=== PATIENT | male | born 1950 | race Caucasian/White ===

== ENCOUNTER 2016-12-21 21:57 | Observation (INO) | payer MEDICARE, MEDICAID ==
[2016-12-21] MEDS ORDERED: HYDROmorphone 2 MG/ML SDV IM ONE (21:58)
--- NOTE | 2016-12-21 23:25 | EDM.PDOC ---
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 He injured his left knee and is not able to extend it due to pain. He denied other injuries. No N/V/D or other acute medical issues. BP 145/100 pulse 95 Temp 36.1 Pulse ox 95% Onset: Today Onset Date: 12/21/16 Onset Time: 20:00 Duration: Hour(s):, Getting Worse Location: Reports: Lower Extremity, Left Quality: Reports: Ache, Burning, Stabbing, Throbbing Severity: Moderate Improves with: Reports: Rest Worsens with: Reports: Movement Context: Reports: Trauma (fell out of wheelchair) Associated Symptoms: Reports: Weakness, Other (left sided hemiparesis) Treatments ETL CONSULTANT: Reports: NSAIDS (toradol 30 mg i.m) Left Knee Pain Score (Numeric/FACES): 7 - Related Data Allergies Allergy/AdvReac Type Severity Reaction Status Date / Time Penicillins Allergy Anaphylactic Verified 12/22/16 00:22 Shock Home Meds: Home Meds Multivitamin/Iron/Folic Acid [Centrum Complete Multivit] 1 each PO DAILY [History] levETIRAcetam [Keppra] 250 mg PO BID 09/15/13 [History] Aspirin [Ecotrin] 325 mg PO DAILY 08/13/15 [History] Fenofibrate Nanocrystallized [Fenofibrate] 145 mg PO DAILY 08/13/15 [History] Metoprolol Tartrate 37.5 mg PO BID 08/13/15 [History] Omeprazole 20 mg PO DAILY 08/13/15 [History] amLODIPine [Norvasc] 5 mg PO DAILY 08/13/15 [History] atorvaSTATin [Lipitor] 10 mg PO DAILY 08/13/15 [History] Past Medical History HEENT History: Reports: Impaired Vision, Other (See Below) Other HEENT History: missing several teeth Cardiovascular History: Reports: Bypass, High Cholesterol, Hypertension Respiratory History: Reports: Other (See Below) Other Respiratory History: smoker Musculoskeletal History: Reports: Other (See Below) Other Musculoskeletal History: pt uses w/c post cva Neurological History: Reports: CVA, Seizure - Past Surgical History HEENT Surgical History: Reports: Oral Surgery Cardiovascular Surgical History: Reports: Coronary Artery Bypass GI Surgical History: Reports: Hernia Repair/Other Dermatological Surgical History: Reports: Other (See Below) Social & Family History - Family History Family Medical History: Noncontributory - Tobacco Use Smoking Status *Q: Current Every Day Smoker Years of Tobacco use: 48 Packs/Tins Daily: 0.1 - Caffeine Use Caffeine Use: Reports: Coffee - Recreational Drug Use Recreational Drug Use: No Review of Systems - Review of Systems Review Of Systems: See Below Constitutional: Reports: No Symptoms Eyes: Reports: No Symptoms Ears: Reports: No Symptoms Nose: Reports: No Symptoms Mouth/Throat: Reports: No Symptoms Respiratory: Reports: No Symptoms Cardiovascular: Reports: No Symptoms GI/Abdominal: Reports: No Symptoms Genitourinary: Reports: No Symptoms Musculoskeletal: Reports: Leg Pain Skin: Reports: No Symptoms Neurological: Reports: Difficulty Walking, Other (left sided hemiparesis) Psychiatric: Reports: No Symptoms ED EXAM, GENERAL - Physical Exam Exam: See Below Exam Limited By: Physical Impairment General Appearance: Alert, Moderate Distress (left knee pain), Thin Eye Exam: Bilateral Eye: Normal Inspection Ears: Normal External Exam Ear Exam: Bilateral Ear: Auricle Normal Nose: Normal Inspection Throat/Mouth: Other (dry mucosal membrane ) Head: Atraumatic, Normocephalic Neck: Normal Inspection, Supple, Non-Tender Respiratory/Chest: No Respiratory Distress, Lungs Clear (poor insp effort) Cardiovascular: Normal Peripheral Pulses, Regular Rate, Rhythm, No Edema GI/Abdominal: Normal Bowel Sounds, Soft, Non-Tender (Male) Exam: Deferred Rectal (Males) Exam: Deferred Back Exam: Normal Inspection Extremities: Joint Swelling, Leg Pain, Limited Range of Motion (left knee) Neurological: Alert, Oriented, CN II-XII Intact, Normal Cognition Psychiatric: Normal Affect, Normal Mood Skin Exam: Warm, Dry, Intact, Normal Color, No Rash Lymphatic: No Adenopathy Course - Vital Signs Text/Narrative:: 66 y.o.w.m with H/O CAD.Left sided hemiparesis, wheelchair bound, 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 He injured his left knee and is not able to extend it due to pain. He denied other injuries. No N/V/D or other acute medical issues. BP 145/100 pulse 95 Temp 36.1 Pulse ox 95% PE: Left knee pain with deformity. Left hemiplegia Imaging: Left knee x ray: Tiboplatea fx CT left knee: Minimally displaced oblique fracture of lateral femoral condyle. Impacted lateral tibial plateau Fx with .5 cm depression of plateau. small hemarthrosis. Labs: Pending Impression: Fall, Minimally displaced oblique fracture of lateral femoral condyle. Impacted lateral tibial plateau Fx with .5 cm depression of plateau. small hemarthrosis. Dehtdration, leftsided hemiplegia 11.24 pm consultation: Dr. Hutchins, Ortho: recommended CT left knee, then call back tomorrow. Plan: Admit to her Last Recorded V/S: Last Vital Signs Temp 36.6 C 12/22/16 00:00 Pulse 86 12/22/16 00:00 Resp 18 12/22/16 00:00 BP 140/98 H 12/22/16 00:00 Pulse Ox 96 12/22/16 00:00 - Orders/Labs/Meds Orders: Active Orders 24 hr Category Date Time Status Knee 3V Lt [CR] Stat Exams 12/21/16 21:58 Taken Lower Extremity wo Cont Lt [CT] Stat Exams 12/21/16 23:50 Ordered BASIC METABOLIC PANEL,BMP [CHEM] Stat Lab 12/21/16 23:52 Ordered CBC WITH AUTO DIFF [HEME] Stat Lab 12/21/16 23:52 Ordered INR,PT,PROTHROMBIN TIME [COAG] Stat Lab 12/21/16 23:52 Ordered Medication Orders Amlodipine Besylate (Norvasc) 5 mg PO DAILY [facility] Atorvastatin Calcium (Lipitor) 10 mg PO DAILY [facility] Docusate Sodium (Colace) 100 mg PO BID PRN PRN Reason: Constipation Fenofibrate (Tricor) 145 mg PO DAILY [facility] Lactated Ringer's (Ringers, Lactated) 1,000 mls @ 125 mls/hr IV ASDIRECTED [facility] Levetiracetam (Keppra) 250 mg PO BID [facility] Metoprolol Tartrate (Lopressor) 37.5 mg PO BID [facility] Morphine Sulfate (Morphine) 2 mg IVPUSH Q2H PRN PRN Reason: Pain (severe 7-10) Non-Formulary Medication (Multivitamin/Iron/Folic Acid [Centrum Complete Multivit]) 1 each PO DAILY [facility] Non-Formulary Medication (Omeprazole [Omeprazole]) 20 mg PO DAILY [facility] Ondansetron HCl (Zofran) 4 mg IV Q4H PRN PRN Reason: Nausea/Vomiting Sodium Chloride (Saline Flush) 10 ml FLUSH ASDIRECTED PRN PRN Reason: Keep Vein Open Meds: Medications Generic Name Dose Route Start Last Admin Trade Name Freq PRN Reason Stop Dose Admin Amlodipine Besylate 5 mg 12/22/16 09:00 Norvasc PO DAILY [facility] Atorvastatin Calcium 10 mg 12/22/16 09:00 Lipitor PO DAILY [facility] Docusate Sodium 100 mg 12/21/16 23:53 Colace PO BID PRN Constipation Fenofibrate 145 mg 12/22/16 09:00 Tricor PO DAILY [facility] Lactated Ringer's 1,000 mls @ 125 mls/hr 12/21/16 23:45 Ringers, Lactated IV ASDIRECTED [facility] Levetiracetam 250 mg 12/22/16 09:00 Keppra PO BID [facility] Metoprolol Tartrate 37.5 mg 12/22/16 09:00 Lopressor PO BID [facility] Morphine Sulfate 2 mg 12/21/16 23:53 Morphine IVPUSH Q2H PRN Pain (severe 7-10) Non-Formulary Medication 1 each 12/22/16 09:00 Multivitamin/Iron/Folic Acid [Centrum Complete Multivit] PO DAILY [facility] Non-Formulary Medication 20 mg 12/22/16 09:00 Omeprazole [Omeprazole] PO DAILY [facility] Ondansetron HCl 4 mg 12/21/16 23:53 Zofran IV Q4H PRN Nausea/Vomiting Sodium Chloride 10 ml 12/21/16 23:53 Saline Flush FLUSH ASDIRECTED PRN Keep Vein Open Discontinued Medications Generic Name Dose Route Start Last Admin Trade Name Freq PRN Reason Stop Dose Admin Hydromorphone HCl 1 mg 12/21/16 21:58 12/21/16 22:28 Dilaudid IM 12/21/16 21:59 1 mg ONETIME ONE Administration Departure - Departure Time of Disposition: 00:48 Disposition: Refer to Observation Condition: Fair Clinical Impression: Tibial plateau fracture, left Qualifiers: Encounter type: initial encounter Fracture type: closed Qualified Code(s): S82.142A - Displaced bicondylar fracture of left tibia, initial encounter for closed fracture - Discharge Information - My Orders Last 24 Hours: My Active Orders 12/21/16 21:58 Knee 3V Lt [CR] Stat 12/21/16 23:50 Lower Extremity wo Cont Lt [CT] Stat 12/21/16 23:52 BASIC METABOLIC PANEL,BMP [CHEM] Stat CBC WITH AUTO DIFF [HEME] Stat INR,PT,PROTHROMBIN TIME [COAG] Stat - Assessment/Plan Last 24 Hours: My Active Orders 12/21/16 21:58 Knee 3V Lt [CR] Stat 12/21/16 23:50 Lower Extremity wo Cont Lt [CT] Stat 12/21/16 23:52 BASIC METABOLIC PANEL,BMP [CHEM] Stat CBC WITH AUTO DIFF [HEME] Stat INR,PT,PROTHROMBIN TIME [COAG] Stat
[2016-12-21] MEDS ORDERED: Sodium Chloride 0.9% 10 ML Syringe FLUSH PRN (23:53)
[2016-12-21] MEDS ORDERED: Docusate Sodium 100 MG Cap PO PRN (23:53)
[2016-12-21] MEDS ORDERED: Ondansetron 4 MG/2 ML SDV IV PRN (23:53)
[2016-12-22] MEDS: Lactated Ringers 1,000 ML IV SCH ×3 (01:00→17:33)
[2016-12-22] MEDS: Morphine 2 MG/ML Syringe IVPUSH PRN ×4 (01:04→17:37)
--- NOTE | 2016-12-22 08:13 | PCM.HP ---
H&P History of Present Illness - General Date of Service: 12/22/16 Admit Problem/Dx: Admission Diagnosis/Problem Admission Diagnosis/Problem Knee injury Source of Information: Patient, Old Records, Provider History Limitations: Reports: No Limitations, Other (slurred speech from previous stroke) - History of Present Illness Initial Comments - Free Text/Narative: Patient is a 66-year-old gentleman with a history of CVA in 2017 with a left hemiplegia who lives independently in his own apartment and does all his own cares. He is in a wheelchair but does walk in the virgen daily, has no services at home. Yesterday he was smoking his once daily cigarette and when he was returning to the front door he was going too fast in his wheelchair and caught on the edge of the sidewalk. He tipped over and his left knee struck the concrete causing significant pain. He had no other pain or injuries. He was able to sit up at the time of injury and some bystanders helped him back into his wheelchair. He stayed at home until about 9 PM when the pain was so severe in his left knee he decided he come into the emergency room. He was found to have a left tibial plateau fracture and a femoral condyle fracture. He was admitted for pain management and for further treatment. The ER physician spoke with Dr. Hutchins from [facility]. Please see his note for further details. Past medical history: CVA in 2001 resulting in left hemiplegia. The patient has extremely limited use of his left arm and left leg. However he is able to ambulate. #2. CABG in 2013 with 3 vessel bypass. #3. Seizure disorder with last seizure in 2013. #4. Hyperlipidemia #5. Hypertension #6. Chronic kidney disease, unknown stage. Stage III to stage IV likely. Patient 's baseline creatinines at the clinic were 1.22 in 2014 and 1.68 in 2017. Past surgical history: CABG as above. Social history: Patient lives alone in an independent apartment. He may have some type of home health coming in once or twice a month. He smokes 1 cigarette daily. He quit smoking 2 packs per day 3 years ago. He is and has 2 children but is not in contact with either of them. Does have a couple grandchildren as well. Family history: The patient's mother in 2017 of a stroke at the age of 84. The patient's father at 64 of some type of cancer complications. The patient's daughter and son are both healthy. He has 4 healthy sisters. He has 4 brothers and 3 of whom have . One after a motor vehicle accident of complications from that. One collapsed in the bathroom either a heart attack or stroke. One was found from using drugs. Left Knee Pain Score (Numeric/FACES): 7 - Related Data Allergies/Adverse Reactions: Allergies Allergy/AdvReac Type Severity Reaction Status Date / Time Penicillins Allergy Anaphylactic Verified 12/22/16 00:22 Shock Home Medications: Home Meds Multivitamin/Iron/Folic Acid [Centrum Complete Multivit] 1 each PO DAILY [History] levETIRAcetam [Keppra] 250 mg PO BID 09/15/13 [History] Aspirin [Ecotrin] 325 mg PO DAILY 08/13/15 [History] Fenofibrate Nanocrystallized [Fenofibrate] 145 mg PO DAILY 08/13/15 [History] Metoprolol Tartrate 37.5 mg PO BID 08/13/15 [History] Omeprazole 20 mg PO DAILY 08/13/15 [History] amLODIPine [Norvasc] 5 mg PO DAILY 08/13/15 [History] atorvaSTATin [Lipitor] 10 mg PO DAILY 08/13/15 [History] Past Medical History HEENT History: Reports: Impaired Vision, Other (See Below) Other HEENT History: missing several teeth Cardiovascular History: Reports: Bypass (, 2013), High Cholesterol, Hypertension Respiratory History: Reports: Other (See Below) Other Respiratory History: smoker Musculoskeletal History: Reports: Other (See Below) Other Musculoskeletal History: pt uses w/c post cva, left hemiplegia Neurological History: Reports: CVA, Seizure (most recent 2011) - Past Surgical History HEENT Surgical History: Reports: Oral Surgery Cardiovascular Surgical History: Reports: Coronary Artery Bypass GI Surgical History: Reports: Hernia Repair/Other Dermatological Surgical History: Reports: Other (See Below) Social & Family History - Family History Family Medical History: Noncontributory - Tobacco Use Smoking Status *Q: Current Every Day Smoker Years of Tobacco use: 48 Packs/Tins Daily: 0.1 - Caffeine Use Caffeine Use: Reports: Coffee - Alcohol Use Alcohol Use History: No Days Per Week of Alcohol Use: 0 (Quit 2013) Alcohol Use Frequency: Not Used in Over 1 Year - Recreational Drug Use Recreational Drug Use: No H&P Review of Systems - Review of Systems: Review Of Systems: See Below General: Reports: No Symptoms HEENT: Reports: No Symptoms, Glasses Pulmonary: Reports: No Symptoms Cardiovascular: Reports: No Symptoms Gastrointestinal: Reports: No Symptoms Genitourinary: Reports: No Symptoms Musculoskeletal: Reports: Joint Pain (left knee pain since fall) Skin: Reports: No Symptoms Psychiatric: Reports: No Symptoms Neurological: Reports: No Symptoms, Other (weakness left arm and leg from CVA) Hematologic/Lymphatic: Reports: No Symptoms Immunologic: Reports: No Symptoms Exam - Exam Exam: See Below - Vital Signs Vital Signs: Last Vital Signs Temp 36.8 C 12/22/16 00:15 Pulse 87 12/22/16 00:15 Resp 18 12/22/16 00:15 BP 142/98 H 12/22/16 00:15 Pulse Ox 97 12/22/16 00:15 Weight: 75.251 kg - Exam General: Alert, Oriented, Cooperative (garrulous but not tangential) HEENT: PERRLA, Conjunctiva Clear, Mucosa Moist & [place], Posterior Pharynx Clear, TMs Clear, Other (poor dentition) Neck: Supple Lungs: Clear to Auscultation, Normal Respiratory Effort Cardiovascular: Regular Rate, Regular Rhythm, Normal S1, Normal S2 GI/Abdominal Exam: Normal Bowel Sounds, Soft, Non-Tender, No Distention Extremities: No Pedal Edema, Other (peripheral pulses intact bilaterally. good capillary refill and normal color. ) Skin: Warm, Dry, Intact Psychiatric: Alert - Patient Data Lab Results Last 24 hrs: Laboratory Results - last 24 hr 12/22/16 12/22/16 12/22/16 Range/Units 00:55 00:55 00:55 WBC 16.4 H (4.5-12.0) X10-3/uL RBC 4.30 (4.30-5.75) x10(6)uL Hgb 12.9 (11.5-15.5) g/dL Hct 38.4 (30.0-51.3) % MCV 89.2 (80-96) fL MCH 30.1 (27.7-33.6) pg MCHC 33.8 (32.2-35.4) g/dL RDW 14.7 (11.5-15.5) % Plt Count 348 (125-369) X10(3)uL MPV 8.1 (7.4-10.4) fL Neut % (Auto) 84.1 H (46-82) % Lymph % (Auto) 10.5 L (13-37) % Towner % (Auto) 4.8 (4-12) % Eos % (Auto) 0 L (1.0-5.0) % Baso % (Auto) 0 (0-2) % Neut # (Auto) 13.9 H (1.6-8.3) # Lymph # (Auto) 1.7 (0.6-5.0) # Towner # (Auto) 0.8 (0.0-1.3) # Eos # (Auto) 0.0 (0.0-0.8) # Baso # (Auto) 0.0 (0.0-0.2) # PT 11.1 (8.7-11.1) INR 1.10 (0.89-1.13) Sodium 136 (135-145) mmol/L Potassium 3.7 (3.5-5.3) mmol/L Chloride 105 (100-110) mmol/L Carbon Dioxide 20 L (23-29) mmol/L BUN 17 (8-23) mg/dL Creatinine 2.1 H* (0.6-1.3) mg/dL Est Cr Clr Drug Dosing 33.80 mL/min Estimated GFR (MDRD) 32 L (>60) BUN/Creatinine Ratio 8.1 L (9-20) Glucose 131 H (80-116) mg/dL Calcium 9.2 (8.6-10.2) mg/dL Result Diagrams: 12/22/16 00:55 12/22/16 00:55 *Q Meaningful Use (ADM) - VTE *Q VTE Criteria *Q: - Stroke *Q Stroke Criteria *Q: - AMI *Q AMI Criteria *Q: - Problem List (1) Tibial plateau fracture, left SNOMED Code(s): 164461718 ICD Code: S82.142A - DISPLACED BICONDYLAR FRACTURE OF LEFT TIBIA, INIT Status: Acute Current Visit: Yes Problem Details: Spoke with Dr. Gonzalez from [facility]. He also saw a femoral condylar fx. He recommended 2 options. The first is for the patient to have nonoperative management. He would be minimally weightbearing, need his knee immobilized when he is transferring or op using a walker. We will do a follow-up x-ray weekly to make sure the bones don't move and see him in the clinic in 1 week. The other option is to go to [place] and discuss surgical treatment. The only advantage to surgical treatment would be possibly sooner full weightbearing. However the patient has a lot of arthritis in his knee and Dr. Gonzalez didn't feel there was any other benefit to surgery. The patient would prefer not to have surgery. He is adamant he wants to go home as soon as possible. We will work on oral pain medicine pain control, physical therapy, and as soon as the patient can safely be mobilized on his own he can go home. He already uses a wheelchair at home. He does have the option of swing bed if needed. Stool softeners and oxycodone were ordered. Qualifiers: Encounter type: initial encounter Fracture type: closed Qualified Code(s) : S82.142A - Displaced bicondylar fracture of left tibia, initial encounter for closed fracture (2) CAD (coronary artery disease) SNOMED Code(s): 66793519 ICD Code: I25.10 - ATHSCL HEART DISEASE OF [place] CORONARY ARTERY W/O ANG PCTRS Status: Acute Current Visit: Yes Problem Details: Patient asxs. Ambulates daily 330 feet without pain, but is mostly in the wheelchair. S/P CABG x4. Monitor. (3) HTN (hypertension) SNOMED Code(s): 49256136 ICD Code: I10 - ESSENTIAL (PRIMARY) HYPERTENSION Status: Acute Current Visit: Yes Problem Details: Continue norvasc, metoprolol. (4) Hyperlipidemia SNOMED Code(s): 72578572 ICD Code: E78.5 - HYPERLIPIDEMIA, UNSPECIFIED Status: Acute Current Visit : Yes Problem Details: I am going to continue lipitor, hold fenofibrate. (5) DVT prophylaxis SNOMED Code(s): 679140192 ICD Code: [id number] - Status: Acute Current Visit: Yes Problem Details: SQ heparin per protocol. Problem List Initiated/Reviewed/Updated: Yes Orders Last 24hrs: Active Orders 24 hr Category Date Time Status Immobilizer [RC] ASDIRECTED Care 11/06/17 01:17 Active Fenofibrate Nanocrystallized [Tricor] Med 12/22/16 09:00 Active 145 mg PO DAILY Metoprolol Tartrate [Lopressor] Med 12/22/16 09:00 Active 37.5 mg PO BID Multivitamin/Iron/Folic Acid [Centrum Complete Multivit Med 12/22/16 09:00 Active ] 1 each PO DAILY Omeprazole [Omeprazole] Med 12/22/16 09:00 Active 20 mg PO DAILY amLODIPine [Norvasc] Med 12/22/16 09:00 Active 5 mg PO DAILY atorvaSTATin [Lipitor] Med 12/22/16 09:00 Active 10 mg PO DAILY levETIRAcetam [Keppra] Med 12/22/16 09:00 Active 250 mg PO BID Medication Orders Amlodipine Besylate (Norvasc) 5 mg PO DAILY [facility] Atorvastatin Calcium (Lipitor) 10 mg PO DAILY [facility] Docusate Sodium (Colace) 100 mg PO BID PRN PRN Reason: Constipation Fenofibrate (Tricor) 145 mg PO DAILY [facility] Lactated Ringer's (Ringers, Lactated) 1,000 mls @ 125 mls/hr IV ASDIRECTED [facility] Last Admin: 12/22/16 01:00 Dose: 125 mls/hr Levetiracetam (Keppra) 250 mg PO BID [facility] Metoprolol Tartrate (Lopressor) 37.5 mg PO BID [facility] Morphine Sulfate (Morphine) 2 mg IVPUSH Q2H PRN PRN Reason: Pain (severe 7-10) Last Admin: 12/22/16 01:04 Dose: 2 mg Non-Formulary Medication (Multivitamin/Iron/Folic Acid [Centrum Complete Multivit]) 1 each PO DAILY [facility] Non-Formulary Medication (Omeprazole [Omeprazole]) 20 mg PO DAILY [facility] Ondansetron HCl (Zofran) 4 mg IV Q4H PRN PRN Reason: Nausea/Vomiting Sodium Chloride (Saline Flush) 10 ml FLUSH ASDIRECTED PRN PRN Reason: Keep Vein Open Last Admin: 12/22/16 01:05 Dose: 10 ml Assessment/Plan Comment:: Patient states that if he were to be receiving treatment and get so sick he dies in spite of it, or if his heart were to stop beating due to a heart attack , he would not want CPR or chest compressions, electric shocks or drugs given ( heroics) to bring him back to life. However, he does otherwise want full medical care. Is aware that if he goes to the OR, he will be a full code for the 24 hours during and following the procedure. Discussed at length.
[2016-12-22] MEDS ORDERED: Fenofibrate Nanocrystallized 145 MG Tab PO SCH (09:00)
--- NOTE | 2016-12-22 10:23 | CR ---
INDICATION: Trauma. Wheelchair tipped over and landed on left knee, which is swollen. LEFT KNEE: Three views of the left knee were obtained and revealed an oblique fracture extending through the intercondylar area of the femur along its lateral aspect and extending obliquely and cranially through the supracondylar area of the distal left femoral metaphysis. Position and alignment appears to be adequate. There also appears to be a fracture through the lateral tibial plateau extending from the intercondylar spine laterally with some depression of the anterior tibial plateau. The patella appears to be intact. Joint spaces appear to be fairly well maintained, except for question of mild loss of medial femorotibial joint space. IMPRESSION: Tibial and femoral fractures as noted above. Report faxed to the film room at [facility]. LEVAR
[2016-12-22] MEDS: Heparin Sodium 5,000 Units/ML Vial SUBCUT SCH ×2 (10:25→20:00)
[2016-12-22] MEDS: Metoprolol Tartrate 25 MG Tab *PTOM PO SCH ×2 (10:26→20:03)
[2016-12-22] MEDS: LEVETIRACETAM 250 MG PO SCH ×2 (10:26→20:02)
[2016-12-22] MEDS: Docusate Sodium 100 MG Cap PO SCH ×2 (10:29→20:00)
[2016-12-22] MEDS: atorvaSTATin 10 MG Tab *PTOM PO SCH (13:27)
[2016-12-22] MEDS: Omeprazole 20 MG *PTOM PO SCH (13:27)
[2016-12-23] MEDS: Morphine 2 MG/ML Syringe IVPUSH PRN (01:49)
[2016-12-23] MEDS: Lactated Ringers 1,000 ML IV SCH (01:52)
[2016-12-23] MEDS: Acetaminophen/oxyCODONE 325-5 MG Tab PO PRN ×3 (04:56→13:23)
[2016-12-23] MEDS: LEVETIRACETAM 250 MG PO SCH (09:20)
[2016-12-23] MEDS: atorvaSTATin 10 MG Tab *PTOM PO SCH (09:21)
[2016-12-23] MEDS: Omeprazole 20 MG *PTOM PO SCH (09:22)
[2016-12-23] MEDS: Metoprolol Tartrate 25 MG Tab *PTOM PO SCH (09:22)
[2016-12-23] MEDS: Heparin Sodium 5,000 Units/ML Vial SUBCUT SCH (09:23)
[2016-12-23] MEDS: Docusate Sodium 100 MG Cap PO SCH (09:23)
--- NOTE | 2016-12-23 11:54 | PCM.DCSUM1 ---
Discharge Summary - Hospital Course Free Text/Narrative:: Date of admission: 12/21/16 Date of discharge 12/23/16 Admission Dx:Fall with 4 mm depressed concave impaction fracture anterior lateral left tibial plateau and incomplete vertical longitudinal fracture through the intracondylar left femur. Discharge Dx: Fall with 4 mm depressed concave impaction fracture anterior lateral left tibial plateau and incomplete vertical longitudinal fracture through the intracondylar left femur. Consults: Orthopedics by phone at [place]. Dr. Gonzalez recommended conservative management versus surgical management. Risks and benefits were discussed. Patient opted for conservative management with toe-touch weightbearing, immobilizer when up, physical therapy and occupational therapy, and oral pain management. Dr. Gonzalez recommended follow-up in 1 week with an office visit with him and x-rays at that time. Patient should have weekly x-rays or per Dr. Gonzalez's recommendations after next week's visit. Procedures: CT scan of the left knee with results as noted above. History of present illness: Patient is a 66-year-old male with prior history of CVA with left hemiplegia who is for the most part wheelchair bound but still does walk per his report daily for exercise in his apartment building. He was outside having his once daily cigarette in his wheelchair and when he was wheeling back to the front door took the corner too quickly and caught the wheel on the edge of the sidewalk which resulted in his wheelchair tipping over and his left knee hit the concrete. He had no other injuries. He was able to sit up on his own and a bystander helped him get back into his wheelchair. Hospital course: Patient was given some IV fluids and IV pain medicine initially. He did well with this. He was changed to oxycodone and tolerated this well. PT and OT assessed the patient and provided him with a knee immobilizer. He also was observed getting in and out of his wheelchair and doing transfers which he was able to do successfully. He was offered the opportunity to do swing bed placement for short-term rehabilitation and pain management and he declined. Discharge instructions: Patient will be discharged home with home health. He was seen on the day of discharge for the above fracture which is his reason for home care services to be increased from his baseline. He will need physical therapy and on going occupational therapy for evaluating and treating his function for this fracture. The patient is home bound and unable to drive because of his chronic disability. I would like to have him seen daily for the next 3 days to assess the knee immobilizer placement and skin integrity because of his left arm weakness from his stroke and to ensure he is able to manage it adequately and that he is able to get around in his apartment safely. I would like him seen weekly for the next 4-6 weeks until his fracture has healed. Oxycodone for pain. 1 week follow-up with Dr. [facility] with x-rays. One week follow -up with primary care with a basic metabolic panel and CBC. - Discharge Data Discharge Date: 12/23/16 Discharge Disposition: Home, Home Health Agency 06 Condition: Fair - Discharge Diagnosis/Problem(s) (1) Tibial plateau fracture, left SNOMED Code(s): 177351139 ICD Code: S82.142A - DISPLACED BICONDYLAR FRACTURE OF LEFT TIBIA, INIT Status: Acute Current Visit: Yes Problem Details: Official CT report showed a 4 mm depressed concave impaction fracture anterior lateral left tibial plateau , and incomplete vertical longitudinal fracture through the intracondylar left femur. Knee immobilizer in place. Patient instructed on loosening at night and tightening when up during the day. Home health daily for 3 days then weekly for 4-6 weeks until fracture is healed. Physical therapy/occupational therapy at home to assist with ADLs and assess function. Follow up with Dr. Gonzalez in 1 week with x-ray at that visit. Follow-up with PCP later this week. Qualifiers: Encounter type: initial encounter Fracture type: closed Qualified Code(s) : S82.142A - Displaced bicondylar fracture of left tibia, initial encounter for closed fracture (2) CAD (coronary artery disease) SNOMED Code(s): 58624824 ICD Code: I25.10 - ATHSCL HEART DISEASE OF [place] CORONARY ARTERY W/O ANG PCTRS Status: Acute Current Visit: Yes Problem Details: Asymptomatic throughout hospitalization. Continue outpatient medications. (3) HTN (hypertension) SNOMED Code(s): 53882445 ICD Code: I10 - ESSENTIAL (PRIMARY) HYPERTENSION Status: Acute Current Visit: Yes Problem Details: Continue norvasc, metoprolol. (4) Hyperlipidemia SNOMED Code(s): 05443647 ICD Code: E78.5 - HYPERLIPIDEMIA, UNSPECIFIED Status: Acute Current Visit : Yes Problem Details: Continue home meds. (5) DVT prophylaxis SNOMED Code(s): 132144758 ICD Code: [id number] - Status: Acute Current Visit: Yes Problem Details: SQ heparin per protocol. (6) CKD (chronic kidney disease) stage 4, GFR 15-29 ml/min SNOMED Code(s): 556445845 ICD Code: N18.4 - CHRONIC KIDNEY DISEASE, STAGE 4 (SEVERE) Status: Acute Current Visit: Yes Problem Details: Recheck in outpatient setting. Creatinine here was 1.6. - Patient Summary/Data Consults: Consultations 12/22/16 08:21 PT Evaluation and Treatment [CONS] Routine Please Evaluate and Treat. PT Reason for Consult: Ambulation Special Instructions: knee immobilization in current position This query below is only for informational purposes and is not editable. Admission Diagnosis/Problem: Knee injury Hospital Course: On the day of discharge, patient was feeling well. Pain was well-controlled. He had no nausea or vomiting, no confusion with the oxycodone. No chest pain, no shortness of breath. Physical therapy and occupational therapy has assessed him and worked with him on the knee immobilizer. I spoke with Lorie from his home health and gave her my recommendations verbally. Physical exam on the date of discharge: Vital signs were stable with temperature 36.6, heart rate 74, blood pressure 115/70, respiratory rate 18, O2 sats 95% on room air. Head was atraumatic, normocephalic. Pupils equally round and reactive. Neck supple, no lymphadenopathy. Lungs clear to auscultation. Heart tones regular with normal rate and rhythm, no murmurs. Abdomen soft, nontender, nondistended. Extremities showed intact pedal pulses. Good capillary refill. No edema on the right, trace edema on the left. Knee immobilizer was in place and I showed the patient again how to loosen the Velcro straps for at night. - Patient Instructions Activity: Partial Weight Bearing (toe touch only until seen by ortho in follow up.) Driving: Do Not Drive Showering/Bathing: May Shower Notify Provider of: Increased Pain, Nausea and/or Vomiting - Discharge Plan Prescriptions/Med Rec: Acetaminophen/oxyCODONE [Percocet 325-5 MG] 1 tab PO Q4H PRN 5 Days #20 tablet PRN Reason: knee pain Docusate Sodium [Colace] 100 mg PO BID 30 Days #60 cap Home Medications: Home Meds Multivitamin/Iron/Folic Acid [Centrum Complete Multivit] 1 each PO DAILY [History] levETIRAcetam [Keppra] 250 mg PO BID 09/15/13 [History] Aspirin [Ecotrin] 325 mg PO DAILY 08/13/15 [History] Fenofibrate Nanocrystallized [Fenofibrate] 145 mg PO DAILY 08/13/15 [History] Metoprolol Tartrate 37.5 mg PO BID 08/13/15 [History] Omeprazole 20 mg PO DAILY 08/13/15 [History] amLODIPine [Norvasc] 5 mg PO DAILY 08/13/15 [History] atorvaSTATin [Lipitor] 10 mg PO DAILY 08/13/15 [History] Acetaminophen/oxyCODONE [Percocet 325-5 MG] 1 tab PO Q4H PRN 5 Days #20 tablet 12/23/16 [Rx] Docusate Sodium [Colace] 100 mg PO BID 30 Days #60 cap 12/23/16 [Rx] Patient Handouts: Deep Vein Thrombosis Forms: ED Department Discharge Referrals: Kevin Maynard MD [Primary Care Provider] - - Discharge Summary/Plan Comment DC Time >30 min.: Yes - Patient Data Vitals - Most Recent: Last Vital Signs Temp 36.6 C 12/23/16 04:00 Pulse 71 12/23/16 09:22 Resp 18 12/23/16 04:00 BP 152/75 H 12/23/16 09:22 Pulse Ox 95 12/23/16 04:00 Weight - Most Recent: 75.251 kg I&O - Last 24 hours: Intake & Output 12/22/16 12/23/16 12/23/16 22:59 06:59 14:59 Intake Total 1888 994 Balance 1888 994 Lab Results - Last 24 hrs: Laboratory Results - last 24 hr 12/23/16 12/23/16 Range/Units 06:30 06:30 WBC 10.2 (4.5-12.0) X10-3/uL RBC 3.68 L (4.30-5.75) x10(6)uL Hgb 11.3 L (11.5-15.5) g/dL Hct 32.9 (30.0-51.3) % MCV 89.4 (80-96) fL MCH 30.7 (27.7-33.6) pg MCHC 34.3 (32.2-35.4) g/dL RDW 14.4 (11.5-15.5) % Plt Count 292 (125-369) X10(3)uL MPV 8.1 (7.4-10.4) fL Neut % (Auto) 68.8 (46-82) % Lymph % (Auto) 21.3 (13-37) % [place] % (Auto) 7.1 (4-12) % Eos % (Auto) 2 (1.0-5.0) % Baso % (Auto) 1 (0-2) % Neut # (Auto) 7.0 (1.6-8.3) # Lymph # (Auto) 2.2 (0.6-5.0) # [place] # (Auto) 0.7 (0.0-1.3) # Eos # (Auto) 0.2 (0.0-0.8) # Baso # (Auto) 0.1 (0.0-0.2) # Sodium 141 (135-145) mmol/L Potassium 3.6 (3.5-5.3) mmol/L Chloride 111 H D (100-110) mmol/L Carbon Dioxide 22 L (23-29) mmol/L BUN 18 (8-23) mg/dL Creatinine 1.6 H (0.6-1.3) mg/dL Est Cr Clr Drug Dosing 44.37 mL/min Estimated GFR (MDRD) 44 L (>60) BUN/Creatinine Ratio 11.3 (9-20) Glucose 98 (80-116) mg/dL Calcium 8.5 L (8.6-10.2) mg/dL Med Orders - Current: Current Medications Amlodipine Besylate (Norvasc) 5 mg PO DAILY [facility] Last Admin: 12/23/16 09:21 Dose: 5 mg Atorvastatin Calcium (Lipitor) 10 mg PO DAILY [facility] Last Admin: 12/23/16 09:21 Dose: 10 mg Docusate Sodium (Colace) 100 mg PO BID PRN PRN Reason: Constipation Docusate Sodium (Colace) 100 mg PO BID [facility] Last Admin: 12/23/16 09:23 Dose: 100 mg Heparin Sodium (Porcine) (Heparin Sodium) 5,000 units SUBCUT Q12H [facility] Last Admin: 12/23/16 09:23 Dose: 5,000 units Levetiracetam (Keppra) 250 mg PO BID [facility] Last Admin: 12/23/16 09:20 Dose: 250 mg Metoprolol Tartrate (Lopressor) 37.5 mg PO BID [facility] Last Admin: 12/23/16 09:22 Dose: 37.5 mg Non-Formulary Medication (Multivitamin/Iron/Folic Acid [Centrum Complete Multivit]) 1 each PO DAILY [facility] Last Admin: 12/23/16 09:23 Dose: 1 each Omeprazole 20 Mg * (Ptom) 20 mg PO DAILY [facility] Last Admin: 12/23/16 09:22 Dose: 20 mg Ondansetron HCl (Zofran) 4 mg IV Q4H PRN PRN Reason: Nausea/Vomiting Oxycodone/Acetaminophen (Percocet 325-5 Mg) 1 tab PO Q4H PRN PRN Reason: Pain Last Admin: 12/23/16 09:27 Dose: 1 tab Sodium Chloride (Saline Flush) 10 ml FLUSH ASDIRECTED PRN PRN Reason: Keep Vein Open Last Admin: 12/22/16 01:05 Dose: 10 ml Discontinued Medications Fenofibrate (Tricor) 145 mg PO DAILY [facility] Hydromorphone HCl (Dilaudid) 1 mg IM ONETIME ONE Stop: 12/21/16 21:59 Last Admin: 12/21/16 22:28 Dose: 1 mg Lactated Ringer's (Ringers, Lactated) 1,000 mls @ 125 mls/hr IV ASDIRECTED [facility] Last Admin: 12/23/16 01:52 Dose: 125 mls/hr Morphine Sulfate (Morphine) 2 mg IVPUSH Q2H PRN PRN Reason: Pain (severe 7-10) Last Admin: 12/23/16 01:49 Dose: 2 mg *Q Meaningful Use (DIS) - VTE *Q VTE Criteria *Q: - Stroke *Q Stroke Criteria *Q: - AMI *Q AMI Criteria *Q:
[2016-12-23 12:33] VITALS: BP 135/75
== END 2016-12-23 13:45 | disposition home health service (06) ==
LOC: FB.ED 21:57 → FB.MS 23:53
PROVIDERS: ADMIT Family Medicine; ATTEND Family Medicine
DX: S82.142A Displaced bicondylar fracture of left tibia, initial encounter for closed fracture (principal); N18.4 Chronic kidney disease, stage 4 (severe); I12.9 Hypertensive chronic kidney disease with stage 1 through stage 4 chronic kidney disease, or unspecified chronic kidney disease; I25.10 Atherosclerotic heart disease of native coronary artery without angina pectoris; E78.5 Hyperlipidemia, unspecified; Z79.82 Long term (current) use of aspirin; Z79.899 Other long term (current) drug therapy; Z88.0 Allergy status to penicillin; Z95.1 Presence of aortocoronary bypass graft; Z98.890 Other specified postprocedural states; F17.210 Nicotine dependence, cigarettes, uncomplicated; W05.0XXA Fall from non-moving wheelchair, initial encounter
CPT/HCPCS: 36415; 73562; 73700; 80048; 85025; 85610; 96372; 97162; 97530; 99284; A9270; J1170; J1644; J2270; J7050; J7120; 96361; 96374; 96376; 99217; 99219; G0378

== ENCOUNTER 2018-07-19 16:19 | Observation (INO) | payer MEDICAID, MEDICARE ==
--- NOTE | 2018-07-19 16:31 | EDM.PDOC ---
ED HPI GENERAL MEDICAL PROBLEM - General Stated Complaint: LT ANKLE Time Seen by Provider: 07/19/18 16:19 Source of Information: Reports: Patient, EMS History Limitations: Reports: Physical Impairment - History of Present Illness INITIAL COMMENTS - FREE TEXT/NARRATIVE: 68 y.o.w.m with left sided hemiparesis, came by EMS to [facility] ED because of left ankle pain and swelling. Pt does not remember the mechanism of injury of his left ankle. No N/V/D or any other acute med issues. BP 125/71 RR 14 pulse ox OX 94% ON RA, Temp 36.8 Pulse 73 Onset Date: 07/19/18 Onset Time: 10:00 Duration: Hour(s):, Getting Worse Location: Reports: Lower Extremity, Left Quality: Reports: Ache, Throbbing Severity: Moderate Improves with: Reports: Rest Worsens with: Reports: Movement Context: Reports: Trauma Associated Symptoms: Reports: Weakness, Other (legft hemiparesis) Left Ankle Pain Score (Numeric/FACES): 4 - Related Data Allergies Allergy/AdvReac Type Severity Reaction Status Date / Time Penicillins Allergy Anaphylactic Verified 12/11/17 21:25 Shock Home Meds: Home Meds Multivitamin/Iron/Folic Acid [Centrum Complete Multivit] 1 each PO DAILY [History] levETIRAcetam [Keppra] 250 mg PO BID 09/15/13 [History] Aspirin [Ecotrin] 325 mg PO DAILY 08/13/15 [History] Fenofibrate Nanocrystallized [Fenofibrate] 145 mg PO DAILY 08/13/15 [History] Metoprolol Tartrate 37.5 mg PO BID 08/13/15 [History] amLODIPine [Norvasc] 5 mg PO DAILY 08/13/15 [History] atorvaSTATin [Lipitor] 10 mg PO DAILY 08/13/15 [History] Acetaminophen/HYDROcodone [Olpe 325-5 MG] 1 tab PO Q4H PRN #20 tablet 12/14/17 [Rx] Past Medical History HEENT History: Reports: Impaired Vision, Other (See Below) Other HEENT History: missing several teeth Cardiovascular History: Reports: Bypass, High Cholesterol, Hypertension Respiratory History: Reports: Other (See Below) Other Respiratory History: smoker Musculoskeletal History: Reports: Other (See Below) Other Musculoskeletal History: pt uses w/c post cva, left hemiplegia Neurological History: Reports: CVA, Seizure - Past Surgical History HEENT Surgical History: Reports: Oral Surgery Cardiovascular Surgical History: Reports: Coronary Artery Bypass GI Surgical History: Reports: Hernia Repair/Other Dermatological Surgical History: Reports: Other (See Below) Social & Family History - Family History Family Medical History: Noncontributory - Caffeine Use Caffeine Use: Reports: None Review of Systems - Review of Systems Review Of Systems: Unable To Obtain ED EXAM, GENERAL - Physical Exam Exam: See Below Exam Limited By: Physical Impairment General Appearance: Alert, Mild Distress, Cachetic Eye Exam: Bilateral Eye: Normal Inspection Ears: Normal External Exam Ear Exam: Bilateral Ear: Auricle Normal Nose: Normal Inspection Throat/Mouth: Normal Inspection, Normal Lips, No Airway Compromise Head: Atraumatic, Normocephalic Neck: Normal Inspection, Supple, Non-Tender, Full Range of Motion Respiratory/Chest: No Respiratory Distress, Lungs Clear, Normal Breath Sounds Cardiovascular: Normal Peripheral Pulses, Regular Rate, Rhythm, No Edema, No Gallop Peripheral Pulses: 2+: Brachial (R) GI/Abdominal: Normal Bowel Sounds, Soft, Non-Tender (Male) Exam: Deferred Rectal (Males) Exam: Deferred Back Exam: Normal Inspection, Full Range of Motion Extremities: Normal Capillary Refill, Limited Range of Motion (left hemiparesis , deformoity left ankle) Neurological: Alert, Oriented, CN II-XII Intact Psychiatric: Normal Affect, Normal Mood Skin Exam: Warm, Dry, Intact, Normal Color Lymphatic: No Adenopathy Course - Vital Signs Text/Narrative:: 68 y.o.w.m with left sided hemiparesis, came by EMS to [facility] ED because of left ankle pain and swelling. Pt does not remember the mechanism of injury of his left ankle. No N/V/D or any other acute med issues. BP 125/71 RR 14 pulse ox OX 94% ON RA, Temp 36.8 Pulse 73 PE: Cachectic, unkempt 68 y.o.w.m with left sided hemiparesis and deformity of left ankle Imaging: Bi malleolar Fx with minimal displacement as per RAD Impression: Bi malleolar Fx with minimal displacement as per RAD Tx: Splint applied, Morphine, hydrocodone 5.45 pm Consultation: Dr. Staton, Ortho: Apply splint, admit to her, will du surgery tomorrow Reexam: Pt was stable in the ED Plan: Admit to her. Last Recorded V/S: Last Vital Signs Temp 36.7 C 07/19/18 23:00 Pulse 88 07/19/18 23:00 Resp 18 07/19/18 23:00 BP 131/71 07/19/18 23:00 Pulse Ox 93 L 07/19/18 23:00 - Orders/Labs/Meds Orders: Active Orders 24 hr Category Date Time Status Ankle Min 3V Lt [CR] Stat Exams 07/19/18 16:27 Taken Medication Orders Hydrocodone Bitart/Acetaminophen ([place] 325-5 Mg) 1 tab PO Q4H PRN PRN Reason: Pain Last Admin: 07/19/18 23:09 Dose: 1 tab Levetiracetam (Keppra) 250 mg PO BID [facility] Last Admin: 07/19/18 22:21 Dose: 250 mg Morphine Sulfate (Morphine) 2 mg IVPUSH Q2H PRN PRN Reason: Pain (severe 7-10) Last Admin: 07/19/18 20:08 Dose: 2 mg Sodium Chloride (Saline Flush) 10 ml FLUSH ASDIRECTED PRN PRN Reason: Pain (moderate 4-6) Last Admin: 07/19/18 22:21 Dose: 10 ml Meds: Medications Generic Name Dose Route Start Last Admin Trade Name Freq PRN Reason Stop Dose Admin Hydrocodone Bitart/Acetaminophen 1 tab 07/19/18 20:55 07/19/18 23:09 Ol[place] 325-5 Mg PO 1 tab Q4H PRN Administration Pain Levetiracetam 250 mg 07/19/18 21:00 07/19/18 22:21 Keppra PO 250 mg BID [facility] Administration Morphine Sulfate 2 mg 07/19/18 18:33 07/19/18 20:08 Morphine IVPUSH 2 mg Q2H PRN Administration Pain (severe 7-10) Sodium Chloride 10 ml 07/19/18 20:01 07/19/18 22:21 Saline Flush FLUSH 10 ml ASDIRECTED PRN Administration Pain (moderate 4-6) Discontinued Medications Generic Name Dose Route Start Last Admin Trade Name Freq PRN Reason Stop Dose Admin Morphine Sulfate 2 mg 07/19/18 18:02 07/19/18 18:10 Morphine IM 07/19/18 18:03 2 mg ONETIME ONE Administration Departure - Departure Time of Disposition: 17:00 Disposition: Refer to Observation Condition: Fair Clinical Impression: Bimalleolar ankle fracture Qualifiers: Encounter type: initial encounter Fracture type: closed Laterality: left Qualified Code(s): S82.842A - Displaced bimalleolar fracture of left lower leg, initial encounter for closed fracture - Discharge Information - My Orders Last 24 Hours: My Active Orders 07/19/18 16:27 Ankle Min 3V Lt [CR] Stat - Assessment/Plan Last 24 Hours: My Active Orders 07/19/18 16:27 Ankle Min 3V Lt [CR] Stat
[2018-07-19] MEDS ORDERED: Morphine 2 MG/ML Syringe IM ONE (18:02)
[2018-07-19] MEDS ORDERED: Morphine 2 MG/ML Syringe IVPUSH PRN (18:33)
[2018-07-19] MEDS ORDERED: Sodium Chloride 0.9% 10 ML Syringe FLUSH PRN (20:01)
[2018-07-19] MEDS: LEVETIRACETAM 250 MG PO SCH (22:21)
[2018-07-19] MEDS: Acetaminophen/HYDROcodone 325-5 MG Tab PO PRN (23:09)
[2018-07-20] MEDS: Acetaminophen/HYDROcodone 325-5 MG Tab PO PRN ×3 (07:45→21:20)
--- NOTE | 2018-07-20 08:41 | CR ---
INDICATION: LEFT ANKLE: Three views of the left ankle revealed decreased bone density compatible with osteomalacia or osteoporosis with comminuted fractures through the distal shaft--metaphysis of the tibia and metaphysis of the fibula. Position and alignment of the fracture fragments appears to be adequate. The ankle mortise appeared to be fairly intact allowing for the degree of comminution of the fractures. Moderate sized plantar calcaneus spur is also noted. Soft tissue swelling is present about the ankle especially medially. IMPRESSION: Distal tibial and fibular fractures comminuted with satisfactory position and alignment suggested. Report was called to Dr. Howard at 1730 hours. [facility]
[2018-07-20] MEDS: AMLODIPINE 5 MG PO SCH (13:16)
[2018-07-20] MEDS: ASPIRIN 325 MG PO SCH (13:16)
[2018-07-20] MEDS: ATORVASTATIN 10 MG PO SCH (13:16)
[2018-07-20] MEDS: LEVETIRACETAM 250 MG PO SCH ×2 (13:16→21:14)
[2018-07-20] MEDS: FENOFIBRATE NANOCRYSTALLIZED 145 MG PO SCH (13:18)
[2018-07-20] MEDS: Metoprolol Tartrate 25 MG Tab*PTOM PO SCH ×2 (13:19→21:15)
--- NOTE | 2018-07-20 17:28 | HP ---
ADMISSION DATE: 07/19/2018 HISTORY OF PRESENT ILLNESS: Khadar Casiano is a 68-year-old male, resident of [place], [place], who was brought to [facility]. He was seen by Dr. Jaciel Howard. He had a recent fall and injured his ankle, a couple of days before increasing pain and discomfort. Upon admission, complicated swelling was present. Radiographs revealed bimalleolar fracture, comminuted, in satisfactory position and alignment. Seen by Dr. Michael Staton, Orthopedics. Splint was placed and admitted for observation. Compound issue, of course, is his profound left upper extremity and moderately affected lower extremity hemiparesis due to CVA from 2001. Admitted for intervention. HOME MEDICATIONS: Include: 1. Amlodipine 5 mg 1 p.o. daily, blood pressure. 2. Aspirin 325, 1 p.o. daily, stroke prevention. 3. Atorvastatin 10 mg 1 p.o. daily, hyperlipidemia. 4. Fenofibrate 145 mg 1 daily, hyperlipidemia. 5. Keppra 250 b.i.d., seizure prevention. 6. Metoprolol 37.5 mg b.i.d., heart rate control. 7. Multivitamin. 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 He has had coronary artery bypass surgery in 2013. He has had a previous left shoulder fracture, left femur fracture, appendectomy, and herniorrhaphy. Seizures present post CVA, under management. No other operative procedures, hospitalizations, unusual childhood diseases, major injuries, or fractures. SOCIAL HISTORY: Previously and , 2 children, 1 son and 1 daughter, 3 grandchildren. Nonsmoker. No alcohol consumption. No illicit drug use. FAMILY HISTORY: Noncontributory. REVIEW OF SYSTEMS: CONSTITUTIONAL: Feeling pretty well. Lives alone independently in the [facility]. EYES: Sees well. EARS: Some difficulty in crowds. OROPHARYNX: Intact dentition. CARDIORESPIRATORY: Denies chest pain or complicated cough. GASTROINTESTINAL: Regular predictable stools. GENITOURINARY: Good voiding pattern. No blood in urine. SKIN: No open sores or lesions. ENDOCRINE: No excessive thirst or urination. ALLERGY: No chronic cough. Neurologic: CVA left upper and lower extremity. ORTHOPEDIC: Recent ankle fracture. LABORATORY STUDIES: None indicated. PHYSICAL EXAMINATION: VITAL SIGNS: 1.71 m is the height, 75.892 kg is the weight, 36.7 degrees Fahrenheit, pulse of 80, 134/67, 18, and 95. GENERAL: Gregarious spoken, somewhat dysarthric male, cooperative, conversant. HEENT: Funduscopic benign. Conjunctivae clear. Bright tympanic membranes. Decreased hearing. Clear nasal discharge. Mouth and oropharynx reveal poor dentition. Tongue midline. Good gag reflex. NECK: Benign. Thyroid small. No adenopathy. No carotid bruits. CHEST: Clear in all lung mendieta. No adventitious sounds. HEART: Occasional ectopy. No significant murmur on auscultation. ABDOMEN: Benign. Lower abdominal surgical scars well healed. No hepatosplenomegaly. GENITOURINARY: Normal male genitalia. RECTAL: Declined. EXTREMITIES: Splinted left ankle, right lower extremity good pulses. NEUROLOGIC: Spastic hemiplegia with the left upper extremity weakness. Lower extremity difficult to evaluate because of pain. RADIOGRAPHS: Bimalleolar fracture. ASSESSMENT: Bimalleolar fracture, left ankle, complicated by hemiparesis and cerebrovascular accident. PLAN: Dr. Staton is involved with care. We will plan splinting, care, and treatment, and mcc stay likely an opportunity. We will address accordingly through his hospital stay. /[id number] MEHREEN/ODALYS
[2018-07-20] MEDS ORDERED: levETIRAcetam 250 MG Tab PO SCH (21:00)
[2018-07-21] MEDS: Acetaminophen/HYDROcodone 325-5 MG Tab PO PRN ×4 (02:05→21:32)
[2018-07-21] MEDS: LEVETIRACETAM 250 MG PO SCH ×2 (08:05→21:09)
[2018-07-21] MEDS: Metoprolol Tartrate 25 MG Tab*PTOM PO SCH ×2 (08:05→21:09)
[2018-07-21] MEDS: ASPIRIN 325 MG PO SCH (08:05)
[2018-07-21] MEDS: ATORVASTATIN 10 MG PO SCH (08:05)
[2018-07-21] MEDS: FENOFIBRATE NANOCRYSTALLIZED 145 MG PO SCH (08:06)
[2018-07-21] MEDS: AMLODIPINE 5 MG PO SCH (08:06)
--- NOTE | 2018-07-21 13:42 | PN ---
DATE SEEN: 07/21/2018 SUBJECTIVE: Khadar Jarvis is a 68-year-old male, admitted with a distal bimalleolar stable left ankle fracture. Issue is complicated by previous stroke and hemiparesis, primarily left upper extremity, but right lower extremity. Doing reasonably well with pain. Hydrocodone 325 q.4 hours p.r.n. for pain. Has been seen by Dr. Staton. Splint in place. Plan is for boot versus casting in 1 week's time. Adaptive skills and functional home under review. Troublesome left knee pain. Has had a previous distal left femur fracture. No radiographs have been performed of that extremity at this time. Been reluctant to eat yesterday. OUTSTANDING LABORATORY STUDIES: None. OBJECTIVE: VITAL SIGNS: 36.8, 98, 148/82, respirations 17, and 95% on room air. GENERAL: A comfortable, low forced conversation. CHEST: Clear in all lung mendieta. HEART: No ectopy or murmur. ABDOMEN: Benign. EXTREMITIES: Splint in place, intact, left lower extremity. Spastic hemiparesis, left lower extremity, is seen. A flexed externally rotated hip and knee. Left ankle fracture. ASSESSMENT: Questionable pathology, left more proximal leg. PLAN: Radiographs of knee and hip will be obtained, PT on board, conversations for care upcoming. Pain medications on board. /[id number] MEHREEN/ODALYS
[2018-07-22] MEDS: Acetaminophen/HYDROcodone 325-5 MG Tab PO PRN ×2 (00:55→15:49)
[2018-07-22] MEDS: LEVETIRACETAM 250 MG PO SCH ×3 (08:48→20:06)
[2018-07-22] MEDS: ATORVASTATIN 10 MG PO SCH ×2 (08:49→09:00)
[2018-07-22] MEDS: Metoprolol Tartrate 25 MG Tab*PTOM PO SCH ×3 (08:49→20:03)
[2018-07-22] MEDS: ASPIRIN 325 MG PO SCH ×2 (08:49→09:00)
[2018-07-22] MEDS: FENOFIBRATE NANOCRYSTALLIZED 145 MG PO SCH ×2 (08:50→09:00)
[2018-07-22] MEDS: AMLODIPINE 5 MG PO SCH ×2 (08:50→09:00)
--- NOTE | 2018-07-22 10:30 | PCM.CONS ---
H&P History of Present Illness - General Date of Service: 07/22/18 Admit Problem/Dx: Admission Diagnosis/Problem Admission Diagnosis/Problem Ankle fracture Source of Information: Patient, Provider, RN History Limitations: Reports: No Limitations - History of Present Illness Onset of Symptoms: Reports: Sudden Symptom Onset Date: 07/18/18 Duration of Symptoms: Reports: Day(s): Location: Reports: Lower Extremity, Left Quality: Reports: Sharp Severity: Moderate Improves with: Reports: Immobilization Worsens with: Reports: Movement Associated Symptoms: Reports: No Other Symptoms Left Ankle Pain Score (Numeric/FACES): 8 - Related Data Allergies/Adverse Reactions: Allergies Allergy/AdvReac Type Severity Reaction Status Date / Time Penicillins Allergy Anaphylactic Verified 12/11/17 21:25 Shock Home Medications: Home Meds Multivitamin/Iron/Folic Acid [Centrum Complete Multivit] 1 each PO DAILY [History] levETIRAcetam [Keppra] 250 mg PO BID 09/15/13 [History] Aspirin [Ecotrin] 325 mg PO DAILY 08/13/15 [History] Fenofibrate Nanocrystallized [Fenofibrate] 145 mg PO DAILY 08/13/15 [History] Metoprolol Tartrate 37.5 mg PO BID 08/13/15 [History] amLODIPine [Norvasc] 5 mg PO DAILY 08/13/15 [History] atorvaSTATin [Lipitor] 10 mg PO DAILY 08/13/15 [History] Past Medical History HEENT History: Reports: Impaired Vision, Other (See Below) Other HEENT History: missing several teeth Cardiovascular History: Reports: Bypass, High Cholesterol, Hypertension Respiratory History: Reports: Other (See Below) Other Respiratory History: smoker Musculoskeletal History: Reports: Other (See Below) Other Musculoskeletal History: pt uses w/c post cva, left hemiplegia Neurological History: Reports: CVA, Seizure Psychiatric History: Reports: Other (See Below) Other Psychiatric History: very loud and out spoken-very possitive - Past Surgical History HEENT Surgical History: Reports: Oral Surgery Cardiovascular Surgical History: Reports: Coronary Artery Bypass GI Surgical History: Reports: Hernia Repair/Other Dermatological Surgical History: Reports: Other (See Below) Social & Family History - Family History Family Medical History: Noncontributory - Tobacco Use Smoking Status *Q: Current Every Day Smoker Years of Tobacco use: 50 Packs/Tins Daily: 0.2 - Caffeine Use Caffeine Use: Reports: None - Alcohol Use Days Per Week of Alcohol Use: 5 Number of Drinks Per Day: 1 Total Drinks Per Week: 5 - Recreational Drug Use Recreational Drug Use: No H&P Review of Systems - Review of Systems: Review Of Systems: See Below General: Reports: No Symptoms HEENT: Reports: No Symptoms Pulmonary: Reports: No Symptoms Cardiovascular: Reports: No Symptoms Gastrointestinal: Reports: No Symptoms Genitourinary: Reports: No Symptoms Musculoskeletal: Reports: Leg Pain, Foot Pain, Joint Pain, Joint Swelling, Muscle Pain, Muscle Stiffness Skin: Reports: No Symptoms Psychiatric: Reports: No Symptoms Neurological: Reports: No Symptoms Hematologic/Lymphatic: Reports: No Symptoms Immunologic: Reports: No Symptoms Exam - Exam Exam: See Below - Vital Signs Vital Signs: Last Vital Signs Temp 97.9 F 07/22/18 08:00 Pulse 90 07/22/18 08:49 Resp 18 07/22/18 08:00 BP 132/65 07/22/18 08:50 Pulse Ox 98 07/22/18 08:00 Weight: 167 lb 5 oz - Exam General: Alert, Oriented, 4 HEENT: Hearing Intact, Mucosa Moist & [place], Pupils Equal, Pupils Reactive Neck: Supple, Trachea Midline Lungs: Normal Respiratory Effort GI/Abdominal Exam: No Distention Skin: Warm, Dry, Intact, Ecchymosis Neuro Extensive - Mental Status: Alert, Oriented x3, Normal Mood/Affect, Normal Cognition, Memory Intact Neuro Extensive - Motor, Sensory, Reflexes: Hemeplagia (L) Psychiatric: Alert, Normal Affect, Normal Mood Physical Exam Comments:: I was able to extend the patient's knee and hip and then internally rotate to neutral. Most of the pain that he had was in his ankle when we did this because he has not moved his ankle or leg very much since coming in and have it splinted. He does note that he does have kind of a sharp pain on his lateral hip but really not in his groin. When we ranged his lower extremity he stated that it was more like a spasm feeling. He is partially paralyzed in the left lower extremity so I would not expect in normal exam. Consult PN Assessment/Plan POD#: 0 Procedures: Procedures ASSAY OF CK (CPK) (12/12/17) ASSAY OF MAGNESIUM (09/15/13) ASSAY OF TROPONIN QUANT (08/14/15) CHEST X-RAY 1 VIEW FRONTAL (09/15/13) COMPLETE CBC W/AUTO DIFF WBC (12/12/17) COMPREHEN METABOLIC PANEL (12/12/17) CT HEAD/BRAIN W/O DYE (12/12/17) CT LOWER EXTREMITY W/O DYE (12/12/17) CT PELVIS W/O DYE (12/12/17) CULTR BACTERIA EXCEPT BLOOD (08/14/15) CULTURE OTHR SPECIMN AEROBIC (08/14/15) DRUG SCRN SHARIFA LEVETIRACETAM (08/14/15) ELECTROCARDIOGRAM TRACING (08/14/15) EMERGENCY DEPT VISIT (12/12/17) EMERGENCY DEPT VISIT (12/21/16) EMERGENCY DEPT VISIT (09/15/13) EMERGENCY DEPT VISIT (09/15/13) FIBRIN DEGRADATION QUANT (09/15/13) HYDRATE IV INFUSION ADD-ON (09/15/13) METABOLIC PANEL TOTAL CA (12/21/16) MRI JNT OF LWR EXTRE W/O DYE (12/12/17) OFFICE/OUTPATIENT VISIT NEW (12/30/17) PROTHROMBIN TIME (12/21/16) PT EVAL MOD COMPLEX 30 MIN (12/21/16) ROUTINE VENIPUNCTURE (12/12/17) SMEAR GRAM STAIN (08/14/15) THER/PROPH/DIAG INJ SC/IM (12/12/17) THER/PROPH/DIAG IV INF INIT (09/15/13) THERAPEUTIC ACTIVITIES (12/21/16) TISSUE EXAM BY PATHOLOGIST (08/14/15) TREAT KNEE FRACTURE (12/30/17) TREATMENT OF THIGH FRACTURE (12/30/17) TX/PRO/DX INJ NEW DRUG ADDON (09/15/13) TX/PRO/DX INJ SAME DRUG CORPORATE COMMUNICATIONS MANAGER (09/15/13) URINALYSIS AUTO W/SCOPE (12/12/17) URINE BACTERIA CULTURE (09/15/13) VITAL CAPACITY TEST (08/14/15) X-RAY EXAM OF KNEE 1 OR 2 (02/18/18) X-RAY EXAM OF KNEE 3 (12/12/17) (1) Knee pain, left SNOMED Code(s): 80477399 Code(s): M25.562 - PAIN IN LEFT KNEE Current Visit: Yes Qualifiers: Chronicity: acute Qualified Code(s): M25.562 - Pain in left knee (2) Hip pain SNOMED Code(s): 55876576 Code(s): M25.559 - PAIN IN UNSPECIFIED HIP Current Visit: Yes (3) Bimalleolar ankle fracture SNOMED Code(s): 012886621 Code(s): S82.843A - DISPLACED BIMALLEOLAR FRACTURE OF UNSP LOWER LEG, INIT Current Visit: Yes Qualifiers: Encounter type: initial encounter Fracture type: closed Laterality: left Qualified Code(s): S82.842A - Displaced bimalleolar fracture of left lower leg, initial encounter for closed fracture Problem List Initiated/Reviewed/Updated: Yes Plan: Multiple radiographs of the pelvis as well as the left knee were reviewed and incorporated into the decision making process. I do not see any abnormalities in the hip or pelvis or proximal femur. While there is decrease bone quality and the knee I do not see any evidence of acute fracture. Plan: We will save the plan of keep him nonweightbearing on his left lower extremity in the splint. Next week we'll set up an appointment on Thursday at which time we will remove the splint and place him into a boot and take 3 views of the left ankle that time. We'll see him every 2-3 weeks until we are about 8 weeks out to ensure that his fracture does not lose good alignment.
--- NOTE | 2018-07-22 10:38 | CR ---
INDICATION: Hip pain. PELVIS: A single frontal view of the pelvis was obtained 07/21/18 - no comparisons. The patient was unable to cooperate with positioning for the examination, unable to straighten hip or knee. The hip joints appear to be fairly intact. Sacroiliac joints were intact also. Overall bone density appeared to be normal. MTDD
--- NOTE | 2018-07-22 10:42 | CR ---
INDICATION: Left knee pain. LEFT KNEE: Frontal and lateral views of the left knee were obtained. The frontal view was limited in that the patient could not straighten his leg. No definite acute fracture or dislocation was seen. Demineralization is suggested, which may be on the basis of osteoporosis but should be correlated clinically. Clips are noted in the medial calf area, compatible with previous vascular surgery. Mild degenerative changes are noted at the patellofemoral joint. The femorotibial joint space was not well-visualized due to positioning difficulties. MTDD
--- NOTE | 2018-07-22 13:12 | PN ---
DATE SEEN: 07/22/2018 HISTORY OF PRESENT ILLNESS: Khadar Casiano is a 68-year-old male, seen today for followup. He had difficulty with straightening the leg. Pain at the hip, knee, and femur. Radiographs were performed yesterday, thought to be within normal limits. He was seen by Dr. Staton earlier today, and he was able to straighten the leg and create movement, felt the x-rays were fine. Plan is for followup in a week with cast and/or boot. PT will be more actively involved. OBJECTIVE: VITAL SIGNS: 36.6, 87, 132/68, 18 is the respiration, 98% on exam. GENERAL: Little unsettled today, missed his cholesterol pill. CHEST: Clear in all lung mendieta. HEART: No ectopy or murmur. ABDOMEN: Benign. ASSESSMENT: Left ankle injury, bimalleolar. PLAN: More aggressive PT plan. Discharge when available. /[id number] MEHREEN/ODALYS
[2018-07-23] MEDS: ASPIRIN 325 MG PO SCH (08:56)
[2018-07-23] MEDS: LEVETIRACETAM 250 MG PO SCH (08:57)
[2018-07-23] MEDS: ATORVASTATIN 10 MG PO SCH (08:57)
[2018-07-23] MEDS: AMLODIPINE 5 MG PO SCH (08:57)
[2018-07-23 08:59] VITALS: BP 132/81
[2018-07-23] MEDS: Metoprolol Tartrate 25 MG Tab*PTOM PO SCH (08:59)
[2018-07-23] MEDS: FENOFIBRATE NANOCRYSTALLIZED 145 MG PO SCH (09:00)
--- NOTE | 2018-07-23 09:03 | PCM.PN ---
- General Info Date of Service: 07/23/18 Admission Dx/Problem (Free Text): Patient states he has some hip and leg pain. He was evaluated yesterday with negative x-rays. Still has left ankle pain. No swelling. He denies chest pain or shortness of breath. - Patient Data Vitals - Most Recent: Last Vital Signs Temp 98.0 F 07/22/18 23:59 Pulse 95 07/23/18 08:59 Resp 17 07/22/18 23:59 BP 132/81 07/23/18 08:59 Pulse Ox 94 L 07/23/18 00:00 Weight - Most Recent: 167 lb 5 oz I&O - Last 24 Hours: Intake & Output 07/22/18 07/23/18 07/23/18 22:59 06:59 14:59 Intake Total 300 Output Total 500 Balance -200 Med Orders - Current: Current Medications Hydrocodone Bitart/Acetaminophen ([place] 325-5 Mg) 1 tab PO Q4H PRN PRN Reason: Pain Last Admin: 07/22/18 15:49 Dose: 1 tab Amlodipine Besylate (Norvasc) 5 mg PO DAILY [facility] Last Admin: 07/23/18 08:57 Dose: 5 mg Aspirin (Ecotrin) 325 mg PO DAILY [facility] Last Admin: 07/23/18 08:56 Dose: 325 mg Atorvastatin Calcium (Lipitor) 10 mg PO DAILY [facility] Last Admin: 07/23/18 08:57 Dose: 10 mg Fenofibrate (Tricor) 145 mg PO DAILY [facility] Last Admin: 07/23/18 09:00 Dose: 145 mg Levetiracetam (Keppra) 250 mg PO BID [facility] Last Admin: 07/23/18 08:57 Dose: 250 mg Metoprolol Tartrate (Lopressor) 37.5 mg PO BID [facility] Last Admin: 07/23/18 08:59 Dose: 37.5 mg Sodium Chloride (Saline Flush) 10 ml FLUSH ASDIRECTED PRN PRN Reason: Pain (moderate 4-6) Last Admin: 07/19/18 22:21 Dose: 10 ml Discontinued Medications Morphine Sulfate (Morphine) 2 mg IM ONETIME ONE Stop: 07/19/18 18:03 Last Admin: 07/19/18 18:10 Dose: 2 mg Morphine Sulfate (Morphine) 2 mg IVPUSH Q2H PRN PRN Reason: Pain (severe 7-10) Last Admin: 07/19/18 20:08 Dose: 2 mg - Exam General: Alert, Oriented, Cooperative Lungs: Clear to Auscultation, Normal Respiratory Effort Cardiovascular: Regular Rate, Regular Rhythm, No Murmurs Extremities: Other (Right ankle and splint/cast) - Problem List & Annotations (1) Bimalleolar ankle fracture SNOMED Code(s): 021101095 Code(s): S82.843A - DISPLACED BIMALLEOLAR FRACTURE OF UNSP LOWER LEG, INIT Status: Acute Current Visit: Yes Qualifiers: Encounter type: initial encounter Fracture type: closed Laterality: left Qualified Code(s): S82.842A - Displaced bimalleolar fracture of left lower leg, initial encounter for closed fracture - Problem List Review Problem List Initiated/Reviewed/Updated: Yes - My Orders Last 24 Hours: 1. [facility] due to his nonweightbearing and left hemiplegia secondary to old right CVA.
[2018-07-23] MEDS ORDERED: Tuberculin, PPD 5 Units/0.1 ML 1 ML MDV IDERM ONE (10:21)
--- NOTE | 2018-07-23 10:54 | PCM.DCSUM1 ---
Discharge Summary - Hospital Course Free Text/Narrative:: Hospital course-he was seen by Dr. Alton Staton who felt it was in good position and put a cast wrap on that. He was nonweightbearing. He complained of left hip and left upper leg pain. He had x-ray of his knee and his left hip and no fracture seen. Patient had PT and it was determined that he was unable to go home because of his stroke and nonweightbearing. So he'll be transferred to [facility] until he is able to bear weight. He'll follow with Dr. Leslie in regards to this fracture. Brief History: This is a 68-year-old male patient with history of right CVA with left shaylee-paralysis had a fall given to the ER and broke his left ankle. His bimalleolar fracture comminuted in good position. He was admitted because he is not able to function with a fracture and stroke residual. Diagnosis: Stroke: No - Discharge Data Discharge Date: 07/23/18 Discharge Disposition: DC/Tfer to [facility] Condition: Good - Discharge Diagnosis/Problem(s) (1) Bimalleolar ankle fracture SNOMED Code(s): 249714969 ICD Code: S82.843A - DISPLACED BIMALLEOLAR FRACTURE OF UNSP LOWER LEG, INIT Status: Acute Current Visit: Yes Qualifiers: Encounter type: initial encounter Fracture type: closed Laterality: left Qualified Code(s): S82.842A - Displaced bimalleolar fracture of left lower leg, initial encounter for closed fracture - Patient Summary/Data Consults: Consultations 07/19/18 18:33 Consult to Physician [CONS] Routine Consulting Provider: Michael Staton Courtesy Call Completed to Consulting Physician: Yes Reason for Consult: left ankle fx 07/20/18 19:37 OT Evaluation and Treatment [CONS] Routine Please Evaluate and Treat. OT Reason for Consult: ADL's This query below is only for informational purposes and is not editable. Admission Diagnosis/Problem: Ankle fracture 07/20/18 19:38 PT Evaluation and Treatment [CONS] Routine Please Evaluate and Treat. PT Reason for Consult: Balance This query below is only for informational purposes and is not editable. Admission Diagnosis/Problem: Ankle fracture - Patient Instructions Diet: Regular Diet as Tolerated Activity, Other: Non-weightbearing left leg Driving: Do Not Drive Showering/Bathing: May Shower Other/Special Instructions: 1. Recheck with Dr. Staton in 1 week. - Discharge Plan Prescriptions/Med Rec: Acetaminophen/HYDROcodone [[place] 325-5 MG] 1 tab PO Q4H PRN #30 tablet PRN Reason: Pain Home Medications: Home Meds Multivitamin/Iron/Folic Acid [Centrum Complete Multivit] 1 each PO DAILY [History] levETIRAcetam [Keppra] 250 mg PO BID 09/15/13 [History] Aspirin [Ecotrin] 325 mg PO DAILY 08/13/15 [History] Fenofibrate Nanocrystallized [Fenofibrate] 145 mg PO DAILY 08/13/15 [History] Metoprolol Tartrate 37.5 mg PO BID 08/13/15 [History] amLODIPine [Norvasc] 5 mg PO DAILY 08/13/15 [History] atorvaSTATin [Lipitor] 10 mg PO DAILY 08/13/15 [History] Acetaminophen/HYDROcodone [[place] 325-5 MG] 1 tab PO Q4H PRN #30 tablet 07/23/18 [Rx] Patient Handouts: Ankle Fracture, [id number], Fall Prevention in the Home, Adult, Venous Thromboembolism Prevention Forms: ED Department Discharge Referrals: Kevin Maynard MD [Primary Care Provider] - Gila Berumen NP [Physician] - - Discharge Summary/Plan Comment DC Time >30 min.: No - Patient Data Vitals - Most Recent: Last Vital Signs Temp 98.0 F 07/22/18 23:59 Pulse 95 07/23/18 09:00 Resp 18 07/23/18 09:00 BP 132/81 07/23/18 09:00 Pulse Ox 95 07/23/18 09:00 Weight - Most Recent: 167 lb 5 oz I&O - Last 24 hours: Intake & Output 07/22/18 07/23/18 07/23/18 22:59 06:59 14:59 Intake Total 300 Output Total 500 Balance -200 Med Orders - Current: Current Medications Hydrocodone Bitart/Acetaminophen ([place] 325-5 Mg) 1 tab PO Q4H PRN PRN Reason: Pain Last Admin: 07/22/18 15:49 Dose: 1 tab Amlodipine Besylate (Norvasc) 5 mg PO DAILY [facility] Last Admin: 07/23/18 08:57 Dose: 5 mg Aspirin (Ecotrin) 325 mg PO DAILY [facility] Last Admin: 07/23/18 08:56 Dose: 325 mg Atorvastatin Calcium (Lipitor) 10 mg PO DAILY [facility] Last Admin: 07/23/18 08:57 Dose: 10 mg Fenofibrate (Tricor) 145 mg PO DAILY [facility] Last Admin: 07/23/18 09:00 Dose: 145 mg Levetiracetam (Keppra) 250 mg PO BID [facility] Last Admin: 07/23/18 08:57 Dose: 250 mg Metoprolol Tartrate (Lopressor) 37.5 mg PO BID [facility] Last Admin: 07/23/18 08:59 Dose: 37.5 mg Sodium Chloride (Saline Flush) 10 ml FLUSH ASDIRECTED PRN PRN Reason: Pain (moderate 4-6) Last Admin: 07/19/18 22:21 Dose: 10 ml Discontinued Medications Morphine Sulfate (Morphine) 2 mg IM ONETIME ONE Stop: 07/19/18 18:03 Last Admin: 07/19/18 18:10 Dose: 2 mg Morphine Sulfate (Morphine) 2 mg IVPUSH Q2H PRN PRN Reason: Pain (severe 7-10) Last Admin: 07/19/18 20:08 Dose: 2 mg Tuberculin PPD (Aplisol) 5 unit IDERM ONETIME ONE Stop: 07/23/18 10:22 Last Admin: 07/23/18 10:32 Dose: 5 unit
== END 2018-07-23 10:50 ==
LOC: FB.ED 16:19 → FB.MS 18:33
PROVIDERS: ADMIT Family Medicine; ATTEND Family Medicine
DX: S82.842A Displaced bimalleolar fracture of left lower leg, initial encounter for closed fracture (principal); Z86.73 Personal history of transient ischemic attack (TIA), and cerebral infarction without residual deficits; I10 Essential (primary) hypertension; E78.00 Pure hypercholesterolemia, unspecified; F17.210 Nicotine dependence, cigarettes, uncomplicated; Z79.82 Long term (current) use of aspirin; Z79.899 Other long term (current) drug therapy; Z88.0 Allergy status to penicillin; Z95.1 Presence of aortocoronary bypass graft; W18.30XA Fall on same level, unspecified, initial encounter
CPT/HCPCS: 72170; 73560; 73610; 86580; 96372; 99284; A9270; J2270; G0378

== ENCOUNTER 2018-08-14 19:22 | Observation (INO) | payer MEDICAID, MEDICARE ==
[2018-08-14] MEDS ORDERED: Ondansetron 4 MG Tab.DIS PO ONE (19:38)
--- NOTE | 2018-08-14 20:49 | EDM.PDOC ---
ED HPI GENERAL MEDICAL PROBLEM - General Chief Complaint: Lower Extremity Injury/Pain Stated Complaint: FELL Time Seen by Provider: 08/14/18 20:44 Source of Information: Reports: Patient History Limitations: Reports: No Limitations - History of Present Illness INITIAL COMMENTS - FREE TEXT/NARRATIVE: Khadar is 68-year-old male who came in because of vomiting and retching since last night. He had bimalleolar fracture of the left ankle 2 weeks ago and has been in the [facility] until yesterday. In the apartment he feels unsafe and anxious. He fell today on the same left ankle.he has a history of left-sided hemiparesis,s/p CVA, CAD, and hypertension. left ankle Pain Score (Numeric/FACES): 6 - Related Data Allergies Allergy/AdvReac Type Severity Reaction Status Date / Time Penicillins Allergy Anaphylactic Verified 08/14/18 19:45 Shock Home Meds: Home Meds Multivitamin/Iron/Folic Acid [Centrum Complete Multivit] 1 each PO DAILY [History] levETIRAcetam [Keppra] 250 mg PO BID 09/15/13 [History] Aspirin [Ecotrin] 325 mg PO DAILY 08/13/15 [History] Fenofibrate Nanocrystallized [Fenofibrate] 145 mg PO DAILY 08/13/15 [History] Metoprolol Tartrate 37.5 mg PO BID 08/13/15 [History] amLODIPine [Norvasc] 5 mg PO DAILY 08/13/15 [History] atorvaSTATin [Lipitor] 10 mg PO DAILY 08/13/15 [History] Acetaminophen/HYDROcodone [[place] 325-5 MG] 1 tab PO Q4H PRN #30 tablet 07/23/18 [Rx] Isoniazid 300 mg PO DAILY 08/14/18 [History] Pyridoxine HCl [Vitamin B-6] 25 mg PO DAILY 08/14/18 [History] Past Medical History HEENT History: Reports: Impaired Vision, Other (See Below) Other HEENT History: missing several teeth Cardiovascular History: Reports: Bypass, High Cholesterol, Hypertension Respiratory History: Reports: Other (See Below) Other Respiratory History: smoker Musculoskeletal History: Reports: Other (See Below) Other Musculoskeletal History: pt uses w/c post cva, left hemiplegia Neurological History: Reports: CVA, Seizure Psychiatric History: Reports: Other (See Below) Other Psychiatric History: very loud and out spoken-very possitive - Past Surgical History HEENT Surgical History: Reports: Oral Surgery Cardiovascular Surgical History: Reports: Coronary Artery Bypass GI Surgical History: Reports: Hernia Repair/Other Social & Family History - Family History Family Medical History: Noncontributory - Caffeine Use Caffeine Use: Reports: None Review of Systems - Review of Systems Review Of Systems: ROS reveals no pertinent complaints other than HPI. ED EXAM, GENERAL - Physical Exam Exam: See Below Exam Limited By: No Limitations General Appearance: Alert, WD/WN Ears: Normal External Exam Nose: Normal Inspection Throat/Mouth: Normal Inspection Neck: Normal Inspection Respiratory/Chest: No Respiratory Distress, Lungs Clear Cardiovascular: Normal Peripheral Pulses, Regular Rate, Rhythm, No JVD GI/Abdominal: Normal Bowel Sounds, Soft, Non-Tender. No: No Distention Extremities: Other (C AM walker in place) Neurological: Alert Psychiatric: Depressed Mood Course - Vital Signs Last Recorded V/S: Last Vital Signs Temp 98 F 08/14/18 19:30 Pulse 73 08/14/18 19:30 Resp 20 08/14/18 19:30 BP 141/91 H 08/14/18 19:30 Pulse Ox 92 L 08/14/18 19:30 - Orders/Labs/Meds Orders: Active Orders 24 hr Category Date Time Status Ankle Min 3V Lt [CR] Stat Exams 08/14/18 19:36 Taken CBC WITH AUTO DIFF [HEME] Stat Lab 08/14/18 20:25 Results COMPREHENSIVE METABOLIC PN,CMP [CHEM] Stat Lab 08/14/18 20:25 Received Labs: Laboratory Tests 08/14/18 Range/Units 20:25 WBC 14.4 H (4.5-12.0) X10-3/uL RBC 5.29 (4.30-5.75) x10(6)uL Hgb 15.3 (13.5-17.8) g/dL Hct 47.5 (30.0-51.3) % MCV 89.9 (80-96) fL MCH 28.9 (27.7-33.6) pg MCHC 32.1 L (32.2-35.4) g/dL RDW 14.8 (11.5-15.5) % Plt Count 380 H (125-369) X10(3)uL MPV 9.0 (7.4-10.4) fL Add Manual Diff Yes Meds: Medications Discontinued Medications Generic Name Dose Route Start Last Admin Trade Name Heather PRN Reason Stop Dose Admin Ondansetron HCl 4 mg 08/14/18 19:38 08/14/18 19:40 Zofran Odt PO 08/14/18 19:39 4 mg ONETIME ONE Administration Departure - Departure Time of Disposition: 20:50 Disposition: Refer to Observation Condition: Good Clinical Impression: CKD (chronic kidney disease) stage 4, GFR 15-29 ml/min - Discharge Information Referrals: PCP,None [Primary Care Provider] - - Problem List & Annotations (1) Frequent falls SNOMED Code(s): 110857940 Code(s): R29.6 - REPEATED FALLS Status: Acute Current Visit: Yes (2) Nausea and vomiting SNOMED Code(s): 16346538 Code(s): R11.2 - NAUSEA WITH VOMITING, UNSPECIFIED Status: Acute Current Visit: Yes Qualifiers: Vomiting type: unspecified Vomiting Intractability: non-intractable Qualified Code(s): R11.2 - Nausea with vomiting, unspecified (3) Bimalleolar ankle fracture SNOMED Code(s): 780716646 Code(s): S82.843A - DISPLACED BIMALLEOLAR FRACTURE OF UNSP LOWER LEG, INIT Status: Chronic Current Visit: Yes Qualifiers: Encounter type: subsequent encounter Fracture type: closed Fracture healing: with routine healing (4) Hemiparesis SNOMED Code(s): 24831660 Code(s): G81.90 - HEMIPLEGIA, UNSPECIFIED AFFECTING UNSPECIFIED SIDE Status : Chronic Current Visit: Yes Qualifiers: Hemiparesis etiology: late effect of cerebrovascular disease (5) Hypertension associated with stage 3 chronic kidney disease due to type 2 diabetes mellitus SNOMED Code(s): 946176852433795 Code(s): E11.22 - TYPE 2 DIABETES MELLITUS W DIABETIC CHRONIC KIDNEY DISEASE ; I12.9 - HYPERTENSIVE CHRONIC KIDNEY DISEASE W STG 1-4/UNSP CHR KDNY; N18.3 - CHRONIC KIDNEY DISEASE, STAGE 3 (MODERATE) Status: Acute Current Visit: No - Problem List Review Problem List Initiated/Reviewed/Updated: Yes - My Orders Last 24 Hours: My Active Orders 08/14/18 19:36 Ankle Min 3V Lt [CR] Stat 08/14/18 20:25 CBC WITH AUTO DIFF [HEME] Stat COMPREHENSIVE METABOLIC PN,CMP [CHEM] Stat - Assessment/Plan Last 24 Hours: My Active Orders 08/14/18 19:36 Ankle Min 3V Lt [CR] Stat 08/14/18 20:25 CBC WITH AUTO DIFF [HEME] Stat COMPREHENSIVE METABOLIC PN,CMP [CHEM] Stat Plan: He he has a white cell count of 14,000, his creatinine is 2.1 from a baseline of 1.6. I will admit him for gentle IV fluid replacement and pain control.
[2018-08-14] MEDS ORDERED: Ondansetron 4 MG/2 ML SDV IV PRN (20:52)
[2018-08-14] MEDS ORDERED: Morphine 2 MG/ML Syringe IVPUSH PRN (20:52)
[2018-08-14] MEDS: Enoxaparin 30 MG/0.3 ML Syringe SUBCUT SCH (21:52)
[2018-08-14] MEDS: Sodium Chloride 0.9% 1,000 ML IV SCH (23:21)
[2018-08-14] MEDS: Sodium Chloride 0.9% 10 ML Syringe FLUSH PRN (23:22)
[2018-08-15] MEDS: Nitroglycerin 0.4 MG Tab.SL SL PRN ×2 (01:53→02:10)
[2018-08-15] MEDS: Sodium Chloride 0.9% 10 ML Syringe FLUSH PRN (04:56)
[2018-08-15] MEDS: Sodium Chloride 0.9% 1,000 ML IV SCH ×2 (07:47→16:56)
[2018-08-15] MEDS ORDERED: Acetaminophen/HYDROcodone 325-5 MG Tab PO PRN (13:38)
[2018-08-15] MEDS: ISONIAZID 300 MG PO SCH (14:47)
[2018-08-15] MEDS: ASPIRIN 325 MG PO SCH (14:47)
[2018-08-15] MEDS: FOLIC ACID PO SCH (14:48)
[2018-08-15] MEDS: ATORVASTATIN 10 MG PO SCH (14:48)
[2018-08-15] MEDS: MULTIVITAMIN PO SCH (14:48)
[2018-08-15] MEDS: IRON PO SCH (14:48)
[2018-08-15] MEDS: AMLODIPINE 5 MG PO SCH (14:49)
[2018-08-15] MEDS: FENOFIBRATE NANOCRYSTALLIZED 145 MG PO SCH (14:49)
[2018-08-15] MEDS: PYRIDOXINE HCL 25 MG PO SCH (14:49)
[2018-08-15] MEDS: Metoprolol Tartrate 25 MG Tab ** OWN MED PO SCH (21:59)
[2018-08-15] MEDS: LEVETIRACETAM 250 MG PO SCH (22:01)
[2018-08-15] MEDS: Enoxaparin 30 MG/0.3 ML Syringe SUBCUT SCH (22:03)
[2018-08-16] MEDS: Sodium Chloride 0.9% 1,000 ML IV SCH (01:55)
[2018-08-16] MEDS: ATORVASTATIN 10 MG PO SCH (09:37)
[2018-08-16] MEDS: LEVETIRACETAM 250 MG PO SCH (09:37)
[2018-08-16] MEDS: Metoprolol Tartrate 25 MG Tab ** OWN MED PO SCH (09:37)
[2018-08-16] MEDS: ASPIRIN 325 MG PO SCH (09:37)
[2018-08-16] MEDS: ISONIAZID 300 MG PO SCH (09:37)
[2018-08-16] MEDS: AMLODIPINE 5 MG PO SCH (09:38)
[2018-08-16] MEDS: PYRIDOXINE HCL 25 MG PO SCH (09:38)
[2018-08-16 09:39] VITALS: BP 159/83
[2018-08-16] MEDS: MULTIVITAMIN PO SCH (09:39)
[2018-08-16] MEDS: FENOFIBRATE NANOCRYSTALLIZED 145 MG PO SCH (09:39)
[2018-08-16] MEDS: IRON PO SCH (09:39)
[2018-08-16] MEDS: FOLIC ACID PO SCH (09:39)
--- NOTE | 2018-08-16 13:34 | HP ---
ADMISSION DATE: 08/14/2018 HISTORY OF PRESENT ILLNESS: Khadar Casiano is a 68-year-old, male, seen at [facility] by Dr. Lim. He had been discharged home just the day before, 08/13/2018, from [facility]. Health issues include a complicated left ankle fracture with immobilizer, nonsurgical, and preexisting left upper and lower extremity hemiparesis from CVA. He got home, had some nausea and retching, recurrent vomiting, fall related to transfer from his bed to his chair, and resultant pain in his left knee and hip. Radiographs of the ankle revealed good interval healing, radiographs of the knee have not been performed. Admission to hospital is indicated and appropriate. MEDICATIONS: Present daily medications include: 1. [place] 325 one q.4 hours p.r.n. for pain. 2. Amlodipine 5 mg one p.o. daily, hypertension. 3. Aspirin 325 one p.o. daily, CVA prevention. 4. Atorvastatin 10 mg one p.o. daily, hyperlipidemia. 5. Fenofibrate 145 mg, hyperlipidemia. 6. Isoniazid 300 mg daily. 7. Keppra 250 b.i.d., seizures. 8. Metoprolol 37.5 mg b.i.d., heart. 9. Multivitamin one daily, nutrition. 10.Vitamin B6 25 mg daily. ALLERGIES: Penicillin with shock. PAST MEDICAL HISTORY: Significant for complicated CVA with resultant left upper and lower extremity hemiparesis, upper extremity more than lower. Coronary bypass surgery in 2013. Ongoing illnesses include hypertension, recent left ankle fracture, previous left leg fracture, seizure disorder, hyperlipidemia and gastroesophageal reflux. SOCIAL HISTORY: Lives independently, retired, disabled. Minimal smoker. No alcohol consumption. No illicit drug use. FAMILY HISTORY: Negative for early heart disease, diabetes mellitus, or inheritable cancers. REVIEW OF SYSTEMS: Primary complaint left ankle and knee pain. EYES: Sees well. EARS: Hears well. Difficulty in crowds. OROPHARYNX: Poor dentition. CHEST: No cough, wheeze, or congestion. CARDIOVASCULAR: Denies chest pain, previous bypass surgery. GASTROINTESTINAL: Regular predictable stools. GENITOURINARY: Good voiding pattern. No blood in urine. SKIN: No open sores or lesions. ENDOCRINE: No excessive thirst or urination. ALLERGY: No chronic cough. PSYCHIATRIC: Mood stable. NEUROLOGIC: CVA, left upper extremity. ORTHOPEDIC: Please see HPI. PHYSICAL EXAMINATION: VITAL SIGNS: Stable. GENERAL: Young man, cooperative, conversant, gives a good history. Speech was a bit dysarthric. HEENT: Reveals funduscopic benign. Bright TMs. Clear nasal discharge. Mouth and oropharynx clear. Poor dentition. NECK: Benign. Thyroid small. No adenopathy. No carotid bruits. CHEST: Clear in all lung mendieta. No adventitious sounds. HEART: No ectopy or murmur on auscultation. BREASTS: Normal male breasts. ABDOMEN: Benign. No surgical scars. No hepatosplenomegaly. GENITOURINARY AND RECTAL: Deferred. EXTREMITIES: Well perfused, CAM walker on left foot. Good peripheral pulses. Sensation intact. NEUROLOGIC: Spastic hemiparesis, left upper and lower extremity. ASSESSMENT: 1. Left knee and ankle pain, preexisting left ankle fracture. 2. Right cerebrovascular accident. PLAN: Observation, intervention, radiologist report to follow, symptomatic treatment. /[id number] /ODALYS
--- NOTE | 2018-08-17 08:07 | DISCH ---
DISCHARGE DATE: 08/16/2018 Left ankle recurrent injury and left knee contusion, previous CVA. Khadar Casiano is a 68-year-old male, admitted with acute left ankle and leg pain. Had a recurrent fall. Also had some accompanying nausea and vomiting, GI symptoms likely an issue of living status. Had been previously at [facility]. On admission, radiographs of the ankle, radiology report pending, but good interval progress in healing; left knee x-ray without pathology. LABORATORY STUDIES: CBC unremarkable, though white count is 14.4 and 15.7, platelets 283,000 and 404,000, neutrophils. Elevated creatinine, though GFR 32 and 32 stable. Troponin was negative. Pain was controlled. Analgesics on board. Cooperative care and well being. Plan is to re-discharge to [facility]. SURGICAL PROCEDURES: None. CONSULTATIONS: None. 45-minute discharge exam, planning and treatment. /[id number] MEHREEN/ODALYS
== END 2018-08-16 13:33 | disposition home or self-care (01) ==
LOC: FB.ED 19:22 → FB.MS 20:58
PROVIDERS: ADMIT Family Medicine; ATTEND Family Medicine
DX: S82.843A Displaced bimalleolar fracture of unspecified lower leg, initial encounter for closed fracture (principal); S80.02XA Contusion of left knee, initial encounter; I69.354 Hemiplegia and hemiparesis following cerebral infarction affecting left non-dominant side; G40.909 Epilepsy, unspecified, not intractable, without status epilepticus; R11.2 Nausea with vomiting, unspecified; E78.00 Pure hypercholesterolemia, unspecified; I25.10 Atherosclerotic heart disease of native coronary artery without angina pectoris; I12.9 Hypertensive chronic kidney disease with stage 1 through stage 4 chronic kidney disease, or unspecified chronic kidney disease; E11.22 Type 2 diabetes mellitus with diabetic chronic kidney disease; N18.4 Chronic kidney disease, stage 4 (severe); E78.5 Hyperlipidemia, unspecified; R29.6 Repeated falls; Z79.82 Long term (current) use of aspirin; Z79.899 Other long term (current) drug therapy; Z88.0 Allergy status to penicillin; Z95.1 Presence of aortocoronary bypass graft
CPT/HCPCS: 36415; 73562; 73610; 80053; 84484; 85025; 93005; 99285; A9270; J1650; J2270; J2405; J7030

== ENCOUNTER 2019-02-06 16:13 | Emergency (ER) | payer MEDICARE ==
--- NOTE | 2019-02-06 16:36 | EDM.PDOC ---
ED HPI GENERAL MEDICAL PROBLEM - General Chief Complaint: General Stated Complaint: FALL OUT OF WHEELCHAIR Time Seen by Provider: 02/06/19 16:35 Source of Information: Reports: Patient History Limitations: Reports: No Limitations - History of Present Illness INITIAL COMMENTS - FREE TEXT/NARRATIVE: 69-year-old male who reports that beginning about 1:30 to 2 PM, he developed diarrhea that was rather compulsive. He had no abdominal discomfort associated with this. It was not bloody. It was brown and watery. He states he had about 5 of these loose stools and he had to clean the toilet up but he slipped and landed on his buttock while doing this. He apparently was able to get up the first time he did this but the second time he did this able to get up and had to scoot himself to his living room 40 put pants on and was able to get into his wheelchair time he felt very short of breath. He still had no abdominal pain. He had no buttock or hip pain. He called 911 to his house at this time. He presents via ambulance and reports no pain. He would rates pain as a 0/10. His shortness of breath has resolved. He does not feel weak or dizzy. He tells me he feels hungry now. He does admit to drinking some alcohol today. There was no head injury. He has no neck or back pain. There are no other associated signs or symptoms. There are no other modifying factors. Onset: Today Duration: Improving (As above) Location: Reports: Other (He had no pain. Just shortness of breath after activity as above.) Quality: Reports: Other (Nonapplicable) Improves with: Reports: None (Has gotten better on its own or with rest.) Worsens with: Reports: None Context: Reports: Other (As above) Associated Symptoms: Reports: No Other Symptoms (Except as above) Treatments EXHIBIT CLEANER: Reports: Other (see below) (Nothing) - Related Data Allergies Allergy/AdvReac Type Severity Reaction Status Date / Time Penicillins Allergy Anaphylactic Verified 02/06/19 16:29 Shock Home Meds: Home Meds Multivitamin/Iron/Folic Acid [Centrum Complete Multivit] 1 each PO DAILY [History] levETIRAcetam [Keppra] 250 mg PO BID 09/15/13 [History] Aspirin [Ecotrin] 325 mg PO DAILY 08/13/15 [History] Fenofibrate Nanocrystallized [Fenofibrate] 145 mg PO DAILY 08/13/15 [History] Metoprolol Tartrate 37.5 mg PO BID 08/13/15 [History] amLODIPine [Norvasc] 5 mg PO DAILY 08/13/15 [History] atorvaSTATin [Lipitor] 10 mg PO DAILY 08/13/15 [History] Acetaminophen/HYDROcodone [[place] 325-5 MG] 1 tab PO Q4H PRN #30 tablet 07/23/18 [Rx] Isoniazid 300 mg PO DAILY 08/14/18 [History] Pyridoxine HCl [Vitamin B-6] 25 mg PO DAILY 08/14/18 [History] Past Medical History HEENT History: Reports: Cataract, Glaucoma, Impaired Vision, Other (See Below) Other HEENT History: missing several teeth Cardiovascular History: Reports: Bypass, CAD, High Cholesterol, Hypertension Neurological History: Reports: CVA, Seizure Psychiatric History: Reports: Addiction (Alcohol abuse) Hematologic History: Reports: Blood Transfusion(s) - Infectious Disease History Infectious Disease History: Reports: None - Past Surgical History HEENT Surgical History: Reports: Oral Surgery Cardiovascular Surgical History: Reports: Coronary Artery Bypass GI Surgical History: Reports: Appendectomy, Hernia Repair/Other Male Surgical History: Reports: Circumcision Musculoskeletal Surgical History: Reports: Other (See Below) Other Musculoskeletal Surgeries/Procedures:: fx in ankle and foot on July 19 has leg boot on left lower leg Social & Family History - Tobacco Use Smoking Status *Q: Current Every Day Smoker - Caffeine Use Caffeine Use: Reports: Tea - Alcohol Use Alcohol Use History: Yes Alcohol Use Frequency: Rarely (Patient reports rarely but he did have alcohol tonight and he does have a history of alcohol abuse) - Living Situation & Occupation Living situation: Reports: Alone Occupation: Disabled ED ROS GENERAL - Review of Systems Review Of Systems: See Below Constitutional: Reports: No Symptoms HEENT: Reports: No Symptoms Respiratory: Reports: No Symptoms Cardiovascular: Reports: No Symptoms Endocrine: Reports: No Symptoms GI/Abdominal: Reports: Diarrhea. Denies: Abdominal Pain : Reports: No Symptoms Musculoskeletal: Reports: No Symptoms Skin: Reports: No Symptoms Neurological: Reports: No Symptoms Hematologic/Lymphatic: Reports: No Symptoms Immunologic: Reports: No Symptoms ED EXAM, GENERAL - Physical Exam Exam: See Below Exam Limited By: No Limitations General Appearance: Alert, WD/WN, No Apparent Distress Eye Exam: Bilateral Eye: EOMI, Normal Inspection Ears: Normal External Exam, Hearing Grossly Normal Ear Exam: Bilateral Ear: Auricle Normal Nose: Normal Inspection, Normal Mucosa, No Blood Throat/Mouth: Normal Voice, No Airway Compromise, Other (Somewhat dry mucous membranes) Head: Atraumatic, Normocephalic Neck: Normal Inspection, Supple, Non-Tender, Full Range of Motion Respiratory/Chest: No Respiratory Distress, Lungs Clear, Normal Breath Sounds, No Accessory Muscle Use, Chest Non-Tender Cardiovascular: Normal Peripheral Pulses, Regular Rate, Rhythm, No JVD Peripheral Pulses: 2+: Radial (L), Radial (R) GI/Abdominal: Normal Bowel Sounds, Soft, Non-Tender, No Mass Back Exam: Normal Inspection Extremities: Normal Inspection, Normal Range of Motion, Non-Tender, No Pedal Edema, Normal Capillary Refill Neurological: Alert, Oriented, CN II-XII Intact, No Motor/Sensory Deficits Skin Exam: Warm, Dry, Intact, Normal Color, No Rash EKG INTERPRETATION EKG Date: 02/06/19 Time: 17:29 Rhythm: NSR Pinon: LAD-Left Pinon Deviation P-Wave: Present QRS: Other (Right bundle-branch block and left anterior fascicular block) ST-T: Normal QT: Prolonged Comparison: Change From Previous EKG (Compared to an EKG performed on 08/15/2018 , ST-T changes have resolved.) Course - Vital Signs Last Recorded V/S: Last Vital Signs Temp 36.7 C 02/06/19 19:50 Pulse 53 L 02/06/19 19:50 Resp 17 02/06/19 19:50 BP 123/60 02/06/19 19:50 Pulse Ox 97 02/06/19 19:50 - Orders/Labs/Meds Orders: Active Orders 24 hr Category Date Time Status EKG Documentation Completion [RC] ASDIRECTED Care 02/06/19 16:53 Active Chest 1V Frontal [CR] Stat Exams 02/06/19 16:52 Taken Sodium Chloride 0.9% [Saline Flush] Med 02/06/19 16:54 Active 10 ml FLUSH ASDIRECTED PRN Peripheral IV Insertion Adult [OM.PC] Routine Oth 02/06/19 16:54 Ordered EKG 12 Lead [EK] Routine Ther 02/06/19 16:52 Ordered Medication Orders Sodium Chloride (Saline Flush) 10 ml FLUSH ASDIRECTED PRN PRN Reason: Keep Vein Open Labs: Laboratory Tests 02/06/19 02/06/19 02/06/19 Range/Units 17:11 17:11 17:11 WBC 8.1 (4.5-12.0) X10-3/uL RBC 4.01 L (4.30-5.75) x10(6)uL Hgb 12.6 L (13.5-17.8) g/dL Hct 37.2 (30.0-51.3) % MCV 92.7 (80-96) fL MCH 31.5 (27.7-33.6) pg MCHC 33.9 (32.2-35.4) g/dL RDW 14.7 (11.5-15.5) % Plt Count 462 H (125-369) X10(3)uL MPV 7.3 L (7.4-10.4) fL Neut % (Auto) 58.0 (46-82) % Lymph % (Auto) 33.6 (13-37) % [place] % (Auto) 5.5 (4-12) % Eos % (Auto) 2 (1.0-5.0) % Baso % (Auto) 1 (0-2) % Neut # (Auto) 4.7 (1.6-8.3) # Lymph # (Auto) 2.7 (0.6-5.0) # [place] # (Auto) 0.4 (0.0-1.3) # Eos # (Auto) 0.2 (0.0-0.8) # Baso # (Auto) 0.1 (0.0-0.2) # Sodium 133 L (135-145) mmol/L Potassium 3.3 L (3.5-5.3) mmol/L Chloride 99 L (100-110) mmol/L Carbon Dioxide 19 L (21-32) mmol/L BUN 8 D (7-18) mg/dL Creatinine 1.2 (0.70-1.30) mg/dL Est Cr Clr Drug Dosing 55.85 mL/min Estimated GFR (MDRD) > 60 (>60) BUN/Creatinine Ratio 6.7 L (9-20) Glucose 78 L D (80-116) mg/dL Calcium 9.0 (8.6-10.2) mg/dL Magnesium (1.8-2.5) mg/dL Total Bilirubin 0.4 (0.1-1.3) mg/dL AST 31 H D (5-25) IU/L ALT 11 L D (12-36) U/L Alkaline Phosphatase 105 (56-112) IU/L Total Protein 6.9 (6.0-8.0) g/dL Albumin 3.5 (3.2-4.6) g/dL Globulin 3.4 g/dL Albumin/Globulin Ratio 1.0 Urine Color (YELLOW) Urine Appearance (CLEAR) Urine pH (5.0-6.5) Ur Specific [place] (1.010-1.025) Urine Protein (NEGATIVE) mg/dL Urine Glucose (UA) (NORMAL) mg/dL Urine Ketones (NEGATIVE) mg/dL Urine Occult Blood (NEGATIVE) Urine Nitrite (NEGATIVE) Urine Bilirubin (NEGATIVE) Urine Urobilinogen (NEGATIVE) mg/dL Ur Leukocyte Esterase (NEGATIVE) Urine RBC (0-5) Urine WBC (0-5) Ur Squamous Epith Cells (NS,R,O) Urine Bacteria (NS) Ethyl Alcohol 0.10 H (<0.03) % 02/06/19 02/06/19 Range/Units 17:11 17:57 WBC (4.5-12.0) X10-3/uL RBC (4.30-5.75) x10(6)uL Hgb (13.5-17.8) g/dL Hct (30.0-51.3) % MCV (80-96) fL MCH (27.7-33.6) pg MCHC (32.2-35.4) g/dL RDW (11.5-15.5) % Plt Count (125-369) X10(3)uL MPV (7.4-10.4) fL Neut % (Auto) (46-82) % Lymph % (Auto) (13-37) % [place] % (Auto) (4-12) % Eos % (Auto) (1.0-5.0) % Baso % (Auto) (0-2) % Neut # (Auto) (1.6-8.3) # Lymph # (Auto) (0.6-5.0) # [place] # (Auto) (0.0-1.3) # Eos # (Auto) (0.0-0.8) # Baso # (Auto) (0.0-0.2) # Sodium (135-145) mmol/L Potassium (3.5-5.3) mmol/L Chloride (100-110) mmol/L Carbon Dioxide (21-32) mmol/L BUN (7-18) mg/dL Creatinine (0.70-1.30) mg/dL Est Cr Clr Drug Dosing mL/min Estimated GFR (MDRD) (>60) BUN/Creatinine Ratio (9-20) Glucose (80-116) mg/dL Calcium (8.6-10.2) mg/dL Magnesium 1.5 L (1.8-2.5) mg/dL Total Bilirubin (0.1-1.3) mg/dL AST (5-25) IU/L ALT (12-36) U/L Alkaline Phosphatase (56-112) IU/L Total Protein (6.0-8.0) g/dL Albumin (3.2-4.6) g/dL Globulin g/dL Albumin/Globulin Ratio Urine Color Yellow (YELLOW) Urine Appearance Clear (CLEAR) Urine pH 5.0 (5.0-6.5) Ur Specific [place] 1.005 L (1.010-1.025) Urine Protein Negative (NEGATIVE) mg/dL Urine Glucose (UA) Normal (NORMAL) mg/dL Urine Ketones Negative (NEGATIVE) mg/dL Urine Occult Blood Trace (NEGATIVE) Urine Nitrite Negative (NEGATIVE) Urine Bilirubin Negative (NEGATIVE) Urine Urobilinogen Normal (NEGATIVE) mg/dL Ur Leukocyte Esterase Small H (NEGATIVE) Urine RBC 0-5 (0-5) Urine WBC 0-5 (0-5) Ur Squamous Epith Cells Few H (NS,R,O) Urine Bacteria Few H (NS) Ethyl Alcohol (<0.03) % Meds: Medications Generic Name Dose Route Start Last Admin Trade Name Freq PRN Reason Stop Dose Admin Sodium Chloride 10 ml 02/06/19 16:54 Saline Flush FLUSH ASDIRECTED PRN Keep Vein Open Discontinued Medications Generic Name Dose Route Start Last Admin Trade Name Freq PRN Reason Stop Dose Admin Sodium Chloride 1,000 mls @ 999 mls/hr 02/06/19 16:54 Normal Saline IV 02/06/19 17:54 .BOLUS ONE Loperamide HCl 4 mg 02/06/19 16:54 02/06/19 17:42 Imodium PO 02/06/19 16:55 4 mg ONETIME ONE Administration - Re-Assessments/Exams Free Text/Narrative Re-Assessment/Exam: 02/06/19 20:24: Patient has taken PO well. He has remained hemodynamically stable while here. He continues to be pain-free and has had no difficulty breathing. His EKG is reassuring. His blood tests support mild dehydration but we have given him a liter of normal saline and as mentioned he has taken oral liquids and food well without any problems. He reports he feels back to baseline and I feel he is stable for discharge back home. We are arranging him to be able to be taken home by taxi so that he can have his wheelchair brought to him so that he can get to his apartment. The patient is in agreement with this plan. Departure - Departure Time of Disposition: 20:30 Disposition: Home, Self-Care 01 Condition: Good (Improved) Clinical Impression: Dehydration, Dyspnea on exertion Diarrhea Qualifiers: Diarrhea type: unspecified type Qualified Code(s): R19.7 - Diarrhea, unspecified Acute alcohol intoxication Qualifiers: Complication of substance-induced condition: uncomplicated Qualified Code(s): F10.920 - Alcohol use, unspecified with intoxication, uncomplicated - Discharge Information Instructions: Shortness of Breath, Adult, [id number], Alcohol Intoxication, [id number], Dehydration, Adult, [id number], Diarrhea, Adult, Gohn-go-Jxon Referrals: PCP,None [Primary Care Provider] - Forms: ED Department Discharge Additional Instructions: You did appear to be somewhat dehydrated but we corrected this with the IV fluids that we gave you and been able to take oral liquids and food well without any problems. You have also had no diarrhea while you have been in the emergency department. Your blood tests were reassuring. Your EKG was reassuring. Your chest x-ray was also normal. You were intoxicated and as we discussed you should avoid alcohol use in the future. I suspect that your difficulty breathing was from the activity and also somewhat related to your alcohol use. Increase your fluid intake. Avoid milk for the next 2-3 days. Stick with a bland diet for the next 12 to 18 hours. You may advance your diet as tolerated after this. Back to the emergency department for chest pain, trouble breathing, vomiting, abdominal pain or any other concerning sign or symptom. Sepsis Event Note - Evaluation Sepsis Screening Result: No Definite Risk - Focused Exam Vital Signs: Vital Signs Temp Pulse Resp BP Pulse Ox 02/06/19 19:50 36.7 C 53 L 17 123/60 97 02/06/19 16:25 36.5 C 53 L 17 124/69 100 Date Exam was Performed: 02/06/19 Time Exam was Performed: 20:24 - My Orders Last 24 Hours: My Active Orders 02/06/19 16:52 Chest 1V Frontal [CR] Stat EKG 12 Lead [EK] Routine 02/06/19 16:53 EKG Documentation Completion [RC] ASDIRECTED 02/06/19 16:54 Sodium Chloride 0.9% [Saline Flush] 10 ml FLUSH ASDIRECTED PRN Peripheral IV Insertion Adult [OM.PC] Routine - Assessment/Plan Last 24 Hours: My Active Orders 02/06/19 16:52 Chest 1V Frontal [CR] Stat EKG 12 Lead [EK] Routine 02/06/19 16:53 EKG Documentation Completion [RC] ASDIRECTED 02/06/19 16:54 Sodium Chloride 0.9% [Saline Flush] 10 ml FLUSH ASDIRECTED PRN Peripheral IV Insertion Adult [OM.PC] Routine
[2019-02-06] MEDS ORDERED: Sodium Chloride 0.9% 1,000 ML IV ONE (16:54)
[2019-02-06] MEDS ORDERED: Sodium Chloride 0.9% 10 ML Syringe FLUSH PRN (16:54)
[2019-02-06] MEDS ORDERED: Loperamide 2 MG Cap PO ONE (16:54)
[2019-02-06 20:34] VITALS: BP 136/90; PULSE 73
--- NOTE | 2019-02-07 09:28 | CR ---
INDICATION: Shortness of breath. CHEST, 1 VIEW: An AP upright portable view of the chest, 02/06/19, was compared with 07/26/18 and 08/13/15, again revealing the heart to be normal in size and shape post median sternotomy. The aorta is mildly tortuous with very minimal calcification in the arch. Pulmonary markings appear similar to the previous examination without a definite active infiltrate or effusion identified. His lungs do appear to be somewhat hyperaerated raising question of COPD, which is also suggested by interdigitation of the right hemidiaphragm leaf and minimally flattened right hemidiaphragm leaf. Degenerative changes are noted at the glenohumeral joints. There also appears to be impingement at the right shoulder with sclerosis of the under surface of the acromion. Degenerative changes are also noted at the AC joints. IMPRESSION: 1. Probable COPD/correlate clinically. 2. ASD aorta with post median sternotomy change but normal heart size. 3. Degenerative changes and impingement right shoulder, degenerative changes glenohumeral joint left shoulder. MTDD
== END 2019-02-06 20:50 | disposition home or self-care (01) ==
LOC: FB.ED 16:13
DX: R19.7 Diarrhea, unspecified (principal); Z79.82 Long term (current) use of aspirin
CPT/HCPCS: 36410; 36415; 71045; 80053; 81001; 83735; 85025; 93005; 93010; 99283; 99285-25; A9270-GY; G0480

== ENCOUNTER 2019-04-23 18:29 | Inpatient (IN) | payer MEDICARE ==
--- NOTE | 2019-04-23 18:42 | EDM.PDOC ---
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 that is twitching still alert and verbal Onset: Today Onset Date: 04/23/19 Onset Time: 17:25 Associated Symptoms: Reports: Confusion, Other (twitching on the left side) Left thigh Pain Score (Numeric/FACES): 5 - Related Data Allergies Allergy/AdvReac Type Severity Reaction Status Date / Time Penicillins Allergy Anaphylactic Verified 04/23/19 18:37 Shock Home Meds: Home Meds Multivitamin/Iron/Folic Acid [Centrum Complete Multivit] 1 each PO DAILY [History] levETIRAcetam [Keppra] 250 mg PO BID 09/15/13 [History] Aspirin [Ecotrin] 325 mg PO DAILY 08/13/15 [History] Fenofibrate Nanocrystallized [Fenofibrate] 145 mg PO DAILY 08/13/15 [History] Metoprolol Tartrate 37.5 mg PO BID 08/13/15 [History] amLODIPine [Norvasc] 5 mg PO DAILY 08/13/15 [History] atorvaSTATin [Lipitor] 10 mg PO DAILY 08/13/15 [History] Acetaminophen/HYDROcodone [[place] 325-5 MG] 1 tab PO Q4H PRN #30 tablet 07/23/18 [Rx] Isoniazid 300 mg PO DAILY 08/14/18 [History] Pyridoxine HCl [Vitamin B-6] 25 mg PO DAILY 08/14/18 [History] Past Medical History HEENT History: Reports: Cataract, Glaucoma, Impaired Vision, Other (See Below) Other HEENT History: missing several teeth Cardiovascular History: Reports: Bypass, CAD, High Cholesterol, Hypertension Respiratory History: Reports: Other (See Below) Other Respiratory History: smoker Gastrointestinal History: Reports: None Genitourinary History: Reports: None Musculoskeletal History: Reports: Other (See Below) Other Musculoskeletal History: pt uses w/c post cva, left hemiplegia Neurological History: Reports: CVA, Seizure Psychiatric History: Reports: Addiction (Alcohol abuse) Other Psychiatric History: likes to talk alot Endocrine/Metabolic History: Reports: None Hematologic History: Reports: Blood Transfusion(s) Immunologic History: Reports: None Dermatologic History: Reports: None - Infectious Disease History Infectious Disease History: Reports: None - Past Surgical History HEENT Surgical History: Reports: Oral Surgery Cardiovascular Surgical History: Reports: Coronary Artery Bypass GI Surgical History: Reports: Appendectomy, Hernia Repair/Other Male Surgical History: Reports: Circumcision Musculoskeletal Surgical History: Reports: Other (See Below) Other Musculoskeletal Surgeries/Procedures:: fx in ankle and foot on July 19 has leg boot on left lower leg Social & Family History - Family History Family Medical History: Noncontributory - Caffeine Use Caffeine Use: Reports: Tea - Living Situation & Occupation Living situation: Reports: Alone Occupation: Disabled ED ROS GENERAL - Review of Systems Review Of Systems: Unable To Obtain Reason Not Obtained: due to instability with twitching ED EXAM, NEURO - Physical Exam Exam: See Below Exam Limited By: No Limitations General Appearance: Alert, No Apparent Distress Ears: Normal External Exam Nose: Normal Inspection Neck: Supple, Non-Tender Respiratory/Chest: Lungs Clear Cardiovascular: Regular Rate, Rhythm GI/Abdominal: Soft, Non-Tender Neurological: Alert, Oriented x 3, Other (twitching left side , further exam not done, sent for CT) *Q Meaningful Use (ADM) - VTE *Q VTE Mechanical Contraindications *Q: At Risk for Falls VTE Pharmacological Contraindications *Q: Risk of Bleeding - VTE Risk Assess *Q Each Risk Factor Represents 1 Point: None Total Score 1 Point Risk Factors: 0 - AMI *Q Aspirin Contraindications AMI *Q: Med/TX Not Indicated/Need Thrombolytic/Fibrinolytic Contraindications IV (AMI) *Q: Med/tx not indicated/ need Statin Contraindications AMI *Q: Med/TX Not Indicated/Need Course - Vital Signs Last Recorded V/S: Last Vital Signs Temp 37.1 C 04/23/19 18:30 Pulse 110 H 04/23/19 18:30 Resp 19 04/23/19 18:30 BP 131/100 H 04/23/19 18:30 Pulse Ox 98 04/23/19 18:30 - Orders/Labs/Meds Orders: Active Orders 24 hr Category Date Time Status Head wo Cont [CT] Stat Exams 04/23/19 18:33 Taken BASIC METABOLIC PANEL,BMP [CHEM] Stat Lab 04/23/19 18:55 Received CRP [C-REACTIVE PROTEIN] [CHEM] Stat Lab 04/23/19 18:55 Received LEVETIRACETAM (KEPPRA), S Stat Lab 04/23/19 18:55 Received Sodium Chloride 0.9% [Saline Flush] Med 04/23/19 18:43 Active 10 ml FLUSH ASDIRECTED PRN Medication Orders Sodium Chloride (Saline Flush) 10 ml FLUSH ASDIRECTED PRN PRN Reason: IV Use Last Admin: 04/23/19 18:44 Dose: 10 ml Meds: Medications Generic Name Dose Route Start Last Admin Trade Name Freq PRN Reason Stop Dose Admin Sodium Chloride 10 ml 04/23/19 18:43 04/23/19 18:44 Saline Flush FLUSH 10 ml ASDIRECTED PRN Administration IV Use Discontinued Medications Generic Name Dose Route Start Last Admin Trade Name Freq PRN Reason Stop Dose Admin Diazepam 10 mg 04/23/19 18:39 04/23/19 18:43 Valium IVPUSH 04/23/19 18:40 10 mg ONETIME ONE Administration - Re-Assessments/Exams Free Text/Narrative Re-Assessment/Exam: 04/23/19 19:[address] done and given Diazepam 10mg Iv , stopped twitching 04/23/19 19:12 pt signed off to next provider Departure - Departure Time of Disposition: 19:13 Disposition: Admitted As Inpatient 68 Condition: Fair Clinical Impression: Limb weakness, Muscle weakness, Muscle twitch - Discharge Information *PRESCRIPTION DRUG MONITORING PROGRAM REVIEWED*: Not Applicable *COPY OF PRESCRIPTION DRUG MONITORING REPORT IN PATIENT TITA: Not Applicable Sepsis Event Note - Focused Exam Vital Signs: Vital Signs Temp Pulse Resp BP Pulse Ox 04/23/19 18:30 37.1 C 110 H 19 131/100 H 98 Date Exam was Performed: 04/23/19 Time Exam was Performed: 19:09 - My Orders Last 24 Hours: My Active Orders 04/23/19 18:33 Head wo Cont [CT] Stat 04/23/19 18:43 Sodium Chloride 0.9% [Saline Flush] 10 ml FLUSH ASDIRECTED PRN 04/23/19 18:55 BASIC METABOLIC PANEL,BMP [CHEM] Stat CRP [C-REACTIVE PROTEIN] [CHEM] Stat LEVETIRACETAM (KEPPRA), S Stat - Assessment/Plan Last 24 Hours: My Active Orders 04/23/19 18:33 Head wo Cont [CT] Stat 04/23/19 18:43 Sodium Chloride 0.9% [Saline Flush] 10 ml FLUSH ASDIRECTED PRN 04/23/19 18:55 BASIC METABOLIC PANEL,BMP [CHEM] Stat CRP [C-REACTIVE PROTEIN] [CHEM] Stat LEVETIRACETAM (KEPPRA), S Stat
[2019-04-23] MEDS ORDERED: Sodium Chloride 0.9% 10 ML Syringe FLUSH PRN (18:43)
[2019-04-23] MEDS: Sodium Chloride 0.9% 1,000 ML IV SCH (21:04)
--- NOTE | 2019-04-23 23:30 | ER ---
DATE SEEN: 04/23/2019 ADDENDUM: I saw this patient after Dr. Aysha Moreland had seen him. He had presented with the symptoms of weakness leaning towards the right side along with some focal seizure. He has a history of alcohol abuse and has been "sober" for about 10 days. He denied headache. He is not a reliable historian, but no report of fever or chills. MEDICATIONS: Reviewed. SOCIAL HISTORY: Lives in [address], alone. PHYSICAL EXAMINATION: GENERAL: He is not in any distress. VITAL SIGNS: Blood pressure is 131/100, pulse is 110. He is afebrile. He has normal oxygenation. ENT: Negative. CHEST: Has clear breath sounds. CARDIOVASCULAR: Normal. EXTREMITIES: Trace edema. NEUROLOGIC: He is alert. He is oriented x3. He did not exhibit any specific new symptoms or signs. He does have chronic left arm weakness from previous CVA. CT of the head showed chronic infarcts and encephalomalacia. LABORATORY DATA: Showed a creatinine of 1.9, normal white cell count. IMPRESSION: 1. Acute kidney injury. 2. History of seizures. 3. History of alcohol abuse. PLAN: Admit with IV rehydration and observation. PT, OT. Control of seizure if necessary by Valium p.r.n. /[id number] ERMELINDA/ODALYS
[2019-04-24] MEDS: Sodium Chloride 0.9% 1,000 ML IV SCH ×3 (06:17→22:59)
[2019-04-24] MEDS ORDERED: Acetaminophen/HYDROcodone 325-5 MG Tab PO PRN (10:10)
--- NOTE | 2019-04-24 10:21 | PCM.HP.2 ---
H&P History of Present Illness - General Date of Service: 04/24/19 Admit Problem/Dx: Admission Diagnosis/Problem Admission Diagnosis/Problem Acute kidney injury Source of Information: Patient, Old Records History Limitations: Reports: No Limitations - History of Present Illness Initial Comments - Free Text/Narative: This is a 69-year-old disabled patient with history of old CVA with right hemiparesis is wheelchair bound. He states yesterday he went out of his apartment of cigarette. When he came back he tried to transfer himself and then had pain in his left foot and slipped. His left side arm is very weak. He got a copy between the wheelchair and his body and he couldn't move. He somehow dropped call alarm to help to get help. He called her neighbor and they called the police. After we got him out of the wheelchair. He started having shaking his left arm. And this is called for possible stroke. He was seen in the ER and had a CT that showed old CVA but nothing new. And his creatinine was quite elevated. He had his creatinine in the clinic on April 18, 2019 and it was within normal limits. Says his been drinking plenty fluids. He uses ibuprofen once a day. He states he has left leg weakness and profound left arm weakness. He's in a wheelchair but can transfer himself. He has some cataracts and he is decrease in vision but nothing new. He has no trouble speaking or swallowing. He feels like his deficits I'm not changed. Left thigh Pain Score (Numeric/FACES): 5 - Related Data Allergies/Adverse Reactions: Allergies Allergy/AdvReac Type Severity Reaction Status Date / Time Penicillins Allergy Anaphylactic Verified 04/23/19 18:37 Shock Home Medications: Home Meds Multivitamin/Iron/Folic Acid [Centrum Complete Multivit] 1 each PO DAILY [History] levETIRAcetam [Keppra] 250 mg PO BID 09/15/13 [History] Aspirin [Ecotrin] 325 mg PO DAILY 08/13/15 [History] Fenofibrate Nanocrystallized [Fenofibrate] 145 mg PO DAILY 08/13/15 [History] Metoprolol Tartrate 37.5 mg PO BID 08/13/15 [History] amLODIPine [Norvasc] 5 mg PO DAILY 08/13/15 [History] atorvaSTATin [Lipitor] 10 mg PO DAILY 08/13/15 [History] Acetaminophen/HYDROcodone [[place] 325-5 MG] 1 tab PO Q4H PRN #30 tablet 07/23/18 [Rx] Isoniazid 300 mg PO DAILY 08/14/18 [History] Pyridoxine HCl [Vitamin B-6] 25 mg PO DAILY 08/14/18 [History] Past Medical History HEENT History: Reports: Cataract, Glaucoma, Impaired Vision, Other (See Below) Other HEENT History: missing several teeth Cardiovascular History: Reports: Bypass, CAD, High Cholesterol, Hypertension Respiratory History: Reports: Other (See Below) Other Respiratory History: smoker Gastrointestinal History: Reports: None Genitourinary History: Reports: None Musculoskeletal History: Reports: Other (See Below) Other Musculoskeletal History: pt uses w/c post cva, left hemiplegia 2004 Neurological History: Reports: CVA, Seizure Psychiatric History: Reports: Addiction, Mood Swings Other Psychiatric History: likes to talk alot Endocrine/Metabolic History: Reports: None Hematologic History: Reports: Blood Transfusion(s) Immunologic History: Reports: None Dermatologic History: Reports: None - Infectious Disease History Infectious Disease History: Reports: None - Past Surgical History HEENT Surgical History: Reports: Oral Surgery Cardiovascular Surgical History: Reports: Coronary Artery Bypass GI Surgical History: Reports: Appendectomy, Hernia Repair/Other Male Surgical History: Reports: Circumcision Neurological Surgical History: Reports: None Musculoskeletal Surgical History: Reports: Other (See Below) Other Musculoskeletal Surgeries/Procedures:: fx in ankle and foot on July 19 has leg boot on left lower leg Dermatological Surgical History: Reports: None Social & Family History - Family History Other Neurological Family History: Sister had a CVA Endocrine/Metabolic: Reports: Diabetes, type II Other Family History: Uncle of tuberculosis. - Tobacco Use Smoking Status *Q: Current Every Day Smoker Years of Tobacco use: 51 Packs/Tins Daily: 0.2 - Caffeine Use Caffeine Use: Reports: Tea - Recreational Drug Use Recreational Drug Use: No - Living Situation & Occupation Living situation: Reports: Alone Occupation: Disabled H&P Review of Systems - Review of Systems: Review Of Systems: See Below General: Reports: Weakness (Left side from previous stroke.) HEENT: Reports: No Symptoms Pulmonary: Reports: No Symptoms Cardiovascular: Reports: No Symptoms Gastrointestinal: Reports: No Symptoms Genitourinary: Reports: No Symptoms Musculoskeletal: Reports: No Symptoms Skin: Reports: No Symptoms Psychiatric: Reports: No Symptoms Neurological: Reports: Tremors Hematologic/Lymphatic: Reports: No Symptoms Immunologic: Reports: No Symptoms Exam - Exam Exam: See Below - Vital Signs Vital Signs: Last Vital Signs Temp 98.8 F 04/23/19 18:30 Pulse 74 04/23/19 20:40 Resp 14 04/23/19 20:40 BP 124/59 L 04/23/19 20:40 Pulse Ox 95 04/23/19 20:40 Weight: 149 lb 4.8 oz - Exam General: Alert, Oriented, Cooperative HEENT: PERRLA, Conjunctiva Clear, EOMI, Hearing Intact, Mucosa Moist & [place], TMs Clear (Right TM clear. Left TM is obstructed by cerumen.), Other (His visual mendieta on both left and right are absent on the left side. Both quadrants.) Neck: Supple, Trachea Midline, 2 Lungs: Clear to Auscultation, Normal Respiratory Effort. No: Rales, Rhonchi Cardiovascular: Regular Rate, Regular Rhythm, Systolic Murmur GI/Abdominal Exam: Normal Bowel Sounds, Soft, Non-Tender, No Organomegaly, No Distention, No Abnormal Bruit, No Mass Back Exam: Normal Inspection, Full Range of Motion Extremities: No Pedal Edema, Other (Left arm-left wrist is in the flexed position with no strength. He can(move his shoulder. Left leg is weak but has full range of motion. Right arm right leg are normal.) Skin: Warm, Dry, Intact Neurological: No: Normal Gait, Normal Speech Neuro Extensive - Mental Status: Alert, Oriented x3, Normal Mood/Affect, Normal Cognition, Memory Intact Neuro Extensive - Motor, Sensory, Reflexes: Facial palsy (L) (Mild). No: Normal Gait Psychiatric: Alert, Normal Affect, Normal Mood - Patient Data Lab Results Last 24 hrs: Laboratory Results - last 24 hr 04/23/19 04/23/19 04/23/19 Range/Units 18:45 18:45 18:55 WBC 9.4 (4.5-12.0) X10-3/uL RBC 3.99 L (4.30-5.75) x10(6)uL Hgb 12.9 L (13.5-17.8) g/dL Hct 37.1 (30.0-51.3) % MCV 92.9 (80-96) fL MCH 32.4 (27.7-33.6) pg MCHC 34.9 (32.2-35.4) g/dL RDW 14.5 (11.5-15.5) % Plt Count 490 H (125-369) X10(3)uL MPV (7.4-10.4) fL Neut % (Auto) (46-82) % Lymph % (Auto) (13-37) % Edwards % (Auto) (4-12) % Eos % (Auto) (1.0-5.0) % Baso % (Auto) (0-2) % Neut # (Auto) (1.6-8.3) # Lymph # (Auto) (0.6-5.0) # Edwards # (Auto) (0.0-1.3) # Eos # (Auto) (0.0-0.8) # Baso # (Auto) (0.0-0.2) # PT 10.5 (9.0-11.1) sec INR 1.08 (1.00-1.24) Sodium (135-145) mmol/L Potassium (3.5-5.3) mmol/L Chloride (100-110) mmol/L Carbon Dioxide (21-32) mmol/L BUN (7-18) mg/dL Creatinine (0.70-1.30) mg/dL Est Cr Clr Drug Dosing mL/min Estimated GFR (MDRD) (>60) BUN/Creatinine Ratio (9-20) Glucose (80-116) mg/dL Calcium (8.6-10.2) mg/dL Total Bilirubin (0.1-1.3) mg/dL AST (5-25) IU/L ALT (12-36) U/L Alkaline Phosphatase (56-112) IU/L Troponin I 72.1 H* (4.0-60.3) pg/mL C-Reactive Protein (0.5-0.9) mg/dL Total Protein (6.0-8.0) g/dL Albumin (3.2-4.6) g/dL Globulin g/dL Albumin/Globulin Ratio Ethyl Alcohol < 0.03 (<0.03) % 04/23/19 04/23/19 04/24/19 Range/Units 18:55 18:55 06:07 WBC 7.9 (4.5-12.0) X10-3/uL RBC 3.77 L (4.30-5.75) x10(6)uL Hgb 11.8 L (13.5-17.8) g/dL Hct 35.2 (30.0-51.3) % MCV 93.4 (80-96) fL MCH 31.3 (27.7-33.6) pg MCHC 33.5 (32.2-35.4) g/dL RDW 14.2 (11.5-15.5) % Plt Count 401 H (125-369) X10(3)uL MPV 7.3 L (7.4-10.4) fL Neut % (Auto) 51.2 (46-82) % Lymph % (Auto) 34.3 (13-37) % Edwards % (Auto) 9.3 (4-12) % Eos % (Auto) 4 (1.0-5.0) % Baso % (Auto) 1 (0-2) % Neut # (Auto) 4.1 (1.6-8.3) # Lymph # (Auto) 2.7 (0.6-5.0) # Edwards # (Auto) 0.7 (0.0-1.3) # Eos # (Auto) 0.3 (0.0-0.8) # Baso # (Auto) 0.1 (0.0-0.2) # PT (9.0-11.1) sec INR (1.00-1.24) Sodium 144 D (135-145) mmol/L Potassium 3.8 (3.5-5.3) mmol/L Chloride 106 D (100-110) mmol/L Carbon Dioxide 22 (21-32) mmol/L BUN 19 H D (7-18) mg/dL Creatinine 1.9 H (0.70-1.30) mg/dL Est Cr Clr Drug Dosing 35.89 mL/min Estimated GFR (MDRD) 36 L (>60) BUN/Creatinine Ratio 10.0 (9-20) Glucose 144 H (80-116) mg/dL Calcium 8.6 (8.6-10.2) mg/dL Total Bilirubin (0.1-1.3) mg/dL AST (5-25) IU/L ALT (12-36) U/L Alkaline Phosphatase (56-112) IU/L Troponin I (4.0-60.3) pg/mL C-Reactive Protein 1.5 H (0.5-0.9) mg/dL Total Protein (6.0-8.0) g/dL Albumin (3.2-4.6) g/dL Globulin g/dL Albumin/Globulin Ratio Ethyl Alcohol (<0.03) % 04/24/19 04/24/19 Range/Units 06:07 06:07 WBC (4.5-12.0) X10-3/uL RBC (4.30-5.75) x10(6)uL Hgb (13.5-17.8) g/dL Hct (30.0-51.3) % MCV (80-96) fL MCH (27.7-33.6) pg MCHC (32.2-35.4) g/dL RDW (11.5-15.5) % Plt Count (125-369) X10(3)uL MPV (7.4-10.4) fL Neut % (Auto) (46-82) % Lymph % (Auto) (13-37) % Edwards % (Auto) (4-12) % Eos % (Auto) (1.0-5.0) % Baso % (Auto) (0-2) % Neut # (Auto) (1.6-8.3) # Lymph # (Auto) (0.6-5.0) # Edwards # (Auto) (0.0-1.3) # Eos # (Auto) (0.0-0.8) # Baso # (Auto) (0.0-0.2) # PT (9.0-11.1) sec INR (1.00-1.24) Sodium 144 (135-145) mmol/L Potassium 3.3 L (3.5-5.3) mmol/L Chloride 110 (100-110) mmol/L Carbon Dioxide 25 (21-32) mmol/L BUN 21 H (7-18) mg/dL Creatinine 1.5 H (0.70-1.30) mg/dL Est Cr Clr Drug Dosing 44.68 mL/min Estimated GFR (MDRD) 47 L (>60) BUN/Creatinine Ratio 14.0 (9-20) Glucose 121 H (80-116) mg/dL Calcium 8.1 L (8.6-10.2) mg/dL Total Bilirubin 0.3 (0.1-1.3) mg/dL AST 26 H D (5-25) IU/L ALT 15 D (12-36) U/L Alkaline Phosphatase 86 (56-112) IU/L Troponin I 56.2 (4.0-60.3) pg/mL C-Reactive Protein (0.5-0.9) mg/dL Total Protein 6.1 (6.0-8.0) g/dL Albumin 2.9 L (3.2-4.6) g/dL Globulin 3.2 g/dL Albumin/Globulin Ratio 0.9 Ethyl Alcohol (<0.03) % Result Diagrams: 04/24/19 06:07 04/24/19 06:07 Sepsis Event Note - Evaluation Sepsis Screening Result: No Definite Risk *Q Meaningful Use (ADM) - VTE *Q VTE Mechanical Contraindications *Q: At Risk for Falls VTE Pharmacological Contraindications *Q: Risk of Bleeding - AMI *Q Aspirin Contraindications AMI *Q: Med/TX Not Indicated/Need Thrombolytic/Fibrinolytic Contraindications IV (AMI) *Q: Med/tx not indicated/ need Statin Contraindications AMI *Q: Med/TX Not Indicated/Need - Problem List (1) Acute kidney injury SNOMED Code(s): 34008233, 68910976 ICD Code: N17.9 - ACUTE KIDNEY FAILURE, UNSPECIFIED Status: Acute Current Visit: Yes (2) Hypokalemia SNOMED Code(s): 91216563 ICD Code: E87.6 - HYPOKALEMIA Status: Acute Current Visit: Yes (3) Tremor SNOMED Code(s): 46742588 ICD Code: R25.1 - TREMOR, UNSPECIFIED Status: Acute Current Visit: Yes (4) Anemia SNOMED Code(s): 554613484 ICD Code: D64.9 - ANEMIA, UNSPECIFIED Status: Acute Current Visit: Yes (5) Thrombocytosis SNOMED Code(s): 5533109 ICD Code: D47.3 - ESSENTIAL (HEMORRHAGIC) THROMBOCYTHEMIA Status: Acute Current Visit: Yes (6) Elevated troponin SNOMED Code(s): 682796777, 510151265, 561709005 ICD Code: R79.89 - OTHER SPECIFIED ABNORMAL FINDINGS OF BLOOD CHEMISTRY Status: Acute Current Visit: Yes (7) Palliative care status SNOMED Code(s): 462636679 ICD Code: Z51.5 - ENCOUNTER FOR PALLIATIVE CARE Status: Acute Current Visit: Yes (8) Left hemiplegia SNOMED Code(s): 142281528 ICD Code: G81.94 - HEMIPLEGIA, UNSPECIFIED AFFECTING LEFT NONDOMINANT SIDE Status: Acute Current Visit: No Problem List Initiated/Reviewed/Updated: Yes Orders Last 24hrs: Active Orders 24 hr Category Date Time Status Patient Status [ADT] Routine ADT 04/23/19 19:49 Active Height and Weight [RC] 06 Care 04/23/19 19:49 Active Intake and Output [RC] 06,14,22 Care 04/23/19 19:50 Active Oxygen Therapy [RC] PRN Care 04/23/19 19:49 Active Up With Assistance [RC] ASDIRECTED Care 04/23/19 19:49 Active VTE/DVT Education [RC] Per Unit Routine Care 04/23/19 19:49 Active Vital Signs [RC] QSHIFT Care 04/23/19 19:49 Active OT Evaluation and Treatment [CONS] Routine Cons 04/23/19 19:49 Active PT Evaluation and Treatment [CONS] Routine Cons 04/23/19 19:49 Active Head wo Cont [CT] Stat Exams 04/23/19 18:33 Taken Renal Comp [US] Routine Exams 04/24/19 10:14 Ordered BASIC METABOLIC PANEL,BMP [CHEM] AM Lab 04/25/19 06:00 Ordered CBC WITH AUTO DIFF [HEME] AM Lab 04/25/19 05:11 Ordered LEVETIRACETAM (KEPPRA), S Stat Lab 04/23/19 18:55 Received Acetaminophen/HYDROcodone [[place] 325-5 MG] Med 04/24/19 10:10 Ordered 1 tab PO Q4H PRN Aspirin [Ecotrin] Med 04/25/19 09:00 Ordered 325 mg PO DAILY Enoxaparin [Lovenox] Med 04/24/19 10:15 Ordered 40 mg SUBCUT Q24H Fenofibrate Nanocrystallized [Tricor] Med 04/25/19 09:00 Ordered 145 mg PO DAILY Isoniazid Med 04/25/19 09:00 Ordered 300 mg PO DAILY Metoprolol Tartrate [Lopressor] Med 04/24/19 21:00 Ordered 37.5 mg PO BID Multivitamin/Iron/Folic Acid [Centrum Complete Multivit Med 04/25/19 09:00 Ordered ] 1 each PO DAILY Potassium Chloride [Klor-Con M20] Med 04/24/19 10:15 Ordered 20 meq PO DAILY Pyridoxine HCl [Vitamin B-6] Med 04/25/19 09:00 Ordered 25 mg PO DAILY Sodium Chloride 0.9% [Normal Saline] 1,000 ml Med 04/23/19 20:00 Active IV ASDIRECTED Sodium Chloride 0.9% [Saline Flush] Med 04/23/19 18:43 Active 10 ml FLUSH ASDIRECTED PRN amLODIPine [Norvasc] Med 04/25/19 09:00 Ordered 5 mg PO DAILY atorvaSTATin [Lipitor] Med 04/25/19 09:00 Ordered 10 mg PO DAILY diazePAM [Valium] Med 04/23/19 19:53 Active 5 mg IVPUSH Q4H PRN levETIRAcetam [Keppra] Med 04/24/19 21:00 Ordered 250 mg PO BID Resuscitation Status Routine Resus Stat 04/23/19 19:49 Ordered EKG 12 Lead [EK] Routine Ther 04/23/19 19:13 Ordered EKG 12 Lead [EK] Routine Ther 04/24/19 08:36 Ordered Medication Orders Hydrocodone Bitart/Acetaminophen ([place]in[place] 325-5 Mg) 1 tab PO Q4H PRN PRN Reason: Pain Amlodipine Besylate (Norvasc) 5 mg PO DAILY MONET Aspirin (Ecotrin) 325 mg PO DAILY MONET Atorvastatin Calcium (Lipitor) 10 mg PO DAILY MONET Diazepam (Valium) 5 mg IVPUSH Q4H PRN PRN Reason: Seizures Enoxaparin Sodium (Lovenox) 40 mg SUBCUT Q24H MONET Fenofibrate (Tricor) 145 mg PO DAILY MONET Sodium Chloride (Normal Saline) 1,000 mls @ 125 mls/hr IV ASDIRECTED MONET Last Admin: 04/24/19 06:17 Dose: 125 mls/hr Infusion: 04/24/19 06:04 Dose: 125 mls/hr Admin: 04/23/19 21:04 Dose: 125 mls/hr Isoniazid (Isoniazid) 300 mg PO DAILY MONET Levetiracetam (Keppra) 250 mg PO BID MONET Metoprolol Tartrate (Lopressor) 37.5 mg PO BID MONET Non-Formulary Medication (Multivitamin/Iron/Folic Acid [Centrum Complete Multivit]) 1 each PO DAILY MONET Non-Formulary Medication (Pyridoxine Hcl [Vitamin B-6]) 25 mg PO DAILY MONET Potassium Chloride (Klor-Con M20) 20 meq PO DAILY MONET Sodium Chloride (Saline Flush) 10 ml FLUSH ASDIRECTED PRN PRN Reason: IV Use Last Admin: 04/23/19 18:44 Dose: 10 ml Assessment/Plan Comment:: 1.Admit to inpatient. 2. Full code 3. Regular diet 4. IV fluids 5. By mouth potassium 6. Up in chair and wheelchair. 7. Lovenox for VTE prophylaxis 8. Ultrasound renal in the a.m. 9. Recheck BMP and CBC in a.m. 10. His last creatinine in the office was 7 days ago and normal. - Mortality Measure Prognosis:: Good
[2019-04-24] MEDS: Potassium Chloride 20 MEQ Tab.ER PO SCH (10:57)
[2019-04-24] MEDS: Enoxaparin 40 MG/0.4 ML Syringe SUBCUT SCH (10:57)
[2019-04-24] MEDS: Metoprolol Tartrate 25 MG Tab PO SCH (20:20)
[2019-04-24] MEDS: levETIRAcetam 250 MG Tab PO SCH (20:20)
[2019-04-25] MEDS: Sodium Chloride 0.9% 1,000 ML IV SCH (06:30)
--- NOTE | 2019-04-25 07:25 | PCM.PN ---
- General Info Date of Service: 04/25/19 Admission Dx/Problem (Free Text): Patient without concerns. He feels good. He's had no shaking in his left arm. - Patient Data Vitals - Most Recent: Last Vital Signs Temp 97.7 F 04/25/19 00:16 Pulse 67 04/25/19 00:16 Resp 20 04/25/19 00:16 BP 151/79 H 04/25/19 00:16 Pulse Ox 94 L 04/25/19 00:16 Weight - Most Recent: 149 lb 9.6 oz I&O - Last 24 Hours: Intake & Output 04/24/19 04/25/19 04/25/19 22:59 06:59 14:59 Intake Total 1022 974 Output Total 1550 Balance -528 974 Lab Results Last 24 Hours: Laboratory Results - last 24 hr 04/24/19 04/25/19 04/25/19 Range/Units 06:07 06:20 06:20 WBC 6.0 (4.5-12.0) X10-3/uL RBC 3.82 L (4.30-5.75) x10(6)uL Hgb 12.3 L (13.5-17.8) g/dL Hct 35.7 (30.0-51.3) % MCV 93.4 (80-96) fL MCH 32.3 (27.7-33.6) pg MCHC 34.6 (32.2-35.4) g/dL RDW 14.2 (11.5-15.5) % Plt Count 362 (125-369) X10(3)uL MPV 7.5 (7.4-10.4) fL Neut % (Auto) 49.0 (46-82) % Lymph % (Auto) 33.2 (13-37) % [place] % (Auto) 9.9 (4-12) % Eos % (Auto) 7 H (1.0-5.0) % Baso % (Auto) 1 (0-2) % Neut # (Auto) 2.9 (1.6-8.3) # Lymph # (Auto) 2.0 (0.6-5.0) # [place] # (Auto) 0.6 (0.0-1.3) # Eos # (Auto) 0.4 (0.0-0.8) # Baso # (Auto) 0.1 (0.0-0.2) # Sodium 146 H (135-145) mmol/L Potassium 3.5 (3.5-5.3) mmol/L Chloride 112 H (100-110) mmol/L Carbon Dioxide 26 (21-32) mmol/L BUN 15 (7-18) mg/dL Creatinine 1.2 (0.70-1.30) mg/dL Est Cr Clr Drug Dosing 55.85 mL/min Estimated GFR (MDRD) > 60 (>60) BUN/Creatinine Ratio 12.5 (9-20) Glucose 89 (80-116) mg/dL Calcium 8.6 (8.6-10.2) mg/dL Troponin I 56.2 (4.0-60.3) pg/mL Med Orders - Current: Current Medications Hydrocodone Bitart/Acetaminophen ([place] 325-5 Mg) 1 tab PO Q4H PRN PRN Reason: Pain Amlodipine Besylate (Norvasc) 5 mg PO DAILY [facility] Aspirin (Ecotrin) 325 mg PO DAILY [facility] Atorvastatin Calcium (Lipitor) 10 mg PO DAILY [facility] Diazepam (Valium) 5 mg IVPUSH Q4H PRN PRN Reason: Seizures Enoxaparin Sodium (Lovenox) 40 mg SUBCUT Q24H [facility] Last Admin: 04/24/19 10:57 Dose: 40 mg Fenofibrate (Tricor) 145 mg PO DAILY [facility] Sodium Chloride (Normal Saline) 1,000 mls @ 125 mls/hr IV ASDIRECTED [facility] Last Admin: 04/25/19 06:30 Dose: 125 mls/hr Isoniazid (Isoniazid) 300 mg PO DAILY [facility] Levetiracetam (Keppra) 250 mg PO BID [facility] Last Admin: 04/24/19 20:20 Dose: 250 mg Metoprolol Tartrate (Lopressor) 37.5 mg PO BID [facility] Last Admin: 04/24/19 20:20 Dose: 37.5 mg Multivitamins/Minerals (Thera M Plus) 1 tab PO DAILY [facility] Potassium Chloride (Klor-Con M20) 20 meq PO DAILY [facility] Last Admin: 04/24/19 10:57 Dose: 20 meq Pyridoxine HCl (Vitamin B6-Pyridoxine) 25 mg PO DAILY [facility] Sodium Chloride (Saline Flush) 10 ml FLUSH ASDIRECTED PRN PRN Reason: IV Use Last Admin: 04/23/19 18:44 Dose: 10 ml Discontinued Medications Diazepam (Valium) 10 mg IVPUSH ONETIME ONE Stop: 04/23/19 18:40 Last Admin: 04/23/19 18:43 Dose: 10 mg - Exam Neck: Supple Lungs: Clear to Auscultation, Normal Respiratory Effort Cardiovascular: Regular Rate, Regular Rhythm Extremities: No Pedal Edema Psy/Mental Status: Alert, Normal Affect, Normal Mood Sepsis Event Note - Evaluation Sepsis Screening Result: No Definite Risk - Focused Exam Vital Signs: Vital Signs Temp Pulse Pulse Resp BP BP Pulse Ox 04/25/19 00:16 97.7 F 67 20 151/79 H 94 L 04/24/19 20:20 66 155/72 H Date Exam was Performed: 04/25/19 Time Exam was Performed: 07:23 - Problem List & Annotations (1) Acute kidney injury SNOMED Code(s): 23491553, 60430136 Code(s): N17.9 - ACUTE KIDNEY FAILURE, UNSPECIFIED Status: Acute Current Visit: Yes (2) Hypokalemia SNOMED Code(s): 14349961 Code(s): E87.6 - HYPOKALEMIA Status: Acute Current Visit: Yes (3) Tremor SNOMED Code(s): 53920366 Code(s): R25.1 - TREMOR, UNSPECIFIED Status: Acute Current Visit: Yes (4) Anemia SNOMED Code(s): 462787205 Code(s): D64.9 - ANEMIA, UNSPECIFIED Status: Acute Current Visit: Yes (5) Thrombocytosis SNOMED Code(s): 8810992 Code(s): D47.3 - ESSENTIAL (HEMORRHAGIC) THROMBOCYTHEMIA Status: Acute Current Visit: Yes (6) Elevated troponin SNOMED Code(s): 598619454, 106287796, 158613678 Code(s): R79.89 - OTHER SPECIFIED ABNORMAL FINDINGS OF BLOOD CHEMISTRY Status: Acute Current Visit: Yes (7) Palliative care status SNOMED Code(s): 616814491 Code(s): Z51.5 - ENCOUNTER FOR PALLIATIVE CARE Status: Acute Current Visit: Yes (8) Left hemiplegia SNOMED Code(s): 156441922 Code(s): G81.94 - HEMIPLEGIA, UNSPECIFIED AFFECTING LEFT NONDOMINANT SIDE Status: Acute Current Visit: No - Problem List Review Problem List Initiated/Reviewed/Updated: Yes - My Orders Last 24 Hours: My Active Orders 04/24/19 08:36 EKG 12 Lead [EK] Routine 04/24/19 10:10 Acetaminophen/HYDROcodone [[place] 325-5 MG] 1 tab PO Q4H PRN 04/24/19 10:15 Potassium Chloride [Klor-Con M20] 20 meq PO DAILY 04/24/19 10:30 Enoxaparin [Lovenox] 40 mg SUBCUT Q24H 04/24/19 21:00 Metoprolol Tartrate [Lopressor] 37.5 mg PO BID levETIRAcetam [Keppra] 250 mg PO BID 04/25/19 09:00 Aspirin [Ecotrin] 325 mg PO DAILY Fenofibrate Nanocrystallized [Tricor] 145 mg PO DAILY Isoniazid 300 mg PO DAILY Multivitamins w-Iron/Ca/FA/Min [Thera M Plus] 1 tab PO DAILY Vitamin B6-pyridOXINE 25 mg PO DAILY amLODIPine [Norvasc] 5 mg PO DAILY atorvaSTATin [Lipitor] 10 mg PO DAILY 04/25/19 10:14 Renal Comp [US] Routine 04/25/19 Breakfast Nothing per Oral After Midnight Diet [DIET] - Plan Plan:: 1 discharge to home after his ultrasound. He can follow-up with Dr. Kraft for the ultrasound results within a week.
--- NOTE | 2019-04-25 07:29 | PCM.DCSUM1 ---
Discharge Summary - Hospital Course Free Text/Narrative:: Patient was found to have acute kidney injury. He was admitted place IV fluids. In the morning his creatinine was still elevated we washed him all day until the next morning was creatinine went to normal. Hemoglobin was little low around 11-to 12. Potassium is a little I gave a little potassium replacement. Patient felt well and had no more tremoring in the left arm. Discussed with the patient that should avoid nostril anti-inflammatories and push the fluids. He says Dr. Kraft is told him that before. Brief History: This is a 69-year-old disabled patient with history of old CVA with right hemiparesis is wheelchair bound. He states yesterday he went out of his apartment of cigarette. When he came back he tried to transfer himself and then had pain in his left foot and slipped. His left side arm is very weak. He got a copy between the wheelchair and his body and he couldn't move. He somehow dropped call alarm to help to get help. He called her neighbor and they called the police. After we got him out of the wheelchair. He started having shaking his left arm. And this is called for possible stroke. He was seen in the ER and had a CT that showed old CVA but nothing new. And his creatinine was quite elevated. He had his creatinine in the clinic on April 18, 2019 and it was within normal limits. Says his been drinking plenty fluids. He uses ibuprofen once a day. He states he has left leg weakness and profound left arm weakness. He's in a wheelchair but can transfer himself. He has some cataracts and he is decrease in vision but nothing new. He has no trouble speaking or swallowing. He feels like his deficits I'm not changed. Diagnosis: Stroke: No - Discharge Data Discharge Date: 04/25/19 Discharge Disposition: Home, Self-Care 01 Condition: Good - Referral to Home Health Primary Care Physician: PCP None - Discharge Diagnosis/Problem(s) (1) Acute kidney injury SNOMED Code(s): 12165319, 83696964 ICD Code: N17.9 - ACUTE KIDNEY FAILURE, UNSPECIFIED Status: Acute Current Visit: Yes (2) Hypokalemia SNOMED Code(s): 34930287 ICD Code: E87.6 - HYPOKALEMIA Status: Acute Current Visit: Yes (3) Tremor SNOMED Code(s): 85741585 ICD Code: R25.1 - TREMOR, UNSPECIFIED Status: Acute Current Visit: Yes (4) Anemia SNOMED Code(s): 841045196 ICD Code: D64.9 - ANEMIA, UNSPECIFIED Status: Acute Current Visit: Yes (5) Thrombocytosis SNOMED Code(s): 3568565 ICD Code: D47.3 - ESSENTIAL (HEMORRHAGIC) THROMBOCYTHEMIA Status: Acute Current Visit: Yes (6) Elevated troponin SNOMED Code(s): 078040566, 810460756, 356174659 ICD Code: R79.89 - OTHER SPECIFIED ABNORMAL FINDINGS OF BLOOD CHEMISTRY Status: Acute Current Visit: Yes (7) Palliative care status SNOMED Code(s): 994001924 ICD Code: Z51.5 - ENCOUNTER FOR PALLIATIVE CARE Status: Acute Current Visit: Yes (8) Left hemiplegia SNOMED Code(s): 458424900 ICD Code: G81.94 - HEMIPLEGIA, UNSPECIFIED AFFECTING LEFT NONDOMINANT SIDE Status: Acute Current Visit: No - Patient Summary/Data Consults: Consultations 04/23/19 19:49 OT Evaluation and Treatment [CONS] Routine Please Evaluate and Treat. OT Reason for Consult: ADL's This query below is only for informational purposes and is not editable. PT Evaluation and Treatment [CONS] Routine Please Evaluate and Treat. PT Reason for Consult: Ambulation This query below is only for informational purposes and is not editable. - Patient Instructions Diet: Regular Diet as Tolerated Activity: As Tolerated Activity, Other: Wheelchair Driving: May Drive Today Showering/Bathing: May Shower Notify Provider of: Fever, Increased Pain Other/Special Instructions: 1. Discharge after his ultrasound. 2. Recheck with Dr. Kraft with a CBC, BMP and ultrasound results within 1 week - Discharge Plan *PRESCRIPTION DRUG MONITORING PROGRAM REVIEWED*: Not Applicable *COPY OF PRESCRIPTION DRUG MONITORING REPORT IN PATIENT TITA: Not Applicable Home Medications: Home Meds Multivitamin/Iron/Folic Acid [Centrum Complete Multivit] 1 each PO DAILY [History] levETIRAcetam [Keppra] 250 mg PO BID 09/15/13 [History] Aspirin [Ecotrin] 325 mg PO DAILY 08/13/15 [History] Fenofibrate Nanocrystallized [Fenofibrate] 145 mg PO DAILY 08/13/15 [History] Metoprolol Tartrate 37.5 mg PO BID 08/13/15 [History] amLODIPine [Norvasc] 5 mg PO DAILY 08/13/15 [History] atorvaSTATin [Lipitor] 10 mg PO DAILY 08/13/15 [History] Acetaminophen/HYDROcodone [[place] 325-5 MG] 1 tab PO Q4H PRN #30 tablet 07/23/18 [Rx] Isoniazid 300 mg PO DAILY 08/14/18 [History] Pyridoxine HCl [Vitamin B-6] 25 mg PO DAILY 08/14/18 [History] Patient Handouts: Steps to Quit Smoking, [id number], Venous Thoracic Outlet Syndrome, Fall Prevention in Hospitals, Adult, Venous Thromboembolism Prevention Forms: ED Department Discharge Referrals: PCP,None [Primary Care Provider] - - Discharge Summary/Plan Comment DC Time >30 min.: No - Patient Data Vitals - Most Recent: Last Vital Signs Temp 97.7 F 04/25/19 00:16 Pulse 67 04/25/19 00:16 Resp 20 04/25/19 00:16 BP 151/79 H 04/25/19 00:16 Pulse Ox 94 L 04/25/19 00:16 Weight - Most Recent: 149 lb 9.6 oz I&O - Last 24 hours: Intake & Output 04/24/19 04/25/19 04/25/19 22:59 06:59 14:59 Intake Total 1022 974 Output Total 1550 Balance -528 974 Lab Results - Last 24 hrs: Laboratory Results - last 24 hr 04/24/19 04/25/19 04/25/19 Range/Units 06:07 06:20 06:20 WBC 6.0 (4.5-12.0) X10-3/uL RBC 3.82 L (4.30-5.75) x10(6)uL Hgb 12.3 L (13.5-17.8) g/dL Hct 35.7 (30.0-51.3) % MCV 93.4 (80-96) fL MCH 32.3 (27.7-33.6) pg MCHC 34.6 (32.2-35.4) g/dL RDW 14.2 (11.5-15.5) % Plt Count 362 (125-369) X10(3)uL MPV 7.5 (7.4-10.4) fL Neut % (Auto) 49.0 (46-82) % Lymph % (Auto) 33.2 (13-37) % [place] % (Auto) 9.9 (4-12) % Eos % (Auto) 7 H (1.0-5.0) % Baso % (Auto) 1 (0-2) % Neut # (Auto) 2.9 (1.6-8.3) # Lymph # (Auto) 2.0 (0.6-5.0) # [place] # (Auto) 0.6 (0.0-1.3) # Eos # (Auto) 0.4 (0.0-0.8) # Baso # (Auto) 0.1 (0.0-0.2) # Sodium 146 H (135-145) mmol/L Potassium 3.5 (3.5-5.3) mmol/L Chloride 112 H (100-110) mmol/L Carbon Dioxide 26 (21-32) mmol/L BUN 15 (7-18) mg/dL Creatinine 1.2 (0.70-1.30) mg/dL Est Cr Clr Drug Dosing 55.85 mL/min Estimated GFR (MDRD) > 60 (>60) BUN/Creatinine Ratio 12.5 (9-20) Glucose 89 (80-116) mg/dL Calcium 8.6 (8.6-10.2) mg/dL Troponin I 56.2 (4.0-60.3) pg/mL Med Orders - Current: Current Medications Hydrocodone Bitart/Acetaminophen ([place] 325-5 Mg) 1 tab PO Q4H PRN PRN Reason: Pain Amlodipine Besylate (Norvasc) 5 mg PO DAILY [facility] Aspirin (Ecotrin) 325 mg PO DAILY [facility] Atorvastatin Calcium (Lipitor) 10 mg PO DAILY [facility] Diazepam (Valium) 5 mg IVPUSH Q4H PRN PRN Reason: Seizures Enoxaparin Sodium (Lovenox) 40 mg SUBCUT Q24H [facility] Last Admin: 04/24/19 10:57 Dose: 40 mg Fenofibrate (Tricor) 145 mg PO DAILY [facility] Sodium Chloride (Normal Saline) 1,000 mls @ 125 mls/hr IV ASDIRECTED [facility] Last Admin: 04/25/19 06:30 Dose: 125 mls/hr Isoniazid (Isoniazid) 300 mg PO DAILY [facility] Levetiracetam (Keppra) 250 mg PO BID [facility] Last Admin: 04/24/19 20:20 Dose: 250 mg Metoprolol Tartrate (Lopressor) 37.5 mg PO BID [facility] Last Admin: 04/24/19 20:20 Dose: 37.5 mg Multivitamins/Minerals (Thera M Plus) 1 tab PO DAILY [facility] Potassium Chloride (Klor-Con M20) 20 meq PO DAILY [facility] Last Admin: 04/24/19 10:57 Dose: 20 meq Pyridoxine HCl (Vitamin B6-Pyridoxine) 25 mg PO DAILY [facility] Sodium Chloride (Saline Flush) 10 ml FLUSH ASDIRECTED PRN PRN Reason: IV Use Last Admin: 04/23/19 18:44 Dose: 10 ml Discontinued Medications Diazepam (Valium) 10 mg IVPUSH ONETIME ONE Stop: 04/23/19 18:40 Last Admin: 04/23/19 18:43 Dose: 10 mg *Q Meaningful Use (DIS) - VTE *Q VTE Mechanical Contraindications *Q: At Risk for Falls VTE Pharmacological Contraindications *Q: Risk of Bleeding - AMI *Q Aspirin Contraindications AMI *Q: Med/TX Not Indicated/Need Statin Contraindications AMI *Q: Med/TX Not Indicated/Need
[2019-04-25] MEDS ORDERED: Multivitamins with Iron/Calcium/Folic Acid/Minerals Tab PO SCH (09:00)
[2019-04-25] MEDS ORDERED: amLODIPine 5 MG Tab PO SCH (09:00)
[2019-04-25] MEDS ORDERED: Fenofibrate Nanocrystallized 145 MG Tab PO SCH (09:00)
[2019-04-25] MEDS ORDERED: atorvaSTATin 10 MG Tab PO SCH (09:00)
[2019-04-25] MEDS ORDERED: Vitamin B6-pyridOXINE 100 MG Tab PO SCH (09:00)
[2019-04-25] MEDS ORDERED: Aspirin 325 MG Tab.EC PO SCH (09:00)
[2019-04-25] MEDS: Potassium Chloride 20 MEQ Tab.ER PO SCH (09:25)
[2019-04-25] MEDS: Metoprolol Tartrate 25 MG Tab PO SCH (09:25)
[2019-04-25] MEDS: levETIRAcetam 250 MG Tab PO SCH (09:25)
[2019-04-25 09:26] VITALS: BP 150/78
[2019-04-25] MEDS: Enoxaparin 40 MG/0.4 ML Syringe SUBCUT SCH (09:31)
--- NOTE | 2019-04-25 10:55 | US ---
INDICATION: Acute renal injury. RENAL ULTRASOUND COMPLETE: Utilizing 2D, real-time and color flow imaging, examination of the kidneys was obtained, 04/25/19, and compared with 07/26/08. Increased size of the lower pole renal calculus is noted on the right, which measures 1.15 cm. There are several small cysts in the upper pole area of the right kidney. Renal cortical thinning is noted. On the left, there are numerous, more prominent cysts along the entire cortex, considerably more prominent than on the previous study. There is also now noted a 7 mm calculus in the lower pole area of the left kidney. Renal cortical thinning is again noted. The cyst seen on the left measured approximately 1.7-2.8 cm. No definite obstructive uropathy or solid mass lesions were identified. Blood flow was noted to appear fairly normal bilaterally. The urinary bladder was empty at the time of the examination. IMPRESSION: 1. Renal cortical thinning. 2. Multiple renal cysts, much more prominent on the left than right, and on the left definitely more prominent than on the previous study of 2008. 3. Calculi noted in the lower poles of both kidneys. MTDD
[2019-04-25 11:06] VITALS: PULSE 70
== END 2019-04-25 13:35 | disposition home or self-care (01) | DRG 683 ==
LOC: FB.ED 18:29 → FB.MS 19:54
PROVIDERS: ADMIT Family Medicine; ATTEND Family Medicine
DX: N17.9 Acute kidney failure, unspecified (principal); F10.11 Alcohol abuse, in remission; R56.9 Unspecified convulsions; R53.1 Weakness; I63.9 Cerebral infarction, unspecified; G93.89 Other specified disorders of brain; I69.354 Hemiplegia and hemiparesis following cerebral infarction affecting left non-dominant side; H54.7 Unspecified visual loss; H40.9 Unspecified glaucoma; I25.10 Atherosclerotic heart disease of native coronary artery without angina pectoris; E78.00 Pure hypercholesterolemia, unspecified; I10 Essential (primary) hypertension; H26.9 Unspecified cataract; F17.210 Nicotine dependence, cigarettes, uncomplicated; E87.6 Hypokalemia; D64.9 Anemia, unspecified; D47.3 Essential (hemorrhagic) thrombocythemia; R25.1 Tremor, unspecified; Z51.5 Encounter for palliative care; R79.89 Other specified abnormal findings of blood chemistry; Z99.3 Dependence on wheelchair; Z88.0 Allergy status to penicillin; Z79.82 Long term (current) use of aspirin; Z79.899 Other long term (current) drug therapy; Z95.1 Presence of aortocoronary bypass graft; Z90.49 Acquired absence of other specified parts of digestive tract
CPT/HCPCS: 36415; 70450; 80048; 80177; 80307; 84484; 85027; 85610; 86140; 93005; 96374; 99285; J3360; 76770; 80053; 85025; 99284; A9270-GY; J1650; J7030

== ENCOUNTER 2019-05-10 17:18 | Emergency (ER) | payer MEDICARE ==
--- NOTE | 2019-05-10 18:03 | EDM.PDOC ---
ED HPI GENERAL MEDICAL PROBLEM - General Chief Complaint: Upper Extremity Injury/Pain Stated Complaint: R shoulder and elbow pain Time Seen by Provider: 05/10/19 17:35 Source of Information: Reports: Patient, Old Records History Limitations: Reports: No Limitations - History of Present Illness INITIAL COMMENTS - FREE TEXT/NARRATIVE: Khadar returns to [facility] ED by EMS with reported pain in R shoulder and elbow. He has a PMH of chronic R shoulder and elbow pain over serveral years, but seems worse over the past year. Of interest, he was hospitalized on April 23, 2019 following a fall and entanglement with his wheelchair. No RUE injuries were reported at that time. There is no reported RUE weakness or loss of sensation. He has an old L hemiparesis from CVA. Right Upper Arm Pain Score (Numeric/FACES): 8 - Related Data Allergies Allergy/AdvReac Type Severity Reaction Status Date / Time Penicillins Allergy Anaphylactic Verified 05/10/19 17:26 Shock Home Meds: Home Meds Multivitamin/Iron/Folic Acid [Centrum Complete Multivit] 1 each PO DAILY [History] levETIRAcetam [Keppra] 250 mg PO BID 09/15/13 [History] Aspirin [Ecotrin] 325 mg PO DAILY 08/13/15 [History] Fenofibrate Nanocrystallized [Fenofibrate] 145 mg PO DAILY 08/13/15 [History] Metoprolol Tartrate 37.5 mg PO BID 08/13/15 [History] amLODIPine [Norvasc] 5 mg PO DAILY 08/13/15 [History] atorvaSTATin [Lipitor] 10 mg PO DAILY 08/13/15 [History] Acetaminophen/HYDROcodone [[place] 325-5 MG] 1 tab PO Q4H PRN #30 tablet 07/23/18 [Rx] Isoniazid 300 mg PO DAILY 08/14/18 [History] Pyridoxine HCl [Vitamin B-6] 25 mg PO DAILY 08/14/18 [History] Past Medical History HEENT History: Reports: Cataract, Glaucoma, Impaired Vision, Other (See Below) Other HEENT History: missing several teeth Cardiovascular History: Reports: Bypass, CAD, High Cholesterol, Hypertension Respiratory History: Reports: Other (See Below) Other Respiratory History: smoker Gastrointestinal History: Reports: None Genitourinary History: Reports: None Musculoskeletal History: Reports: Other (See Below) Other Musculoskeletal History: pt uses w/c post cva, left hemiplegia 2004 Neurological History: Reports: CVA, Seizure Psychiatric History: Reports: Addiction, Mood Swings Other Psychiatric History: likes to talk alot Endocrine/Metabolic History: Reports: None Hematologic History: Reports: Blood Transfusion(s) Immunologic History: Reports: None Dermatologic History: Reports: None - Infectious Disease History Infectious Disease History: Reports: None - Past Surgical History HEENT Surgical History: Reports: Oral Surgery Cardiovascular Surgical History: Reports: Coronary Artery Bypass GI Surgical History: Reports: Appendectomy, Hernia Repair/Other Male Surgical History: Reports: Circumcision Neurological Surgical History: Reports: None Musculoskeletal Surgical History: Reports: Other (See Below) Other Musculoskeletal Surgeries/Procedures:: fx in ankle and foot on July 19 has leg boot on left lower leg Dermatological Surgical History: Reports: None Social & Family History - Family History Family Medical History: Noncontributory Other Neurological Family History: Sister had a CVA Endocrine/Metabolic: Reports: Diabetes, type II - Tobacco Use Smoking Status *Q: Current Every Day Smoker Years of Tobacco use: 50 Packs/Tins Daily: 0.5 - Caffeine Use Caffeine Use: Reports: Tea - Alcohol Use Days Per Week of Alcohol Use: 7 Number of Drinks Per Day: 3 Total Drinks Per Week: 21 - Recreational Drug Use Recreational Drug Use: No - Living Situation & Occupation Living situation: Reports: Alone Occupation: Disabled Review of Systems - Review of Systems Review Of Systems: Comprehensive ROS is negative, except as noted in HPI. ED EXAM, GENERAL - Physical Exam Exam: See Below Exam Limited By: No Limitations General Appearance: Alert, WD/WN, No Apparent Distress Eye Exam: Bilateral Eye: EOMI, Normal Inspection, PERRL Ears: Normal External Exam Nose: Normal Inspection Throat/Mouth: Normal Oropharynx, No Airway Compromise, Other (facial asymmetry) Head: Normocephalic Neck: Normal Inspection, Supple, Non-Tender Respiratory/Chest: Lungs Clear Cardiovascular: Regular Rate, Rhythm Back Exam: Normal Inspection Extremities: Normal Range of Motion (RUE, no crepitus to maneuver), Limited Range of Motion (L hemiparesis LUE>LLE) Neurological: Alert, Oriented, Normal Cognition, Abnormal Gait Psychiatric: Anxious Skin Exam: Other (dependent edema) Lymphatic: No Adenopathy Course - Vital Signs Text/Narrative:: I reviewed x rays noting OA changes in the R elbow. Prior chest x rays reveal OA affecting the shoulder joint and subacromial space. 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 He has NSAIDs at home, but remains ambivalent regarding use. He will call PCP tomorrow for clarification. - Problem List Review Problem List Initiated/Reviewed/Updated: Yes - My Orders Last 24 Hours: My Active Orders 05/10/19 17:56 Elbow Min 3V Rt [CR] Stat - Assessment/Plan Last 24 Hours: My Active Orders 05/10/19 17:56 Elbow Min 3V Rt [CR] Stat Plan: Follow up with PCP.
[2019-05-10 18:11] VITALS: BP 96/62; PULSE 59
--- NOTE | 2019-05-11 10:17 | CR ---
INDICATION: Pain with movement. RIGHT ELBOW: Three views of the right elbow were obtained 05/10/2019 - no comparisons. Moderate hypertrophic degenerative changes are noted with joint space narrowing , hypertrophic spurring, and mild sclerosis at the medial elbow joint compartment. Relatively minimal degenerative changes are noted at the lateral elbow joint compartment. There does appear to be soft tissue swelling overlying the posterior elbow joint. Along the lateral aspect of the humerus - lateral to the condyle, there are multiple calcific densities which may be on the basis of dystrophic calcification from previous injuries. The possibility of avulsion chip fracture fragments from previous injury cannot be excluded. Along the medial aspect of the popliteal fossa superiorly, there is an osteochondral joint body. An additional similar lesion is noted apparently in the intercondylar fossa. 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 Overall bone density appeared to be normal. IMPRESSION: 1. Osteoarthritis with most severe changes at the medial elbow joint compartment. 2. 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 Two major densities are noted measuring approximately 15 mm each with several smaller calcific densities along the lateral aspect of the elbow joint which could also represent osteochondral joint bodies or possibly simply dystrophic soft tissue calcifications from previous injury. 3. No acute fracture or dislocation identified. 4. No significant joint effusion noted. MTDD
== END 2019-05-10 19:15 | disposition home or self-care (01) ==
LOC: FB.ED 17:18
DX: M19.021 Primary osteoarthritis, right elbow (principal); I25.10 Atherosclerotic heart disease of native coronary artery without angina pectoris; E78.00 Pure hypercholesterolemia, unspecified; Z88.0 Allergy status to penicillin; Z79.82 Long term (current) use of aspirin; Z79.899 Other long term (current) drug therapy
CPT/HCPCS: 73080-RT; 99283-25

== ENCOUNTER 2019-08-31 17:03 | Observation (INO) | payer MEDICARE ==
--- NOTE | 2019-08-31 18:25 | EDM.PDOC ---
ED HPI GENERAL MEDICAL PROBLEM - General Time Seen by Provider: 08/31/19 17:05 Source of Information: Reports: Patient, EMS History Limitations: Reports: Intoxication - History of Present Illness INITIAL COMMENTS - FREE TEXT/NARRATIVE: c/o unable to get up pt with a dense L hemiplegia in 2001, lives alone uses a w/c, police called for lift assist and were that he pupils were miotic rather than his usual dilation, altho his pupils are 4-5 mm here and reactive pt lived in [place] and worked in [place] in past, has 2 children, one in [facility] and one in [place] denies pain, talkative, alert, obviously intoxicated - Related Data Allergies Allergy/AdvReac Type Severity Reaction Status Date / Time Penicillins Allergy Anaphylactic Verified 08/31/19 21:29 Shock Home Meds: Home Meds Multivitamin/Iron/Folic Acid [Centrum Complete Multivit] 1 each PO DAILY 09/15/13 [History] levETIRAcetam [Keppra] 250 mg PO BID 09/15/13 [History] Aspirin [Ecotrin] 325 mg PO DAILY 08/13/15 [History] Fenofibrate Nanocrystallized [Fenofibrate] 145 mg PO DAILY 08/13/15 [History] Metoprolol Tartrate 37.5 mg PO BID 08/13/15 [History] amLODIPine [Norvasc] 5 mg PO DAILY 08/13/15 [History] atorvaSTATin [Lipitor] 10 mg PO DAILY 08/13/15 [History] Acetaminophen/HYDROcodone [[place] 325-5 MG] 1 tab PO Q4H PRN #30 tablet 07/23/18 [Rx] Isoniazid 300 mg PO DAILY 08/14/18 [History] Pyridoxine HCl [Vitamin B-6] 25 mg PO DAILY 08/14/18 [History] Past Medical History HEENT History: Reports: Cataract, Glaucoma, Impaired Vision, Other (See Below) Other HEENT History: missing several teeth Cardiovascular History: Reports: Bypass, CAD, High Cholesterol, Hypertension Respiratory History: Reports: Other (See Below) Other Respiratory History: smoker Gastrointestinal History: Reports: None Genitourinary History: Reports: None Musculoskeletal History: Reports: Other (See Below) Other Musculoskeletal History: pt uses w/c post cva, left hemiplegia 2004 Neurological History: Reports: CVA, Seizure Psychiatric History: Reports: Addiction, Mood Swings Other Psychiatric History: likes to talk alot Endocrine/Metabolic History: Reports: None Hematologic History: Reports: Blood Transfusion(s) Immunologic History: Reports: None Dermatologic History: Reports: None - Infectious Disease History Infectious Disease History: Reports: None - Past Surgical History HEENT Surgical History: Reports: Oral Surgery Cardiovascular Surgical History: Reports: Coronary Artery Bypass GI Surgical History: Reports: Appendectomy, Hernia Repair/Other Male Surgical History: Reports: Circumcision Neurological Surgical History: Reports: None Musculoskeletal Surgical History: Reports: Other (See Below) Other Musculoskeletal Surgeries/Procedures:: fx in ankle and foot on July 19 has leg boot on left lower leg Dermatological Surgical History: Reports: None Social & Family History - Family History Family Medical History: Noncontributory Other Neurological Family History: Sister had a CVA Endocrine/Metabolic: Reports: Diabetes, type II - Caffeine Use Caffeine Use: Reports: Tea - Living Situation & Occupation Living situation: Reports: Alone Occupation: Disabled ED ROS GENERAL - Review of Systems Review Of Systems: See Below Constitutional: Reports: No Symptoms HEENT: Reports: No Symptoms Respiratory: Reports: No Symptoms Cardiovascular: Reports: No Symptoms Endocrine: Reports: No Symptoms GI/Abdominal: Reports: No Symptoms : Reports: No Symptoms Musculoskeletal: Reports: No Symptoms Skin: Reports: No Symptoms Neurological: Reports: Other (intoxication, L hemiparalysis) Psychiatric: Reports: No Symptoms Hematologic/Lymphatic: Reports: No Symptoms Immunologic: Reports: No Symptoms ED EXAM, GENERAL - Physical Exam Exam: See Below Exam Limited By: Intoxication General Appearance: Alert, WD/WN, Other (good eye contact, slurred speech, tells stories at length, joking with RNs) Eye Exam: Bilateral Eye: EOMI, PERRL, Other (pupils are 4-5 mm b/l and reactive, perhaps 1 mm greater diameter on R altho appears wnl) Ears: Hearing Grossly Normal Nose: Normal Inspection Throat/Mouth: Normal Voice, No Airway Compromise Head: Atraumatic, Normocephalic Neck: Normal Inspection, Supple, Non-Tender, Full Range of Motion. No: Lymphadenopathy (R), Lymphadenopathy (L) Respiratory/Chest: Lungs Clear, Normal Breath Sounds, No Accessory Muscle Use, Chest Non-Tender Cardiovascular: Regular Rate, Rhythm, No Edema, No Rub, Other (2/6 HIRO at LSB, 1-2+ DP pulse on L) GI/Abdominal: Soft, Non-Tender, No Organomegaly, No Distention Back Exam: No: CVA Tenderness (R), CVA Tenderness (L) Neurological: Alert, CN II-XII Intact, Other (ext rotation LLE, paralysis LUE/LLE, long finger nails on L, curling of fingers into fist, dry dermatitis with hyperpigmentation of the L forearm) Psychiatric: Normal Affect, Normal Mood, Other (mood appropriate other than intox) Skin Exam: Warm, Dry, Intact, Normal Color, No Rash Lymphatic: No Adenopathy Course - Vital Signs Last Recorded V/S: Last Vital Signs Temp 36.3 C 08/31/19 17:05 Pulse 53 L 08/31/19 17:05 Resp 16 08/31/19 17:05 BP 113/71 08/31/19 17:05 Pulse Ox 99 08/31/19 17:05 - Orders/Labs/Meds Orders: Active Orders 24 hr Category Date Time Status Admission Status [Patient Status] [ADT] Routine ADT 08/31/19 21:39 Ordered EKG Documentation Completion [RC] ASDIRECTED Care 08/31/19 17:14 Active EKG 12 Lead [EK] Routine Ther 08/31/19 17:14 Ordered Labs: Laboratory Tests 08/31/19 08/31/19 08/31/19 Range/Units 17:45 17:45 17:50 WBC 8.0 (4.5-12.0) X10-3/uL RBC 4.49 (4.30-5.75) x10(6)uL Hgb 13.8 (13.5-17.8) g/dL Hct 41.6 (30.0-51.3) % MCV 92.7 (80-96) fL MCH 30.7 (27.7-33.6) pg MCHC 33.1 (32.2-35.4) g/dL RDW 13.8 (11.5-15.5) % Plt Count 314 (125-369) X10(3)uL MPV 7.8 (7.4-10.4) fL Neut % (Auto) 41.6 L (46-82) % Lymph % (Auto) 46.4 H (13-37) % [place] % (Auto) 5.3 (4-12) % Eos % (Auto) 6 H (1.0-5.0) % Baso % (Auto) 1 (0-2) % Neut # (Auto) 3.3 (1.6-8.3) # Lymph # (Auto) 3.7 (0.6-5.0) # [place] # (Auto) 0.4 (0.0-1.3) # Eos # (Auto) 0.5 (0.0-0.8) # Baso # (Auto) 0.1 (0.0-0.2) # PT (9.0-11.1) sec INR (1.00-1.24) Sodium (135-145) mmol/L Potassium (3.5-5.3) mmol/L Chloride (100-110) mmol/L Carbon Dioxide (21-32) mmol/L BUN (7-18) mg/dL Creatinine (0.70-1.30) mg/dL Est Cr Clr Drug Dosing Estimated GFR (MDRD) (>60) BUN/Creatinine Ratio (9-20) Glucose (80-116) mg/dL Calcium (8.6-10.2) mg/dL Magnesium (1.8-2.5) mg/dL Total Bilirubin (0.1-1.3) mg/dL AST (5-25) IU/L ALT (12-36) U/L Alkaline Phosphatase (56-112) IU/L Troponin I (4.0-60.3) pg/mL C-Reactive Protein (0.5-0.9) mg/dL NT-Pro-B Natriuret Pep (<=125) pg/mL Total Protein (6.0-8.0) g/dL Albumin (3.2-4.6) g/dL Globulin g/dL Albumin/Globulin Ratio Urine Color Yellow (YELLOW) Urine Appearance Clear (CLEAR) Urine pH 5.0 (5.0-6.5) Ur Specific [place] 1.010 (1.010-1.025) Urine Protein Negative (NEGATIVE) mg/dL Urine Glucose (UA) Normal (NORMAL) mg/dL Urine Ketones Negative (NEGATIVE) mg/dL Urine Occult Blood Negative (NEGATIVE) Urine Nitrite Negative (NEGATIVE) Urine Bilirubin Negative (NEGATIVE) Urine Urobilinogen Normal (NEGATIVE) mg/dL Ur Leukocyte Esterase Negative (NEGATIVE) Urine RBC 0-5 (0-5) Urine WBC 0-5 (0-5) Ur Squamous Epith Cells Occasional (NS,R,O) Urine Bacteria Rare H (NS) Urine Opiates Screen Negative (NEGATIVE) Ur Oxycodone Screen Negative (NEGATIVE) Ur Propoxyphene Screen Negative (NEGATIVE) Ur Barbituates Screen Negative (NEGATIVE) Ur Tricyclics Screen Negative (NEGATIVE) Ur Phencyclidine Scrn Negative (NEGATIVE) Ur Amphetamine Screen Negative (NEGATIVE) Urine MDMA Screen Negative (NEGATIVE) U Benzodiazepines Scrn Negative (NEGATIVE) U Cocaine Metab Screen Negative (NEGATIVE) U Marijuana (THC) Screen Negative (NEGATIVE) Ethyl Alcohol (<0.03) % 08/31/19 08/31/19 08/31/19 Range/Units 17:50 17:50 17:50 WBC (4.5-12.0) X10-3/uL RBC (4.30-5.75) x10(6)uL Hgb (13.5-17.8) g/dL Hct (30.0-51.3) % MCV (80-96) fL MCH (27.7-33.6) pg MCHC (32.2-35.4) g/dL RDW (11.5-15.5) % Plt Count (125-369) X10(3)uL MPV (7.4-10.4) fL Neut % (Auto) (46-82) % Lymph % (Auto) (13-37) % [place] % (Auto) (4-12) % Eos % (Auto) (1.0-5.0) % Baso % (Auto) (0-2) % Neut # (Auto) (1.6-8.3) # Lymph # (Auto) (0.6-5.0) # [place] # (Auto) (0.0-1.3) # Eos # (Auto) (0.0-0.8) # Baso # (Auto) (0.0-0.2) # PT 11.0 (9.0-11.1) sec INR 1.02 (1.00-1.24) Sodium 121 L D (135-145) mmol/L Potassium 3.2 L (3.5-5.3) mmol/L Chloride 87 L* D (100-110) mmol/L Carbon Dioxide 26 (21-32) mmol/L BUN 4 L D (7-18) mg/dL Creatinine 1.2 (0.70-1.30) mg/dL Est Cr Clr Drug Dosing TNP Estimated GFR (MDRD) > 60 (>60) BUN/Creatinine Ratio 3.3 L (9-20) Glucose 81 (80-116) mg/dL Calcium 9.1 (8.6-10.2) mg/dL Magnesium 1.5 L (1.8-2.5) mg/dL Total Bilirubin 0.6 (0.1-1.3) mg/dL AST 40 H D (5-25) IU/L ALT 30 D (12-36) U/L Alkaline Phosphatase 72 (56-112) IU/L Troponin I 10.9 (4.0-60.3) pg/mL C-Reactive Protein 0.5 (0.5-0.9) mg/dL NT-Pro-B Natriuret Pep 400 H (<=125) pg/mL Total Protein 7.4 (6.0-8.0) g/dL Albumin 4.0 (3.2-4.6) g/dL Globulin 3.4 g/dL Albumin/Globulin Ratio 1.2 Urine Color (YELLOW) Urine Appearance (CLEAR) Urine pH (5.0-6.5) Ur Specific [place] (1.010-1.025) Urine Protein (NEGATIVE) mg/dL Urine Glucose (UA) (NORMAL) mg/dL Urine Ketones (NEGATIVE) mg/dL Urine Occult Blood (NEGATIVE) Urine Nitrite (NEGATIVE) Urine Bilirubin (NEGATIVE) Urine Urobilinogen (NEGATIVE) mg/dL Ur Leukocyte Esterase (NEGATIVE) Urine RBC (0-5) Urine WBC (0-5) Ur Squamous Epith Cells (NS,R,O) Urine Bacteria (NS) Urine Opiates Screen (NEGATIVE) Ur Oxycodone Screen (NEGATIVE) Ur Propoxyphene Screen (NEGATIVE) Ur Barbituates Screen (NEGATIVE) Ur Tricyclics Screen (NEGATIVE) Ur Phencyclidine Scrn (NEGATIVE) Ur Amphetamine Screen (NEGATIVE) Urine MDMA Screen (NEGATIVE) U Benzodiazepines Scrn (NEGATIVE) U Cocaine Metab Screen (NEGATIVE) U Marijuana (THC) Screen (NEGATIVE) Ethyl Alcohol 0.27 H* (<0.03) % Meds: Medications Discontinued Medications Generic Name Dose Route Start Last Admin Trade Name Heather PRN Reason Stop Dose Admin Magnesium Sulfate 2 gm/ 104 mls @ 100 mls/hr 08/31/19 18:52 08/31/19 19:38 Dextrose/Water IV 08/31/19 19:54 Not Given ONETIME ONE Magnesium Sulfate Confirm 08/31/19 19:29 08/31/19 19:32 Magnesium Sulfate In Water Premix Administered 08/31/19 19:30 Not Given Dose 50 mls @ as directed .ROUTE .STK-MED ONE Magnesium Sulfate 2 gm/ Premix 50 mls @ 150 mls/hr 08/31/19 19:31 08/31/19 1 9:34 IV 08/31/19 19:50 150 mls/hr ONETIME ONE Administration Potassium Chloride 40 meq 08/31/19 18:52 08/31/19 19:35 Klor-Con M20 PO 08/31/19 18:53 40 meq ONETIME ONE Administration - Re-Assessments/Exams Free Text/Narrative Re-Assessment/Exam: 08/31/19 21:42 na 121 and lower than it has been, pt becoming disagreeable, telling RN to "get the f___ out of the room" multiple times pt has been given 40 meq KCl and 2 gm Mg IV will give 100 ml 3 NS and run NS overnight on obs bed with goal of hopefully d/c'ing home after 12-24 hours Departure - Departure Time of Disposition: 21:43 Disposition: Refer to Observation Condition: Fair Clinical Impression: Hypomagnesemia, Hyponatremia, Hypokalemia, Elevated brain natriuretic peptide (BNP) level, Elevated AST (SGOT) Acute alcohol intoxication Qualifiers: Complication of substance-induced condition: uncomplicated Qualified Code(s): F10.920 - Alcohol use, unspecified with intoxication, uncomplicated - Discharge Information *PRESCRIPTION DRUG MONITORING PROGRAM REVIEWED*: Not Applicable *COPY OF PRESCRIPTION DRUG MONITORING REPORT IN PATIENT TITA: Not Applicable Referrals: PCP,None [Ordering Only Provider] - Sepsis Event Note (ED) - Evaluation Sepsis Screening Result: No Definite Risk - Focused Exam Vital Signs: Vital Signs Temp Pulse Resp BP Pulse Ox 08/31/19 17:05 36.3 C 53 L 16 113/71 99 - My Orders Last 24 Hours: My Active Orders 08/31/19 17:14 EKG Documentation Completion [RC] ASDIRECTED EKG 12 Lead [EK] Routine 08/31/19 21:39 Admission Status [Patient Status] [ADT] Routine - Assessment/Plan Last 24 Hours: My Active Orders 08/31/19 17:14 EKG Documentation Completion [RC] ASDIRECTED EKG 12 Lead [EK] Routine 08/31/19 21:39 Admission Status [Patient Status] [ADT] Routine
[2019-08-31] MEDS ORDERED: Potassium Chloride 20 MEQ Tab.ER PO ONE (18:52)
[2019-08-31] MEDS ORDERED: Magnesium Sulfate/Water 50 ML ONE (19:29)
[2019-08-31] MEDS ORDERED: Magnesium Sulfate/Water 2 GM in Premix Bag 1 BAG IV ONE (19:31)
[2019-08-31] MEDS ORDERED: Ondansetron 4 MG/2 ML SDV IV PRN (21:59)
[2019-08-31] MEDS ORDERED: Acetaminophen 325 MG Tab PO PRN (21:59)
[2019-08-31] MEDS ORDERED: Enoxaparin 40 MG/0.4 ML Syringe SUBCUT SCH (22:00)
[2019-08-31] MEDS ORDERED: LORazepam 2 MG/ML SDV IVPUSH PRN (22:08)
[2019-08-31] MEDS ORDERED: Sodium Chloride 3% 100 ML IV SCH (22:15)
[2019-08-31] MEDS ORDERED: Sodium Chloride 3% 100 ML IV ONE (22:30)
[2019-08-31] MEDS: Dextrose 5%-0.9% NaCl with KCl 1,000 ML IV SCH (22:59)
[2019-09-01] MEDS: Dextrose 5%-0.9% NaCl with KCl 1,000 ML IV SCH (08:59)
[2019-09-01] MEDS ORDERED: atorvaSTATin 10 MG Tab PO SCH (09:00)
[2019-09-01] MEDS ORDERED: levETIRAcetam 250 MG Tab PO SCH (09:00)
[2019-09-01] MEDS ORDERED: Metoprolol Tartrate 25 MG Tab PO SCH (09:00)
[2019-09-01] MEDS ORDERED: amLODIPine 5 MG Tab PO SCH (09:00)
[2019-09-01] MEDS ORDERED: Aspirin 325 MG Tab.EC PO SCH (09:00)
[2019-09-01] MEDS ORDERED: Fenofibrate Nanocrystallized 145 MG Tab PO SCH (09:00)
--- NOTE | 2019-09-01 09:05 | PCM.HP.2 ---
H&P History of Present Illness - General Date of Service: 09/01/19 Admit Problem/Dx: Admission Diagnosis/Problem Admission Diagnosis/Problem Hyponatremia Source of Information: Patient History Limitations: Reports: Intoxication - History of Present Illness Initial Comments - Free Text/Narative: Khadar is a 69-year-old male was brought to the ER after he was noted to transfer himself from the wheelchair. 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 He also is known to have hypertension, ETOH abuse, and endorsed having been drinking yesterday. He has a history of seizure disorder but none was reported. This morning he is more alert, and has no major compla ints. - Related Data Allergies/Adverse Reactions: Allergies Allergy/AdvReac Type Severity Reaction Status Date / Time Penicillins Allergy Anaphylactic Verified 08/31/19 21:29 Shock Home Medications: Home Meds Multivitamin/Iron/Folic Acid [Centrum Complete Multivit] 1 each PO DAILY 09/15/13 [History] levETIRAcetam [Keppra] 250 mg PO BID 09/15/13 [History] Aspirin [Ecotrin] 325 mg PO DAILY 08/13/15 [History] Fenofibrate Nanocrystallized [Fenofibrate] 145 mg PO DAILY 08/13/15 [History] Metoprolol Tartrate 37.5 mg PO BID 08/13/15 [History] amLODIPine [Norvasc] 5 mg PO DAILY 08/13/15 [History] atorvaSTATin [Lipitor] 10 mg PO DAILY 08/13/15 [History] Acetaminophen/HYDROcodone [[place] 325-5 MG] 1 tab PO Q4H PRN #30 tablet 07/23/18 [Rx] Isoniazid 300 mg PO DAILY 08/14/18 [History] Pyridoxine HCl [Vitamin B-6] 25 mg PO DAILY 08/14/18 [History] Past Medical History HEENT History: Reports: Cataract, Glaucoma, Impaired Vision, Other (See Below) Other HEENT History: Missing several teeth. Wears glasses. Cardiovascular History: Reports: Bypass, CAD, High Cholesterol, Hypertension Respiratory History: Reports: Other (See Below) Other Respiratory History: Smoker. Gastrointestinal History: Reports: None Genitourinary History: Reports: None Musculoskeletal History: Reports: Other (See Below) Other Musculoskeletal History: Uses wheelchair post CVA, left hemiplegia 2004. Able to move left extremities somewhat. States he can stand for short while, unable to walk. Neurological History: Reports: CVA, Seizure Psychiatric History: Reports: Addiction, Mood Swings Other Psychiatric History: Frequent alcohol use. Likes to talk alot. Endocrine/Metabolic History: Reports: None Other Endocrine/Metabolic History: Denies diabetes. Hematologic History: Reports: Blood Transfusion(s) Immunologic History: Reports: None Dermatologic History: Reports: Other (See Below) Other Dermatologic History: Sensitive skin left forearm, prone to bruising and tear. - Infectious Disease History Infectious Disease History: Reports: Mumps, Other (See Below) Other Infectious Disease History: Doesn't recall other childhood illnesses. - Past Surgical History Cardiovascular Surgical History: Reports: Coronary Artery Bypass GI Surgical History: Reports: Appendectomy, Hernia Repair/Other Male Surgical History: Reports: Circumcision Musculoskeletal Surgical History: Reports: Other (See Below) Other Musculoskeletal Surgeries/Procedures:: Fractured left ankle and foot 2018. Social & Family History - Family History Family Medical History: Noncontributory Other Neurological Family History: Sister had a CVA Endocrine/Metabolic: Reports: Diabetes, type II - Tobacco Use Smoking Status *Q: Current Every Day Smoker Years of Tobacco use: 48 Packs/Tins Daily: 0.5 Used Tobacco, but Quit: No Second Hand Smoke Exposure: No - Caffeine Use Caffeine Use: Reports: Tea - Alcohol Use Days Per Week of Alcohol Use: 7 Number of Drinks Per Day: 3 Total Drinks Per Week: 21 - Recreational Drug Use Recreational Drug Use: No - Living Situation & Occupation Living situation: Reports: Alone Occupation: Disabled H&P Review of Systems - Review of Systems: Review Of Systems: Comprehensive ROS is negative, except as noted in HPI. Exam - Exam Exam: See Below - Vital Signs Vital Signs: Last Vital Signs Temp 97.4 F 08/31/19 23:00 Pulse 54 L 09/01/19 06:20 Resp 16 09/01/19 06:20 BP 120/60 09/01/19 06:20 Pulse Ox 98 09/01/19 06:20 Weight: 64.229 kg - Exam General: Alert, Oriented HEENT: PERRLA Neck: Supple Lungs: Clear to Auscultation Cardiovascular: Regular Rate GI/Abdominal Exam: Soft (Male) Exam: Deferred Rectal (Males) Exam: Deferred Back Exam: Normal Inspection Extremities: Normal Inspection Skin: Warm Neurological: Cranial Nerves Intact Neuro Extensive - Mental Status: Oriented x3 Neuro Extensive - Motor, Sensory, Reflexes: CN II-XII Intact Psychiatric: Alert, Withdrawal Symptoms - Patient Data Lab Results Last 24 hrs: Laboratory Results - last 24 hr 08/31/19 08/31/19 08/31/19 Range/Units 17:45 17:45 17:50 WBC 8.0 (4.5-12.0) X10-3/uL RBC 4.49 (4.30-5.75) x10(6)uL Hgb 13.8 (13.5-17.8) g/dL Hct 41.6 (30.0-51.3) % MCV 92.7 (80-96) fL MCH 30.7 (27.7-33.6) pg MCHC 33.1 (32.2-35.4) g/dL RDW 13.8 (11.5-15.5) % Plt Count 314 (125-369) X10(3)uL MPV 7.8 (7.4-10.4) fL Neut % (Auto) 41.6 L (46-82) % Lymph % (Auto) 46.4 H (13-37) % [place] % (Auto) 5.3 (4-12) % Eos % (Auto) 6 H (1.0-5.0) % Baso % (Auto) 1 (0-2) % Neut # (Auto) 3.3 (1.6-8.3) # Lymph # (Auto) 3.7 (0.6-5.0) # [place] # (Auto) 0.4 (0.0-1.3) # Eos # (Auto) 0.5 (0.0-0.8) # Baso # (Auto) 0.1 (0.0-0.2) # PT (9.0-11.1) sec INR (1.00-1.24) Sodium (135-145) mmol/L Potassium (3.5-5.3) mmol/L Chloride (100-110) mmol/L Carbon Dioxide (21-32) mmol/L BUN (7-18) mg/dL Creatinine (0.70-1.30) mg/dL Est Cr Clr Drug Dosing Estimated GFR (MDRD) (>60) BUN/Creatinine Ratio (9-20) Glucose (80-116) mg/dL Calcium (8.6-10.2) mg/dL Magnesium (1.8-2.5) mg/dL Total Bilirubin (0.1-1.3) mg/dL AST (5-25) IU/L ALT (12-36) U/L Alkaline Phosphatase (56-112) IU/L Troponin I (4.0-60.3) pg/mL C-Reactive Protein (0.5-0.9) mg/dL NT-Pro-B Natriuret Pep (<=125) pg/mL Total Protein (6.0-8.0) g/dL Albumin (3.2-4.6) g/dL Globulin g/dL Albumin/Globulin Ratio Urine Color Yellow (YELLOW) Urine Appearance Clear (CLEAR) Urine pH 5.0 (5.0-6.5) Ur Specific [place] 1.010 (1.010-1.025) Urine Protein Negative (NEGATIVE) mg/dL Urine Glucose (UA) Normal (NORMAL) mg/dL Urine Ketones Negative (NEGATIVE) mg/dL Urine Occult Blood Negative (NEGATIVE) Urine Nitrite Negative (NEGATIVE) Urine Bilirubin Negative (NEGATIVE) Urine Urobilinogen Normal (NEGATIVE) mg/dL Ur Leukocyte Esterase Negative (NEGATIVE) Urine RBC 0-5 (0-5) Urine WBC 0-5 (0-5) Ur Squamous Epith Cells Occasional (NS,R,O) Urine Bacteria Rare H (NS) Urine Opiates Screen Negative (NEGATIVE) Ur Oxycodone Screen Negative (NEGATIVE) Ur Propoxyphene Screen Negative (NEGATIVE) Ur Barbituates Screen Negative (NEGATIVE) Ur Tricyclics Screen Negative (NEGATIVE) Ur Phencyclidine Scrn Negative (NEGATIVE) Ur Amphetamine Screen Negative (NEGATIVE) Urine MDMA Screen Negative (NEGATIVE) U Benzodiazepines Scrn Negative (NEGATIVE) U Cocaine Metab Screen Negative (NEGATIVE) U Marijuana (THC) Screen Negative (NEGATIVE) Ethyl Alcohol (<0.03) % 08/31/19 08/31/19 08/31/19 Range/Units 17:50 17:50 17:50 WBC (4.5-12.0) X10-3/uL RBC (4.30-5.75) x10(6)uL Hgb (13.5-17.8) g/dL Hct (30.0-51.3) % MCV (80-96) fL MCH (27.7-33.6) pg MCHC (32.2-35.4) g/dL RDW (11.5-15.5) % Plt Count (125-369) X10(3)uL MPV (7.4-10.4) fL Neut % (Auto) (46-82) % Lymph % (Auto) (13-37) % [place] % (Auto) (4-12) % Eos % (Auto) (1.0-5.0) % Baso % (Auto) (0-2) % Neut # (Auto) (1.6-8.3) # Lymph # (Auto) (0.6-5.0) # [place] # (Auto) (0.0-1.3) # Eos # (Auto) (0.0-0.8) # Baso # (Auto) (0.0-0.2) # PT 11.0 (9.0-11.1) sec INR 1.02 (1.00-1.24) Sodium 121 L D (135-145) mmol/L Potassium 3.2 L (3.5-5.3) mmol/L Chloride 87 L* D (100-110) mmol/L Carbon Dioxide 26 (21-32) mmol/L BUN 4 L D (7-18) mg/dL Creatinine 1.2 (0.70-1.30) mg/dL Est Cr Clr Drug Dosing TNP Estimated GFR (MDRD) > 60 (>60) BUN/Creatinine Ratio 3.3 L (9-20) Glucose 81 (80-116) mg/dL Calcium 9.1 (8.6-10.2) mg/dL Magnesium 1.5 L (1.8-2.5) mg/dL Total Bilirubin 0.6 (0.1-1.3) mg/dL AST 40 H D (5-25) IU/L ALT 30 D (12-36) U/L Alkaline Phosphatase 72 (56-112) IU/L Troponin I 10.9 (4.0-60.3) pg/mL C-Reactive Protein 0.5 (0.5-0.9) mg/dL NT-Pro-B Natriuret Pep 400 H (<=125) pg/mL Total Protein 7.4 (6.0-8.0) g/dL Albumin 4.0 (3.2-4.6) g/dL Globulin 3.4 g/dL Albumin/Globulin Ratio 1.2 Urine Color (YELLOW) Urine Appearance (CLEAR) Urine pH (5.0-6.5) Ur Specific [place] (1.010-1.025) Urine Protein (NEGATIVE) mg/dL Urine Glucose (UA) (NORMAL) mg/dL Urine Ketones (NEGATIVE) mg/dL Urine Occult Blood (NEGATIVE) Urine Nitrite (NEGATIVE) Urine Bilirubin (NEGATIVE) Urine Urobilinogen (NEGATIVE) mg/dL Ur Leukocyte Esterase (NEGATIVE) Urine RBC (0-5) Urine WBC (0-5) Ur Squamous Epith Cells (NS,R,O) Urine Bacteria (NS) Urine Opiates Screen (NEGATIVE) Ur Oxycodone Screen (NEGATIVE) Ur Propoxyphene Screen (NEGATIVE) Ur Barbituates Screen (NEGATIVE) Ur Tricyclics Screen (NEGATIVE) Ur Phencyclidine Scrn (NEGATIVE) Ur Amphetamine Screen (NEGATIVE) Urine MDMA Screen (NEGATIVE) U Benzodiazepines Scrn (NEGATIVE) U Cocaine Metab Screen (NEGATIVE) U Marijuana (THC) Screen (NEGATIVE) Ethyl Alcohol 0.27 H* (<0.03) % /16 Range/Units 06:12 WBC (4.5-12.0) X10-3/uL RBC (4.30-5.75) x10(6)uL Hgb (13.5-17.8) g/dL Hct (30.0-51.3) % MCV (80-96) fL MCH (27.7-33.6) pg MCHC (32.2-35.4) g/dL RDW (11.5-15.5) % Plt Count (125-369) X10(3)uL MPV (7.4-10.4) fL Neut % (Auto) (46-82) % Lymph % (Auto) (13-37) % [place] % (Auto) (4-12) % Eos % (Auto) (1.0-5.0) % Baso % (Auto) (0-2) % Neut # (Auto) (1.6-8.3) # Lymph # (Auto) (0.6-5.0) # [place] # (Auto) (0.0-1.3) # Eos # (Auto) (0.0-0.8) # Baso # (Auto) (0.0-0.2) # PT (9.0-11.1) sec INR (1.00-1.24) Sodium 136 D (135-145) mmol/L Potassium 3.9 (3.5-5.3) mmol/L Chloride 103 D (100-110) mmol/L Carbon Dioxide 25 (21-32) mmol/L BUN 3 L (7-18) mg/dL Creatinine 1.2 (0.70-1.30) mg/dL Est Cr Clr Drug Dosing 54.27 Estimated GFR (MDRD) > 60 (>60) BUN/Creatinine Ratio 2.5 L (9-20) Glucose 94 (80-116) mg/dL Calcium 8.7 (8.6-10.2) mg/dL Magnesium (1.8-2.5) mg/dL Total Bilirubin (0.1-1.3) mg/dL AST (5-25) IU/L ALT (12-36) U/L Alkaline Phosphatase (56-112) IU/L Troponin I (4.0-60.3) pg/mL C-Reactive Protein (0.5-0.9) mg/dL NT-Pro-B Natriuret Pep (<=125) pg/mL Total Protein (6.0-8.0) g/dL Albumin (3.2-4.6) g/dL Globulin g/dL Albumin/Globulin Ratio Urine Color (YELLOW) Urine Appearance (CLEAR) Urine pH (5.0-6.5) Ur Specific [place] (1.010-1.025) Urine Protein (NEGATIVE) mg/dL Urine Glucose (UA) (NORMAL) mg/dL Urine Ketones (NEGATIVE) mg/dL Urine Occult Blood (NEGATIVE) Urine Nitrite (NEGATIVE) Urine Bilirubin (NEGATIVE) Urine Urobilinogen (NEGATIVE) mg/dL Ur Leukocyte Esterase (NEGATIVE) Urine RBC (0-5) Urine WBC (0-5) Ur Squamous Epith Cells (NS,R,O) Urine Bacteria (NS) Urine Opiates Screen (NEGATIVE) Ur Oxycodone Screen (NEGATIVE) Ur Propoxyphene Screen (NEGATIVE) Ur Barbituates Screen (NEGATIVE) Ur Tricyclics Screen (NEGATIVE) Ur Phencyclidine Scrn (NEGATIVE) Ur Amphetamine Screen (NEGATIVE) Urine MDMA Screen (NEGATIVE) U Benzodiazepines Scrn (NEGATIVE) U Cocaine Metab Screen (NEGATIVE) U Marijuana (THC) Screen (NEGATIVE) Ethyl Alcohol (<0.03) % Result Diagrams: 08/31/19 17:50 09/01/19 06:12 Sepsis Event Note - Evaluation Sepsis Screening Result: No Definite Risk - Focused Exam Vital Signs: Vital Signs Temp Pulse Resp BP BP Pulse Ox 09/01/19 06:20 54 L 16 120/60 98 08/31/19 23:00 97.4 F 16 127/62 98 08/31/19 21:30 54 L 16 109/66 97 Date Exam was Performed: 09/01/19 Time Exam was Performed: 09:00 - Problem List (1) Hyponatremia syndrome SNOMED Code(s): 2745993 ICD Code: E87.1 - HYPO-OSMOLALITY AND HYPONATREMIA Status: Acute Current Visit: Yes (2) H/O: stroke SNOMED Code(s): 628588704 ICD Code: Z86.73 - PRSNL HX OF TIA (TIA), AND CEREB INFRC W/O RESID DEFICITS Status: Acute Current Visit: Yes (3) H/O tonic-clonic seizures SNOMED Code(s): 730737691 ICD Code: Z86.69 - PERSONAL HISTORY OF DIS OF THE NERVOUS SYS AND SENSE ORGANS Status: Acute Current Visit: Yes (4) Acute alcohol intoxication SNOMED Code(s): 73442111, 31106949 ICD Code: F10.929 - ALCOHOL USE, UNSPECIFIED WITH INTOXICATION, UNSPECIFIED Status: Acute Current Visit: Yes Qualifiers: Complication of substance-induced condition: uncomplicated Qualified Code(s): F10.920 - Alcohol use, unspecified with intoxication, uncomplicated (5) HTN (hypertension) SNOMED Code(s): 65984076 ICD Code: I10 - ESSENTIAL (PRIMARY) HYPERTENSION Status: Acute Current Visit: No Problem Details: Continue norvasc, metoprolol. (6) Hemiparesis SNOMED Code(s): 84600318 ICD Code: G81.90 - HEMIPLEGIA, UNSPECIFIED AFFECTING UNSPECIFIED SIDE Status: Chronic Current Visit: No Qualifiers: Hemiparesis etiology: late effect of cerebrovascular disease Problem List Initiated/Reviewed/Updated: Yes Orders Last 24hrs: Active Orders 24 hr Category Date Time Status Admission Status [Patient Status] [ADT] Routine ADT 08/31/19 21:39 Active Cardiac Monitoring [RC] .PRN Care 08/31/19 21:59 Active Oxygen Therapy [RC] .PRN Care 08/31/19 21:59 Active Vital Signs [RC] 00,04,08,12,16,20 Care 08/31/19 21:59 Active Heart Healthy Diet [DIET] Diet 09/01/19 Breakfast Active Head wo Cont [CT] Routine Exams 09/01/19 08:59 Ordered VANCOMYCIN TROUGH [CHEM] Timed Lab 09/02/19 22:30 Ordered Acetaminophen [Tylenol] Med 08/31/19 21:59 Active 650 mg PO Q4H PRN Aspirin [Ecotrin] Med 09/01/19 09:00 Active 325 mg PO DAILY Dextrose 5%-0.9% NaCl with KCl [D5 NS with 20 mEq KCl] Med 08/31/19 22:15 Active 1,000 ml IV ASDIRECTED Enoxaparin [Lovenox] Med 08/31/19 22:00 Active 40 mg SUBCUT Q24H Fenofibrate Nanocrystallized [Tricor] Med 09/01/19 09:00 Active 145 mg PO DAILY Isoniazid Med 09/01/19 09:00 Hold 300 mg PO DAILY LORazepam [Ativan] Med 08/31/19 22:08 Active 1 mg IVPUSH Q3H PRN Metoprolol Tartrate [Lopressor] Med 09/01/19 09:00 Active 37.5 mg PO BID Ondansetron [Zofran] Med 08/31/19 21:59 Active 4 mg IV Q4H PRN amLODIPine [Norvasc] Med 09/01/19 09:00 Active 5 mg PO DAILY atorvaSTATin [Lipitor] Med 09/01/19 09:00 Active 10 mg PO DAILY levETIRAcetam [Keppra] Med 09/01/19 09:00 Active 250 mg PO BID Resuscitation Status Routine Resus Stat 08/31/19 21:59 Ordered EKG 12 Lead [EK] Routine Ther 08/31/19 17:14 Ordered Medication Orders Acetaminophen (Tylenol) 650 mg PO Q4H PRN PRN Reason: Pain (Mild 1-3)/fever Amlodipine Besylate (Norvasc) 5 mg PO DAILY [facility] Aspirin (Ecotrin) 325 mg PO DAILY [facility] Atorvastatin Calcium (Lipitor) 10 mg PO DAILY [facility] Enoxaparin Sodium (Lovenox) 40 mg SUBCUT Q24H [facility] Last Admin: 08/31/19 22:57 Dose: 40 mg Documented by: PAM Fenofibrate (Tricor) 145 mg PO DAILY [facility] Potassium Chloride/Dextrose/Sod Cl (D5 Ns With 20 Meq Kcl) 1,000 mls @ 100 mls/hr IV ASDIRECTED [facility] Last Admin: 09/01/19 08:59 Dose: 100 mls/hr Documented by: [id number] Infusion: 09/01/19 08:59 Dose: 100 mls/hr Documented by: [id number] Admin: 08/31/19 22:59 Dose: 100 mls/hr Documented by: PAM Isoniazid (Isoniazid) 300 mg PO DAILY [facility] Levetiracetam (Keppra) 250 mg PO BID [facility] Lorazepam (Ativan) 1 mg IVPUSH Q3H PRN PRN Reason: Agitation Metoprolol Tartrate (Lopressor) 37.5 mg PO BID [facility] Ondansetron HCl (Zofran) 4 mg IV Q4H PRN PRN Reason: Nausea/Vomiting Assessment/Plan Comment:: I will obtain a CT of his head,rule out hematoma. I will discharge him today.
[2019-09-01 09:27] VITALS: BP 129/64; PULSE 61
== END 2019-09-01 11:27 | disposition home or self-care (01) ==
LOC: FB.ED 17:03 → FB.MS 21:39
PROVIDERS: ADMIT Emergency Medicine; ATTEND Family Medicine
DX: E87.1 Hypo-osmolality and hyponatremia (principal); I69.359 Hemiplegia and hemiparesis following cerebral infarction affecting unspecified side; F10.929 Alcohol use, unspecified with intoxication, unspecified; I10 Essential (primary) hypertension; E78.00 Pure hypercholesterolemia, unspecified; I25.10 Atherosclerotic heart disease of native coronary artery without angina pectoris; F17.210 Nicotine dependence, cigarettes, uncomplicated; Z95.1 Presence of aortocoronary bypass graft; Z86.69 Personal history of other diseases of the nervous system and sense organs; Z79.82 Long term (current) use of aspirin; Z79.899 Other long term (current) drug therapy; Z79.891 Long term (current) use of opiate analgesic; Z88.0 Allergy status to penicillin
CPT/HCPCS: 36415; 70450; 80048; 80053; 80305-QW; 80307; 81001; 83735; 83880; 84484; 85025; 85610; 86140; 93005; 96360; 96361; 96365; 96372; 99285-25; A9270-GY; G0378; J1650; J3475; J3480; J7131

== ENCOUNTER 2019-11-08 19:07 | Emergency (ER) | payer MEDICARE ==
[2019-11-08] MEDS ORDERED: Sodium Chloride 0.9% 10 ML Syringe FLUSH PRN (19:24)
[2019-11-08] MEDS ORDERED: Thiamine 200 MG/2 ML MDV IVPUSH STA (19:26)
[2019-11-08] MEDS ORDERED: Sodium Chloride 0.9% 1,000 ML IV SCH (19:30)
[2019-11-08 19:38] VITALS: PULSE 60
[2019-11-08] MEDS ORDERED: Sulfamethoxazole/Trimethoprim 800-160 MG Tab PO STA (20:12)
--- NOTE | 2019-11-08 20:18 | EDM.PDOC ---
ED HPI GENERAL MEDICAL PROBLEM - General Chief Complaint: Drug or Alcohol Abuse Time Seen by Provider: 11/08/19 19:15 Source of Information: Reports: Patient History Limitations: Reports: No Limitations - History of Present Illness INITIAL COMMENTS - FREE TEXT/NARRATIVE: Patient presented to the ED because of alcohol intoxication. He had 4 shots of whisky today and apparently fell from his wheelchair, although he didn't sustain any injury. He said his wheelchair is old and the wheels broke loose. He is AAOx3 upon his arrival in the ED with GCS of 15. - Related Data Allergies Allergy/AdvReac Type Severity Reaction Status Date / Time Penicillins Allergy Anaphylactic Verified 11/08/19 19:36 Shock Home Meds: Home Meds Multivitamin/Iron/Folic Acid [Centrum Complete Multivit] 1 each PO DAILY 09/15/13 [History] levETIRAcetam [Keppra] 250 mg PO BID 09/15/13 [History] Aspirin [Ecotrin] 325 mg PO DAILY 08/13/15 [History] Fenofibrate Nanocrystallized [Fenofibrate] 145 mg PO DAILY 08/13/15 [History] Metoprolol Tartrate 37.5 mg PO BID 08/13/15 [History] amLODIPine [Norvasc] 5 mg PO DAILY 08/13/15 [History] atorvaSTATin [Lipitor] 10 mg PO DAILY 08/13/15 [History] Acetaminophen/HYDROcodone [[place] 325-5 MG] 1 tab PO Q4H PRN #30 tablet 07/23/18 [Rx] Sulfamethoxazole/Trimethoprim [Bactrim Ds Tablet] 1 each PO BID #15 tablet 11/08/19 [Rx] Past Medical History HEENT History: Reports: Cataract, Glaucoma, Impaired Vision, Other (See Below) Other HEENT History: Missing several teeth. Wears glasses. Cardiovascular History: Reports: Bypass, CAD, High Cholesterol, Hypertension Respiratory History: Reports: Other (See Below) Other Respiratory History: Smoker. Gastrointestinal History: Reports: None Genitourinary History: Reports: None Musculoskeletal History: Reports: Other (See Below) Other Musculoskeletal History: Uses wheelchair post CVA, left hemiplegia 2004. Able to move left extremities somewhat. States he can stand for short while, unable to walk. Neurological History: Reports: CVA, Seizure Psychiatric History: Reports: Addiction, Mood Swings Other Psychiatric History: Frequent alcohol use. Likes to talk alot. Endocrine/Metabolic History: Reports: None Other Endocrine/Metabolic History: Denies diabetes. Hematologic History: Reports: Blood Transfusion(s) Immunologic History: Reports: None Dermatologic History: Reports: Other (See Below) Other Dermatologic History: Sensitive skin left forearm, prone to bruising and tear. - Infectious Disease History Infectious Disease History: Reports: Mumps, Other (See Below) Other Infectious Disease History: Doesn't recall other childhood illnesses. - Past Surgical History Cardiovascular Surgical History: Reports: Coronary Artery Bypass GI Surgical History: Reports: Appendectomy, Hernia Repair/Other Male Surgical History: Reports: Circumcision Musculoskeletal Surgical History: Reports: Other (See Below) Other Musculoskeletal Surgeries/Procedures:: Fractured left ankle and foot 2018. Social & Family History - Family History Family Medical History: Noncontributory Other Neurological Family History: Sister had a CVA Endocrine/Metabolic: Reports: Diabetes, type II - Caffeine Use Caffeine Use: Reports: Tea - Living Situation & Occupation Living situation: Reports: Alone Occupation: Disabled ED ROS GENERAL - Review of Systems Review Of Systems: See Below Constitutional: Reports: No Symptoms HEENT: Reports: No Symptoms Respiratory: Reports: No Symptoms Cardiovascular: Reports: No Symptoms Endocrine: Reports: No Symptoms GI/Abdominal: Reports: No Symptoms : Reports: No Symptoms Musculoskeletal: Reports: No Symptoms Skin: Reports: No Symptoms Neurological: Reports: No Symptoms Psychiatric: Reports: No Symptoms Hematologic/Lymphatic: Reports: No Symptoms Immunologic: Reports: No Symptoms ED EXAM, GENERAL - Physical Exam Exam: See Below Exam Limited By: No Limitations General Appearance: Alert, No Apparent Distress Eye Exam: Bilateral Eye: PERRL Ears: Normal External Exam, Normal Canal, Hearing Grossly Normal Nose: Normal Inspection, Normal Mucosa Throat/Mouth: Normal Inspection, Normal Lips, Normal Teeth, Normal Gums Head: Atraumatic, Normocephalic Neck: Normal Inspection, Supple, Non-Tender, Full Range of Motion Respiratory/Chest: No Respiratory Distress, Lungs Clear, Normal Breath Sounds, No Accessory Muscle Use, Chest Non-Tender Cardiovascular: Normal Peripheral Pulses, Regular Rate, Rhythm, No Edema, No Gallop, No JVD, No Murmur GI/Abdominal: Normal Bowel Sounds, Soft, Non-Tender, No Organomegaly, No Distention, No Abnormal Bruit, No Mass Back Exam: Normal Inspection, Full Range of Motion Extremities: Normal Inspection, Normal Range of Motion, Non-Tender Neurological: Alert, Oriented, CN II-XII Intact, Normal Cognition, Normal Gait Psychiatric: Normal Affect, Normal Mood Skin Exam: Warm, Dry, Intact, Normal Color, No Rash, Other (abrasion over the occipital area) Course - Vital Signs Text/Narrative:: Labs reviewed and discussed with patient NS 1 L bolus Thiamine 100 mg IV x1 Last Recorded V/S: Last Vital Signs Temp 36.3 C 11/08/19 22:45 Pulse 60 11/08/19 22:45 Resp 16 11/08/19 22:45 BP 106/69 11/08/19 22:45 Pulse Ox 98 11/08/19 22:45 - Orders/Labs/Meds Orders: Active Orders 24 hr Category Date Time Status CULTURE URINE [RM] Stat Lab 11/08/19 19:23 Received Saline Lock Insert [OM.PC] Routine Oth 11/08/19 19:24 Ordered Labs: Laboratory Tests 11/08/19 11/08/19 11/08/19 Range/Units 19:23 19:23 19:40 WBC 8.8 (4.5-12.0) X10-3/uL RBC 3.69 L (4.30-5.75) x10(6)uL Hgb 11.5 L (13.5-17.8) g/dL Hct 35.0 (30.0-51.3) % MCV 94.9 (80-96) fL MCH 31.1 (27.7-33.6) pg MCHC 32.8 (32.2-35.4) g/dL RDW 13.8 (11.5-15.5) % Plt Count 273 (125-369) X10(3)uL MPV 7.1 L (7.4-10.4) fL Neut % (Auto) 45.3 L (46-82) % Lymph % (Auto) 42.7 H (13-37) % Sebastian % (Auto) 4.8 (4-12) % Eos % (Auto) 7 H (1.0-5.0) % Baso % (Auto) 1 (0-2) % Neut # (Auto) 3.9 (1.6-8.3) # Lymph # (Auto) 3.8 (0.6-5.0) # Sebastian # (Auto) 0.4 (0.0-1.3) # Eos # (Auto) 0.6 (0.0-0.8) # Baso # (Auto) 0.1 (0.0-0.2) # Amylase (25-115) U/L Lipase (73-393) U/L Urine Color Yellow (YELLOW) Urine Appearance Slightly cloudy (CLEAR) Urine pH 5.0 (5.0-6.5) Ur Specific [place] 1.005 L (1.010-1.025) Urine Protein Negative (NEGATIVE) mg/dL Urine Glucose (UA) Normal (NORMAL) mg/dL Urine Ketones Negative (NEGATIVE) mg/dL Urine Occult Blood Negative (NEGATIVE) Urine Nitrite Negative (NEGATIVE) Urine Bilirubin Negative (NEGATIVE) Urine Urobilinogen Normal (NEGATIVE) mg/dL Ur Leukocyte Esterase Moderate H (NEGATIVE) Urine RBC 0-5 (0-5) Urine WBC 5-10 H (0-5) Ur Squamous Epith Cells Occasional (NS,R,O) Urine Bacteria Moderate H (NS) Urine Opiates Screen Negative (NEGATIVE) Ur Oxycodone Screen Negative (NEGATIVE) Ur Propoxyphene Screen Negative (NEGATIVE) Ur Barbituates Screen Negative (NEGATIVE) Ur Tricyclics Screen Negative (NEGATIVE) Ur Phencyclidine Scrn Negative (NEGATIVE) Ur Amphetamine Screen Negative (NEGATIVE) Urine MDMA Screen Negative (NEGATIVE) U Benzodiazepines Scrn Negative (NEGATIVE) U Cocaine Metab Screen Negative (NEGATIVE) U Marijuana (THC) Screen Negative (NEGATIVE) Ethyl Alcohol (<0.03) % 11/08/19 11/08/19 11/08/19 Range/Units 19:40 19:40 19:40 WBC (4.5-12.0) X10-3/uL RBC (4.30-5.75) x10(6)uL Hgb (13.5-17.8) g/dL Hct (30.0-51.3) % MCV (80-96) fL MCH (27.7-33.6) pg MCHC (32.2-35.4) g/dL RDW (11.5-15.5) % Plt Count (125-369) X10(3)uL MPV (7.4-10.4) fL Neut % (Auto) (46-82) % Lymph % (Auto) (13-37) % Sebastian % (Auto) (4-12) % Eos % (Auto) (1.0-5.0) % Baso % (Auto) (0-2) % Neut # (Auto) (1.6-8.3) # Lymph # (Auto) (0.6-5.0) # Sebastian # (Auto) (0.0-1.3) # Eos # (Auto) (0.0-0.8) # Baso # (Auto) (0.0-0.2) # Amylase 53 (25-115) U/L Lipase 152 (73-393) U/L Urine Color (YELLOW) Urine Appearance (CLEAR) Urine pH (5.0-6.5) Ur Specific [place] (1.010-1.025) Urine Protein (NEGATIVE) mg/dL Urine Glucose (UA) (NORMAL) mg/dL Urine Ketones (NEGATIVE) mg/dL Urine Occult Blood (NEGATIVE) Urine Nitrite (NEGATIVE) Urine Bilirubin (NEGATIVE) Urine Urobilinogen (NEGATIVE) mg/dL Ur Leukocyte Esterase (NEGATIVE) Urine RBC (0-5) Urine WBC (0-5) Ur Squamous Epith Cells (NS,R,O) Urine Bacteria (NS) Urine Opiates Screen (NEGATIVE) Ur Oxycodone Screen (NEGATIVE) Ur Propoxyphene Screen (NEGATIVE) Ur Barbituates Screen (NEGATIVE) Ur Tricyclics Screen (NEGATIVE) Ur Phencyclidine Scrn (NEGATIVE) Ur Amphetamine Screen (NEGATIVE) Urine MDMA Screen (NEGATIVE) U Benzodiazepines Scrn (NEGATIVE) U Cocaine Metab Screen (NEGATIVE) U Marijuana (THC) Screen (NEGATIVE) Ethyl Alcohol 0.25 H* (<0.03) % Meds: Medications Discontinued Medications Generic Name Dose Route Start Last Admin Trade Name Freq PRN Reason Stop Dose Admin Sodium Chloride 1,000 mls @ 999 mls/hr 11/08/19 19:30 11/08/19 19:44 Normal Saline IV 999 mls/hr ASDIRECTED MONET Administration Sodium Chloride 10 ml 11/08/19 19:24 Saline Flush FLUSH ASDIRECTED PRN Keep Vein Open Thiamine HCl 100 mg 11/08/19 19:26 11/08/19 19:44 Vitamin B-1 IVPUSH 11/08/19 19:27 100 mg NOW STA Administration Trimethoprim/Sulfamethoxazole 1 tab 11/08/19 20:12 11/08/19 21:12 Septra Ds PO 11/08/19 20:13 1 tab NOW STA Administration Departure - Departure Time of Disposition: 20:55 Disposition: Home, Self-Care 01 Condition: Good Clinical Impression: Alcohol intoxication, UTI (urinary tract infection), Abrasion - Discharge Information Prescriptions: Sulfamethoxazole/Trimethoprim [Bactrim Ds Tablet] 1 each PO BID #15 tablet Instructions: Alcohol Intoxication, [id number], Urinary Tract Infection, Adult, [id number] Referrals: Kevin Maynard MD [Primary Care Provider] - Forms: ED Department Discharge Additional Instructions: Please read discharge instructions on alcohol intoxication and UTI Take Bactrim DS twice daily for 7 days Quit drinking alcohol Follow up as needed Sepsis Event Note (ED) - Evaluation Sepsis Screening Result: No Definite Risk - Focused Exam Vital Signs: Vital Signs Temp Pulse Resp BP Pulse Ox 11/08/19 22:45 36.3 C 60 16 106/69 98 11/08/19 19:15 36.2 C 60 16 117/64 96 - My Orders Last 24 Hours: My Active Orders 11/08/19 19:23 CULTURE URINE [RM] Stat 11/08/19 19:24 Saline Lock Insert [OM.PC] Routine - Assessment/Plan Last 24 Hours: My Active Orders 11/08/19 19:23 CULTURE URINE [RM] Stat 11/08/19 19:24 Saline Lock Insert [OM.PC] Routine
[2019-11-09 00:20] VITALS: BP 106/69
== END 2019-11-08 23:35 | disposition home or self-care (01) ==
LOC: FB.ED 19:07
DX: F10.129 Alcohol abuse with intoxication, unspecified (principal); Y90.8 Blood alcohol level of 240 mg/100 ml or more; S00.01XA Abrasion of scalp, initial encounter; N39.0 Urinary tract infection, site not specified; I25.10 Atherosclerotic heart disease of native coronary artery without angina pectoris; E78.00 Pure hypercholesterolemia, unspecified; I10 Essential (primary) hypertension; F17.200 Nicotine dependence, unspecified, uncomplicated; Z86.73 Personal history of transient ischemic attack (TIA), and cerebral infarction without residual deficits; Z95.1 Presence of aortocoronary bypass graft; Z88.0 Allergy status to penicillin; Z79.899 Other long term (current) drug therapy; Z79.82 Long term (current) use of aspirin; W05.0XXA Fall from non-moving wheelchair, initial encounter
CPT/HCPCS: 36415; 80305; 80307; 81001; 82150; 83690; 85025; 87086; 96361; 96374; 99284; A9270; J3411; J7030

== ENCOUNTER 2019-11-12 15:41 | Emergency (ER) | payer MEDICARE ==
--- NOTE | 2019-11-12 16:31 | EDM.PDOC ---
ED HPI GENERAL MEDICAL PROBLEM - General Chief Complaint: General Stated Complaint: DIARHEA POSSIBLE UTI Time Seen by Provider: 11/12/19 16:00 Source of Information: Reports: Patient History Limitations: Reports: No Limitations - History of Present Illness INITIAL COMMENTS - FREE TEXT/NARRATIVE: pt is here with concern for an episod of loose stool X 1 about 2 hrs ago, he comes from home by EMS, report that he was seen here 4 days ago and started treatment with Bactrim for UTI, tells me he has been doing very well until this episode today, denies fever, chills urinary frequency, dysuria pain or any other associated sx or concerns. - Related Data Allergies Allergy/AdvReac Type Severity Reaction Status Date / Time Penicillins Allergy Anaphylactic Verified 11/08/19 19:36 Shock Home Meds: Home Meds Multivitamin/Iron/Folic Acid [Centrum Complete Multivit] 1 each PO DAILY 09/15/13 [History] levETIRAcetam [Keppra] 250 mg PO BID 09/15/13 [History] Aspirin [Ecotrin] 325 mg PO DAILY 08/13/15 [History] Fenofibrate Nanocrystallized [Fenofibrate] 145 mg PO DAILY 08/13/15 [History] Metoprolol Tartrate 37.5 mg PO BID 08/13/15 [History] amLODIPine [Norvasc] 5 mg PO DAILY 08/13/15 [History] atorvaSTATin [Lipitor] 10 mg PO DAILY 08/13/15 [History] Acetaminophen/HYDROcodone [[place] 325-5 MG] 1 tab PO Q4H PRN #30 tablet 07/23/18 [Rx] Sulfamethoxazole/Trimethoprim [Bactrim Ds Tablet] 1 each PO BID #15 tablet 11/08/19 [Rx] Past Medical History HEENT History: Reports: Cataract, Glaucoma, Impaired Vision, Other (See Below) Other HEENT History: Missing several teeth. Wears glasses. Cardiovascular History: Reports: Bypass, CAD, High Cholesterol, Hypertension Respiratory History: Reports: Other (See Below) Other Respiratory History: Smoker. Gastrointestinal History: Reports: None Genitourinary History: Reports: None Musculoskeletal History: Reports: Other (See Below) Other Musculoskeletal History: Uses wheelchair post CVA, left hemiplegia 2004. Able to move left extremities somewhat. States he can stand for short while, unable to walk. Neurological History: Reports: CVA, Seizure Psychiatric History: Reports: Addiction, Mood Swings Other Psychiatric History: Frequent alcohol use. Likes to talk alot. Endocrine/Metabolic History: Reports: None Other Endocrine/Metabolic History: Denies diabetes. Hematologic History: Reports: Blood Transfusion(s) Immunologic History: Reports: None Dermatologic History: Reports: Other (See Below) Other Dermatologic History: Sensitive skin left forearm, prone to bruising and tear. - Infectious Disease History Infectious Disease History: Reports: Mumps, Other (See Below) Other Infectious Disease History: Doesn't recall other childhood illnesses. - Past Surgical History Cardiovascular Surgical History: Reports: Coronary Artery Bypass GI Surgical History: Reports: Appendectomy, Hernia Repair/Other Male Surgical History: Reports: Circumcision Musculoskeletal Surgical History: Reports: Other (See Below) Other Musculoskeletal Surgeries/Procedures:: Fractured left ankle and foot 2018. Social & Family History - Family History Family Medical History: Noncontributory Other Neurological Family History: Sister had a CVA Endocrine/Metabolic: Reports: Diabetes, type II - Tobacco Use Smoking Status *Q: Current Every Day Smoker Years of Tobacco use: 50 Packs/Tins Daily: 0.5 - Caffeine Use Caffeine Use: Reports: Tea - Alcohol Use Days Per Week of Alcohol Use: 7 Number of Drinks Per Day: 7 Total Drinks Per Week: 49 - Living Situation & Occupation Living situation: Reports: Alone Occupation: Disabled ED ROS GENERAL - Review of Systems Review Of Systems: See Below Constitutional: Reports: No Symptoms Respiratory: Reports: No Symptoms Cardiovascular: Reports: No Symptoms GI/Abdominal: Reports: No Symptoms : Reports: No Symptoms Musculoskeletal: Reports: No Symptoms Skin: Reports: No Symptoms ED EXAM, GENERAL - Physical Exam Exam: See Below Exam Limited By: No Limitations General Appearance: Alert, No Apparent Distress Respiratory/Chest: No Respiratory Distress, Lungs Clear Cardiovascular: Normal Peripheral Pulses, Regular Rate, Rhythm GI/Abdominal: Normal Bowel Sounds, Soft, Non-Tender Back Exam: Normal Inspection, Full Range of Motion. No: CVA Tenderness (R), CVA Tenderness (L) Neurological: Alert, Oriented, CN II-XII Intact Course - Vital Signs Text/Narrative:: reassured pt that this episode of loose BM is likely secondary to current use of antibiotics which he is about to finish , advised to maintain good hydration complete Bactrim course and follow with PCP if needed. Last Recorded V/S: Last Vital Signs Temp 36.0 C L 11/12/19 15:41 Pulse 54 L 11/12/19 15:41 Resp 17 11/12/19 15:41 BP 116/80 11/12/19 15:41 Pulse Ox 99 11/12/19 15:41 Departure - Departure Time of Disposition: 16:30 Disposition: Home, Self-Care 01 Clinical Impression: UTI (urinary tract infection) - Discharge Information Referrals: Kvein Maynard MD [Primary Care Provider] - Sepsis Event Note (ED) - Evaluation Sepsis Screening Result: No Definite Risk - Focused Exam Vital Signs: Vital Signs Temp Pulse Resp BP Pulse Ox 11/12/19 15:41 36.0 C L 54 L 17 116/80 99
[2019-11-12 17:39] VITALS: BP 110/48; PULSE 65
== END 2019-11-12 17:25 | disposition home or self-care (01) ==
LOC: FB.ED 15:41
DX: N39.0 Urinary tract infection, site not specified (principal); I10 Essential (primary) hypertension; E78.00 Pure hypercholesterolemia, unspecified; I25.10 Atherosclerotic heart disease of native coronary artery without angina pectoris; F17.210 Nicotine dependence, cigarettes, uncomplicated; Z95.1 Presence of aortocoronary bypass graft; Z88.0 Allergy status to penicillin; Z79.82 Long term (current) use of aspirin; Z79.899 Other long term (current) drug therapy; Z90.49 Acquired absence of other specified parts of digestive tract
CPT/HCPCS: 99283

== ENCOUNTER 2019-11-18 17:07 | Emergency (ER) | payer MEDICARE ==
[2019-11-18] MEDS ORDERED: MVI, Adult with Vitamin K 10 ML, Thiamine 100 MG, Folic Acid 1 MG, Magnesium Sulfate 3 ... IV SCH ×5 (17:45)
--- NOTE | 2019-11-18 17:48 | EDM.PDOC ---
ED HPI GENERAL MEDICAL PROBLEM - General Chief Complaint: General Time Seen by Provider: 11/18/19 17:15 Source of Information: Reports: Patient, EMS, Old Records, RN Notes Reviewed History Limitations: Reports: Intoxication - History of Present Illness INITIAL COMMENTS - FREE TEXT/NARRATIVE: brought in from home , States he called EMS as he was not able to self transfer and fell 3 times today. Admitted to taking 3 drinks of whiskey also . Believes that also contributed to his fall EMS noted he was vomiting also and was incontinent Onset: Today Onset Date: 11/18/19 Duration: Getting Worse Location: Reports: Head Severity: Moderate Context: Reports: Other (fell at home while intoxicated) Associated Symptoms: Reports: Fever/Chills, Loss of Appetite, Nausea/Vomiting. Denies: Confusion, Cough - Related Data Allergies Allergy/AdvReac Type Severity Reaction Status Date / Time Penicillins Allergy Anaphylactic Verified 11/08/19 19:36 Shock Home Meds: Home Meds Multivitamin/Iron/Folic Acid [Centrum Complete Multivit] 1 each PO DAILY 09/15/13 [History] levETIRAcetam [Keppra] 250 mg PO BID 09/15/13 [History] Aspirin [Ecotrin] 325 mg PO DAILY 08/13/15 [History] Fenofibrate Nanocrystallized [Fenofibrate] 145 mg PO DAILY 08/13/15 [History] Metoprolol Tartrate 37.5 mg PO BID 08/13/15 [History] amLODIPine [Norvasc] 5 mg PO DAILY 08/13/15 [History] atorvaSTATin [Lipitor] 10 mg PO DAILY 08/13/15 [History] Acetaminophen/HYDROcodone [Christmas 325-5 MG] 1 tab PO Q4H PRN #30 tablet 07/23/18 [Rx] Sulfamethoxazole/Trimethoprim [Bactrim Ds Tablet] 1 each PO BID #15 tablet 11/08/19 [Rx] Past Medical History HEENT History: Reports: Cataract, Glaucoma, Impaired Vision, Other (See Below) Other HEENT History: Missing several teeth. Wears glasses. Cardiovascular History: Reports: Bypass, CAD, High Cholesterol, Hypertension Respiratory History: Reports: Other (See Below) Other Respiratory History: Smoker. Gastrointestinal History: Reports: None Genitourinary History: Reports: None Musculoskeletal History: Reports: Other (See Below) Other Musculoskeletal History: Uses wheelchair post CVA, left hemiplegia 2005. Able to move left extremities somewhat. States he can stand for short while, unable to walk. Neurological History: Reports: CVA, Seizure Psychiatric History: Reports: Addiction, Mood Swings Other Psychiatric History: Frequent alcohol use. Likes to talk alot. Endocrine/Metabolic History: Reports: None Other Endocrine/Metabolic History: Denies diabetes. Hematologic History: Reports: Blood Transfusion(s) Immunologic History: Reports: None Dermatologic History: Reports: Other (See Below) Other Dermatologic History: Sensitive skin left forearm, prone to bruising and tear. - Infectious Disease History Infectious Disease History: Reports: Mumps, Other (See Below) Other Infectious Disease History: Doesn't recall other childhood illnesses. - Past Surgical History Cardiovascular Surgical History: Reports: Coronary Artery Bypass GI Surgical History: Reports: Appendectomy, Hernia Repair/Other Male Surgical History: Reports: Circumcision Musculoskeletal Surgical History: Reports: Other (See Below) Other Musculoskeletal Surgeries/Procedures:: Fractured left ankle and foot 2018. Social & Family History - Family History Family Medical History: Noncontributory Other Neurological Family History: Sister had a CVA Endocrine/Metabolic: Reports: Diabetes, type II - Caffeine Use Caffeine Use: Reports: Tea - Living Situation & Occupation Living situation: Reports: Alone Occupation: Disabled ED ROS GENERAL - Review of Systems Review Of Systems: See Below Constitutional: Reports: Malaise, Weakness, Diaphoresis, Decreased Appetite. Denies: Fever, Chills, Fatigue, Night Sweats HEENT: Reports: No Symptoms Respiratory: Reports: No Symptoms Cardiovascular: Reports: No Symptoms Endocrine: Reports: No Symptoms GI/Abdominal: Reports: No Symptoms Musculoskeletal: Reports: Muscle Pain, Muscle Stiffness Skin: Reports: Dryness Neurological: Reports: Dizziness, Pre-Existing Deficit, Difficulty Walking, Gait Disturbance (from prior CVA) Psychiatric: Reports: Anxiety Hematologic/Lymphatic: Reports: No Symptoms, Swollen Glands Immunologic: Reports: No Symptoms ED EXAM, GENERAL - Physical Exam Exam: See Below Exam Limited By: Intoxication General Appearance: Alert, WD/WN, No Apparent Distress Eye Exam: Bilateral Eye: EOMI Ears: Normal External Exam Ear Exam: Bilateral Ear: TM normal Nose: Normal Inspection Throat/Mouth: Normal Inspection Head: Other (mild swelling and pain noted on the occipital side) Neck: Supple, Non-Tender Respiratory/Chest: No Respiratory Distress, Normal Breath Sounds Cardiovascular: Regular Rate, Rhythm GI/Abdominal: Soft, Non-Tender. No: Guarding Back Exam: Full Range of Motion Extremities: Normal Range of Motion Neurological: Alert, Oriented, CN II-XII Intact Psychiatric: Normal Affect, Normal Mood Skin Exam: Dry, Intact Course - Vital Signs Last Recorded V/S: Last Vital Signs Temp 36.4 C 11/18/19 19:28 Pulse 57 L 11/18/19 19:28 Resp 18 11/18/19 19:28 BP 118/53 L 11/18/19 19:28 Pulse Ox 99 11/18/19 19:28 - Orders/Labs/Meds Orders: Active Orders 24 hr Category Date Time Status Head wo Cont [CT] Stat Exams 11/18/19 17:39 Taken DRUG SCREEN, URINE ALERE [URCHEM] Stat Lab 11/18/19 19:40 Ordered MVI, Adult with Vitamin K [Infuvite Adult] 10 ml Med 11/18/19 17:45 Active Thiamine [Vitamin B-1] 100 mg Folic Acid 1 mg Magnesium Sulfate [Magnesium Sulfate 50%] 3 gm Sodium Chloride 0.9% [Normal Saline] 1,000 ml IV ASDIRECTED Medication Orders Multivitamins/Minerals 10 ml/Thiamine HCl 100 mg/ Folic Acid 1 mg/ Magnesium Sulfate 3 gm/ Sodium Chloride 1,017.2 mls @ 999 mls/hr IV ASDIRECTED MONET Labs: Laboratory Tests 11/18/19 11/18/19 11/18/19 Range/Units 18:05 18:05 18:05 WBC 10.4 (4.5-12.0) X10-3/uL RBC 4.20 L (4.30-5.75) x10(6)uL Hgb 13.2 L (13.5-17.8) g/dL Hct 39.6 (30.0-51.3) % MCV 94.4 (80-96) fL MCH 31.5 (27.7-33.6) pg MCHC 33.4 (32.2-35.4) g/dL RDW 14.0 (11.5-15.5) % Plt Count 309 (125-369) X10(3)uL MPV 7.1 L (7.4-10.4) fL Neut % (Auto) 72.0 (46-82) % Lymph % (Auto) 22.3 (13-37) % Zapata % (Auto) 2.5 L (4-12) % Eos % (Auto) 2 (1.0-5.0) % Baso % (Auto) 1 (0-2) % Neut # (Auto) 7.5 (1.6-8.3) # Lymph # (Auto) 2.3 (0.6-5.0) # Zapata # (Auto) 0.3 (0.0-1.3) # Eos # (Auto) 0.2 (0.0-0.8) # Baso # (Auto) 0.1 (0.0-0.2) # Sodium 130 L (135-145) mmol/L Potassium 4.2 (3.5-5.3) mmol/L Chloride 96 L D (100-110) mmol/L Carbon Dioxide 20 L (21-32) mmol/L BUN 15 D (7-18) mg/dL Creatinine 1.4 H (0.70-1.30) mg/dL Est Cr Clr Drug Dosing TNP Estimated GFR (MDRD) 51 L (>60) BUN/Creatinine Ratio 10.7 (9-20) Glucose 87 (80-116) mg/dL Calcium 8.8 (8.6-10.2) mg/dL Total Bilirubin 0.4 (0.1-1.3) mg/dL AST 38 H (5-25) IU/L ALT 24 D (12-36) U/L Alkaline Phosphatase 64 (56-112) IU/L Total Protein 6.8 (6.0-8.0) g/dL Albumin 3.4 (3.2-4.6) g/dL Globulin 3.4 g/dL Albumin/Globulin Ratio 1.0 Amylase 99 (25-115) U/L Ethyl Alcohol 0.21 H* (<0.03) % Meds: Medications Generic Name Dose Route Start Last Admin Trade Name Freq PRN Reason Stop Dose Admin Multivitamins/Minerals 10 ml/ 1,017.2 mls @ 999 mls/hr 11/18/19 17:45 Thiamine HCl 100 mg/ Folic IV Acid 1 mg/ Magnesium Sulfate 3 ASDIRECTED MONET gm/ Sodium Chloride - Re-Assessments/Exams Free Text/Narrative Re-Assessment/Exam: 11/18/19 19:54 Multiple attempts made to set up IVF but not succesful pt able to drink water freely labs reviewed, Blood alcohol level elevated Other labs acceptable Free Text/Narrative Re-Assessment/Exam: 11/18/19 20:05 pt given Zofran and gatorade. Was able to tolerate this well . was able to tolerate 3 ( 250cc) bottles of gatorade 11/18/19 20:13 Departure - Departure Time of Disposition: 20:30 Disposition: Home, Self-Care 01 Condition: Fair Clinical Impression: Hyponatremia syndrome, Dehydration CVA (cerebrovascular accident) Qualifiers: CVA mechanism: unspecified Qualified Code(s): I63.9 - Cerebral infarction, unspecified Acute alcohol intoxication Qualifiers: Complication of substance-induced condition: uncomplicated Qualified Code(s): F10.920 - Alcohol use, unspecified with intoxication, uncomplicated - Discharge Information *PRESCRIPTION DRUG MONITORING PROGRAM REVIEWED*: Not Applicable *COPY OF PRESCRIPTION DRUG MONITORING REPORT IN PATIENT TITA: Not Applicable Referrals: PCP,None [Ordering Only Provider] - Forms: ED Department Discharge Additional Instructions: Make appointment to follow up with your doctor and social media assistant Call you r home health nurse in the morning to help you at home Sepsis Event Note (ED) - Focused Exam Vital Signs: Vital Signs Temp Pulse Resp BP Pulse Ox 11/18/19 19:28 36.4 C 57 L 18 118/53 L 99 11/18/19 18:15 53 L 16 103/71 98 11/18/19 17:10 36.2 C 48 L 16 111/80 100 - My Orders Last 24 Hours: My Active Orders 11/18/19 17:39 Head wo Cont [CT] Stat 11/18/19 17:45 MVI, Adult with Vitamin K [Infuvite Adult] 10 ml Thiamine [Vitamin B-1] 100 mg Folic Acid 1 mg Magnesium Sulfate [Magnesium Sulfate 50%] 3 gm Sodium Chloride 0.9% [Normal Saline] 1,000 ml IV ASDIRECTED 11/18/19 19:40 DRUG SCREEN, URINE ALERE [URCHEM] Stat - Assessment/Plan Last 24 Hours: My Active Orders 11/18/19 17:39 Head wo Cont [CT] Stat 11/18/19 17:45 MVI, Adult with Vitamin K [Infuvite Adult] 10 ml Thiamine [Vitamin B-1] 100 mg Folic Acid 1 mg Magnesium Sulfate [Magnesium Sulfate 50%] 3 gm Sodium Chloride 0.9% [Normal Saline] 1,000 ml IV ASDIRECTED 11/18/19 19:40 DRUG SCREEN, URINE ALERE [URCHEM] Stat
[2019-11-18 19:29] VITALS: BP 118/53; PULSE 57
[2019-11-18] MEDS ORDERED: Ondansetron 8 MG Tab.DIS PO ONE (19:58)
== END 2019-11-18 22:19 | disposition home or self-care (01) ==
LOC: FB.ED 17:07
DX: F10.120 Alcohol abuse with intoxication, uncomplicated (principal); I63.9 Cerebral infarction, unspecified; E86.0 Dehydration; E87.1 Hypo-osmolality and hyponatremia; I25.10 Atherosclerotic heart disease of native coronary artery without angina pectoris; E78.00 Pure hypercholesterolemia, unspecified; R56.9 Unspecified convulsions; I10 Essential (primary) hypertension; F17.200 Nicotine dependence, unspecified, uncomplicated; Z95.1 Presence of aortocoronary bypass graft; Z90.49 Acquired absence of other specified parts of digestive tract; Z88.0 Allergy status to penicillin; Z79.82 Long term (current) use of aspirin; Z79.899 Other long term (current) drug therapy
CPT/HCPCS: 36415; 70450; 80053; 80305; 80307; 82150; 85025; 99284; A9270; 36410; 99283

== ENCOUNTER 2019-11-26 15:41 | Emergency (ER) | payer MEDICARE ==
[2019-11-26 15:51] VITALS: BP 113/66; PULSE 51
--- NOTE | 2019-11-26 16:29 | EDM.PDOC ---
ED HPI GENERAL MEDICAL PROBLEM - General Chief Complaint: Lower Extremity Injury/Pain Stated Complaint: RIGHT KNEE PAIN Time Seen by Provider: 11/26/19 16:20 Source of Information: Reports: Patient History Limitations: Reports: No Limitations - History of Present Illness INITIAL COMMENTS - FREE TEXT/NARRATIVE: 69-year-old male who presents to the emergency department via ambulance after falling on his left knee when transferring from his wheelchair to the toilet at approximately 2:30 PM today. He states that he has 10 over 10 level of pain when he says right knee and when he tries to stand on his right leg. He did not hit his head. There was no loss of consciousness. The pain is a sharp pain. There are no open wounds. He reports the pain seems to be "underneath my knee cap". He denies any neck or back pain. He does admit to drinking alcohol today. There are no other associated signs or symptoms. There are no other modifying factors. Onset: Today (2:30 PM) Duration: Constant Location: Reports: Lower Extremity, Right (Right knee) Quality: Reports: Sharp Severity: Severe Improves with: Reports: Rest Worsens with: Reports: Movement Context: Reports: Trauma Associated Symptoms: Reports: No Other Symptoms Treatments [employer]IST: Reports: Other (see below) (Nothing.) - Related Data Allergies Allergy/AdvReac Type Severity Reaction Status Date / Time Penicillins Allergy Anaphylactic Verified 11/26/19 15:50 Shock Home Meds: Home Meds Multivitamin/Iron/Folic Acid [Centrum Complete Multivit] 1 each PO DAILY 09/15/13 [History] levETIRAcetam [Keppra] 250 mg PO BID 09/15/13 [History] Aspirin [Ecotrin] 325 mg PO DAILY 08/13/15 [History] Fenofibrate Nanocrystallized [Fenofibrate] 145 mg PO DAILY 08/13/15 [History] Metoprolol Tartrate 37.5 mg PO BID 08/13/15 [History] amLODIPine [Norvasc] 5 mg PO DAILY 08/13/15 [History] atorvaSTATin [Lipitor] 10 mg PO DAILY 08/13/15 [History] Acetaminophen/HYDROcodone [Leoti 325-5 MG] 1 tab PO Q4H PRN #30 tablet 07/23/18 [Rx] Sulfamethoxazole/Trimethoprim [Bactrim Ds Tablet] 1 each PO BID #15 tablet [Rx] Past Medical History HEENT History: Reports: Cataract, Glaucoma, Impaired Vision, Other (See Below) Other HEENT History: Missing several teeth. Wears glasses. Cardiovascular History: Reports: Bypass, CAD, High Cholesterol, Hypertension Musculoskeletal History: Reports: Other (See Below) Other Musculoskeletal History: Uses wheelchair post CVA, left hemiplegia 2004. Able to move left extremities somewhat. States he can stand for short while, unable to walk. Neurological History: Reports: CVA, Seizure Psychiatric History: Reports: Addiction, Mood Swings Other Psychiatric History: Alcohol abuse Other Endocrine/Metabolic History: Denies diabetes. Hematologic History: Reports: Blood Transfusion(s) Dermatologic History: Reports: Other (See Below) Other Dermatologic History: Sensitive skin left forearm, prone to bruising and tear. - Infectious Disease History Infectious Disease History: Reports: Mumps, Other (See Below) Other Infectious Disease History: Doesn't recall other childhood illnesses. - Past Surgical History Cardiovascular Surgical History: Reports: Coronary Artery Bypass GI Surgical History: Reports: Appendectomy, Hernia Repair/Other Male Surgical History: Reports: Circumcision Musculoskeletal Surgical History: Reports: Other (See Below) Other Musculoskeletal Surgeries/Procedures:: Fractured left ankle and foot 2018. Social & Family History - Family History Other Neurological Family History: Sister had a CVA Endocrine/Metabolic: Reports: Diabetes, type II - Tobacco Use Smoking Status *Q: Current Every Day Smoker - Caffeine Use Caffeine Use: Reports: Tea - Alcohol Use Alcohol Use History: Yes Alcohol Use Frequency: Daily - Living Situation & Occupation Living situation: Reports: Alone Occupation: Disabled Review of Systems - Review of Systems Review Of Systems: See Below Constitutional: Reports: No Symptoms Eyes: Reports: No Symptoms Ears: Reports: No Symptoms Nose: Reports: No Symptoms Mouth/Throat: Reports: No Symptoms Respiratory: Reports: No Symptoms Cardiovascular: Reports: No Symptoms GI/Abdominal: Reports: No Symptoms Genitourinary: Reports: No Symptoms Musculoskeletal: Reports: Leg Pain (Right knee pain.) Skin: Reports: No Symptoms Neurological: Reports: No Symptoms (Patient left hemiparesis. This is chronic.) ED EXAM, GENERAL - Physical Exam Exam: See Below Exam Limited By: No Limitations General Appearance: Alert, WD/WN, Mild Distress Eye Exam: Bilateral Eye: EOMI (There is lateral gaze nystagmus at less than 45.), Normal Inspection Ears: Normal External Exam, Hearing Grossly Normal Ear Exam: Bilateral Ear: Auricle Normal Nose: Normal Inspection, Normal Mucosa, No Blood Throat/Mouth: Normal Voice, No Airway Compromise, Other (Strong odor of alcohol on his breath.) Head: Atraumatic, Normocephalic Neck: Normal Inspection, Supple, Non-Tender, Full Range of Motion Respiratory/Chest: No Respiratory Distress, Lungs Clear, Normal Breath Sounds, No Accessory Muscle Use, Chest Non-Tender Cardiovascular: Normal Peripheral Pulses, Regular Rate, Rhythm, No Murmur Peripheral Pulses: 2+: Radial (L), Radial (R), Dorsalis Pedis (L), Dorsalis Pedis (R) GI/Abdominal: Normal Bowel Sounds, Soft, Non-Tender, No Distention, No Mass Back Exam: Normal Inspection, Full Range of Motion Extremities: Normal Inspection, Normal Range of Motion, No Pedal Edema, Normal Capillary Refill, Other (Tender with movement of right patella. No crepitus. No bony deformity. He has full range of motion in his right knee and) Neurological: Alert, Oriented, CN II-XII Intact, No Motor/Sensory Deficits Psychiatric: Normal Affect, Other (He appears acutely intoxicated.) Skin Exam: Warm, Dry, Intact, Normal Color, No Rash Course - Vital Signs Last Recorded V/S: Last Vital Signs Temp 36.2 C 11/26/19 15:49 Pulse 51 L 11/26/19 15:49 Resp 18 11/26/19 15:49 BP 113/66 11/26/19 15:49 Pulse Ox 100 11/26/19 15:49 - Orders/Labs/Meds Orders: Active Orders 24 hr Category Date Time Status Knee 1V or 2V Rt [CR] Stat Exams 11/26/19 16:46 Taken Lower Extremity wo Cont Rt [CT] Stat Exams 11/26/19 17:18 Taken Meds: Medications Discontinued Medications Generic Name Dose Route Start Last Admin Trade Name Freq PRN Reason Stop Dose Admin Acetaminophen 1,000 mg 11/26/19 16:46 Tylenol Extra Strength PO 11/26/19 16:47 ONETIME ONE - Radiology Interpretation Free Text/Narrative:: X-ray of right knee shows possible patellar fracture but could be chronic versus acute. I will send the patient for a CT scan of his right knee. CT scan of right knee shows no acute fracture. There is a small effusion. This was per the [facility] radiologist. - Re-Assessments/Exams Free Text/Narrative Re-Assessment/Exam: 11/26/19 19:30: Reexamination of the patient did show that he was able to do range of motion with his right knee despite the pain. The nursing staff help the patient and he was able to pivot and transfer using his right leg. He had been given Tylenol earlier for pain and he reports that it may have helped his pain somewhat. He has remained hemodynamically stable in the emergency department. He is very desirous of going home. We will send him home via [employer] Departure - Departure Time of Disposition: 19:40 Disposition: Home, Self-Care 01 Condition: Good Clinical Impression: Contusion of right knee, initial encounter, Alcohol abuse Fall Qualifiers: Encounter type: initial encounter Qualified Code(s): W19.XXXA - Unspecified fall, initial encounter Acute alcohol intoxication Qualifiers: Complication of substance-induced condition: uncomplicated Qualified Code(s): F10.920 - Alcohol use, unspecified with intoxication, uncomplicated - Discharge Information Instructions: Contusion, [id number], Alcohol Abuse and Dependence Inform ation, Adult Referrals: Kevin Maynard MD [Primary Care Provider] - Forms: ED Department Discharge Additional Instructions: The CT scan of your right knee showed no fracture. You do appear to have a bruise to your right knee. You should as tolerated on your right leg. You can apply ice packs intermittently to your right knee over the next 2 days. You can take Tylenol and ibuprofen as needed for pain. As you have been told in the past, I will call use is causing you significant problems and I once again strongly recommend that you stop drinking alcohol and seek alcohol abuse counseling. Follow-up with your primary doctor. Back to the emergency department for redness, increased swelling and he other concerning sign or symptom. Sepsis Event Note (ED) - Evaluation Sepsis Screening Result: No Definite Risk - Focused Exam Vital Signs: Vital Signs Temp Pulse Resp BP Pulse Ox 11/26/19 15:49 36.2 C 51 L 18 113/66 100 - My Orders Last 24 Hours: My Active Orders 11/26/19 16:46 Knee 1V or 2V Rt [CR] Stat 11/26/19 17:18 Lower Extremity wo Cont Rt [CT] Stat - Assessment/Plan Last 24 Hours: My Active Orders 11/26/19 16:46 Knee 1V or 2V Rt [CR] Stat 11/26/19 17:18 Lower Extremity wo Cont Rt [CT] Stat
[2019-11-26] MEDS ORDERED: Acetaminophen 500 MG Tab PO ONE (16:46)
== END 2019-11-26 20:25 | disposition home or self-care (01) ==
LOC: FB.ED 15:41
DX: S80.01XA Contusion of right knee, initial encounter (principal); F10.120 Alcohol abuse with intoxication, uncomplicated; I25.10 Atherosclerotic heart disease of native coronary artery without angina pectoris; E78.00 Pure hypercholesterolemia, unspecified; I10 Essential (primary) hypertension; R56.9 Unspecified convulsions; F17.200 Nicotine dependence, unspecified, uncomplicated; Z88.0 Allergy status to penicillin; Z79.82 Long term (current) use of aspirin; Z79.899 Other long term (current) drug therapy; Z86.73 Personal history of transient ischemic attack (TIA), and cerebral infarction without residual deficits; W05.0XXA Fall from non-moving wheelchair, initial encounter
CPT/HCPCS: 73560-RT; 73700-RT; 99284-25

== ENCOUNTER 2020-01-11 20:29 | Emergency (ER) | payer MEDICARE ==
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
[2020-01-11 22:04] VITALS: BP 112/54; PULSE 66
[2020-01-11] MEDS ORDERED: Sodium Chloride 0.9% 500 ML IV ONE (22:28)
[2020-01-11] MEDS ORDERED: Sodium Chloride 0.9% 500 ML IV SCH (22:30)
[2020-01-11] MEDS ORDERED: Sodium Chloride 0.9% 10 ML Syringe FLUSH PRN (23:50)
== END 2020-01-12 00:30 | disposition home or self-care (01) ==
LOC: FB.ED 20:29
DX: I10 Essential (primary) hypertension (principal); I25.10 Atherosclerotic heart disease of native coronary artery without angina pectoris; E78.00 Pure hypercholesterolemia, unspecified; F17.200 Nicotine dependence, unspecified, uncomplicated; R56.9 Unspecified convulsions; Z88.0 Allergy status to penicillin; Z79.82 Long term (current) use of aspirin; Z79.899 Other long term (current) drug therapy; Z95.1 Presence of aortocoronary bypass graft; Z86.73 Personal history of transient ischemic attack (TIA), and cerebral infarction without residual deficits
CPT/HCPCS: 36415; 71045; 80048; 84484; 85025; 93005; 99285; J7040

== ENCOUNTER 2020-04-03 21:33 | Emergency (ER) | payer MEDICARE ==
--- NOTE | 2020-04-03 22:56 | EDM.PDOC ---
ED HPI GENERAL MEDICAL PROBLEM - General Chief Complaint: Upper Extremity Injury/Pain Stated Complaint: ARM PAIN Time Seen by Provider: 04/03/20 22:00 Source of Information: Reports: Patient History Limitations: Reports: No Limitations - History of Present Illness INITIAL COMMENTS - FREE TEXT/NARRATIVE: Patient presented to the ED because of a fall from his wheel chair when he was trying to grab something. He landed on his right chest and c/o right rib pain. He also c/o left hip and left thigh pain. There is no nausea,vomiting, dyspnea. He has a history of 3 previous CVA with left hemiphlegia. Right Chest Pain Score (Numeric/FACES): 8 - Related Data Allergies Allergy/AdvReac Type Severity Reaction Status Date / Time Penicillins Allergy Anaphylactic Verified 11/26/19 15:50 Shock Home Meds: Home Meds Multivitamin/Iron/Folic Acid [Centrum Complete Multivit] 1 each PO DAILY 09/15/13 [History] levETIRAcetam [Keppra] 250 mg PO BID 09/15/13 [History] Aspirin [Ecotrin] 325 mg PO DAILY 08/13/15 [History] Fenofibrate Nanocrystallized [Fenofibrate] 145 mg PO DAILY 08/13/15 [History] Metoprolol Tartrate 37.5 mg PO BID 08/13/15 [History] amLODIPine [Norvasc] 5 mg PO DAILY 08/13/15 [History] atorvaSTATin [Lipitor] 10 mg PO DAILY 08/13/15 [History] Acetaminophen/HYDROcodone [[place] 325-5 MG] 1 tab PO Q4H PRN #30 tablet 07/23/18 [Rx] Sulfamethoxazole/Trimethoprim [Bactrim Ds Tablet] 1 each PO BID #15 tablet 11/08/19 [Rx] Past Medical History HEENT History: Reports: Cataract, Glaucoma, Impaired Vision, Other (See Below) Other HEENT History: Missing several teeth. Wears glasses. Cardiovascular History: Reports: Bypass, CAD, High Cholesterol, Hypertension Respiratory History: Reports: Other (See Below) Other Respiratory History: Smoker. Gastrointestinal History: Reports: None Genitourinary History: Reports: None Musculoskeletal History: Reports: Other (See Below) Other Musculoskeletal History: Uses wheelchair post CVA, left hemiplegia 2004. Able to move left extremities somewhat. States he can stand for short while, unable to walk. Neurological History: Reports: CVA, Seizure Psychiatric History: Reports: Addiction, Mood Swings Other Psychiatric History: Alcohol abuse Endocrine/Metabolic History: Reports: None Other Endocrine/Metabolic History: Denies diabetes. Hematologic History: Reports: Blood Transfusion(s) Immunologic History: Reports: None Dermatologic History: Reports: Other (See Below) Other Dermatologic History: Sensitive skin left forearm, prone to bruising and tear. - Infectious Disease History Infectious Disease History: Reports: Mumps, Other (See Below) Other Infectious Disease History: Doesn't recall other childhood illnesses. - Past Surgical History HEENT Surgical History: Reports: Oral Surgery Cardiovascular Surgical History: Reports: Coronary Artery Bypass Respiratory Surgical History: Reports: None GI Surgical History: Reports: Appendectomy, Hernia Repair/Other Male Surgical History: Reports: Circumcision Endocrine Surgical History: Reports: None Neurological Surgical History: Reports: None Musculoskeletal Surgical History: Reports: Other (See Below) Other Musculoskeletal Surgeries/Procedures:: Fractured left ankle and foot 2018. Dermatological Surgical History: Reports: None Social & Family History - Family History Family Medical History: No Pertinent Family History Other Neurological Family History: Sister had a CVA Endocrine/Metabolic: Reports: Diabetes, type II - Tobacco Use Tobacco Use Status *Q: Current Every Day Tobacco User Years of Tobacco use: 38 Packs/Tins Daily: 0.5 - Caffeine Use Caffeine Use: Reports: None - Living Situation & Occupation Living situation: Reports: Alone Occupation: Disabled Review of Systems - Review of Systems Review Of Systems: See Below Constitutional: Reports: No Symptoms Eyes: Reports: No Symptoms Ears: Reports: No Symptoms Nose: Reports: No Symptoms Mouth/Throat: Reports: No Symptoms Respiratory: Reports: No Symptoms Cardiovascular: Reports: Chest Pain GI/Abdominal: Reports: No Symptoms, Abdominal Pain Genitourinary: Reports: No Symptoms Musculoskeletal: Reports: No Symptoms Skin: Reports: No Symptoms Neurological: Reports: No Symptoms Psychiatric: Reports: No Symptoms ED EXAM, GENERAL - Physical Exam Exam: See Below Exam Limited By: No Limitations General Appearance: Alert, No Apparent Distress Eye Exam: Bilateral Eye: PERRL Ears: Normal External Exam Nose: Normal Inspection, Normal Mucosa Throat/Mouth: Normal Inspection, Normal Lips, Normal Teeth Head: Atraumatic, Normocephalic Neck: Normal Inspection, Supple, Non-Tender Respiratory/Chest: No Respiratory Distress, Lungs Clear Cardiovascular: Normal Peripheral Pulses, Regular Rate, Rhythm, No Edema, No Gallop GI/Abdominal: Normal Bowel Sounds, Soft, Non-Tender Back Exam: Normal Inspection, Full Range of Motion Extremities: Normal Inspection, Other (tenderness left hip and left femur) Neurological: Alert, Oriented, CN II-XII Intact Psychiatric: Normal Affect Skin Exam: Warm Course - Vital Signs Text/Narrative:: Labs/EKG/CXR was discussed with patient Cardiology consult with Dr Canales and case was discussed with the hospitalist Dr Florentino ASA 324 mg PO x1 NTG 0.4 mg SL x1 Code Status-neg NO coviD syptoms Last Recorded V/S: Last Vital Signs Temp 36.3 C 04/03/20 21:57 Pulse 81 04/03/20 22:19 Resp 16 04/03/20 22:19 BP 140/76 04/03/20 22:19 Pulse Ox 100 04/03/20 22:19 - Orders/Labs/Meds Orders: Active Orders 24 hr Category Date Time Status EKG Documentation Completion [RC] ASDIRECTED Care 04/03/20 22:01 Active Hip Min 2V or 3V w Pelvis Lt [CR] Stat Exams 04/03/20 22:02 Ordered Ribs 2V w Chest Rt [CR] Stat Exams 04/03/20 22:00 Ordered COMPREHENSIVE METABOLIC PN,CMP [CHEM] Stat Lab 04/03/20 21:59 Ordered CREATINE KINASE,CK [CHEM] Stat Lab 04/03/20 21:59 Ordered LEVETIRACETAM (KEPPRA), S Stat Lab 04/03/20 21:59 Ordered Thiamine [Vitamin B-1] Med 04/03/20 23:13 Stat 100 mg IVPUSH NOW STA EKG 12 Lead [EK] Routine Ther 04/03/20 22:00 Ordered Medication Orders Thiamine HCl (Vitamin B-1) 100 mg IVPUSH NOW STA Stop: 04/03/20 23:14 Labs: Laboratory Tests 04/03/20 04/03/20 04/03/20 Range/Units 21:45 22:00 22:00 WBC 15.1 H (3.2-10.1) x10-3/uL RBC 4.00 (3.90-5.90) x10(6)uL Hgb 12.2 L (12.9-17.7) g/dL Hct 36.4 L (38.3-50.1) % MCV 91.1 (80.8-98.7) fL MCH 30.5 (27.0-33.3) pg MCHC 33.4 (28.7-35.3) g/dL RDW 15.2 H (12.4-15.0) % Plt Count 379 (117-477) x10(3)uL MPV 6.8 (6.7-11.0) fL Add Manual Diff Yes Neutrophils % (Manual) 83 H (46-82) % Band Neutrophils % 1 (0-6) % Lymphocytes % (Manual) 10 L (13-37) % Monocytes % (Manual) 6 (4-12) % PT (9.0-11.1) sec INR (1.00-1.24) APTT (24.4-33.2) SECONDS Sodium 122 L D (135-145) mmol/L Potassium 3.7 (3.5-5.3) mmol/L Chloride 89 L* D (100-110) mmol/L Carbon Dioxide 20 L (21-32) mmol/L BUN 10 D (7-18) mg/dL Creatinine 1.6 H (0.70-1.30) mg/dL Est Cr Clr Drug Dosing 41.31 mL/min Estimated GFR (MDRD) 43 L (>60) BUN/Creatinine Ratio 6.3 L (9-20) Glucose 103 (80-116) mg/dL Calcium 8.8 (8.6-10.2) mg/dL Magnesium (1.8-2.5) mg/dL Total Bilirubin 0.6 (0.1-1.3) mg/dL AST 290 H* D (5-25) IU/L ALT 75 H D (12-36) U/L Alkaline Phosphatase 83 (56-112) IU/L Troponin I (4.0-60.3) pg/mL NT-Pro-B Natriuret Pep (<=125) pg/mL Total Protein 6.9 (6.0-8.0) g/dL Albumin 3.5 (3.2-4.6) g/dL Globulin 3.4 g/dL Albumin/Globulin Ratio 1.0 Urine Color Yellow (YELLOW) Urine Appearance Clear (CLEAR) Urine pH 5.0 (5.0-6.5) Ur Specific [place] 1.005 L (1.010-1.025) Urine Protein 30 H (NEGATIVE) mg/dL Urine Glucose (UA) Normal (NORMAL) mg/dL Urine Ketones Negative (NEGATIVE) mg/dL Urine Occult Blood Large H (NEGATIVE) Urine Nitrite Negative (NEGATIVE) Urine Bilirubin Negative (NEGATIVE) Urine Urobilinogen Normal (NEGATIVE) mg/dL Ur Leukocyte Esterase Negative (NEGATIVE) Urine RBC 10-20 H (0-5) Urine WBC 0-5 (0-5) Ur Squamous Epith Cells Few H (NS,R,O) Urine Bacteria Few H (NS) Ethyl Alcohol (<0.03) % 04/03/20 04/03/20 04/03/20 Range/Units 22:00 22:00 22:00 WBC (3.2-10.1) x10-3/uL RBC (3.90-5.90) x10(6)uL Hgb (12.9-17.7) g/dL Hct (38.3-50.1) % MCV (80.8-98.7) fL MCH (27.0-33.3) pg MCHC (28.7-35.3) g/dL RDW (12.4-15.0) % Plt Count (117-477) x10(3)uL MPV (6.7-11.0) fL Add Manual Diff Neutrophils % (Manual) (46-82) % Band Neutrophils % (0-6) % Lymphocytes % (Manual) (13-37) % Monocytes % (Manual) (4-12) % PT (9.0-11.1) sec INR (1.00-1.24) APTT (24.4-33.2) SECONDS Sodium (135-145) mmol/L Potassium (3.5-5.3) mmol/L Chloride (100-110) mmol/L Carbon Dioxide (21-32) mmol/L BUN (7-18) mg/dL Creatinine (0.70-1.30) mg/dL Est Cr Clr Drug Dosing mL/min Estimated GFR (MDRD) (>60) BUN/Creatinine Ratio (9-20) Glucose (80-116) mg/dL Calcium (8.6-10.2) mg/dL Magnesium 1.9 (1.8-2.5) mg/dL Total Bilirubin (0.1-1.3) mg/dL AST (5-25) IU/L ALT (12-36) U/L Alkaline Phosphatase (56-112) IU/L Troponin I 389.2 H* (4.0-60.3) pg/mL NT-Pro-B Natriuret Pep (<=125) pg/mL Total Protein (6.0-8.0) g/dL Albumin (3.2-4.6) g/dL Globulin g/dL Albumin/Globulin Ratio Urine Color (YELLOW) Urine Appearance (CLEAR) Urine pH (5.0-6.5) Ur Specific [place] (1.010-1.025) Urine Protein (NEGATIVE) mg/dL Urine Glucose (UA) (NORMAL) mg/dL Urine Ketones (NEGATIVE) mg/dL Urine Occult Blood (NEGATIVE) Urine Nitrite (NEGATIVE) Urine Bilirubin (NEGATIVE) Urine Urobilinogen (NEGATIVE) mg/dL Ur Leukocyte Esterase (NEGATIVE) Urine RBC (0-5) Urine WBC (0-5) Ur Squamous Epith Cells (NS,R,O) Urine Bacteria (NS) Ethyl Alcohol 0.14 H (<0.03) % 04/03/20 04/03/20 Range/Units 22:00 22:00 WBC (3.2-10.1) x10-3/uL RBC (3.90-5.90) x10(6)uL Hgb (12.9-17.7) g/dL Hct (38.3-50.1) % MCV (80.8-98.7) fL MCH (27.0-33.3) pg MCHC (28.7-35.3) g/dL RDW (12.4-15.0) % Plt Count (117-477) x10(3)uL MPV (6.7-11.0) fL Add Manual Diff Neutrophils % (Manual) (46-82) % Band Neutrophils % (0-6) % Lymphocytes % (Manual) (13-37) % Monocytes % (Manual) (4-12) % PT 10.7 (9.0-11.1) sec INR 0.99 L (1.00-1.24) APTT 25.7 (24.4-33.2) SECONDS Sodium (135-145) mmol/L Potassium (3.5-5.3) mmol/L Chloride (100-110) mmol/L Carbon Dioxide (21-32) mmol/L BUN (7-18) mg/dL Creatinine (0.70-1.30) mg/dL Est Cr Clr Drug Dosing mL/min Estimated GFR (MDRD) (>60) BUN/Creatinine Ratio (9-20) Glucose (80-116) mg/dL Calcium (8.6-10.2) mg/dL Magnesium (1.8-2.5) mg/dL Total Bilirubin (0.1-1.3) mg/dL AST (5-25) IU/L ALT (12-36) U/L Alkaline Phosphatase (56-112) IU/L Troponin I (4.0-60.3) pg/mL NT-Pro-B Natriuret Pep 863 H (<=125) pg/mL Total Protein (6.0-8.0) g/dL Albumin (3.2-4.6) g/dL Globulin g/dL Albumin/Globulin Ratio Urine Color (YELLOW) Urine Appearance (CLEAR) Urine pH (5.0-6.5) Ur Specific [place] (1.010-1.025) Urine Protein (NEGATIVE) mg/dL Urine Glucose (UA) (NORMAL) mg/dL Urine Ketones (NEGATIVE) mg/dL Urine Occult Blood (NEGATIVE) Urine Nitrite (NEGATIVE) Urine Bilirubin (NEGATIVE) Urine Urobilinogen (NEGATIVE) mg/dL Ur Leukocyte Esterase (NEGATIVE) Urine RBC (0-5) Urine WBC (0-5) Ur Squamous Epith Cells (NS,R,O) Urine Bacteria (NS) Ethyl Alcohol (<0.03) % Meds: Medications Generic Name Dose Route Start Last Admin Trade Name Freq PRN Reason Stop Dose Admin Thiamine HCl 100 mg 04/03/20 23:13 Vitamin B-1 IVPUSH 04/03/20 23:14 NOW STA Departure - Departure Time of Disposition: 23:30 Disposition: DC/Tfer to Acute Hospital 02 Condition: Good Clinical Impression: Rib contusion, Cardiac contusion, Elevated troponin, CKD (chronic kidney disease), Alcohol intoxication - Discharge Information Referrals: Kevin Maynard MD [Primary Care Provider] - Forms: ED Department Discharge Sepsis Event Note (ED) - Evaluation Sepsis Screening Result: No Definite Risk - Focused Exam Vital Signs: Vital Signs Temp Pulse Resp BP Pulse Ox 04/03/20 22:19 81 16 140/76 100 04/03/20 21:57 36.3 C 82 16 152/76 H 100 - My Orders Last 24 Hours: My Active Orders 04/03/20 21:59 COMPREHENSIVE METABOLIC PN,CMP [CHEM] Stat CREATINE KINASE,CK [CHEM] Stat LEVETIRACETAM (KEPPRA), S Stat 04/03/20 22:00 Ribs 2V w Chest Rt [CR] Stat EKG 12 Lead [EK] Routine 04/03/20 22:01 EKG Documentation Completion [RC] ASDIRECTED 04/03/20 22:02 Hip Min 2V or 3V w Pelvis Lt [CR] Stat 04/03/20 23:13 Thiamine [Vitamin B-1] 100 mg IVPUSH NOW STA - Assessment/Plan Last 24 Hours: My Active Orders 04/03/20 21:59 COMPREHENSIVE METABOLIC PN,CMP [CHEM] Stat CREATINE KINASE,CK [CHEM] Stat LEVETIRACETAM (KEPPRA), S Stat 04/03/20 22:00 Ribs 2V w Chest Rt [CR] Stat EKG 12 Lead [EK] Routine 04/03/20 22:01 EKG Documentation Completion [RC] ASDIRECTED 04/03/20 22:02 Hip Min 2V or 3V w Pelvis Lt [CR] Stat 04/03/20 23:13 Thiamine [Vitamin B-1] 100 mg IVPUSH NOW STA
[2020-04-03] MEDS ORDERED: Thiamine 200 MG/2 ML MDV IVPUSH STA (23:13)
[2020-04-03] MEDS ORDERED: Nitroglycerin 0.4 MG Tab.SL SL ONE (23:18)
[2020-04-03] MEDS ORDERED: Aspirin 81 MG Tab.Chew PO ONE (23:20)
[2020-04-03] MEDS ORDERED: Acetaminophen 500 MG Tab PO STA (23:21)
[2020-04-03] MEDS ORDERED: traMADol 50 MG Tab PO STA (23:21)
[2020-04-03 23:57] VITALS: BP 113/95; PULSE 89
--- NOTE | 2020-04-04 10:55 | CR ---
INDICATION: Fell with left hip and thigh pain. LEFT HIP AND PELVIS: A frontal view of the pelvis with AP and two lateral views of the left hip were obtained 04/03/20 - no comparisons. The hip joints and sacroiliac joints appear to be intact without a definite acute fracture or dislocation identified. Bone density appeared to be normal. Hypertrophic degenerative changes are noted in the visualized lumbosacral spine. Numerous prostatic calcifications are noted. Clips are noted in the inguinal area on the left likely on the basis of previous vascular surgery - correlate clinically. IMPRESSION: No acute fracture or dislocation. MTDD
--- NOTE | 2020-04-04 11:01 | CR ---
INDICATION: Fall, right rib pain. RIGHT RIBS WITH CHEST: AP view of the chest with four images of the right ribs were obtained 04/03/20 and compared with 01/11/20 AP chest. Median sternotomy is again noted with tortuous aorta and normal heart size. A definite active infiltrate or effusion was not identified. Colonic interposition is noted on the right. Severe degenerative change is noted at the shoulder joints with impingement bilaterally, of the humerus on the acromion and distal clavicle on the left and acromion on the right. On the four views of the right ribs, there are noted multiple old healed rib fractures beginning at the 5th rib anterolaterally and extending inferiorly, without a definite acute displaced rib fracture site. It is difficult to entirely exclude a partially new fracture site at the 10th right rib posteriorly, however. No other bony abnormality was suggested. IMPRESSION: No definite acute process - multiple old healed rib fractures with a 10th rib fracture site showing some offset, most likely old but difficult to entirely exclude a partial new fracture site there. If symptoms persist - if occult fracture site is suspected clinically, reexamination in 10 to [address] of the chest may be helpful for further evaluation. [facility]
== END 2020-04-03 23:40 ==
LOC: FB.ED 21:33
DX: S20.211A Contusion of right front wall of thorax, initial encounter (principal); S26.91XA Contusion of heart, unspecified with or without hemopericardium, initial encounter; R79.89 Other specified abnormal findings of blood chemistry; F10.129 Alcohol abuse with intoxication, unspecified; I12.9 Hypertensive chronic kidney disease with stage 1 through stage 4 chronic kidney disease, or unspecified chronic kidney disease; N18.9 Chronic kidney disease, unspecified; M25.552 Pain in left hip; M79.652 Pain in left thigh; I25.10 Atherosclerotic heart disease of native coronary artery without angina pectoris; E78.00 Pure hypercholesterolemia, unspecified; Y90.0 Blood alcohol level of less than 20 mg/100 ml; Z86.73 Personal history of transient ischemic attack (TIA), and cerebral infarction without residual deficits; Z72.0 Tobacco use; Z88.0 Allergy status to penicillin; Z79.899 Other long term (current) drug therapy; Z79.82 Long term (current) use of aspirin; W05.0XXA Fall from non-moving wheelchair, initial encounter
CPT/HCPCS: 71101; 73502; 80053; 80177; 80307; 81001; 82550; 83735; 83880; 84484; 85025; 85610; 85730; 93005; 96374; 99285; A9270; J3411

== ENCOUNTER 2020-05-18 21:30 | Emergency (ER) | payer MEDICAID, MEDICARE ==
--- NOTE | 2020-05-18 21:49 | EDM.PDOC ---
ED HPI GENERAL MEDICAL PROBLEM - General Chief Complaint: Lower Extremity Injury/Pain Stated Complaint: FELL Time Seen by Provider: 05/18/20 21:45 Source of Information: Reports: Patient History Limitations: Reports: No Limitations - History of Present Illness INITIAL COMMENTS - FREE TEXT/NARRATIVE: 70-year-old male who reports that he was transferring from his wheelchair to his couch and he got caught up on the cushion of his wheelchair and he fell landing directly on his left hip. He did not hit his head. There was no loss of consciousness. He reports he was able to get himself back into the wheelchair but he has 10/10 level of pain in his left hip. He reports it is sharp and it is worse with palpation and movement. It does not radiate. He has no back or neck pain. No weakness or dizziness. No cough or difficulty breathing. No chest pain. Apparently the patient was in a shelter and signed himself out of the shelter this morning. He now lives in his own home. He presents to the emergency department via ambulance from his home. He does admit to drinking 2 alcoholic drinks tonight he has had a previous stroke and has left-sided weakness with the left upper extremity being much worse than the lower extremity. He reports he has been eating and drinking normally. He has been urinating normally. There are no antecedent problems. There are no other assoc iated signs or symptoms. There are no other modifying factors. 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.) left hip Pain Score (Numeric/FACES): 10 - Related Data Allergies Allergy/AdvReac Type Severity Reaction Status Date / Time Penicillins Allergy Anaphylactic Verified 11/26/19 15:50 Shock Home Meds: Home Meds Multivitamin/Iron/Folic Acid [Centrum Complete Multivit] 1 each PO DAILY 09/15/13 [History] levETIRAcetam [Keppra] 250 mg PO BID 09/15/13 [History] Aspirin [Ecotrin] 325 mg PO DAILY 08/13/15 [History] Fenofibrate Nanocrystallized [Fenofibrate] 145 mg PO DAILY 08/13/15 [History] Metoprolol Tartrate 37.5 mg PO BID 08/13/15 [History] amLODIPine [Norvasc] 5 mg PO DAILY 08/13/15 [History] atorvaSTATin [Lipitor] 10 mg PO DAILY 08/13/15 [History] Acetaminophen/HYDROcodone [[place] 325-5 MG] 1 tab PO Q4H PRN #30 tablet 07/23/18 [Rx] Sulfamethoxazole/Trimethoprim [Bactrim Ds Tablet] 1 each PO BID #15 tablet 11/08/19 [Rx] Past Medical History HEENT History: Reports: Cataract, Glaucoma, Impaired Vision, Other (See Below) Other HEENT History: Missing several teeth. Wears glasses. Cardiovascular History: Reports: Bypass, CAD, High Cholesterol, Hypertension Musculoskeletal History: Reports: Other (See Below) Other Musculoskeletal History: Uses wheelchair post CVA, left hemiplegia 2004. Able to move left extremities somewhat. States he can stand for short while, unable to walk. Neurological History: Reports: CVA, Seizure Psychiatric History: Reports: Addiction, Mood Swings Other Psychiatric History: Alcohol abuse Other Endocrine/Metabolic History: Denies diabetes. Hematologic History: Reports: Blood Transfusion(s) Dermatologic History: Reports: Other (See Below) Other Dermatologic History: Sensitive skin left forearm, prone to bruising and tear. - Infectious Disease History Infectious Disease History: Reports: Mumps, Other (See Below) Other Infectious Disease History: Doesn't recall other childhood illnesses. - Past Surgical History HEENT Surgical History: Reports: Oral Surgery Cardiovascular Surgical History: Reports: Coronary Artery Bypass GI Surgical History: Reports: Appendectomy, Hernia Repair/Other Male Surgical History: Reports: Circumcision Musculoskeletal Surgical History: Reports: Other (See Below) Other Musculoskeletal Surgeries/Procedures:: Fractured left ankle and foot 2018. Social & Family History - Family History Other Neurological Family History: Sister had a CVA Endocrine/Metabolic: Reports: Diabetes, type II - Tobacco Use Tobacco Use Status *Q: Current Every Day Tobacco User - Caffeine Use Caffeine Use: Reports: None - Alcohol Use Alcohol Use History: Yes Alcohol Use Frequency: Monthly (He states that he drinks 2-3 times a month.) - Living Situation & Occupation Living situation: Reports: Alone Occupation: Disabled Review of Systems - Review of Systems Review Of Systems: See Below Constitutional: Reports: No Symptoms Eyes: Reports: No Symptoms Ears: Reports: No Symptoms Nose: Reports: No Symptoms Mouth/Throat: Reports: No Symptoms Respiratory: Reports: No Symptoms Cardiovascular: Reports: No Symptoms GI/Abdominal: Reports: No Symptoms Genitourinary: Reports: No Symptoms Musculoskeletal: Reports: Other (Left hip pain) Skin: Reports: No Symptoms Neurological: Reports: No Symptoms Psychiatric: Reports: No Symptoms ED EXAM, GENERAL - Physical Exam Exam: See Below Exam Limited By: No Limitations General Appearance: Alert, WD/WN Eye Exam: Bilateral Eye: EOMI, Normal Inspection, PERRL Ears: Normal External Exam, Hearing Grossly Normal Ear Exam: Bilateral Ear: Auricle Normal Nose: Normal Inspection, Normal Mucosa, No Blood Throat/Mouth: Normal Voice, No Airway Compromise, Other (Poor dentition.) Head: Atraumatic, Normocephalic Neck: Normal Inspection, Supple, Non-Tender, Full Range of Motion Respiratory/Chest: No Respiratory Distress, Lungs Clear, Normal Breath Sounds, No Accessory Muscle Use, Chest Non-Tender Cardiovascular: Normal Peripheral Pulses, Regular Rate, Rhythm, No Murmur Peripheral Pulses: 2+: Dorsalis Pedis (L), Dorsalis Pedis (R) GI/Abdominal: Normal Bowel Sounds, Soft, Non-Tender, Other (Pelvis is stable and nontender with compression.) Back Exam: Normal Inspection Extremities: No Pedal Edema, Normal Capillary Refill, Other (Tender over left hip area.) Neurological: Alert, Oriented, CN II-XII Intact, Normal Cognition, Other (Left hemiparesis with left upper extremity weakness and left lower extremity.) Psychiatric: Normal Mood Skin Exam: Warm, Dry, Intact, Normal Color, No Rash Course - Vital Signs Last Recorded V/S: Last Vital Signs Temp 37.3 C 05/18/20 21:30 Pulse 79 05/18/20 21:30 Resp 17 05/18/20 21:30 BP 106/62 05/18/20 21:30 Pulse Ox 97 05/18/20 21:30 - Orders/Labs/Meds Orders: Active Orders 24 hr Category Date Time Status Hip Min 2V or 3V w Pelvis Lt [CR] Stat Exams 05/18/20 22:05 Taken - Radiology Interpretation Free Text/Narrative:: X-ray of left hip and pelvis shows no fracture or dislocation. - Re-Assessments/Exams Free Text/Narrative Re-Assessment/Exam: 05/18/20 23:25: Patient was sleeping when I came into the room. According to the x-ray staff, the patient was able to move his left leg and pushed off with his left leg without any problem. He awakens easily and is fluid and appropriate in his conversation. He is able to move his left hip. I will have the nursing staff help him stand and transfer and if he is able to do this okay, I will be discharging him back to his home. The patient is in agreement with this plan. 05/18/20 23:38: The patient was able to and and transfer with minimal assistance. He does not appear to be in any significant pain and he is able to move his left hip without problems. He'll be discharged home at this point. Departure - Departure Time of Disposition: 23:40 Disposition: Home, Self-Care 01 Condition: Good Clinical Impression: Contusion of left hip, initial encounter, Alcohol use Fall from wheelchair Qualifiers: Encounter type: initial encounter Qualified Code(s): W05.0XXA - Fall from non- moving wheelchair, initial encounter - Discharge Information Instructions: Fall Prevention in the Home, Adult, [id number], Contusion, [id number] Referrals: Kevin Maynard MD [Primary Care Provider] - Forms: ED Department Discharge Additional Instructions: The x-ray of your left hip and pelvis showed no definite fracture per my read. The radiologist will over read these x-rays and if there is any abnormality, we will call you. You are able to move your left leg well and do not appear to have any injuries this point. I strongly recommend that you abstain from drinking alcohol as I think that it causes problems for you. Take Tylenol 1000 mg by mouth every 6 hours as needed for pain. Follow up with your primary doctor. Back to the emergency department for severe pain, inability to move the left leg, trouble breathing, vomiting or any other concerning signs or symptoms. Sepsis Event Note (ED) - Evaluation Sepsis Screening Result: No Definite Risk - Focused Exam Vital Signs: Vital Signs Temp Pulse Resp BP Pulse Ox 05/18/20 21:30 37.3 C 79 17 106/62 97 - My Orders Last 24 Hours: My Active Orders 05/18/20 22:05 Hip Min 2V or 3V w Pelvis Lt [CR] Stat - Assessment/Plan Last 24 Hours: My Active Orders 05/18/20 22:05 Hip Min 2V or 3V w Pelvis Lt [CR] Stat
[2020-05-19 05:06] VITALS: BP 117/58; PULSE 84
--- NOTE | 2020-05-21 12:01 | CR ---
INDICATION: Fall with injury. LEFT HIP WITH PELVIS: Frontal view of the pelvis with frontal and lateral views of the left hip were obtained 05/18/20 and compared with 04/03/20. The hip joint spaces appear to be fairly well maintained with no significant appearing hypertrophic degenerative changes noted or significant interval change compared with the previous study. There is some slight offset of the cortex of the superior inferior pubic rami on the left which could be on the basis of previous healed fracture sites. However, no acute fracture or dislocation was suggested. Hypertrophic change degenerative change is noted at L4-5. IMPRESSION: No acute fracture or dislocation. MTDD
== END 2020-05-18 23:50 | disposition home or self-care (01) ==
LOC: FB.ED 21:30
DX: S70.02XA Contusion of left hip, initial encounter (principal); R56.9 Unspecified convulsions; I25.10 Atherosclerotic heart disease of native coronary artery without angina pectoris; E78.00 Pure hypercholesterolemia, unspecified; I10 Essential (primary) hypertension; Z95.1 Presence of aortocoronary bypass graft; Z86.73 Personal history of transient ischemic attack (TIA), and cerebral infarction without residual deficits; Z72.89 Other problems related to lifestyle; Z88.0 Allergy status to penicillin; Z72.0 Tobacco use; W05.0XXA Fall from non-moving wheelchair, initial encounter
CPT/HCPCS: 73502-LT; 99283-25

== ENCOUNTER 2020-05-24 22:01 | Emergency (ER) | payer MEDICARE ==
--- NOTE | 2020-05-24 22:12 | EDM.PDOC ---
ED HPI GENERAL MEDICAL PROBLEM - General Chief Complaint: Cardiovascular Problem Stated Complaint: CHEST PAIN Time Seen by Provider: 05/24/20 22:30 Source of Information: Reports: Patient History Limitations: Reports: Intoxication - History of Present Illness INITIAL COMMENTS - FREE TEXT/NARRATIVE: Came in with EMS complaining of chest pain and shortness of breath but noted to have acute alcohol intoxication: Alcohol noted on his breath retrosternal chest pain non radiating Onset: Today Onset Date: 05/24/20 Duration: Waxing/Waning Location: Reports: Chest Quality: Reports: Ache, Pressure Severity: Mild Improves with: Reports: None Worsens with: Reports: None Context: Reports: Activity Associated Symptoms: Reports: Malaise, Syncope 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 (declined to take aspirin in ambulance states he has bleeding ulcer) chest Pain Score (Numeric/FACES): 4 - Related Data Allergies Allergy/AdvReac Type Severity Reaction Status Date / Time Penicillins Allergy Anaphylactic Verified 05/25/20 01:18 Shock Home Meds: Home Meds Multivitamin/Iron/Folic Acid [Centrum Complete Multivit] 1 each PO DAILY 09/15/13 [History] levETIRAcetam [Keppra] 250 mg PO BID 09/15/13 [History] Aspirin [Ecotrin] 325 mg PO DAILY 08/13/15 [History] Fenofibrate Nanocrystallized [Fenofibrate] 145 mg PO DAILY 08/13/15 [History] Metoprolol Tartrate 37.5 mg PO BID 08/13/15 [History] amLODIPine [Norvasc] 5 mg PO DAILY 08/13/15 [History] atorvaSTATin [Lipitor] 10 mg PO DAILY 08/13/15 [History] Acetaminophen/HYDROcodone [[place] 325-5 MG] 1 tab PO Q4H PRN #30 tablet 07/23/18 [Rx] Sulfamethoxazole/Trimethoprim [Bactrim Ds Tablet] 1 each PO BID #15 tablet 11/08/19 [Rx] Past Medical History HEENT History: Reports: Cataract, Glaucoma, Impaired Vision, Other (See Below) Other HEENT History: Missing several teeth. Wears glasses. Cardiovascular History: Reports: Bypass, CAD, High Cholesterol, Hypertension Respiratory History: Reports: Other (See Below) Other Respiratory History: Smoker. Gastrointestinal History: Reports: None Genitourinary History: Reports: None Musculoskeletal History: Reports: Other (See Below) Other Musculoskeletal History: Uses wheelchair post CVA, left hemiplegia 2005. Able to move left extremities somewhat. States he can stand for short while, unable to walk. Neurological History: Reports: CVA, Seizure Psychiatric History: Reports: Addiction, Mood Swings Other Psychiatric History: Alcohol abuse Endocrine/Metabolic History: Reports: None Other Endocrine/Metabolic History: Denies diabetes. Hematologic History: Reports: Blood Transfusion(s) Immunologic History: Reports: None Dermatologic History: Reports: Other (See Below) Other Dermatologic History: Sensitive skin left forearm, prone to bruising and tear. - Infectious Disease History Infectious Disease History: Reports: Mumps, Other (See Below) Other Infectious Disease History: Doesn't recall other childhood illnesses. - Past Surgical History HEENT Surgical History: Reports: Oral Surgery Cardiovascular Surgical History: Reports: Coronary Artery Bypass Respiratory Surgical History: Reports: None GI Surgical History: Reports: Appendectomy, Hernia Repair/Other Male Surgical History: Reports: Circumcision Endocrine Surgical History: Reports: None Neurological Surgical History: Reports: None Musculoskeletal Surgical History: Reports: Other (See Below) Other Musculoskeletal Surgeries/Procedures:: Fractured left ankle and foot 2018. Dermatological Surgical History: Reports: None Social & Family History - Family History Family Medical History: No Pertinent Family History Other Neurological Family History: Sister had a CVA Endocrine/Metabolic: Reports: Diabetes, type II - Caffeine Use Caffeine Use: Reports: None - Living Situation & Occupation Living situation: Reports: Alone Occupation: Disabled ED ROS GENERAL - Review of Systems Review Of Systems: See Below Constitutional: Reports: No Symptoms HEENT: Reports: No Symptoms Respiratory: Reports: Shortness of Breath Cardiovascular: Reports: No Symptoms Endocrine: Reports: No Symptoms GI/Abdominal: Reports: No Symptoms : Reports: No Symptoms Musculoskeletal: Reports: No Symptoms Skin: Reports: No Symptoms Neurological: Reports: No Symptoms Psychiatric: Reports: Anxiety Hematologic/Lymphatic: Reports: No Symptoms Immunologic: Reports: No Symptoms ED EXAM, GENERAL - Physical Exam Exam: See Below Exam Limited By: No Limitations General Appearance: Alert, WD/WN, No Apparent Distress Eye Exam: Bilateral Eye: EOMI Ears: Normal External Exam Ear Exam: Bilateral Ear: Canal Normal Nose: Normal Inspection Throat/Mouth: Normal Inspection, Normal Oropharynx Head: Atraumatic, Normocephalic Neck: Supple, Non-Tender Respiratory/Chest: No Respiratory Distress, Decreased Breath Sounds, Rales Cardiovascular: Regular Rate, Rhythm Peripheral Pulses: 2+: Dorsalis Pedis (L), Dorsalis Pedis (R) GI/Abdominal: Soft, Non-Tender Back Exam: Full Range of Motion Extremities: Normal Inspection, Non-Tender, Pedal Edema Neurological: Alert, Oriented, Abnormal Gait, Abnormal Reflexes Psychiatric: Normal Affect, Normal Mood Skin Exam: Warm, Dry, Intact, Normal Color, No Rash Lymphatic: No Adenopathy #1 Interpretation EKG Date: 05/25/20 Time: 02:10 Rhythm: NSR Rate (Beats/Min): 57 P-Wave: Variable QRS: RBBB ST-T: Normal QT: Normal Comparison: NA - No Prior EKG Course - Vital Signs Last Recorded V/S: Last Vital Signs Temp 36.2 C 05/24/20 22:20 Pulse 62 05/25/20 02:00 Resp 16 05/25/20 02:00 BP 112/56 L 05/25/20 02:00 Pulse Ox 98 05/25/20 02:00 - Orders/Labs/Meds Orders: Active Orders 24 hr Category Date Time Status Ang Chest [CT] Stat Exams 05/25/20 00:18 Taken NS + KCl 20mEq/L [Normal Saline with 20 mEq KCl] 1,000 Med 05/24/20 23:30 Active ml IV ASDIRECTED Sodium Chloride 0.9% [Normal Saline] 1,000 ml Med 05/24/20 22:15 Active IV ASDIRECTED Sodium Chloride 0.9% [Normal Saline] 1,000 ml Med 05/24/20 23:30 Active IV ASDIRECTED Medication Orders Sodium Chloride (Normal Saline) 1,000 mls @ 150 mls/hr IV ASDIRECTED MONET Last Infusion: 05/24/20 23:16 Dose: 500 mls/hr Documented by: Admin: 05/24/20 22:45 Dose: 150 mls/hr Documented by: SRIDHAR Sodium Chloride (Normal Saline) 1,000 mls @ 999 mls/hr IV ASDIRECTED MONET Potassium Chloride/Sodium Chloride (Normal Saline With 20 Meq Kcl) 1,000 mls @ 500 mls/hr IV ASDIRECTED MONET Last Admin: 05/24/20 23:40 Dose: 500 mls/hr Documented by: SRIDHAR Labs: Laboratory Tests 05/24/20 05/24/20 05/24/20 Range/Units 22:28 22:28 22:28 WBC 6.6 (3.2-10.1) x10-3/uL RBC 3.45 L (3.90-5.90) x10(6)uL Hgb 10.2 L (12.9-17.7) g/dL Hct 30.9 L (38.3-50.1) % MCV 89.5 (80.8-98.7) fL MCH 29.4 (27.0-33.3) pg MCHC 32.9 (28.7-35.3) g/dL RDW 18.8 H (12.4-15.0) % Plt Count 393 (117-477) x10(3)uL MPV 7.0 (6.7-11.0) fL Neut % (Auto) 42.9 (40.3-71.8) % Lymph % (Auto) 46.5 H (15.8-45.3) % [place] % (Auto) 5.1 L (5.5-15.2) % Eos % (Auto) 4.4 (0.1-6.8) % Baso % (Auto) 1.1 (0.3-3.8) % Neut # (Auto) 2.8 (1.7-6.9) x10-3/uL Lymph # (Auto) 3.1 (0.5-4.5) x10-3/uL [place] # (Auto) 0.3 (0.0-1.2) x10-3/uL Eos # (Auto) 0.3 (0.0-0.6) x10-3/uL Baso # (Auto) 0.1 (0.0-0.3) x10-3/uL D-Dimer, Quantitative (0.0-0.59) mg/LFEU Sodium 131 L D (135-145) mmol/L Potassium 2.8 L* D (3.5-5.3) mmol/L Chloride 95 L D (100-110) mmol/L Carbon Dioxide 20 L (21-32) mmol/L BUN 13 D (7-18) mg/dL Creatinine 1.3 (0.70-1.30) mg/dL Est Cr Clr Drug Dosing TNP Estimated GFR (MDRD) 55 L (>60) BUN/Creatinine Ratio 10.0 (9-20) Glucose 113 (80-116) mg/dL Calcium 8.6 (8.6-10.2) mg/dL Total Bilirubin 0.4 (0.1-1.3) mg/dL AST 22 (5-25) IU/L ALT 18 D (12-36) U/L Alkaline Phosphatase 81 (56-112) IU/L Troponin I (4.0-60.3) pg/mL NT-Pro-B Natriuret Pep 533 H (<=125) pg/mL Total Protein 6.6 (6.0-8.0) g/dL Albumin 3.0 L (3.2-4.6) g/dL Globulin 3.6 g/dL Albumin/Globulin Ratio 0.8 Urine Color (YELLOW) Urine Appearance (CLEAR) Urine pH (5.0-6.5) Ur Specific [place] (1.010-1.025) Urine Protein (NEGATIVE) mg/dL Urine Glucose (UA) (NORMAL) mg/dL Urine Ketones (NEGATIVE) mg/dL Urine Occult Blood (NEGATIVE) Urine Nitrite (NEGATIVE) Urine Bilirubin (NEGATIVE) Urine Urobilinogen (NEGATIVE) mg/dL Ur Leukocyte Esterase (NEGATIVE) Urine RBC (0-5) Urine WBC (0-5) Ur Squamous Epith Cells (NS,R,O) Urine Bacteria (NS) Ethyl Alcohol 0.25 H* (<0.03) % 05/24/20 05/24/20 05/24/20 Range/Units 22:28 22:28 23:48 WBC (3.2-10.1) x10-3/uL RBC (3.90-5.90) x10(6)uL Hgb (12.9-17.7) g/dL Hct (38.3-50.1) % MCV (80.8-98.7) fL MCH (27.0-33.3) pg MCHC (28.7-35.3) g/dL RDW (12.4-15.0) % Plt Count (117-477) x10(3)uL MPV (6.7-11.0) fL Neut % (Auto) (40.3-71.8) % Lymph % (Auto) (15.8-45.3) % [place] % (Auto) (5.5-15.2) % Eos % (Auto) (0.1-6.8) % Baso % (Auto) (0.3-3.8) % Neut # (Auto) (1.7-6.9) x10-3/uL Lymph # (Auto) (0.5-4.5) x10-3/uL [place] # (Auto) (0.0-1.2) x10-3/uL Eos # (Auto) (0.0-0.6) x10-3/uL Baso # (Auto) (0.0-0.3) x10-3/uL D-Dimer, Quantitative 1.67 H (0.0-0.59) mg/LFEU Sodium (135-145) mmol/L Potassium (3.5-5.3) mmol/L Chloride (100-110) mmol/L Carbon Dioxide (21-32) mmol/L BUN (7-18) mg/dL Creatinine (0.70-1.30) mg/dL Est Cr Clr Drug Dosing Estimated GFR (MDRD) (>60) BUN/Creatinine Ratio (9-20) Glucose (80-116) mg/dL Calcium (8.6-10.2) mg/dL Total Bilirubin (0.1-1.3) mg/dL AST (5-25) IU/L ALT (12-36) U/L Alkaline Phosphatase (56-112) IU/L Troponin I 9.1 (4.0-60.3) pg/mL NT-Pro-B Natriuret Pep (<=125) pg/mL Total Protein (6.0-8.0) g/dL Albumin (3.2-4.6) g/dL Globulin g/dL Albumin/Globulin Ratio Urine Color Yellow (YELLOW) Urine Appearance Clear (CLEAR) Urine pH 5.0 (5.0-6.5) Ur Specific [place] 1.005 L (1.010-1.025) Urine Protein Negative (NEGATIVE) mg/dL Urine Glucose (UA) Normal (NORMAL) mg/dL Urine Ketones Negative (NEGATIVE) mg/dL Urine Occult Blood Negative (NEGATIVE) Urine Nitrite Negative (NEGATIVE) Urine Bilirubin Negative (NEGATIVE) Urine Urobilinogen Normal (NEGATIVE) mg/dL Ur Leukocyte Esterase Moderate H (NEGATIVE) Urine RBC 0-5 (0-5) Urine WBC 0-5 (0-5) Ur Squamous Epith Cells Occasional (NS,R,O) Urine Bacteria Rare H (NS) Ethyl Alcohol (<0.03) % 05/25/20 Range/Units 01:55 WBC (3.2-10.1) x10-3/uL RBC (3.90-5.90) x10(6)uL Hgb (12.9-17.7) g/dL Hct (38.3-50.1) % MCV (80.8-98.7) fL MCH (27.0-33.3) pg MCHC (28.7-35.3) g/dL RDW (12.4-15.0) % Plt Count (117-477) x10(3)uL MPV (6.7-11.0) fL Neut % (Auto) (40.3-71.8) % Lymph % (Auto) (15.8-45.3) % [place] % (Auto) (5.5-15.2) % Eos % (Auto) (0.1-6.8) % Baso % (Auto) (0.3-3.8) % Neut # (Auto) (1.7-6.9) x10-3/uL Lymph # (Auto) (0.5-4.5) x10-3/uL [place] # (Auto) (0.0-1.2) x10-3/uL Eos # (Auto) (0.0-0.6) x10-3/uL Baso # (Auto) (0.0-0.3) x10-3/uL D-Dimer, Quantitative (0.0-0.59) mg/LFEU Sodium (135-145) mmol/L Potassium 4.1 D (3.5-5.3) mmol/L Chloride (100-110) mmol/L Carbon Dioxide (21-32) mmol/L BUN (7-18) mg/dL Creatinine (0.70-1.30) mg/dL Est Cr Clr Drug Dosing Estimated GFR (MDRD) (>60) BUN/Creatinine Ratio (9-20) Glucose (80-116) mg/dL Calcium (8.6-10.2) mg/dL Total Bilirubin (0.1-1.3) mg/dL AST (5-25) IU/L ALT (12-36) U/L Alkaline Phosphatase (56-112) IU/L Troponin I (4.0-60.3) pg/mL NT-Pro-B Natriuret Pep (<=125) pg/mL Total Protein (6.0-8.0) g/dL Albumin (3.2-4.6) g/dL Globulin g/dL Albumin/Globulin Ratio Urine Color (YELLOW) Urine Appearance (CLEAR) Urine pH (5.0-6.5) Ur Specific [place] (1.010-1.025) Urine Protein (NEGATIVE) mg/dL Urine Glucose (UA) (NORMAL) mg/dL Urine Ketones (NEGATIVE) mg/dL Urine Occult Blood (NEGATIVE) Urine Nitrite (NEGATIVE) Urine Bilirubin (NEGATIVE) Urine Urobilinogen (NEGATIVE) mg/dL Ur Leukocyte Esterase (NEGATIVE) Urine RBC (0-5) Urine WBC (0-5) Ur Squamous Epith Cells (NS,R,O) Urine Bacteria (NS) Ethyl Alcohol (<0.03) % Meds: Medications Generic Name Dose Route Start Last Admin Trade Name Freq PRN Reason Stop Dose Admin Sodium Chloride 1,000 mls @ 150 mls/hr 05/24/20 22:15 05/24/20 23:16 Normal Saline IV 500 mls/hr ASDIRECTED MONET Infusion Sodium Chloride 1,000 mls @ 999 mls/hr 05/24/20 23:30 Normal Saline IV ASDIRECTED MONET Potassium Chloride/Sodium Chloride 1,000 mls @ 500 mls/hr 05/24/20 23:30 05/24/20 23:40 Normal Saline With 20 Meq Kcl IV 500 mls/hr ASDIRECTED MONET Administration Discontinued Medications Generic Name Dose Route Start Last Admin Trade Name Freq PRN Reason Stop Dose Admin Iopamidol 85 ml 05/25/20 01:14 05/25/20 02:08 Iopamidol 755 Mg/Ml 100 Ml Bottle IV 05/25/20 01:15 68 ml . DIRECTED ONE Administration Potassium Chloride 40 meq 05/24/20 23:03 05/24/20 23:15 Potassium Chloride 20 Meq Tab.Er PO 05/24/20 23:04 40 meq ONETIME ONE Administration - Re-Assessments/Exams Free Text/Narrative Re-Assessment/Exam: 05/25/20 03:22 labs , EKG done labs showed low K was given K supplement with fluids recheck K done : was normal Departure - Departure Time of Disposition: 03:35 Disposition: Home, Self-Care 01 Condition: Good Clinical Impression: Atypical chest pain, Alcohol intoxication delirium with mild use disorder, Hypokalemia, Dehydration Instructions: Nonspecific Chest Pain, Adult, [id number], Dehydration, Elderly, [id number] Forms: ED Department Discharge Additional Instructions: 1) keep well hydrated with increased fluid intake 2) Follow up with specialist about kidney function 3) make appointment to see your PCP also Sepsis Event Note (ED) - Focused Exam Vital Signs: Vital Signs Temp Pulse Resp BP Pulse Ox 05/25/20 02:00 62 16 112/56 L 98 05/25/20 00:45 48 L 16 114/67 98 05/24/20 23:45 16 106/50 L 95 05/24/20 23:00 15 114/52 L 96 05/24/20 22:45 15 106/52 L 96 05/24/20 22:20 36.2 C 51 L 16 99/55 L 99 - My Orders Last 24 Hours: My Active Orders 05/24/20 22:15 Sodium Chloride 0.9% [Normal Saline] 1,000 ml IV ASDIRECTED 05/24/20 23:30 NS + KCl 20mEq/L [Normal Saline with 20 mEq KCl] 1,000 ml IV ASDIRECTED Sodium Chloride 0.9% [Normal Saline] 1,000 ml IV ASDIRECTED 05/25/20 00:18 Ang Chest [CT] Stat - Assessment/Plan Last 24 Hours: My Active Orders 05/24/20 22:15 Sodium Chloride 0.9% [Normal Saline] 1,000 ml IV ASDIRECTED 05/24/20 23:30 NS + KCl 20mEq/L [Normal Saline with 20 mEq KCl] 1,000 ml IV ASDIRECTED Sodium Chloride 0.9% [Normal Saline] 1,000 ml IV ASDIRECTED 05/25/20 00:18 Ang Chest [CT] Stat
[2020-05-24] MEDS ORDERED: Sodium Chloride 0.9% 1,000 ML IV SCH ×2 (22:15→23:30)
[2020-05-24] MEDS ORDERED: Potassium Chloride 20 MEQ Tab.ER PO ONE (23:03)
[2020-05-24] MEDS ORDERED: NS + KCl 20mEq/L 1,000 ML IV SCH (23:30)
[2020-05-25] MEDS ORDERED: Iopamidol 755 Mg/ML 100 ML Bottle IV ONE (01:14)
[2020-05-25 03:41] VITALS: BP 104/55; PULSE 60
== END 2020-05-25 03:35 | disposition home or self-care (01) ==
LOC: FB.ED 22:01
DX: R07.89 Other chest pain (principal); F10.121 Alcohol abuse with intoxication delirium; E87.6 Hypokalemia; E86.0 Dehydration; R56.9 Unspecified convulsions; I25.10 Atherosclerotic heart disease of native coronary artery without angina pectoris; E78.00 Pure hypercholesterolemia, unspecified; I10 Essential (primary) hypertension; Z86.73 Personal history of transient ischemic attack (TIA), and cerebral infarction without residual deficits; Z79.82 Long term (current) use of aspirin; Y90.8 Blood alcohol level of 240 mg/100 ml or more; Z88.0 Allergy status to penicillin; Z79.899 Other long term (current) drug therapy; Z95.1 Presence of aortocoronary bypass graft
CPT/HCPCS: 36415; 71275; 80053; 80307; 81001; 83880; 84132; 84484; 85025; 85379; 93005; 96365; 96366; 99285; A9270; J3480; J7030; Q9967

== ENCOUNTER 2020-06-04 18:07 | Observation (INO) | payer MEDICARE ==
--- NOTE | 2020-06-04 18:30 | EDM.PDOC ---
ED HPI GENERAL MEDICAL PROBLEM - General Time Seen by Provider: 06/04/20 18:28 Source of Information: Reports: Patient History Limitations: Reports: No Limitations - History of Present Illness INITIAL COMMENTS - FREE TEXT/NARRATIVE: 70-year-old male who is well-known to this emergency Department provider secondary to multiple ED visits related to alcohol use. He reports to me that today at approximately 2:30 PM he began to feel short of breath and felt that he could not catch his breath. He also felt that he couldn't walk because he was so weak all over and it was to the point of where he could not make it to the bathroom and had incontinence of bowel and bladder. He reports that the shortness of breath continued into the evening and prompted him to call the ambulance tonight. He denies any chest pain. In fact, he denies pain anywhere. He rated his pain as a 0/10. He does report that he had nausea earlier vomiting. He reports she has been eating and drinking normally today and he also reports that he has been drinking alcohol today. He states that he typically drinks every day. He presents to the emergency department via ambulance and still reports that he is feeling short of breath but appears in no respiratory distress at this time with 100% O2 saturation and a normal respiratory rate. His clothing is completely soiled with both urine and stool. He is alert and responsive. There is an obvious odor of alcohol on his breath. He does not look toxic at present. There are no other associated signs or symptoms. There are no other modifying factors. Onset: Today (2:30 PM) Duration: Getting Worse Location: Reports: Other (No pain) Quality: Reports: Other (Not applicable) Improves with: Reports: None Worsens with: Reports: None Context: Reports: Other (As above) Associated Symptoms: Reports: No Other Symptoms Treatments DIE CLEANER: Reports: Other (see below) (Nothing.) - Related Data Allergies Allergy/AdvReac Type Severity Reaction Status Date / Time Penicillins Allergy Anaphylactic Verified 06/04/20 20:42 Shock Home Meds: Home Meds levETIRAcetam [Keppra] 250 mg PO BID 09/15/13 [History] Aspirin [Ecotrin] 325 mg PO DAILY 08/13/15 [History] Fenofibrate Nanocrystallized [Fenofibrate] 145 mg PO DAILY 08/13/15 [History] Metoprolol Tartrate 37.5 mg PO BID 08/13/15 [History] amLODIPine [Norvasc] 5 mg PO DAILY 08/13/15 [History] atorvaSTATin [Lipitor] 10 mg PO DAILY 08/13/15 [History] Finasteride 5 mg PO DAILY 06/04/20 [History] Multivit-Min/FA/Lycopen/Lutein [Certavite Sr with Lutein Tab] 1 each PO DAILY 06/04/20 [History] Omeprazole 40 mg PO BIDAC 06/04/20 [History] Tamsulosin [Tamsulosin 24 Hr] 0.4 mg PO BEDTIME 06/04/20 [History] Past Medical History HEENT History: Reports: Cataract, Glaucoma, Impaired Vision, Other (See Below) Other HEENT History: Missing several teeth. Wears glasses. Cardiovascular History: Reports: Bypass, CAD, High Cholesterol, Hypertension Musculoskeletal History: Reports: Other (See Below) Other Musculoskeletal History: Uses wheelchair post CVA, left hemiplegia 2004. Able to move left extremities somewhat. States he can stand for short while, unable to walk. Neurological History: Reports: CVA, Seizure Psychiatric History: Reports: Addiction, Mood Swings Other Psychiatric History: Alcohol abuse Other Endocrine/Metabolic History: Denies diabetes. Hematologic History: Reports: Blood Transfusion(s) Dermatologic History: Reports: Other (See Below) Other Dermatologic History: Sensitive skin left forearm, prone to bruising and tear. - Infectious Disease History Infectious Disease History: Reports: Mumps, Other (See Below) Other Infectious Disease History: Doesn't recall other childhood illnesses. - Past Surgical History HEENT Surgical History: Reports: Oral Surgery Cardiovascular Surgical History: Reports: Coronary Artery Bypass GI Surgical History: Reports: Appendectomy, Hernia Repair/Other Male Surgical History: Reports: Circumcision Musculoskeletal Surgical History: Reports: Other (See Below) Other Musculoskeletal Surgeries/Procedures:: Fractured left ankle and foot 2018. Social & Family History - Family History Other Neurological Family History: Sister had a CVA Endocrine/Metabolic: Reports: Diabetes, type II - Tobacco Use Tobacco Use Status *Q: Current Every Day Tobacco User - Caffeine Use Caffeine Use: Reports: None - Alcohol Use Alcohol Use History: Yes Alcohol Use Frequency: Daily - Living Situation & Occupation Living situation: Reports: Alone Occupation: Disabled ED ROS GENERAL - Review of Systems Review Of Systems: See Below Constitutional: Reports: No Symptoms HEENT: Reports: No Symptoms Respiratory: Reports: Shortness of Breath. Denies: Pleuritic Chest Pain, Cough, Sputum Cardiovascular: Reports: No Symptoms Endocrine: Reports: No Symptoms GI/Abdominal: Reports: Nausea (Earlier but no vomiting and he has been eating and drinking normally today.) : Reports: No Symptoms Musculoskeletal: Reports: No Symptoms Skin: Reports: No Symptoms Neurological: Reports: Weakness (Generalized) Psychiatric: Reports: No Symptoms Hematologic/Lymphatic: Reports: No Symptoms Immunologic: Reports: No Symptoms ED EXAM, GENERAL - Physical Exam Exam: See Below Exam Limited By: No Limitations General Appearance: Alert, WD/WN, No Apparent Distress, Other (Appears intoxicated. He is fluent and appropriate in his conversation however.) Eye Exam: Bilateral Eye: EOMI (There is some lateral gaze nystagmus), Normal Inspection Ears: Normal External Exam, Hearing Grossly Normal Ear Exam: Bilateral Ear: Auricle Normal Nose: Normal Inspection, Normal Mucosa, No Blood Throat/Mouth: Normal Oropharynx, Normal Voice, Other (Somewhat dry mucous membranes.) Head: Atraumatic, Normocephalic Neck: Normal Inspection, Supple, Non-Tender, Full Range of Motion Respiratory/Chest: No Respiratory Distress, Lungs Clear, Normal Breath Sounds, No Accessory Muscle Use, Chest Non-Tender Cardiovascular: Normal Peripheral Pulses, Regular Rate, Rhythm, No Murmur Peripheral Pulses: 2+: Radial (L), Radial (R), Dorsalis Pedis (L), Dorsalis Pedis (R) GI/Abdominal: Normal Bowel Sounds, Soft, Non-Tender, No Mass Back Exam: Normal Inspection Extremities: Normal Range of Motion, Non-Tender, Normal Capillary Refill, Pedal Edema (Mild pedal edema bilaterally) Neurological: Alert, Oriented, CN II-XII Intact, No Motor/Sensory Deficits, Other (Somewhat slurred speech.) Skin Exam: Warm, Dry, Intact, Normal Color, No Rash #1 Interpretation EKG Date: 06/04/20 Time: 19:14 Rhythm: NSR Rate (Beats/Min): 52 Delancey: LAD-Left Delancey Deviation P-Wave: Present QRS: RBBB (And LAFB) ST-T: Normal QT: Prolonged (Prolonged QTc.) Comparison: No Change (No change from EKG on 05/25/2020.) Course - Vital Signs Last Recorded V/S: Last Vital Signs Temp 36.6 C 06/04/20 18:45 Pulse 59 L 06/04/20 20:00 Resp 18 06/04/20 20:00 BP 120/59 L 06/04/20 20:00 Pulse Ox 100 06/04/20 20:00 - Orders/Labs/Meds Orders: Active Orders 24 hr Category Date Time Status Admission Status [Patient Status] [ADT] Routine ADT 06/04/20 20:03 Active Cardiac Monitoring [RC] .As Directed Care 06/04/20 20:03 Active EKG Documentation Completion [RC] ASDIRECTED Care 06/04/20 18:57 Active Chest 1V Frontal [CR] Stat Exams 06/04/20 18:56 Taken Potassium Chloride [Klor-Con] Med 06/04/20 20:00 Active 40 meq PO ASDIRECTED Sodium Chloride 0.9% [Normal Saline] 1,000 ml Med 06/04/20 20:00 Active IV ASDIRECTED Sodium Chloride 0.9% [Saline Flush] Med 06/04/20 19:59 Active 10 ml FLUSH ASDIRECTED PRN Peripheral IV Insertion Adult [OM.PC] Routine Oth 06/04/20 19:59 Ordered EKG 12 Lead [EK] Routine Ther 06/04/20 18:56 Ordered Medication Orders Sodium Chloride (Normal Saline) 1,000 mls @ 75 mls/hr IV ASDIRECTED MONET Potassium Chloride (Potassium Chloride 20 Meq Packet) 40 meq PO ASDIRECTED MONET Last Admin: 06/04/20 20:59 Dose: 40 meq Documented by: STOLAMY Sodium Chloride (Sodium Chloride 0.9% 10 Ml Syringe) 10 ml FLUSH ASDIRECTED PRN PRN Reason: Keep Vein Open Labs: Laboratory Tests 06/04/20 06/04/20 06/04/20 Range/Units 18:30 19:30 19:30 WBC 7.8 (3.2-10.1) x10-3/uL RBC 3.68 L (3.90-5.90) x10(6)uL Hgb 10.5 L (12.9-17.7) g/dL Hct 33.0 L (38.3-50.1) % MCV 89.7 (80.8-98.7) fL MCH 28.5 (27.0-33.3) pg MCHC 31.8 (28.7-35.3) g/dL RDW 17.9 H (12.4-15.0) % Plt Count 384 (117-477) x10(3)uL MPV 6.7 (6.7-11.0) fL Neut % (Auto) 45.7 (40.3-71.8) % Lymph % (Auto) 43.9 (15.8-45.3) % [place] % (Auto) 6.0 (5.5-15.2) % Eos % (Auto) 3.5 (0.1-6.8) % Baso % (Auto) 0.9 (0.3-3.8) % Neut # (Auto) 3.6 (1.7-6.9) x10-3/uL Lymph # (Auto) 3.4 (0.5-4.5) x10-3/uL [place] # (Auto) 0.5 (0.0-1.2) x10-3/uL Eos # (Auto) 0.3 (0.0-0.6) x10-3/uL Baso # (Auto) 0.1 (0.0-0.3) x10-3/uL Sodium 129 L (135-145) mmol/L Potassium 2.9 L D (3.5-5.3) mmol/L Chloride 94 L (100-110) mmol/L Carbon Dioxide 21 (21-32) mmol/L BUN 5 L (7-18) mg/dL Creatinine 1.0 (0.70-1.30) mg/dL Est Cr Clr Drug Dosing TNP Estimated GFR (MDRD) > 60 (>60) BUN/Creatinine Ratio 5.0 L (9-20) Glucose 95 (80-116) mg/dL Calcium 8.5 L (8.6-10.2) mg/dL Magnesium 1.3 L (1.8-2.5) mg/dL Total Bilirubin 0.3 (0.1-1.3) mg/dL AST 20 (5-25) IU/L ALT 12 D (12-36) U/L Alkaline Phosphatase 100 (56-112) IU/L Troponin I (4.0-60.3) pg/mL Total Protein 6.1 (6.0-8.0) g/dL Albumin 2.9 L (3.2-4.6) g/dL Globulin 3.2 g/dL Albumin/Globulin Ratio 0.9 Urine Color Yellow (YELLOW) Urine Appearance Clear (CLEAR) Urine pH 6.0 (5.0-6.5) Ur Specific [place] 1.010 (1.010-1.025) Urine Protein Negative (NEGATIVE) mg/dL Urine Glucose (UA) Normal (NORMAL) mg/dL Urine Ketones Negative (NEGATIVE) mg/dL Urine Occult Blood Negative (NEGATIVE) Urine Nitrite Negative (NEGATIVE) Urine Bilirubin Negative (NEGATIVE) Urine Urobilinogen Normal (NEGATIVE) mg/dL Ur Leukocyte Esterase Negative (NEGATIVE) Urine RBC 0-5 (0-5) Urine WBC 0-5 (0-5) Ur Squamous Epith Cells Occasional (NS,R,O) Urine Bacteria Occasional H (NS) Ethyl Alcohol (<0.03) % SARS-CoV-2 RNA (KIYA) (NEGATIVE) 06/04/20 06/04/20 Range/Units 19:30 20:15 WBC (3.2-10.1) x10-3/uL RBC (3.90-5.90) x10(6)uL Hgb (12.9-17.7) g/dL Hct (38.3-50.1) % MCV (80.8-98.7) fL MCH (27.0-33.3) pg MCHC (28.7-35.3) g/dL RDW (12.4-15.0) % Plt Count (117-477) x10(3)uL MPV (6.7-11.0) fL Neut % (Auto) (40.3-71.8) % Lymph % (Auto) (15.8-45.3) % [place] % (Auto) (5.5-15.2) % Eos % (Auto) (0.1-6.8) % Baso % (Auto) (0.3-3.8) % Neut # (Auto) (1.7-6.9) x10-3/uL Lymph # (Auto) (0.5-4.5) x10-3/uL [place] # (Auto) (0.0-1.2) x10-3/uL Eos # (Auto) (0.0-0.6) x10-3/uL Baso # (Auto) (0.0-0.3) x10-3/uL Sodium (135-145) mmol/L Potassium (3.5-5.3) mmol/L Chloride (100-110) mmol/L Carbon Dioxide (21-32) mmol/L BUN (7-18) mg/dL Creatinine (0.70-1.30) mg/dL Est Cr Clr Drug Dosing Estimated GFR (MDRD) (>60) BUN/Creatinine Ratio (9-20) Glucose (80-116) mg/dL Calcium (8.6-10.2) mg/dL Magnesium (1.8-2.5) mg/dL Total Bilirubin (0.1-1.3) mg/dL AST (5-25) IU/L ALT (12-36) U/L Alkaline Phosphatase (56-112) IU/L Troponin I 9.1 (4.0-60.3) pg/mL Total Protein (6.0-8.0) g/dL Albumin (3.2-4.6) g/dL Globulin g/dL Albumin/Globulin Ratio Urine Color (YELLOW) Urine Appearance (CLEAR) Urine pH (5.0-6.5) Ur Specific [place] (1.010-1.025) Urine Protein (NEGATIVE) mg/dL Urine Glucose (UA) (NORMAL) mg/dL Urine Ketones (NEGATIVE) mg/dL Urine Occult Blood (NEGATIVE) Urine Nitrite (NEGATIVE) Urine Bilirubin (NEGATIVE) Urine Urobilinogen (NEGATIVE) mg/dL Ur Leukocyte Esterase (NEGATIVE) Urine RBC (0-5) Urine WBC (0-5) Ur Squamous Epith Cells (NS,R,O) Urine Bacteria (NS) Ethyl Alcohol 0.25 H* (<0.03) % SARS-CoV-2 RNA (KIYA) Negative (NEGATIVE) Meds: Medications Generic Name Dose Route Start Last Admin Trade Name Freq PRN Reason Stop Dose Admin Sodium Chloride 1,000 mls @ 75 mls/hr 06/04/20 20:00 Normal Saline IV ASDIRECTED MONET Potassium Chloride 40 meq 06/04/20 20:00 06/04/20 20:59 Potassium Chloride 20 Meq Packet PO 40 meq ASDIRECTED MONET Administration Sodium Chloride 10 ml 06/04/20 19:59 Sodium Chloride 0.9% 10 Ml Syringe FLUSH ASDIRECTED PRN Keep Vein Open Discontinued Medications Generic Name Dose Route Start Last Admin Trade Name Heather PRN Reason Stop Dose Admin Magnesium Sulfate 2 gm in 50 mls @ 50 mls/hr 06/04/20 20:00 Magnesium Sulfate In Water 2 Gm/50 Ml IV 06/04/20 20:59 ONETIME ONE - Radiology Interpretation Free Text/Narrative:: Portable chest x-ray shows no acute disease. - Re-Assessments/Exams Free Text/Narrative Re-Assessment/Exam: 06/04/20 20:00: Patient with initial blood pressure in the upper 90s but now is 120 to 130 systolic. He remains awake and alert. His blood tests do show hyponatremia, hypokalemia and hypomagnesemia. His chest x-ray and EKG were change from previous. His troponin was normal. His hemoglobin was unchanged. His blood alcohol was 0.25. He is really too weak to stand without assistance and I do not feel that he would be a safe discharge. He does need to have his potassium and magnesium replacement. He also appears to be somewhat dehydrated and will need some IV fluids. He'll also need telemetry, careful monitoring and repeat troponin. I have discussed all this with the patient and he would be in agreement with being admitted to observation status here at [facility]. I have ordered a rapid Covid test. 06/04/20 21:20: Patient's rapid Covid test was negative. The patient has remaine d hemodynamically stable. I will admit the patient to observation as above. Care of patient will be transferred to Dr. Fountain at 7 AM on 06/05/2020. The patient has had repeated emergency department visits and does not appear to be able to care for himself at home. The patient's daughter is planning on letting the vp medical know about the patient repeated ED visits and this will be further addressed by Dr. Fountain. Departure - Departure Time of Disposition: 21:20 Disposition: Refer to Observation Condition: Fair (Stable) Clinical Impression: Hyponatremia, Hypokalemia, Hypomagnesemia, Alcohol abuse, Dehydration Alcohol intoxication Qualifiers: Complication of substance-induced condition: uncomplicated Qualified Code(s): F10.920 - Alcohol use, unspecified with intoxication, uncomplicated - Discharge Information Sepsis Event Note (ED) - Focused Exam Vital Signs: Vital Signs Temp Pulse Resp BP Pulse Ox 06/04/20 20:00 59 L 18 120/59 L 100 06/04/20 18:45 36.6 C 62 18 97/51 L 100 - My Orders Last 24 Hours: My Active Orders 06/04/20 18:56 Chest 1V Frontal [CR] Stat EKG 12 Lead [EK] Routine 06/04/20 18:57 EKG Documentation Completion [RC] ASDIRECTED 06/04/20 19:59 Sodium Chloride 0.9% [Saline Flush] 10 ml FLUSH ASDIRECTED PRN Peripheral IV Insertion Adult [OM.PC] Routine 06/04/20 20:00 Potassium Chloride [Klor-Con] 40 meq PO ASDIRECTED Sodium Chloride 0.9% [Normal Saline] 1,000 ml IV ASDIRECTED 06/04/20 20:03 Admission Status [Patient Status] [ADT] Routine Cardiac Monitoring [RC] .As Directed - Assessment/Plan Last 24 Hours: My Active Orders 06/04/20 18:56 Chest 1V Frontal [CR] Stat EKG 12 Lead [EK] Routine 06/04/20 18:57 EKG Documentation Completion [RC] ASDIRECTED 06/04/20 19:59 Sodium Chloride 0.9% [Saline Flush] 10 ml FLUSH ASDIRECTED PRN Peripheral IV Insertion Adult [OM.PC] Routine 06/04/20 20:00 Potassium Chloride [Klor-Con] 40 meq PO ASDIRECTED Sodium Chloride 0.9% [Normal Saline] 1,000 ml IV ASDIRECTED 06/04/20 20:03 Admission Status [Patient Status] [ADT] Routine Cardiac Monitoring [RC] .As Directed
[2020-06-04] MEDS ORDERED: Sodium Chloride 0.9% 10 ML Syringe FLUSH PRN (19:59)
[2020-06-04] MEDS ORDERED: Magnesium Sulfate/Water 2 GM/50 ML BAG IV ONE (20:00)
[2020-06-04] MEDS ORDERED: Sodium Chloride 0.9% 1,000 ML IV SCH (20:00)
[2020-06-04] MEDS ORDERED: Potassium Chloride 20 MEQ Packet PO SCH (20:00)
[2020-06-04] MEDS ORDERED: Acetaminophen 325 MG Tab PO PRN (22:48)
[2020-06-04] MEDS ORDERED: Ondansetron 4 MG/2 ML SDV IV PRN (22:48)
[2020-06-05] MEDS ORDERED: Potassium Chloride 20 MEQ Packet PO ONE (04:00)
[2020-06-05] MEDS ORDERED: Potassium Chloride 20 MEQ Packet PO SCH (04:00)
[2020-06-05] MEDS ORDERED: Magnesium Sulfate/Water 2 GM/50 ML BAG IV ONE (04:00)
--- NOTE | 2020-06-05 10:06 | CR ---
INDICATION: Shortness of breath. CHEST ONE VIEW: AP portable upright view of the chest was obtained 06/04/20 and was compared with 04/03/20 and 01/11/20, as well as a CT scan of the chest dated 05/25/20 again revealing fairly severe hypertrophic degenerative changes at the first rib manubrial junction on the right producing the appearance of a mass in the apical lung. Severe degenerative changes are noted at the right shoulder joint with impingement. There also appears to be impingement at the left shoulder joint. Dextroconcave scoliosis of the upper thoracic spine with dextroconvex scoliosis lower thoracic spine producing a sigmoid scoliosis is noted. The aorta is mildly tortuous. The heart is normal in size and shape. A definite active infiltrate or effusion was not identified. However, there are some relatively increased markings in the right midlung field and lower lung field raising question of patchy infiltration in that area. However, no consolidating pneumonia or effusion was seen. IMPRESSION: 1. Difficult to exclude patchy bronchopneumonia in the right mid to lower lung field. Findings may be on the basis of fibrosis, but should be correlated clinically. 2. Sigmoid scoliosis. 3. Post median sternotomy change. 4. Impingement at the shoulder joints with degenerative changes at the glenohumeral joint on the right that appears severe. MTDD
--- NOTE | 2020-06-05 14:12 | PCM.HP.2 ---
H&P History of Present Illness - General Date of Service: 06/05/20 Admit Problem/Dx: Alcoholism, Hypokalemia, Hypomagnesemia, Hyponatremia Source of Information: Patient, EMS Notes Reviewed - History of Present Illness Initial Comments - Free Text/Narative: Heladio present to ER yesterday for shortness of breath, started yesterday at approximately 2:30 PM, felt that he could not catch his breath. He also felt that he couldn't walk because he was so weak all over, it was to the point of where he could not make it to the bathroom. He was incontinence of bowel and bladder. He uses a wheelchair, does pivot transfer for past 10 years. Shortness of breath continued into the evening and prompted him to call the ambulance last night. He denies any chest pain, abdominal pain. He had nausea with vomiting earlier. Diarrhea started yesterday, had episode this morning, small amount. Has been eating and drinking normally today. He also has been drinking alcohol today, goes through a pint every few days. He states that he typically drinks every day. He was 100% O2 saturation and a normal respiratory rate on arrival to ER. His clothing is completely soiled with both urine and stool. He had been admitted to [facility] few weeks ago but checked himself out because "felt like a prisoner," but refuses to try [facility]. No fevers, chills, sore throat. 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 No history of seizure with alcohol withdrawal, no hallucinations, or tremors. States his last seizure was with his stroke in 2002. Has had multiple ER visits since he checked himself out of retirement. In ER was found to be hyponatremic, hypokalemic, hypomagnesemia, dehydrated. He received potassium, magnesium, IV fluid replacement overnight. COVID negative. - Related Data Allergies/Adverse Reactions: Allergies Allergy/AdvReac Type Severity Reaction Status Date / Time Penicillins Allergy Anaphylactic Verified 06/04/20 20:42 Shock Home Medications: Home Meds levETIRAcetam [Keppra] 250 mg PO BID 09/15/13 [History] Aspirin [Ecotrin] 325 mg PO DAILY 08/13/15 [History] Fenofibrate Nanocrystallized [Fenofibrate] 145 mg PO DAILY 08/13/15 [History] Metoprolol Tartrate 37.5 mg PO BID 08/13/15 [History] amLODIPine [Norvasc] 5 mg PO DAILY 08/13/15 [History] atorvaSTATin [Lipitor] 10 mg PO DAILY 08/13/15 [History] Finasteride 5 mg PO DAILY 06/04/20 [History] Multivit-Min/FA/Lycopen/Lutein [Certavite Senior Tablet] 1 each PO DAILY 06/04/20 [History] Omeprazole 40 mg PO BIDAC 06/04/20 [History] Tamsulosin [Flomax] 0.4 mg PO BEDTIME 06/04/20 [History] Past Medical History HEENT History: Reports: Cataract, Glaucoma, Impaired Vision, Other (See Below) Other HEENT History: Missing several teeth. Wears glasses. Cardiovascular History: Reports: Bypass, CAD, High Cholesterol, Hypertension Respiratory History: Reports: Other (See Below) Other Respiratory History: Smoker. Gastrointestinal History: Reports: None Genitourinary History: Reports: None Musculoskeletal History: Reports: Other (See Below) Other Musculoskeletal History: Uses wheelchair post CVA, left hemiplegia 2004. Able to move left extremities somewhat. States he can stand for short while, unable to walk. Neurological History: Reports: CVA, Seizure Psychiatric History: Reports: Addiction, Mood Swings Other Psychiatric History: Alcohol abuse. Endocrine/Metabolic History: Reports: Other (See Below) Other Endocrine/Metabolic History: Denies diabetes. Hematologic History: Reports: Blood Transfusion(s) Immunologic History: Reports: None Dermatologic History: Reports: Other (See Below) Other Dermatologic History: Sensitive skin left forearm, prone to bruising and tear. - Infectious Disease History Infectious Disease History: Reports: Mumps, Other (See Below) Other Infectious Disease History: Doesn't recall other childhood illnesses. - Past Surgical History HEENT Surgical History: Reports: Oral Surgery Cardiovascular Surgical History: Reports: Coronary Artery Bypass Respiratory Surgical History: Reports: None GI Surgical History: Reports: Appendectomy, Hernia Repair/Other Male Surgical History: Reports: Circumcision Endocrine Surgical History: Reports: None Neurological Surgical History: Reports: None Musculoskeletal Surgical History: Reports: Other (See Below) Other Musculoskeletal Surgeries/Procedures:: Fractured left ankle and foot 2018. Dermatological Surgical History: Reports: None Social & Family History - Family History Family Medical History: No Pertinent Family History Other Neurological Family History: Sister had a CVA. Endocrine/Metabolic: Reports: Diabetes, type II - Tobacco Use Tobacco Use Status *Q: Current Every Day Tobacco User Years of Tobacco use: 52 Packs/Tins Daily: 0.5 - Caffeine Use Caffeine Use: Reports: Tea - Alcohol Use Days Per Week of Alcohol Use: 7 Number of Drinks Per Day: 3 Total Drinks Per Week: 21 - Recreational Drug Use Recreational Drug Use: No - Living Situation & Occupation Living situation: Reports: Alone Occupation: Disabled H&P Review of Systems - Review of Systems: Review Of Systems: Comprehensive ROS is negative, except as noted in HPI. Exam - Exam Exam: See Below - Vital Signs Vital Signs: Last Vital Signs Temp 97.8 F 06/05/20 08:00 Pulse 93 06/05/20 08:00 Resp 20 06/05/20 08:00 BP 150/71 H 06/05/20 08:00 Pulse Ox 97 06/05/20 08:00 Weight: 143 lb 9.6 oz - Exam General: Alert, Oriented, Cooperative. No: Mild Distress HEENT: PERRLA, EOMI, Mucosa Moist & [place], Nares Patent Neck: Trachea Midline Lungs: Clear to Auscultation, Normal Respiratory Effort Cardiovascular: Regular Rate, Regular Rhythm GI/Abdominal Exam: Normal Bowel Sounds, Soft, Non-Tender, No Distention (Male) Exam: Deferred Extremities: No Pedal Edema, Pallor Peripheral Pulses: 2+: Radial (L), Radial (R) Skin: Warm, Dry, Intact Neurological: Cranial Nerves Intact, Normal Speech Neuro Extensive - Motor, Sensory, Reflexes: Tremor (mild) - Patient Data Lab Results Last 24 hrs: Laboratory Results - last 24 hr 06/04/20 06/04/20 06/04/20 Range/Units 18:30 19:30 19:30 WBC 7.8 (3.2-10.1) x10-3/uL RBC 3.68 L (3.90-5.90) x10(6)uL Hgb 10.5 L (12.9-17.7) g/dL Hct 33.0 L (38.3-50.1) % MCV 89.7 (80.8-98.7) fL MCH 28.5 (27.0-33.3) pg MCHC 31.8 (28.7-35.3) g/dL RDW 17.9 H (12.4-15.0) % Plt Count 384 (117-477) x10(3)uL MPV 6.7 (6.7-11.0) fL Neut % (Auto) 45.7 (40.3-71.8) % Lymph % (Auto) 43.9 (15.8-45.3) % [place] % (Auto) 6.0 (5.5-15.2) % Eos % (Auto) 3.5 (0.1-6.8) % Baso % (Auto) 0.9 (0.3-3.8) % Neut # (Auto) 3.6 (1.7-6.9) x10-3/uL Lymph # (Auto) 3.4 (0.5-4.5) x10-3/uL [place] # (Auto) 0.5 (0.0-1.2) x10-3/uL Eos # (Auto) 0.3 (0.0-0.6) x10-3/uL Baso # (Auto) 0.1 (0.0-0.3) x10-3/uL Sodium 129 L (135-145) mmol/L Potassium 2.9 L D (3.5-5.3) mmol/L Chloride 94 L (100-110) mmol/L Carbon Dioxide 21 (21-32) mmol/L BUN 5 L (7-18) mg/dL Creatinine 1.0 (0.70-1.30) mg/dL Est Cr Clr Drug Dosing TNP Estimated GFR (MDRD) > 60 (>60) BUN/Creatinine Ratio 5.0 L (9-20) Glucose 95 (80-116) mg/dL Calcium 8.5 L (8.6-10.2) mg/dL Magnesium 1.3 L (1.8-2.5) mg/dL Total Bilirubin 0.3 (0.1-1.3) mg/dL AST 20 (5-25) IU/L ALT 12 D (12-36) U/L Alkaline Phosphatase 100 (56-112) IU/L Troponin I (4.0-60.3) pg/mL Total Protein 6.1 (6.0-8.0) g/dL Albumin 2.9 L (3.2-4.6) g/dL Globulin 3.2 g/dL Albumin/Globulin Ratio 0.9 Urine Color Yellow (YELLOW) Urine Appearance Clear (CLEAR) Urine pH 6.0 (5.0-6.5) Ur Specific [place] 1.010 (1.010-1.025) Urine Protein Negative (NEGATIVE) mg/dL Urine Glucose (UA) Normal (NORMAL) mg/dL Urine Ketones Negative (NEGATIVE) mg/dL Urine Occult Blood Negative (NEGATIVE) Urine Nitrite Negative (NEGATIVE) Urine Bilirubin Negative (NEGATIVE) Urine Urobilinogen Normal (NEGATIVE) mg/dL Ur Leukocyte Esterase Negative (NEGATIVE) Urine RBC 0-5 (0-5) Urine WBC 0-5 (0-5) Ur Squamous Epith Cells Occasional (NS,R,O) Urine Bacteria Occasional H (NS) Ethyl Alcohol (<0.03) % SARS-CoV-2 RNA (KIYA) (NEGATIVE) 06/04/20 06/04/20 06/05/20 Range/Units 19:30 20:15 00:50 WBC (3.2-10.1) x10-3/uL RBC (3.90-5.90) x10(6)uL Hgb (12.9-17.7) g/dL Hct (38.3-50.1) % MCV (80.8-98.7) fL MCH (27.0-33.3) pg MCHC (28.7-35.3) g/dL RDW (12.4-15.0) % Plt Count (117-477) x10(3)uL MPV (6.7-11.0) fL Neut % (Auto) (40.3-71.8) % Lymph % (Auto) (15.8-45.3) % [place] % (Auto) (5.5-15.2) % Eos % (Auto) (0.1-6.8) % Baso % (Auto) (0.3-3.8) % Neut # (Auto) (1.7-6.9) x10-3/uL Lymph # (Auto) (0.5-4.5) x10-3/uL [place] # (Auto) (0.0-1.2) x10-3/uL Eos # (Auto) (0.0-0.6) x10-3/uL Baso # (Auto) (0.0-0.3) x10-3/uL Sodium (135-145) mmol/L Potassium (3.5-5.3) mmol/L Chloride (100-110) mmol/L Carbon Dioxide (21-32) mmol/L BUN (7-18) mg/dL Creatinine (0.70-1.30) mg/dL Est Cr Clr Drug Dosing Estimated GFR (MDRD) (>60) BUN/Creatinine Ratio (9-20) Glucose (80-116) mg/dL Calcium (8.6-10.2) mg/dL Magnesium (1.8-2.5) mg/dL Total Bilirubin (0.1-1.3) mg/dL AST (5-25) IU/L ALT (12-36) U/L Alkaline Phosphatase (56-112) IU/L Troponin I 9.1 11.4 (4.0-60.3) pg/mL Total Protein (6.0-8.0) g/dL Albumin (3.2-4.6) g/dL Globulin g/dL Albumin/Globulin Ratio Urine Color (YELLOW) Urine Appearance (CLEAR) Urine pH (5.0-6.5) Ur Specific [place] (1.010-1.025) Urine Protein (NEGATIVE) mg/dL Urine Glucose (UA) (NORMAL) mg/dL Urine Ketones (NEGATIVE) mg/dL Urine Occult Blood (NEGATIVE) Urine Nitrite (NEGATIVE) Urine Bilirubin (NEGATIVE) Urine Urobilinogen (NEGATIVE) mg/dL Ur Leukocyte Esterase (NEGATIVE) Urine RBC (0-5) Urine WBC (0-5) Ur Squamous Epith Cells (NS,R,O) Urine Bacteria (NS) Ethyl Alcohol 0.25 H* (<0.03) % SARS-CoV-2 RNA (KIYA) Negative (NEGATIVE) 06/05/20 06/05/20 Range/Units 07:05 07:05 WBC (3.2-10.1) x10-3/uL RBC (3.90-5.90) x10(6)uL Hgb (12.9-17.7) g/dL Hct (38.3-50.1) % MCV (80.8-98.7) fL MCH (27.0-33.3) pg MCHC (28.7-35.3) g/dL RDW (12.4-15.0) % Plt Count (117-477) x10(3)uL MPV (6.7-11.0) fL Neut % (Auto) (40.3-71.8) % Lymph % (Auto) (15.8-45.3) % [place] % (Auto) (5.5-15.2) % Eos % (Auto) (0.1-6.8) % Baso % (Auto) (0.3-3.8) % Neut # (Auto) (1.7-6.9) x10-3/uL Lymph # (Auto) (0.5-4.5) x10-3/uL [place] # (Auto) (0.0-1.2) x10-3/uL Eos # (Auto) (0.0-0.6) x10-3/uL Baso # (Auto) (0.0-0.3) x10-3/uL Sodium 142 D (135-145) mmol/L Potassium 4.3 D (3.5-5.3) mmol/L Chloride 107 D (100-110) mmol/L Carbon Dioxide 23 (21-32) mmol/L BUN 3 L (7-18) mg/dL Creatinine 1.0 (0.70-1.30) mg/dL Est Cr Clr Drug Dosing 65.14 Estimated GFR (MDRD) > 60 (>60) BUN/Creatinine Ratio 3.0 L (9-20) Glucose 86 (80-116) mg/dL Calcium 9.1 (8.6-10.2) mg/dL Magnesium 2.4 (1.8-2.5) mg/dL Total Bilirubin (0.1-1.3) mg/dL AST (5-25) IU/L ALT (12-36) U/L Alkaline Phosphatase (56-112) IU/L Troponin I 11.7 (4.0-60.3) pg/mL Total Protein (6.0-8.0) g/dL Albumin (3.2-4.6) g/dL Globulin g/dL Albumin/Globulin Ratio Urine Color (YELLOW) Urine Appearance (CLEAR) Urine pH (5.0-6.5) Ur Specific [place] (1.010-1.025) Urine Protein (NEGATIVE) mg/dL Urine Glucose (UA) (NORMAL) mg/dL Urine Ketones (NEGATIVE) mg/dL Urine Occult Blood (NEGATIVE) Urine Nitrite (NEGATIVE) Urine Bilirubin (NEGATIVE) Urine Urobilinogen (NEGATIVE) mg/dL Ur Leukocyte Esterase (NEGATIVE) Urine RBC (0-5) Urine WBC (0-5) Ur Squamous Epith Cells (NS,R,O) Urine Bacteria (NS) Ethyl Alcohol (<0.03) % SARS-CoV-2 RNA (KIYA) (NEGATIVE) Result Diagrams: 06/04/20 19:30 06/05/20 07:05 Sepsis Event Note - Evaluation Sepsis Screening Result: No Definite Risk - Focused Exam Vital Signs: Vital Signs Temp Pulse Resp BP Pulse Ox 06/05/20 08:00 97.8 F 93 20 150/71 H 97 06/05/20 04:00 97.9 F 64 17 130/69 96 *Q Meaningful Use (ADM) - VTE *Q VTE Mechanical Contraindications *Q: At Risk for Falls - VTE Risk Assess *Q Each Risk Factor Represents 1 Point: None Total Score 1 Point Risk Factors: 0 Each Risk Factor Represents 2 Points: Age 60 - 74 Years Total Score 2 Point Risk Factors: 2 Each Risk Factor Represents 3 Points: None Total Score 3 Point Risk Factors: 0 Each Risk Factor Represents 5 Points: None Total Score 5 Point Risk Factors: 0 Venous Thromboembolism Risk Factor Score *Q: 2 - Problem List (1) Alcohol intoxication SNOMED Code(s): 43764781 ICD Code: F10.929 - ALCOHOL USE, UNSPECIFIED WITH INTOXICATION, UNSPECIFIED Status: Acute Current Visit: Yes Qualifiers: Complication of substance-induced condition: uncomplicated Qualified Code(s): F10.920 - Alcohol use, unspecified with intoxication, uncomplicated (2) Dehydration SNOMED Code(s): 52140046 ICD Code: E86.0 - DEHYDRATION Status: Acute Current Visit: Yes (3) Hypokalemia SNOMED Code(s): 54492165 ICD Code: E87.6 - HYPOKALEMIA Status: Acute Current Visit: Yes (4) Hypomagnesemia SNOMED Code(s): 925283462 ICD Code: E83.42 - HYPOMAGNESEMIA Status: Acute Current Visit: Yes (5) Hyponatremia SNOMED Code(s): 43239126 ICD Code: E87.1 - HYPO-OSMOLALITY AND HYPONATREMIA Status: Acute Current Visit: Yes (6) Diarrhea SNOMED Code(s): 12243248 ICD Code: R19.7 - DIARRHEA, UNSPECIFIED Status: Acute Current Visit: No Qualifiers: Diarrhea type: unspecified type Qualified Code(s): R19.7 - Diarrhea, unspecified (7) Shortness of breath SNOMED Code(s): 504644305 ICD Code: R06.02 - SHORTNESS OF BREATH Status: Acute Current Visit: Yes (8) Palliative care status SNOMED Code(s): 323992172 ICD Code: Z51.5 - ENCOUNTER FOR PALLIATIVE CARE Status: Acute Current Visit: No (9) H/O: stroke SNOMED Code(s): 076226643 ICD Code: Z86.73 - PRSNL HX OF TIA (TIA), AND CEREB INFRC W/O RESID DEFICITS Status: Chronic Current Visit: No (10) HTN (hypertension) SNOMED Code(s): 73344425 ICD Code: I10 - ESSENTIAL (PRIMARY) HYPERTENSION Status: Chronic Current Visit: No Problem Details: Continue norvasc, metoprolol. (11) Hyperlipidemia SNOMED Code(s): 71938795 ICD Code: E78.5 - HYPERLIPIDEMIA, UNSPECIFIED Status: Chronic Current Visit: No Problem Details: Continue home meds. (12) Hemiparesis SNOMED Code(s): 49590830 ICD Code: G81.90 - HEMIPLEGIA, UNSPECIFIED AFFECTING UNSPECIFIED SIDE Status: Chronic Current Visit: No Qualifiers: Hemiparesis etiology: late effect of cerebrovascular disease (13) H/O tonic-clonic seizures SNOMED Code(s): 720077647 ICD Code: Z86.69 - PERSONAL HISTORY OF DIS OF THE NERVOUS SYS AND SENSE ORGANS Status: Chronic Current Visit: No (14) Alcohol abuse SNOMED Code(s): 99295331 ICD Code: F10.10 - ALCOHOL ABUSE, UNCOMPLICATED Status: Chronic Current Visit: Yes Problem List Initiated/Reviewed/Updated: Yes Orders Last 24hrs: Active Orders 24 hr Category Date Time Status Admission Status [Patient Status] [ADT] Routine ADT 06/04/20 20:03 Active Cardiac Monitoring [RC] .As Directed Care 06/04/20 20:03 Active EKG Documentation Completion [RC] ASDIRECTED Care 06/04/20 18:57 Active EKG Documentation Completion [RC] ASDIRECTED Care 06/04/20 22:53 Active Intake and Output [RC] QSHIFT Care 06/04/20 22:48 Active Oxygen Therapy [RC] PRN Care 06/04/20 22:48 Active Ready for Discharge [RC] PER UNIT ROUTINE Care 06/05/20 11:33 Active Up With Assistance [RC] ASDIRECTED Care 06/04/20 22:48 Active VTE/DVT Education [RC] Per Unit Routine Care 06/04/20 22:48 Active Vital Signs [RC] 04,08,12,16,20,00 Care 06/04/20 22:48 Active Regular Diet [DIET] Diet 06/04/20 Dinner Active Acetaminophen [TylenoL] Med 06/04/20 22:48 Active 650 mg PO Q4H PRN Ondansetron [Zofran] Med 06/04/20 22:48 Active 4 mg IV Q6H PRN Sodium Chloride 0.9% [Normal Saline] 1,000 ml Med 06/04/20 20:00 Active IV ASDIRECTED Sodium Chloride 0.9% [Saline Flush] Med 06/04/20 19:59 Active 10 ml FLUSH ASDIRECTED PRN Peripheral IV Insertion Adult [OM.PC] Routine Oth 06/04/20 19:59 Ordered Resuscitation Status Routine Resus Stat 06/04/20 22:48 Ordered EKG 12 Lead [EK] AM Ther 06/06/20 05:11 Ordered EKG 12 Lead [EK] Routine Ther 06/04/20 18:56 Ordered Medication Orders Acetaminophen (Acetaminophen 325 Mg Tab) 650 mg PO Q4H PRN PRN Reason: Pain (Mild 1-3)/fever Sodium Chloride (Normal Saline) 1,000 mls @ 75 mls/hr IV ASDIRECTED [facility] Last Admin: 06/04/20 22:05 Dose: 75 mls/hr Documented by: UZMA Ondansetron HCl (Ondansetron 4 Mg/2 Ml Sdv) 4 mg IV Q6H PRN PRN Reason: Nausea/Vomiting Sodium Chloride (Sodium Chloride 0.9% 10 Ml Syringe) 10 ml FLUSH ASDIRECTED PRN PRN Reason: Keep Vein Open Assessment/Plan Comment:: 1. Admitted for observation dehydration, hyponatremia, hypokalemia, hypomagnesemia, diarrhea, alcohol intoxication. 2. Dehydration/electrolyte abnormalities: IVF, received potassium, magnesium replacement in ER; Na, K, Mag all corrected this morning. 3. Shortness of breath: resolved on admission, Covid negative. Troponin negative x 3 sets. NSR on cardiac monitoring. 4. Diet: Regular. 5. Activity: up with assistance, wheelchair. 6. CODE STATUS: FULL. 7. This note also serves as DISCHARGE SUMMARY: discussed NH placement, wait list for [place], does not want to stay. Refused placement at [facility]. Dehydration, and electrolytes all corrected overnight. Per Dre Maldonado [facility] briefcase sewer she will follow in the home as filed vulnerable adult([facility]) so could not get home health services until [facility] report done. Will go home by taxi. - Mortality Measure Prognosis:: Poor
[2020-06-05 15:53] VITALS: BP 145/80; PULSE 88
== END 2020-06-05 13:30 | disposition home or self-care (01) ==
LOC: FB.ED 18:07 → FB.MS 21:10
PROVIDERS: ADMIT Emergency Medicine; ATTEND Family Medicine
DX: Z51.5 Encounter for palliative care (principal); R06.02 Shortness of breath; F10.129 Alcohol abuse with intoxication, unspecified; E87.1 Hypo-osmolality and hyponatremia; E87.6 Hypokalemia; E83.42 Hypomagnesemia; E86.0 Dehydration; I25.810 Atherosclerosis of coronary artery bypass graft(s) without angina pectoris; I10 Essential (primary) hypertension; F17.210 Nicotine dependence, cigarettes, uncomplicated; R19.7 Diarrhea, unspecified; E78.5 Hyperlipidemia, unspecified; G81.90 Hemiplegia, unspecified affecting unspecified side; R53.1 Weakness; Z20.822 Contact with and (suspected) exposure to COVID-19; Z88.0 Allergy status to penicillin; Z79.82 Long term (current) use of aspirin; Z79.899 Other long term (current) drug therapy; Z86.73 Personal history of transient ischemic attack (TIA), and cerebral infarction without residual deficits; Z86.69 Personal history of other diseases of the nervous system and sense organs; Z95.1 Presence of aortocoronary bypass graft
CPT/HCPCS: 36415; 71045; 80048; 80053; 80307; 81001; 83735; 84484; 85025; 93005; 96365; 96366; 99285; A9270; G0378; J3475; J7030; U0002

== ENCOUNTER 2020-06-08 18:49 | Emergency (ER) | payer MEDICARE ==
--- NOTE | 2020-06-08 19:01 | EDM.PDOC ---
ED HPI GENERAL MEDICAL PROBLEM - General Stated Complaint: SHORTNESS OF BREATH Time Seen by Provider: 06/08/20 18:57 Source of Information: Reports: Patient History Limitations: Reports: No Limitations - History of Present Illness INITIAL COMMENTS - FREE TEXT/NARRATIVE: 70-year-old male who is a frequent visitor to the emergency department presents to the emergency department via ambulance with complaints of shortness of breath. He was noted by EMS staff to have O2 saturations of 100% on room air and to be in no respiratory distress. He apparently was waiting in the lobby of his apartment building for EMS when they arrived. He denies any pain. He rates his pain as a 0/10. He states only that he feels short of breath. He reports that he has been eating and drinking normally. He does admit to drinking alcohol. No vomiting. No falls. He things patient can tell me is that he has been feeling short of breath and he really cannot give me the time frame for today. He states that it does seem that it was worse this evening and that is what prompted him to call EMS. The patient's clothes are stained with feces and urine. There are no other associated signs or symptoms. There are no other modifying factors. Onset: Today Duration: Getting Worse Location: Reports: Other (No pain.) Quality: Reports: Other (Not applicable.) Improves with: Reports: None Worsens with: Reports: None Context: Reports: Other (As above.) Associated Symptoms: Reports: No Other Symptoms Treatments [employer]: Reports: Other (see below) (Nothing.) - Related Data Allergies Allergy/AdvReac Type Severity Reaction Status Date / Time Penicillins Allergy Anaphylactic Verified 06/04/20 20:42 Shock Home Meds: Home Meds levETIRAcetam [Keppra] 250 mg PO BID 09/15/13 [History] Aspirin [Ecotrin] 325 mg PO DAILY 08/13/15 [History] Fenofibrate Nanocrystallized [Fenofibrate] 145 mg PO DAILY 08/13/15 [History] Metoprolol Tartrate 37.5 mg PO BID 08/13/15 [History] amLODIPine [Norvasc] 5 mg PO DAILY 08/13/15 [History] atorvaSTATin [Lipitor] 10 mg PO DAILY 08/13/15 [History] Finasteride 5 mg PO DAILY 06/04/20 [History] Multivit-Min/FA/Lycopen/Lutein [Certavite Senior Tablet] 1 each PO DAILY 06/04/20 [History] Omeprazole 40 mg PO BIDAC 06/04/20 [History] Tamsulosin [Flomax] 0.4 mg PO BEDTIME 06/04/20 [History] Past Medical History HEENT History: Reports: Cataract, Glaucoma, Impaired Vision, Other (See Below) Other HEENT History: Missing several teeth. Wears glasses. Cardiovascular History: Reports: Bypass, CAD, High Cholesterol, Hypertension Respiratory History: Reports: Other (See Below) Other Respiratory History: Smoker. Musculoskeletal History: Reports: Other (See Below) Other Musculoskeletal History: Uses wheelchair post CVA, left hemiplegia 2004. Able to move left extremities somewhat. States he can stand for short while, unable to walk. Neurological History: Reports: CVA, Seizure Psychiatric History: Reports: Addiction, Mood Swings Other Psychiatric History: Alcohol abuse. Hematologic History: Reports: Blood Transfusion(s) - Infectious Disease History Infectious Disease History: Reports: Mumps, Other (See Below) Other Infectious Disease History: Doesn't recall other childhood illnesses. - Past Surgical History HEENT Surgical History: Reports: Oral Surgery Cardiovascular Surgical History: Reports: Coronary Artery Bypass GI Surgical History: Reports: Appendectomy, Hernia Repair/Other Male Surgical History: Reports: Circumcision Musculoskeletal Surgical History: Reports: Other (See Below) Other Musculoskeletal Surgeries/Procedures:: Fractured left ankle and foot 2018. Social & Family History - Family History Other Neurological Family History: Sister had a CVA. Endocrine/Metabolic: Reports: Diabetes, type II - Tobacco Use Tobacco Use Status *Q: Current Every Day Tobacco User - Caffeine Use Caffeine Use: Reports: Tea - Alcohol Use Alcohol Use History: Yes Alcohol Use Frequency: Daily - Living Situation & Occupation Living situation: Reports: Alone Occupation: Disabled ED ROS GENERAL - Review of Systems Review Of Systems: See Below Constitutional: Reports: No Symptoms HEENT: Reports: No Symptoms Respiratory: Reports: Shortness of Breath Cardiovascular: Reports: No Symptoms Endocrine: Reports: No Symptoms GI/Abdominal: Reports: No Symptoms : Reports: No Symptoms Musculoskeletal: Reports: No Symptoms Skin: Reports: No Symptoms Neurological: Reports: No Symptoms Hematologic/Lymphatic: Reports: No Symptoms Immunologic: Reports: No Symptoms ED EXAM, GENERAL - Physical Exam Exam: See Below Exam Limited By: No Limitations General Appearance: Alert, WD/WN, No Apparent Distress, Other (Patient is disheveled with clothing that is stained with both feces and urine.) Eye Exam: Bilateral Eye: EOMI, Normal Inspection Ears: Normal External Exam, Hearing Grossly Normal Ear Exam: Bilateral Ear: Auricle Normal Nose: Normal Inspection, Normal Mucosa, No Blood Throat/Mouth: Normal Voice, No Airway Compromise Head: Atraumatic, Normocephalic Neck: Normal Inspection, Supple, Non-Tender, Full Range of Motion Respiratory/Chest: No Respiratory Distress, Lungs Clear, Normal Breath Sounds, No Accessory Muscle Use, Chest Non-Tender Cardiovascular: Normal Peripheral Pulses, Regular Rate, Rhythm, No Murmur Peripheral Pulses: 2+: Radial (L), Radial (R), Dorsalis Pedis (L), Dorsalis Pedis (R) GI/Abdominal: Normal Bowel Sounds, Soft, Non-Tender, No Mass Back Exam: Normal Inspection, Full Range of Motion Extremities: Normal Inspection, Normal Range of Motion, Non-Tender, No Pedal Edema, Normal Capillary Refill Neurological: Alert, Oriented, CN II-XII Intact, Other (Right hemiparesis, chronic) Skin Exam: Warm, Dry, No Rash #1 Interpretation EKG Date: 06/08/20 Time: 19:52 Rhythm: NSR Rate (Beats/Min): 50 [place]: Normal P-Wave: Present QRS: RBBB (and LAFB) ST-T: Normal QT: Prolonged Comparison: No Change (No change from EKG that was performed on 06/05/2020.) Course - Vital Signs Last Recorded V/S: Last Vital Signs Temp 36.4 C 06/08/20 18:49 Pulse 55 L 06/08/20 18:49 Resp 20 06/08/20 18:49 BP 109/74 06/08/20 18:49 Pulse Ox 100 06/08/20 18:49 - Orders/Labs/Meds Orders: Active Orders 24 hr Category Date Time Status EKG Documentation Completion [RC] ASDIRECTED Care 06/08/20 19:32 Active EKG 12 Lead [EK] Routine Ther 06/08/20 19:31 Ordered Labs: Laboratory Tests 06/08/20 06/08/20 06/08/20 Range/Units 19:40 19:40 19:40 WBC 8.4 (3.2-10.1) x10-3/uL RBC 3.99 (3.90-5.90) x10(6)uL Hgb 12.0 L (12.9-17.7) g/dL Hct 35.9 L (38.3-50.1) % MCV 90.1 (80.8-98.7) fL MCH 30.0 (27.0-33.3) pg MCHC 33.3 (28.7-35.3) g/dL RDW 18.7 H (12.4-15.0) % Plt Count 362 (117-477) x10(3)uL MPV 7.0 (6.7-11.0) fL Neut % (Auto) 46.0 (40.3-71.8) % Lymph % (Auto) 41.6 (15.8-45.3) % Mills % (Auto) 6.4 (5.5-15.2) % Eos % (Auto) 4.8 (0.1-6.8) % Baso % (Auto) 1.2 (0.3-3.8) % Neut # (Auto) 3.9 (1.7-6.9) x10-3/uL Lymph # (Auto) 3.5 (0.5-4.5) x10-3/uL Mills # (Auto) 0.5 (0.0-1.2) x10-3/uL Eos # (Auto) 0.4 (0.0-0.6) x10-3/uL Baso # (Auto) 0.1 (0.0-0.3) x10-3/uL Sodium 129 L D (135-145) mmol/L Potassium 3.4 L (3.5-5.3) mmol/L Chloride 94 L D (100-110) mmol/L Carbon Dioxide 23 (21-32) mmol/L BUN 4 L (7-18) mg/dL Creatinine 1.1 (0.70-1.30) mg/dL Est Cr Clr Drug Dosing TNP Estimated GFR (MDRD) > 60 (>60) BUN/Creatinine Ratio 3.6 L (9-20) Glucose 79 L (80-116) mg/dL Calcium 8.8 (8.6-10.2) mg/dL Magnesium 1.4 L (1.8-2.5) mg/dL Troponin I (4.0-60.3) pg/mL Ethyl Alcohol 0.25 H* (<0.03) % 06/08/20 Range/Units 19:40 WBC (3.2-10.1) x10-3/uL RBC (3.90-5.90) x10(6)uL Hgb (12.9-17.7) g/dL Hct (38.3-50.1) % MCV (80.8-98.7) fL MCH (27.0-33.3) pg MCHC (28.7-35.3) g/dL RDW (12.4-15.0) % Plt Count (117-477) x10(3)uL MPV (6.7-11.0) fL Neut % (Auto) (40.3-71.8) % Lymph % (Auto) (15.8-45.3) % Mills % (Auto) (5.5-15.2) % Eos % (Auto) (0.1-6.8) % Baso % (Auto) (0.3-3.8) % Neut # (Auto) (1.7-6.9) x10-3/uL Lymph # (Auto) (0.5-4.5) x10-3/uL Mills # (Auto) (0.0-1.2) x10-3/uL Eos # (Auto) (0.0-0.6) x10-3/uL Baso # (Auto) (0.0-0.3) x10-3/uL Sodium (135-145) mmol/L Potassium (3.5-5.3) mmol/L Chloride (100-110) mmol/L Carbon Dioxide (21-32) mmol/L BUN (7-18) mg/dL Creatinine (0.70-1.30) mg/dL Est Cr Clr Drug Dosing Estimated GFR (MDRD) (>60) BUN/Creatinine Ratio (9-20) Glucose (80-116) mg/dL Calcium (8.6-10.2) mg/dL Magnesium (1.8-2.5) mg/dL Troponin I 9.7 (4.0-60.3) pg/mL Ethyl Alcohol (<0.03) % Meds: Medications Discontinued Medications Generic Name Dose Route Start Last Admin Trade Name Heather PRN Reason Stop Dose Admin Magnesium Oxide 800 mg 06/08/20 20:52 06/08/20 21:01 Magnesium Oxide 400 Mg Tab PO 06/08/20 20:53 800 mg ONETIME ONE Administration Potassium Chloride 40 meq 06/08/20 21:00 06/08/20 21:01 Potassium Chloride 20 Meq Packet PO 40 meq ASDIRECTED MONET Administration Potassium Chloride 40 meq 06/08/20 21:15 Potassium Chloride 20 Meq Packet PO 06/08/20 21:16 ONETIME ONE - Re-Assessments/Exams Free Text/Narrative Re-Assessment/Exam: 06/08/20 20:45: The patient's sodium was still 129. His potassium was 3.4 and his magnesium level is 1.4. He has been taking oral well and I will give him potassium 40 mEq orally and magnesium oxide 800 mg orally. His blood alcohol again was 0.25 or 250 mg/dL. He continues with O2 saturations of 99-100% on room air. There is no respiratory distress. EKG was unchanged from previous and his troponin was 0. He is unwilling to stop drinking alcohol and there is no indication for admission to the hospital at this point. He is stable to go back home. Departure - Departure Time of Disposition: 21:25 Disposition: Home, Self-Care 01 Condition: Fair Clinical Impression: Alcohol abuse, Hypokalemia, Hypomagnesemia, Hyponatremia Alcohol intoxication Qualifiers: Complication of substance-induced condition: uncomplicated Qualified Code(s): F10.920 - Alcohol use, unspecified with intoxication, uncomplicated - Discharge Information Instructions: Alcohol Intoxication, [id number], Hyponatremia, [id number], Hypomagnesemia, Hypokalemia Referrals: Kevin Maynard MD [Primary Care Provider] - Additional Instructions: Your EKG was unchanged from previous and showed no evidence of heart attack. Your lung exam was clear and her oxygen level was normal. You need to stop drinking alcohol as it is causing the majority of your problems. Your potassium, magnesium and sodium were all slightly low. We gave you extra amounts of potassium and magnesium while you were in the emergency department. Follow-up with your primary doctor. Back to the emergency department for vomiting, severe weakness or any other concerning signs or symptoms. Sepsis Event Note (ED) - Focused Exam Vital Signs: Vital Signs Temp Pulse Resp BP Pulse Ox 06/08/20 18:49 36.4 C 55 L 20 109/74 100 - My Orders Last 24 Hours: My Active Orders 06/08/20 19:31 EKG 12 Lead [EK] Routine 06/08/20 19:32 EKG Documentation Completion [RC] ASDIRECTED - Assessment/Plan Last 24 Hours: My Active Orders 06/08/20 19:31 EKG 12 Lead [EK] Routine 06/08/20 19:32 EKG Documentation Completion [RC] ASDIRECTED
[2020-06-08] MEDS ORDERED: Magnesium Oxide 400 MG Tab PO ONE (20:52)
[2020-06-08] MEDS ORDERED: Potassium Chloride 20 MEQ Packet PO SCH (21:00)
[2020-06-08] MEDS ORDERED: Potassium Chloride 20 MEQ Packet PO ONE (21:15)
[2020-06-08 22:08] VITALS: BP 127/62; PULSE 57
== END 2020-06-08 21:45 | disposition home or self-care (01) ==
LOC: FB.ED 18:49
DX: E87.6 Hypokalemia (principal); E83.42 Hypomagnesemia; E87.1 Hypo-osmolality and hyponatremia; F10.120 Alcohol abuse with intoxication, uncomplicated; I25.10 Atherosclerotic heart disease of native coronary artery without angina pectoris; E78.00 Pure hypercholesterolemia, unspecified; I10 Essential (primary) hypertension; F17.200 Nicotine dependence, unspecified, uncomplicated; R56.9 Unspecified convulsions; Z86.73 Personal history of transient ischemic attack (TIA), and cerebral infarction without residual deficits; Z88.0 Allergy status to penicillin; Z79.82 Long term (current) use of aspirin; Z79.899 Other long term (current) drug therapy; Z95.1 Presence of aortocoronary bypass graft; Y90.8 Blood alcohol level of 240 mg/100 ml or more
CPT/HCPCS: 36415; 80048; 80307; 83735; 84484; 85025; 93005; 99285; A9270

== ENCOUNTER 2020-06-13 15:45 | Inpatient (IN) | payer MEDICARE ==
[2020-06-13] MEDS ORDERED: Potassium Chloride 20 MEQ Tab.ER PO STA (16:04)
[2020-06-13] MEDS ORDERED: Sodium Chloride 0.9% 10 ML Syringe FLUSH PRN (16:12)
[2020-06-13] MEDS ORDERED: Thiamine 100 MG in Sodium Chloride 0.9% 100 ML IV STA (16:15)
[2020-06-13] MEDS ORDERED: Sodium Chloride 0.9% 1,000 ML IV SCH (16:15)
--- NOTE | 2020-06-13 17:12 | EDM.PDOC ---
ED HPI GENERAL MEDICAL PROBLEM - General Chief Complaint: General Stated Complaint: WEAKNESS Time Seen by Provider: 06/13/20 15:50 Source of Information: Reports: Patient History Limitations: Reports: No Limitations - History of Present Illness INITIAL COMMENTS - FREE TEXT/NARRATIVE: Patient is a 70 yo WM who presented to the ED because of weakness and dyspnea. He arrived to the ED by EMS and is incontinent of urine and stool. He is known alcoholic and drinks ETOH on a daily basis. He said he had 2-3 drinks today and is feeling weak and dyspneic. There is no fever,chills, cough or cold. There is no nausea/vomiting, diarrhea or abdominal pain. - Related Data Allergies Allergy/AdvReac Type Severity Reaction Status Date / Time Penicillins Allergy Anaphylactic Verified 06/04/20 20:42 Shock Home Meds: Home Meds levETIRAcetam [Keppra] 250 mg PO BID 09/15/13 [History] Aspirin [Ecotrin] 325 mg PO DAILY 08/13/15 [History] Fenofibrate Nanocrystallized [Fenofibrate] 145 mg PO DAILY 08/13/15 [History] Metoprolol Tartrate 37.5 mg PO BID 08/13/15 [History] amLODIPine [Norvasc] 5 mg PO DAILY 08/13/15 [History] atorvaSTATin [Lipitor] 10 mg PO DAILY 08/13/15 [History] Finasteride 5 mg PO DAILY 06/04/20 [History] Multivit-Min/FA/Lycopen/Lutein [Certavite Senior Tablet] 1 each PO DAILY 1 [History] Omeprazole 40 mg PO BIDAC 06/04/20 [History] Tamsulosin [Flomax] 0.4 mg PO BEDTIME 06/04/20 [History] Past Medical History HEENT History: Reports: Cataract, Glaucoma, Impaired Vision, Other (See Below) Other HEENT History: Missing several teeth. Wears glasses. Cardiovascular History: Reports: Bypass, CAD, High Cholesterol, Hypertension Respiratory History: Reports: Other (See Below) Other Respiratory History: Smoker. Gastrointestinal History: Reports: None Genitourinary History: Reports: None Musculoskeletal History: Reports: Other (See Below) Other Musculoskeletal History: Uses wheelchair post CVA, left hemiplegia 2004. Able to move left extremities somewhat. States he can stand for short while, unable to walk. Neurological History: Reports: CVA, Seizure Psychiatric History: Reports: Addiction, Mood Swings Other Psychiatric History: Alcohol abuse. Endocrine/Metabolic History: Reports: Other (See Below) Other Endocrine/Metabolic History: Denies diabetes. Hematologic History: Reports: Blood Transfusion(s) Immunologic History: Reports: None Dermatologic History: Reports: Other (See Below) Other Dermatologic History: Sensitive skin left forearm, prone to bruising and tear. - Infectious Disease History Infectious Disease History: Reports: Mumps, Other (See Below) Other Infectious Disease History: Doesn't recall other childhood illnesses. - Past Surgical History HEENT Surgical History: Reports: Oral Surgery Cardiovascular Surgical History: Reports: Coronary Artery Bypass Respiratory Surgical History: Reports: None GI Surgical History: Reports: Appendectomy, Hernia Repair/Other Male Surgical History: Reports: Circumcision Endocrine Surgical History: Reports: None Neurological Surgical History: Reports: None Musculoskeletal Surgical History: Reports: Other (See Below) Other Musculoskeletal Surgeries/Procedures:: Fractured left ankle and foot 2018. Dermatological Surgical History: Reports: None Social & Family History - Family History Family Medical History: No Pertinent Family History Other Neurological Family History: Sister had a CVA. Endocrine/Metabolic: Reports: Diabetes, type II - Caffeine Use Caffeine Use: Reports: Tea - Living Situation & Occupation Living situation: Reports: Alone Occupation: Disabled ED ROS GENERAL - Review of Systems Review Of Systems: See Below Constitutional: Reports: Weakness HEENT: Reports: No Symptoms Respiratory: Reports: Shortness of Breath Cardiovascular: Reports: No Symptoms Endocrine: Reports: No Symptoms GI/Abdominal: Reports: No Symptoms : Reports: No Symptoms Musculoskeletal: Reports: No Symptoms Skin: Reports: No Symptoms Neurological: Reports: Other (left hemiparesis from previous CVA) Psychiatric: Reports: No Symptoms ED EXAM, GENERAL - Physical Exam Exam: See Below Exam Limited By: No Limitations General Appearance: Alert, No Apparent Distress Eye Exam: Bilateral Eye: PERRL Ears: Normal External Exam, Normal Canal Nose: Normal Inspection, Normal Mucosa, No Blood Throat/Mouth: Normal Inspection Head: Atraumatic, Normocephalic Neck: Normal Inspection, Supple, Non-Tender Respiratory/Chest: No Respiratory Distress, Lungs Clear, Normal Breath Sounds, No Accessory Muscle Use, Chest Non-Tender Cardiovascular: Normal Peripheral Pulses, Regular Rate, Rhythm, No Edema, No Gallop, No JVD, No Murmur, No Rub GI/Abdominal: Normal Bowel Sounds, Soft, Non-Tender, No Organomegaly, No Distention Back Exam: Normal Inspection, Full Range of Motion Extremities: Normal Inspection, Normal Range of Motion, Non-Tender, No Pedal Edema, Normal Capillary Refill Neurological: Alert, Oriented, CN II-XII Intact, Normal Cognition, Normal Gait, Normal Reflexes, No Motor/Sensory Deficits Psychiatric: Normal Affect, Normal Mood Skin Exam: Warm, Dry Course - Vital Signs Text/Narrative:: Lab result/EKG/CXR was reviewed and discussed with patient NS 1L bolus Thiamine 100 mg IV x1 Covid:negative Code Status: Full Code Last Recorded V/S: Last Vital Signs Temp 36.4 C 06/13/20 15:45 Pulse 58 L 06/13/20 15:45 Resp 16 06/13/20 15:45 BP 98/61 06/13/20 15:45 Pulse Ox 100 06/13/20 15:45 - Orders/Labs/Meds Orders: Active Orders 24 hr Category Date Time Status EKG Documentation Completion [RC] ASDIRECTED Care 06/13/20 16:14 Active Chest 1V Frontal [CR] Stat Exams 06/13/20 16:12 Taken CORONAVIRUS COVID-19 KIYA [MOLEC] Stat Lab 06/13/20 17:30 Received CULTURE URINE [RM] Stat Lab 06/13/20 18:22 Ordered Sodium Chloride 0.9% [Normal Saline] 1,000 ml Med 06/13/20 16:15 Active IV ASDIRECTED Sodium Chloride 0.9% [Saline Flush] Med 06/13/20 16:12 Active 10 ml FLUSH ASDIRECTED PRN Saline Lock Insert [OM.PC] Routine Oth 06/13/20 16:12 Ordered EKG 12 Lead [EK] Routine Ther 06/13/20 16:12 Ordered Medication Orders Sodium Chloride (Normal Saline) 1,000 mls @ 999 mls/hr IV ASDIRECTED MONET Last Admin: 06/13/20 16:37 Dose: 999 mls/hr Documented by: ERIC Sodium Chloride (Sodium Chloride 0.9% 10 Ml Syringe) 10 ml FLUSH ASDIRECTED PRN PRN Reason: Keep Vein Open Last Admin: 06/13/20 16:37 Dose: 10 ml Documented by: ERIC Labs: Laboratory Tests 0406/13/20 06/13/20 Range/Units 16:25 16:25 16:25 WBC (3.2-10.1) x10-3/uL RBC (3.90-5.90) x10(6)uL Hgb (12.9-17.7) g/dL Hct (38.3-50.1) % MCV (80.8-98.7) fL MCH (27.0-33.3) pg MCHC (28.7-35.3) g/dL RDW (12.4-15.0) % Plt Count (117-477) x10(3)uL MPV (6.7-11.0) fL Neut % (Auto) (40.3-71.8) % Lymph % (Auto) (15.8-45.3) % [place] % (Auto) (5.5-15.2) % Eos % (Auto) (0.1-6.8) % Baso % (Auto) (0.3-3.8) % Neut # (Auto) (1.7-6.9) x10-3/uL Lymph # (Auto) (0.5-4.5) x10-3/uL [place] # (Auto) (0.0-1.2) x10-3/uL Eos # (Auto) (0.0-0.6) x10-3/uL Baso # (Auto) (0.0-0.3) x10-3/uL PT 11.2 H (9.0-11.1) sec INR 1.04 (1.00-1.24) Sodium 129 L (135-145) mmol/L Potassium 3.1 L (3.5-5.3) mmol/L Chloride 93 L (100-110) mmol/L Carbon Dioxide 19 L (21-32) mmol/L BUN 10 (7-18) mg/dL Creatinine 1.5 H (0.70-1.30) mg/dL Est Cr Clr Drug Dosing TNP Estimated GFR (MDRD) 47 L (>60) BUN/Creatinine Ratio 6.7 L (9-20) Glucose 79 L (80-116) mg/dL Calcium 8.1 L (8.6-10.2) mg/dL Total Bilirubin 0.4 (0.1-1.3) mg/dL AST 23 D (5-25) IU/L ALT 15 D (12-36) U/L Alkaline Phosphatase 111 (56-112) IU/L Troponin I 15.7 (4.0-60.3) pg/mL Total Protein 6.5 (6.0-8.0) g/dL Albumin 3.1 L (3.2-4.6) g/dL Globulin 3.4 g/dL Albumin/Globulin Ratio 0.9 Urine Color (YELLOW) Urine Appearance (CLEAR) Urine pH (5.0-6.5) Ur Specific Ary (1.010-1.025) Urine Protein (NEGATIVE) mg/dL Urine Glucose (UA) (NORMAL) mg/dL Urine Ketones (NEGATIVE) mg/dL Urine Occult Blood (NEGATIVE) Urine Nitrite (NEGATIVE) Urine Bilirubin (NEGATIVE) Urine Urobilinogen (NEGATIVE) mg/dL Ur Leukocyte Esterase (NEGATIVE) Urine RBC (0-5) Urine WBC (0-5) Ur Epithelial Cells Urine Bacteria (NS) Ethyl Alcohol (<0.03) % 06/13/20 06/13/20 06/13/20 Range/Units 16:25 16:30 17:25 WBC 6.6 (3.2-10.1) x10-3/uL RBC 3.89 L (3.90-5.90) x10(6)uL Hgb 11.6 L (12.9-17.7) g/dL Hct 35.9 L (38.3-50.1) % MCV 92.1 (80.8-98.7) fL MCH 29.8 (27.0-33.3) pg MCHC 32.4 (28.7-35.3) g/dL RDW 18.7 H (12.4-15.0) % Plt Count 332 (117-477) x10(3)uL MPV 6.9 (6.7-11.0) fL Neut % (Auto) 42.9 (40.3-71.8) % Lymph % (Auto) 44.9 (15.8-45.3) % [place] % (Auto) 5.7 (5.5-15.2) % Eos % (Auto) 5.2 (0.1-6.8) % Baso % (Auto) 1.3 (0.3-3.8) % Neut # (Auto) 2.8 (1.7-6.9) x10-3/uL Lymph # (Auto) 2.9 (0.5-4.5) x10-3/uL [place] # (Auto) 0.4 (0.0-1.2) x10-3/uL Eos # (Auto) 0.3 (0.0-0.6) x10-3/uL Baso # (Auto) 0.1 (0.0-0.3) x10-3/uL PT (9.0-11.1) sec INR (1.00-1.24) Sodium (135-145) mmol/L Potassium (3.5-5.3) mmol/L Chloride (100-110) mmol/L Carbon Dioxide (21-32) mmol/L BUN (7-18) mg/dL Creatinine (0.70-1.30) mg/dL Est Cr Clr Drug Dosing Estimated GFR (MDRD) (>60) BUN/Creatinine Ratio (9-20) Glucose (80-116) mg/dL Calcium (8.6-10.2) mg/dL Total Bilirubin (0.1-1.3) mg/dL AST (5-25) IU/L ALT (12-36) U/L Alkaline Phosphatase (56-112) IU/L Troponin I (4.0-60.3) pg/mL Total Protein (6.0-8.0) g/dL Albumin (3.2-4.6) g/dL Globulin g/dL Albumin/Globulin Ratio Urine Color Yellow (YELLOW) Urine Appearance Clear (CLEAR) Urine pH 5.0 (5.0-6.5) Ur Specific Ary 1.005 L (1.010-1.025) Urine Protein Negative (NEGATIVE) mg/dL Urine Glucose (UA) Normal (NORMAL) mg/dL Urine Ketones Negative (NEGATIVE) mg/dL Urine Occult Blood Negative (NEGATIVE) Urine Nitrite Negative (NEGATIVE) Urine Bilirubin Negative (NEGATIVE) Urine Urobilinogen Normal (NEGATIVE) mg/dL Ur Leukocyte Esterase Moderate H (NEGATIVE) Urine RBC 0-5 (0-5) Urine WBC 0-5 (0-5) Ur Epithelial Cells Occasional Urine Bacteria Few H (NS) Ethyl Alcohol 0.22 H* (<0.03) % Meds: Medications Generic Name Dose Route Start Last Admin Trade Name Freq PRN Reason Stop Dose Admin Sodium Chloride 1,000 mls @ 999 mls/hr 06/13/20 16:15 06/13/20 16:37 Normal Saline IV 999 mls/hr ASDIRECTED MONET Administration Sodium Chloride 10 ml 06/13/20 16:12 06/13/20 16:37 Sodium Chloride 0.9% 10 Ml Syringe FLUSH 10 ml ASDIRECTED PRN Administration Keep Vein Open Discontinued Medications Generic Name Dose Route Start Last Admin Trade Name Freq PRN Reason Stop Dose Admin Thiamine HCl 100 mg/ Sodium 101 mls @ 202 mls/hr 06/13/20 16:15 06/13/20 16:36 Chloride IV 06/13/20 16:16 202 mls/hr NOW STA Administration Potassium Chloride 20 meq 06/13/20 16:04 06/13/20 16:17 Potassium Chloride 20 Meq Tab.Er PO 06/13/20 16:05 Not Given NOW STA Departure - Departure Time of Disposition: 18:00 Disposition: Refer to Observation Condition: Good Clinical Impression: Alcoholism, UTI (urinary tract infection), Hypokalemia, Weakness Alcohol intoxication Qualifiers: Complication of substance-induced condition: uncomplicated Qualified Code(s): F10.920 - Alcohol use, unspecified with intoxication, uncomplicated - Discharge Information Referrals: Kevin Maynard MD [Primary Care Provider] - Forms: ED Department Discharge Sepsis Event Note (ED) - Evaluation Sepsis Screening Result: No Definite Risk - Focused Exam Vital Signs: Vital Signs Temp Pulse Resp BP Pulse Ox 06/13/20 15:45 36.4 C 58 L 16 98/61 100 - My Orders Last 24 Hours: My Active Orders 06/13/20 16:12 Chest 1V Frontal [CR] Stat Sodium Chloride 0.9% [Saline Flush] 10 ml FLUSH ASDIRECTED PRN Saline Lock Insert [OM.PC] Routine EKG 12 Lead [EK] Routine 06/13/20 16:14 EKG Documentation Completion [RC] ASDIRECTED 06/13/20 16:15 Sodium Chloride 0.9% [Normal Saline] 1,000 ml IV ASDIRECTED 06/13/20 17:30 CORONAVIRUS COVID-19 KIYA [MOLEC] Stat 06/13/20 18:22 CULTURE URINE [RM] Stat - Assessment/Plan Last 24 Hours: My Active Orders 06/13/20 16:12 Chest 1V Frontal [CR] Stat Sodium Chloride 0.9% [Saline Flush] 10 ml FLUSH ASDIRECTED PRN Saline Lock Insert [OM.PC] Routine EKG 12 Lead [EK] Routine 06/13/20 16:14 EKG Documentation Completion [RC] ASDIRECTED 06/13/20 16:15 Sodium Chloride 0.9% [Normal Saline] 1,000 ml IV ASDIRECTED 06/13/20 17:30 CORONAVIRUS COVID-19 KIYA [MOLEC] Stat 06/13/20 18:22 CULTURE URINE [RM] Stat
[2020-06-13] MEDS ORDERED: Ondansetron 4 MG/2 ML SDV IV PRN (18:36)
--- NOTE | 2020-06-13 19:01 | PCM.EKG ---
#1 Interpretation EKG Date: 06/13/20 Time: 17:29 Rhythm: Other (3rd degree AV block) Rate (Beats/Min): 55 QRS: RBBB ST-T: Normal QT: Normal (3rd Degree AV block RBBB and LAFB)
[2020-06-13] MEDS: Potassium Chloride 20 MEQ Tab.ER PO SCH ×3 (19:52→23:39)
[2020-06-13] MEDS: Sodium Chloride 0.9% 1,000 ML IV SCH (20:35)
[2020-06-13] MEDS: Tamsulosin 0.4 MG Cap.ER PO SCH (20:37)
[2020-06-13] MEDS: Metoprolol Tartrate 25 MG Tab PO SCH (20:37)
[2020-06-13] MEDS: levETIRAcetam 250 MG Tab PO SCH (20:37)
[2020-06-13] MEDS: Sulfamethoxazole/Trimethoprim 800-160 MG Tab PO SCH (20:40)
[2020-06-13] MEDS ORDERED: Enoxaparin 40 MG/0.4 ML Syringe SUBCUT SCH (21:00)
[2020-06-14] MEDS: Sodium Chloride 0.9% 1,000 ML IV SCH (04:15)
[2020-06-14] MEDS ORDERED: Multivitamin Tab PO SCH (09:00)
[2020-06-14] MEDS ORDERED: atorvaSTATin 10 MG Tab PO SCH (09:00)
[2020-06-14] MEDS: Metoprolol Tartrate 25 MG Tab PO SCH ×2 (10:51→20:24)
[2020-06-14] MEDS: Pantoprazole 40 MG Tab.CR PO SCH ×2 (10:51→17:32)
[2020-06-14] MEDS: Aspirin 325 MG Tab.EC PO SCH ×2 (10:51→11:01)
[2020-06-14] MEDS: Multivitamins with Iron/Calcium/Folic Acid/Minerals Tab PO SCH (10:52)
[2020-06-14] MEDS: Fenofibrate Nanocrystallized 145 MG Tab PO SCH (10:52)
[2020-06-14] MEDS: levETIRAcetam 250 MG Tab PO SCH ×2 (10:52→20:23)
[2020-06-14] MEDS: amLODIPine 5 MG Tab PO SCH (10:52)
[2020-06-14] MEDS: Finasteride 5 MG Tab PO SCH (10:53)
[2020-06-14] MEDS: Enoxaparin 40 MG/0.4 ML Syringe SUBCUT SCH ×2 (10:54→10:56)
[2020-06-14] MEDS: Sulfamethoxazole/Trimethoprim 800-160 MG Tab PO SCH (11:29)
[2020-06-14] MEDS: Aspirin 81 MG Tab.Chew PO SCH (12:30)
--- NOTE | 2020-06-14 15:42 | PCM.HP.2 ---
H&P History of Present Illness - General Date of Service: 06/14/20 Admit Problem/Dx: Admission Diagnosis/Problem Admission Diagnosis/Problem Weakness Source of Information: Patient, EMS Notes Reviewed - History of Present Illness Initial Comments - Free Text/Narative: Heladio presented to ER yesterday with weakness, dyspnea, incontinence of urine & stool, intoxicated. Alcohol level 0.22 in ER. Denies any fever, chills, cough, nausea, vomiting. He was admitted for observation for alcohol intoxication, hyponatremia on 06/04, discharged 06/05 as his labs all corrected and would not go to [facility] as [facility] had no open beds. Returned to ER on 06/08, was discharged home from ER. Returned last night similar issues, Sodium 129, potassium 3.1, Covid negative. WBC 6.6. INR 1.04. Admitted for IVF, electrolyte correction, NH placement. Right Shoulder Pain Score (Numeric/FACES): 8 - Related Data Allergies/Adverse Reactions: Allergies Allergy/AdvReac Type Severity Reaction Status Date / Time Penicillins Allergy Anaphylactic Verified 06/04/20 20:42 Shock Home Medications: Home Meds levETIRAcetam [Keppra] 250 mg PO BID 09/15/13 [History] Aspirin [Ecotrin] 325 mg PO DAILY 08/13/15 [History] Fenofibrate Nanocrystallized [Fenofibrate] 145 mg PO DAILY 08/13/15 [History] Metoprolol Tartrate 37.5 mg PO BID 08/13/15 [History] amLODIPine [Norvasc] 5 mg PO DAILY 08/13/15 [History] Finasteride 5 mg PO DAILY 06/04/20 [History] Multivit-Min/FA/Lycopen/Lutein [Certavite Senior Tablet] 1 each PO DAILY 06/04/20 [History] Omeprazole 40 mg PO BIDAC 06/04/20 [History] Tamsulosin [Flomax] 0.4 mg PO BEDTIME 06/04/20 [History] atorvaSTATin [Lipitor] 40 mg PO DAILY 06/14/20 [History] Past Medical History HEENT History: Reports: Cataract, Glaucoma, Impaired Vision, Other (See Below) Other HEENT History: Missing several teeth. Wears glasses. Cardiovascular History: Reports: Bypass, CAD, High Cholesterol, Hypertension Respiratory History: Reports: Other (See Below) Other Respiratory History: Smoker. Gastrointestinal History: Reports: GERD Genitourinary History: Reports: None Musculoskeletal History: Reports: Other (See Below) Other Musculoskeletal History: Uses wheelchair post CVA, left hemiplegia 2005. Able to move left extremities somewhat. States he can stand for short while, unable to walk. Neurological History: Reports: CVA, Seizure Psychiatric History: Reports: Addiction, Mood Swings Other Psychiatric History: Alcohol abuse. Endocrine/Metabolic History: Reports: Other (See Below) Other Endocrine/Metabolic History: Denies diabetes. Hematologic History: Reports: Blood Transfusion(s) Immunologic History: Reports: None Dermatologic History: Reports: Other (See Below) Other Dermatologic History: Sensitive skin left forearm, prone to bruising and tear. - Infectious Disease History Infectious Disease History: Reports: Mumps, Other (See Below) Other Infectious Disease History: Doesn't recall other childhood illnesses. - Past Surgical History HEENT Surgical History: Reports: Oral Surgery Cardiovascular Surgical History: Reports: Coronary Artery Bypass Respiratory Surgical History: Reports: None GI Surgical History: Reports: Appendectomy, Hernia Repair/Other Male Surgical History: Reports: Circumcision Endocrine Surgical History: Reports: None Neurological Surgical History: Reports: None Musculoskeletal Surgical History: Reports: Other (See Below) Other Musculoskeletal Surgeries/Procedures:: Fractured left ankle and foot 2018. Dermatological Surgical History: Reports: None Social & Family History - Family History Family Medical History: No Pertinent Family History Other Neurological Family History: Sister had a CVA. Endocrine/Metabolic: Reports: Diabetes, type II - Tobacco Use Tobacco Use Status *Q: Current Every Day Tobacco User Years of Tobacco use: 52 Packs/Tins Daily: 0.5 Used Tobacco, but Quit: No Second Hand Smoke Exposure: Yes - Caffeine Use Caffeine Use: Reports: Tea - Alcohol Use Days Per Week of Alcohol Use: 2 Number of Drinks Per Day: 3 Total Drinks Per Week: 6 Date of Last Drink: 06/13/20 Time of Last Drink: 14:00 - Recreational Drug Use Recreational Drug Use: No - Living Situation & Occupation Living situation: Reports: Alone Occupation: Disabled H&P Review of Systems - Review of Systems: Review Of Systems: See Below General: Reports: Weakness, Weight Loss. Denies: Fever, Chills HEENT: Reports: No Symptoms Pulmonary: Reports: Shortness of Breath Cardiovascular: Reports: No Symptoms Gastrointestinal: Reports: Diarrhea, Stool Incontinence. Denies: Abdominal Pain, Nausea, Vomiting Genitourinary: Reports: Incontinence. Denies: Dysuria, Frequency Neurological: Reports: Pre-Existing Deficit Exam - Exam Exam: See Below - Vital Signs Vital Signs: Last Vital Signs Temp 97.9 F 06/14/20 10:30 Pulse 53 L 06/14/20 10:51 Resp 20 06/14/20 10:30 BP 146/75 H 06/14/20 10:52 Pulse Ox 100 06/14/20 10:30 Weight: 142 lb - Exam General: Alert, Oriented, Cooperative. No: Mild Distress HEENT: PERRLA, EOMI, Hearing Intact. No: Mucosa Moist & [place] Neck: Supple, Trachea Midline Lungs: Clear to Auscultation, Normal Respiratory Effort Cardiovascular: Regular Rate, Regular Rhythm GI/Abdominal Exam: Soft, Non-Tender, No Distention, Abnormal Bowel Sounds (hyperactive BS x4) (Male) Exam: Deferred Rectal (Males) Exam: Deferred Extremities: No Pedal Edema, Pallor Peripheral Pulses: 2+: Radial (L), Radial (R) - Patient Data Lab Results Last 24 hrs: Laboratory Results - last 24 hr 06/13/20 06/13/20 06/13/20 Range/Units 16:25 16:25 16:25 WBC (3.2-10.1) x10-3/uL RBC (3.90-5.90) x10(6)uL Hgb (12.9-17.7) g/dL Hct (38.3-50.1) % MCV (80.8-98.7) fL MCH (27.0-33.3) pg MCHC (28.7-35.3) g/dL RDW (12.4-15.0) % Plt Count (117-477) x10(3)uL MPV (6.7-11.0) fL Neut % (Auto) (40.3-71.8) % Lymph % (Auto) (15.8-45.3) % Steele % (Auto) (5.5-15.2) % Eos % (Auto) (0.1-6.8) % Baso % (Auto) (0.3-3.8) % Neut # (Auto) (1.7-6.9) x10-3/uL Lymph # (Auto) (0.5-4.5) x10-3/uL Steele # (Auto) (0.0-1.2) x10-3/uL Eos # (Auto) (0.0-0.6) x10-3/uL Baso # (Auto) (0.0-0.3) x10-3/uL PT 11.2 H (9.0-11.1) sec INR 1.04 (1.00-1.24) Sodium 129 L (135-145) mmol/L Potassium 3.1 L (3.5-5.3) mmol/L Chloride 93 L (100-110) mmol/L Carbon Dioxide 19 L (21-32) mmol/L BUN 10 (7-18) mg/dL Creatinine 1.5 H (0.70-1.30) mg/dL Est Cr Clr Drug Dosing TNP Estimated GFR (MDRD) 47 L (>60) BUN/Creatinine Ratio 6.7 L (9-20) Glucose 79 L (80-116) mg/dL Calcium 8.1 L (8.6-10.2) mg/dL Total Bilirubin 0.4 (0.1-1.3) mg/dL AST 23 D (5-25) IU/L ALT 15 D (12-36) U/L Alkaline Phosphatase 111 (56-112) IU/L Troponin I 15.7 (4.0-60.3) pg/mL Total Protein 6.5 (6.0-8.0) g/dL Albumin 3.1 L (3.2-4.6) g/dL Globulin 3.4 g/dL Albumin/Globulin Ratio 0.9 Urine Color (YELLOW) Urine Appearance (CLEAR) Urine pH (5.0-6.5) Ur Specific [place] (1.010-1.025) Urine Protein (NEGATIVE) mg/dL Urine Glucose (UA) (NORMAL) mg/dL Urine Ketones (NEGATIVE) mg/dL Urine Occult Blood (NEGATIVE) Urine Nitrite (NEGATIVE) Urine Bilirubin (NEGATIVE) Urine Urobilinogen (NEGATIVE) mg/dL Ur Leukocyte Esterase (NEGATIVE) Urine RBC (0-5) Urine WBC (0-5) Ur Epithelial Cells Urine Bacteria (NS) Ethyl Alcohol (<0.03) % SARS-CoV-2 RNA (KIYA) (NEGATIVE) 06/13/20 06/13/20 06/13/20 Range/Units 16:25 16:30 17:25 WBC 6.6 (3.2-10.1) x10-3/uL RBC 3.89 L (3.90-5.90) x10(6)uL Hgb 11.6 L (12.9-17.7) g/dL Hct 35.9 L (38.3-50.1) % MCV 92.1 (80.8-98.7) fL MCH 29.8 (27.0-33.3) pg MCHC 32.4 (28.7-35.3) g/dL RDW 18.7 H (12.4-15.0) % Plt Count 332 (117-477) x10(3)uL MPV 6.9 (6.7-11.0) fL Neut % (Auto) 42.9 (40.3-71.8) % Lymph % (Auto) 44.9 (15.8-45.3) % Steele % (Auto) 5.7 (5.5-15.2) % Eos % (Auto) 5.2 (0.1-6.8) % Baso % (Auto) 1.3 (0.3-3.8) % Neut # (Auto) 2.8 (1.7-6.9) x10-3/uL Lymph # (Auto) 2.9 (0.5-4.5) x10-3/uL Steele # (Auto) 0.4 (0.0-1.2) x10-3/uL Eos # (Auto) 0.3 (0.0-0.6) x10-3/uL Baso # (Auto) 0.1 (0.0-0.3) x10-3/uL PT (9.0-11.1) sec INR (1.00-1.24) Sodium (135-145) mmol/L Potassium (3.5-5.3) mmol/L Chloride (100-110) mmol/L Carbon Dioxide (21-32) mmol/L BUN (7-18) mg/dL Creatinine (0.70-1.30) mg/dL Est Cr Clr Drug Dosing Estimated GFR (MDRD) (>60) BUN/Creatinine Ratio (9-20) Glucose (80-116) mg/dL Calcium (8.6-10.2) mg/dL Total Bilirubin (0.1-1.3) mg/dL AST (5-25) IU/L ALT (12-36) U/L Alkaline Phosphatase (56-112) IU/L Troponin I (4.0-60.3) pg/mL Total Protein (6.0-8.0) g/dL Albumin (3.2-4.6) g/dL Globulin g/dL Albumin/Globulin Ratio Urine Color Yellow (YELLOW) Urine Appearance Clear (CLEAR) Urine pH 5.0 (5.0-6.5) Ur Specific [place] 1.005 L (1.010-1.025) Urine Protein Negative (NEGATIVE) mg/dL Urine Glucose (UA) Normal (NORMAL) mg/dL Urine Ketones Negative (NEGATIVE) mg/dL Urine Occult Blood Negative (NEGATIVE) Urine Nitrite Negative (NEGATIVE) Urine Bilirubin Negative (NEGATIVE) Urine Urobilinogen Normal (NEGATIVE) mg/dL Ur Leukocyte Esterase Moderate H (NEGATIVE) Urine RBC 0-5 (0-5) Urine WBC 0-5 (0-5) Ur Epithelial Cells Occasional Urine Bacteria Few H (NS) Ethyl Alcohol 0.22 H* (<0.03) % SARS-CoV-2 RNA (KIYA) (NEGATIVE) 06/13/20 06/14/20 06/14/20 Range/Units 17:30 08:26 08:26 WBC 4.5 (3.2-10.1) x10-3/uL RBC 4.25 (3.90-5.90) x10(6)uL Hgb 12.8 L (12.9-17.7) g/dL Hct 39.1 (38.3-50.1) % MCV 92.1 (80.8-98.7) fL MCH 30.1 (27.0-33.3) pg MCHC 32.6 (28.7-35.3) g/dL RDW 19.1 H (12.4-15.0) % Plt Count 361 (117-477) x10(3)uL MPV 6.9 (6.7-11.0) fL Neut % (Auto) 61.6 (40.3-71.8) % Lymph % (Auto) 24.7 (15.8-45.3) % Steele % (Auto) 6.7 (5.5-15.2) % Eos % (Auto) 5.6 (0.1-6.8) % Baso % (Auto) 1.4 (0.3-3.8) % Neut # (Auto) 2.8 (1.7-6.9) x10-3/uL Lymph # (Auto) 1.1 (0.5-4.5) x10-3/uL Steele # (Auto) 0.3 (0.0-1.2) x10-3/uL Eos # (Auto) 0.3 (0.0-0.6) x10-3/uL Baso # (Auto) 0.1 (0.0-0.3) x10-3/uL PT (9.0-11.1) sec INR (1.00-1.24) Sodium 143 D (135-145) mmol/L Potassium 5.4 H D (3.5-5.3) mmol/L Chloride 110 D (100-110) mmol/L Carbon Dioxide 24 (21-32) mmol/L BUN 6 L (7-18) mg/dL Creatinine 1.2 (0.70-1.30) mg/dL Est Cr Clr Drug Dosing 53.68 Estimated GFR (MDRD) > 60 (>60) BUN/Creatinine Ratio 5.0 L (9-20) Glucose 86 (80-116) mg/dL Calcium 8.4 L (8.6-10.2) mg/dL Total Bilirubin (0.1-1.3) mg/dL AST (5-25) IU/L ALT (12-36) U/L Alkaline Phosphatase (56-112) IU/L Troponin I (4.0-60.3) pg/mL Total Protein (6.0-8.0) g/dL Albumin (3.2-4.6) g/dL Globulin g/dL Albumin/Globulin Ratio Urine Color (YELLOW) Urine Appearance (CLEAR) Urine pH (5.0-6.5) Ur Specific [place] (1.010-1.025) Urine Protein (NEGATIVE) mg/dL Urine Glucose (UA) (NORMAL) mg/dL Urine Ketones (NEGATIVE) mg/dL Urine Occult Blood (NEGATIVE) Urine Nitrite (NEGATIVE) Urine Bilirubin (NEGATIVE) Urine Urobilinogen (NEGATIVE) mg/dL Ur Leukocyte Esterase (NEGATIVE) Urine RBC (0-5) Urine WBC (0-5) Ur Epithelial Cells Urine Bacteria (NS) Ethyl Alcohol (<0.03) % SARS-CoV-2 RNA (KIYA) Negative (NEGATIVE) Result Diagrams: 06/14/20 08:26 06/14/20 08:26 Sepsis Event Note - Evaluation Sepsis Screening Result: No Definite Risk - Focused Exam Vital Signs: Vital Signs Temp Pulse Pulse Resp BP BP Pulse Ox 06/14/20 10:52 146/75 H 06/14/20 10:51 53 L 146/75 H 06/14/20 10:30 97.9 F 53 L 20 146/75 H 100 *Q Meaningful Use (ADM) - VTE *Q VTE Mechanical Contraindications *Q: At Risk for Falls - Problem List (1) Alcohol intoxication SNOMED Code(s): 64592311 ICD Code: F10.929 - ALCOHOL USE, UNSPECIFIED WITH INTOXICATION, UNSPECIFIED Status: Acute Current Visit: Yes Qualifiers: Complication of substance-induced condition: uncomplicated Qualified Code(s): F10.920 - Alcohol use, unspecified with intoxication, uncomplicated (2) Weakness SNOMED Code(s): 62781726 ICD Code: R53.1 - WEAKNESS Status: Acute Current Visit: Yes (3) Dehydration SNOMED Code(s): 61844169 ICD Code: E86.0 - DEHYDRATION Status: Acute Current Visit: No (4) Diarrhea SNOMED Code(s): 60216729 ICD Code: R19.7 - DIARRHEA, UNSPECIFIED Status: Chronic Current Visit: No Qualifiers: Diarrhea type: unspecified type Qualified Code(s): R19.7 - Diarrhea, unspecified (5) Hypokalemia SNOMED Code(s): 23435414 ICD Code: E87.6 - HYPOKALEMIA Status: Resolved Current Visit: Yes (6) Hyponatremia SNOMED Code(s): 14506089 ICD Code: E87.1 - HYPO-OSMOLALITY AND HYPONATREMIA Status: Resolved Current Visit: No (7) UTI (urinary tract infection) SNOMED Code(s): 47079820 ICD Code: N39.0 - URINARY TRACT INFECTION, SITE NOT SPECIFIED Status: Ruled-out Current Visit: Yes Problem Details: Ruled out, discontinue Bactrim, asymptomatic, UA nitrites negative 0-5 RBC & WBC, epithelial occasional, few bacteria. (8) CKD (chronic kidney disease) SNOMED Code(s): 733830842 ICD Code: N18.9 - CHRONIC KIDNEY DISEASE, UNSPECIFIED Status: Chronic Current Visit: No (9) GERD (gastroesophageal reflux disease) SNOMED Code(s): 525485413 ICD Code: K21.9 - GASTRO-ESOPHAGEAL REFLUX DISEASE WITHOUT ESOPHAGITIS Status: Chronic Current Visit: No Qualifiers: Esophagitis presence: without esophagitis Qualified Code(s): K21.9 - Gastro-esophageal reflux disease without esophagitis (10) H/O tonic-clonic seizures SNOMED Code(s): 243585394 ICD Code: Z86.69 - PERSONAL HISTORY OF DIS OF THE NERVOUS SYS AND SENSE ORGANS Status: Chronic Current Visit: No (11) H/O: stroke SNOMED Code(s): 429936355 ICD Code: Z86.73 - PRSNL HX OF TIA (TIA), AND CEREB INFRC W/O RESID DEFICITS Status: Chronic Current Visit: No (12) HTN (hypertension) SNOMED Code(s): 19610538 ICD Code: I10 - ESSENTIAL (PRIMARY) HYPERTENSION Status: Chronic Current Visit: No Problem Details: Continue norvasc, metoprolol. Qualifiers: Hypertension type: essential hypertension Qualified Code(s): I10 - Essential (primary) hypertension (13) CAD (coronary artery disease) SNOMED Code(s): 67665411 ICD Code: I25.10 - ATHSCL HEART DISEASE OF [place] CORONARY ARTERY W/O ANG PCTRS Status: Chronic Current Visit: No Problem Details: Continue outpatient medications. Qualifiers: Coronary Disease-Associated Artery/Lesion type: bypass graft (14) Defiant behavior SNOMED Code(s): 480890150 ICD Code: R46.89 - OTHER SYMPTOMS AND SIGNS INVOLVING APPEARANCE AND BEHAVIOR Status: Chronic Current Visit: Yes Problem Details: secondary to alcoholism, can be beligerent with staff at time. (15) Palliative care status SNOMED Code(s): 771679662 ICD Code: Z51.5 - ENCOUNTER FOR PALLIATIVE CARE Status: Chronic Current Visit: No Problem List Initiated/Reviewed/Updated: Yes Orders Last 24hrs: Active Orders 24 hr Category Date Time Status Patient Status [ADT] Routine ADT 06/14/20 10:26 Active Intake and Output [RC] 06,14,22 Care 06/13/20 18:39 Active Oxygen Therapy [RC] PRN Care 06/13/20 18:36 Active Pulse Oximetry [RC] PRN Care 06/13/20 18:39 Active Up to Chair [RC] ASDIRECTED Care 06/13/20 18:36 Active VTE/DVT Education [RC] Per Unit Routine Care 06/13/20 18:36 Active Vital Signs [RC] QSHIFT Care 06/13/20 18:36 Active OT Evaluation and Treatment [CONS] Routine Cons 06/14/20 15:22 Active PT Evaluation and Treatment [CONS] Routine Cons 06/14/20 15:22 Active Heart Healthy Diet [DIET] Diet 06/14/20 Breakfast Ordered Soft Diet [DIET] Diet 06/14/20 Breakfast Active Chest 1V Frontal [CR] Stat Exams 06/13/20 16:12 Taken CULTURE URINE [RM] Stat Lab 06/13/20 17:20 Received Aspirin Med 06/14/20 12:15 Active 81 mg PO DAILY Docusate Sodium/Sennosides [Senna Plus] Med 06/13/20 18:36 Active 1 tab PO BID PRN Enoxaparin [Lovenox] Med 06/14/20 10:00 Active 40 mg SUBCUT Q24H Fenofibrate Nanocrystallized [Tricor] Med 06/14/20 09:00 Active 145 mg PO DAILY Finasteride [Proscar] Med 06/14/20 09:00 Active 5 mg PO DAILY Metoprolol Tartrate [Lopressor] Med 06/13/20 21:00 Active 37.5 mg PO BID Multivitamins w-Iron/Ca/FA/Min [Thera M Plus] Med 06/14/20 09:00 Active 1 tab PO DAILY Ondansetron [Zofran] Med 06/13/20 18:36 Active 4 mg IV Q4H PRN Pantoprazole [ProTONIX] Med 06/14/20 07:30 Active 40 mg PO BIDAC Sodium Chloride 0.9% [Normal Saline] 1,000 ml Med 06/13/20 16:15 Active IV ASDIRECTED Sodium Chloride 0.9% [Normal Saline] 1,000 ml Med 06/13/20 18:45 Active IV ASDIRECTED Sodium Chloride 0.9% [Saline Flush] Med 06/13/20 16:12 Active 10 ml FLUSH ASDIRECTED PRN Tamsulosin [Flomax] Med 06/13/20 21:00 Active 0.4 mg PO BEDTIME amLODIPine [Norvasc] Med 06/14/20 09:00 Active 5 mg PO DAILY atorvaSTATin [Lipitor] Med 06/14/20 21:00 Active 40 mg PO BEDTIME levETIRAcetam [Keppra] Med 06/13/20 21:00 Active 250 mg PO BID Saline Lock Insert [OM.PC] Routine Oth 06/13/20 16:12 Ordered Sequential Compression Device [OM.PC] Per Unit Routine Oth 06/13/20 18:40 Ordered Resuscitation Status Routine Resus Stat 06/13/20 18:36 Ordered EKG 12 Lead [EK] Routine Ther 06/13/20 16:12 Ordered Medication Orders Amlodipine Besylate (Amlodipine 5 Mg Tab) 5 mg PO DAILY [facility] Last Admin: 06/14/20 10:52 Dose: 5 mg Documented by: BEHZAD Aspirin (Aspirin 81 Mg Tab.Chew) 81 mg PO DAILY [facility] Last Admin: 06/14/20 12:30 Dose: 81 mg Documented by: BEHZAD Atorvastatin Calcium (Atorvastatin 40 Mg Tab) 40 mg PO BEDTIME [facility] Enoxaparin Sodium (Enoxaparin 40 Mg/0.4 Ml Syringe) 40 mg SUBCUT Q24H [facility] Last Admin: 06/14/20 10:56 Dose: Not Given Documented by: BEHZAD Fenofibrate (Fenofibrate Nanocrystallized 145 Mg Tab) 145 mg PO DAILY [facility] Last Admin: 06/14/20 10:52 Dose: 145 mg Documented by: BEHZAD Finasteride (Finasteride 5 Mg Tab) 5 mg PO DAILY [facility] Last Admin: 06/14/20 10:53 Dose: 5 mg Documented by: BEHZAD Sodium Chloride (Normal Saline) 1,000 mls @ 999 mls/hr IV ASDIRECTED [facility] Last Admin: 06/13/20 16:37 Dose: 999 mls/hr Documented by: ERIC Sodium Chloride (Normal Saline) 1,000 mls @ 125 mls/hr IV ASDIRECTED [facility] Last Admin: 06/14/20 04:15 Dose: 125 mls/hr Documented by: Infusion: 06/14/20 04:15 Dose: 125 mls/hr Documented by: Admin: 06/13/20 20:35 Dose: 125 mls/hr Documented by: SOLITARIO Levetiracetam (Levetiracetam 250 Mg Tab) 250 mg PO BID [facility] Last Admin: 06/14/20 10:52 Dose: 250 mg Documented by: Admin: 06/13/20 20:37 Dose: Not Given Documented by: SOLITARIO Metoprolol Tartrate (Metoprolol Tartrate 25 Mg Tab) 37.5 mg PO BID [facility] Last Admin: 06/14/20 10:51 Dose: 37.5 mg Documented by: Admin: 06/13/20 20:37 Dose: Not Given Documented by: SOLITARIO Multivitamins/Minerals (Multivitamins With Iron/Calcium/Folic Acid/Minerals Tab) 1 tab PO DAILY [facility] Last Admin: 06/14/20 10:52 Dose: 1 tab Documented by: BEHZAD Ondansetron HCl (Ondansetron 4 Mg/2 Ml Sdv) 4 mg IV Q4H PRN PRN Reason: Nausea/Vomiting Pantoprazole Sodium (Pantoprazole 40 Mg Tab.Cr) 40 mg PO BIDAC [facility] Last Admin: 06/14/20 10:51 Dose: 40 mg Documented by: BEHZAD Senna/Docusate Sodium (Docusate Sodium/Sennosides 50-8.6 Mg Tab) 1 tab PO BID PRN PRN Reason: Constipation Sodium Chloride (Sodium Chloride 0.9% 10 Ml Syringe) 10 ml FLUSH ASDIRECTED PRN PRN Reason: Keep Vein Open Last Admin: 06/13/20 16:37 Dose: 10 ml Documented by: ERIC Tamsulosin HCl (Tamsulosin 0.4 Mg Cap.Er) 0.4 mg PO BEDTIME [facility] Last Admin: 06/13/20 20:37 Dose: Not Given Documented by: SOLITARIO Assessment/Plan Comment:: 1. Admit to inpatient status for alcohol intoxication, weakness. 2. Alcoholism: CIWAA protocol. Ativan per protocol. 3. Hyponatremia/hypokalemia: resolved with IV fluids and KCL overnight. K 5.4. Saline lock. 4. Diarrhea: no stools since admission. Will continue to monitor and treat as needed. 5. Weakness: PT/OT evaluate & treat. 6. UTI: ruled out, asymptomatic, UA negative nitrites, 0-5 RBC, 0-5 WBCs, moderate LE but occasional epithelials can account for this, few bacteria. Bactrim discontinued. 7. Defiant behavior: has exhibited some behaviors with nursing, cursing at them in response to routine questions. Last PA note also documented similar behavior at [facility]. Secondary to alcoholism. 8. Diet: heart healthy soft diet. 9. Activity: up with assistance, up to chair. 10. DVT prophylaxis: Mindy BERNARD. Refused Lovenox x 2, will restart his Aspirin 81 mg daily. 11. CODE STATUS: FULL. 12. Discharge planning: Melanie Baig, senior production planner met with patient & his cyanide case hardener, Shayna Rendon today about NH placement, applications will be sent out and awaiting NH placement. - Mortality Measure Prognosis:: Poor
--- NOTE | 2020-06-14 18:42 | CR ---
INDICATION: Dyspnea. CHEST, ONE VIEW: AP upright portable view of the chest 06/13/20 was compared with 06/04/20 and 04/03/20. The heart remains normal in size and shape post median sternotomy. The aorta is slightly tortuous. Interdigitation of the right hemidiaphragm leaf with somewhat flattened appearance of the diaphragm leaves raises question of obstructive airway disease, possibly exacerbated compared with previous studies. A definite active infiltrate or effusion was not identified. Severe degenerative changes and probable impingement are present at the glenohumeral joint - acromial interface. IMPRESSION: 1. No definite acute process. 2. Cannot exclude exacerbation of COPD versus simply a slightly better inspiration on the previous study. 3. ASD aorta with post median sternotomy change. 4. Degenerative changes at the glenohumeral joint with possible impingement. Degenerative changes appear to be severe. MTDD
[2020-06-14] MEDS: Tamsulosin 0.4 MG Cap.ER PO SCH (20:23)
[2020-06-14] MEDS: atorvaSTATin 40 MG Tab PO SCH (20:24)
[2020-06-15] MEDS: Pantoprazole 40 MG Tab.CR PO SCH ×3 (06:18→16:45)
[2020-06-15] MEDS: Aspirin 81 MG Tab.Chew PO SCH (09:07)
[2020-06-15] MEDS: levETIRAcetam 250 MG Tab PO SCH ×2 (09:08→21:05)
[2020-06-15] MEDS: Metoprolol Tartrate 25 MG Tab PO SCH ×2 (09:08→21:05)
[2020-06-15] MEDS: Finasteride 5 MG Tab PO SCH (09:08)
[2020-06-15] MEDS: Multivitamins with Iron/Calcium/Folic Acid/Minerals Tab PO SCH (09:08)
[2020-06-15] MEDS: Fenofibrate Nanocrystallized 145 MG Tab PO SCH (09:08)
[2020-06-15] MEDS: amLODIPine 5 MG Tab PO SCH (09:08)
--- NOTE | 2020-06-15 12:59 | PN ---
DATE SEEN: 06/15/2020 SUBJECTIVE: Heladio Casiano is a 70-year-old male admitted with acute alcohol intoxication. Repetitive episodes. Vulnerable adult by any observation. More awake and alert and appropriate today. Little conflictual with his conversations. LABORATORY STUDIES: Hemoglobin 12.8, hematocrit 31.1, electrolytes improved. Sodium 139, potassium 4.2, chloride 105, creatinine 1.4, and GFR improved from 47 to 50. OBJECTIVE: GENERAL: Interactive conversationally. A bit withdrawn when serious questions were asked. HEENT: Mouth and oropharynx clear. NECK: Benign. Thyroid small. CHEST: Clear in all lung mendieta. HEART: No ectopy or murmur. ABDOMEN: Benign. ASSESSMENT: Repetitive alcohol use misuse, cerebrovascular accident with compromised living situation, . PLAN: We will continue with observation and treatment. Discharge planning. No beds at [facility], no beds at [facility] a consideration. Discharge home an opportunity with [facility]. Vulnerability a major issue. /[id number] [phone] /ODALYS
--- NOTE | 2020-06-15 13:55 | LETTER ---
June 15, 2020 To Whom It May Concern: This short conversation is in relationship to Khadar Casiano. date 1950. Heladio is presently an inpatient at [facility] in [place], [place]. I have had the privilege of being Heladio's family doctor over the last many years' duration. His life has been complicated of course to the consequences of his stroke and the limitations therein. Over the last several years' duration, there has been an increasing concern about Khadar's capacity to make good decisions. He has had repeated hospitalizations, repeated ER visits, and a proven track record of overconsumption of alcohol. He has had 5 ER visits and 3 hospitalizations since his discharge from [facility] the first week in May. His poor judgment and lack of making good choices makes him at incredible risk as a vulnerable adult. There is a strong consideration for placement of a guardian to oversee Heladio's medical, personal, and living situations in the upcoming future. Sincerely,
[2020-06-15] MEDS: Tamsulosin 0.4 MG Cap.ER PO SCH (21:05)
[2020-06-15] MEDS: atorvaSTATin 40 MG Tab PO SCH (21:05)
[2020-06-16] MEDS: Pantoprazole 40 MG Tab.CR PO SCH ×2 (06:31→17:12)
[2020-06-16] MEDS: levETIRAcetam 250 MG Tab PO SCH ×2 (08:33→20:02)
[2020-06-16] MEDS: Aspirin 81 MG Tab.Chew PO SCH (08:33)
[2020-06-16] MEDS: amLODIPine 5 MG Tab PO SCH (08:33)
[2020-06-16] MEDS: Multivitamins with Iron/Calcium/Folic Acid/Minerals Tab PO SCH (08:33)
[2020-06-16] MEDS: Fenofibrate Nanocrystallized 145 MG Tab PO SCH (08:33)
[2020-06-16] MEDS: Finasteride 5 MG Tab PO SCH (08:33)
[2020-06-16] MEDS: Metoprolol Tartrate 25 MG Tab PO SCH ×2 (08:34→20:03)
[2020-06-16] MEDS: atorvaSTATin 40 MG Tab PO SCH (20:02)
[2020-06-16] MEDS: Tamsulosin 0.4 MG Cap.ER PO SCH (20:02)
[2020-06-16] MEDS: Acetaminophen 325 MG Tab PO PRN (21:01)
--- NOTE | 2020-06-16 21:40 | PN ---
DATE SEEN: 06/16/2020 SUBJECTIVE: Heladio Casiano is a 70-year-old male admitted with acute alcohol issues. Recurrent repetitive in nature. Ability to care for himself in question. Living situation, senior housing. I spoke at length with the daughter, plans for changing guardianship legally, and discharge plans accordingly. Voices no particular complaints or concerns. PT, OT some, self-sufficient. LABORATORY STUDIES: None since admission. Potassium went from 3.1 to 5.4 to 4.2, sodium from 129 to 139. OBJECTIVE: VITAL SIGNS: 36.1, 115/71, 18, 99%. GENERAL: A gentleman, cooperative, conversant, bit of dysarthric speech. NECK: Benign. CHEST: Clear in all lung mendieta. No adventitious sounds. HEART: No ectopy or murmur. ABDOMEN: Benign. ASSESSMENT: Repetitive alcohol misuse, abuse, stable clinically. PLAN: Comfort measures in place, discharge planning ongoing. [facility] to be considered. /[id number] MEHREEN/ODALYS
[2020-06-17] MEDS: Pantoprazole 40 MG Tab.CR PO SCH ×2 (06:40→17:04)
[2020-06-17] MEDS: Multivitamins with Iron/Calcium/Folic Acid/Minerals Tab PO SCH (08:43)
[2020-06-17] MEDS: Aspirin 81 MG Tab.Chew PO SCH (08:43)
[2020-06-17] MEDS: Finasteride 5 MG Tab PO SCH (08:44)
[2020-06-17] MEDS: amLODIPine 5 MG Tab PO SCH (08:44)
[2020-06-17] MEDS: Metoprolol Tartrate 25 MG Tab PO SCH ×2 (08:44→21:29)
[2020-06-17] MEDS: Fenofibrate Nanocrystallized 145 MG Tab PO SCH (08:44)
[2020-06-17] MEDS: levETIRAcetam 250 MG Tab PO SCH ×2 (08:45→21:29)
--- NOTE | 2020-06-17 10:17 | PN ---
DATE SEEN: 06/17/2020 SUBJECTIVE: Heladio Casiano is a 70-year-old male admitted for post alcohol related complication. Ability to make good choices uncertain. He has had multiple ER and hospital stays related to alcohol. Daughter is looking at vulnerable adult application and some legal recourse. He continues to be without complaints or concerns. PT, OT some, no issues and implications. Describes no pain issue. PHYSICAL EXAMINATION: VITAL SIGNS: 36.6, 78, 130/67, 18, and 96. GENERAL: Appears comfortable. HEENT: Mouth and oropharynx are clear. Poor dentition. NECK: Benign. Thyroid small. CHEST: Clear in all lung mendieta. HEART: No ectopy or murmur. ABDOMEN: Benign. ASSESSMENT: 1. Acute alcohol misuse, abuse. 2. Vulnerable adult. PLAN: Medications, care, and treatment appropriate. No changes. Expectations for discharge early in the week. /[id number] MEHREEN/ODALYS
[2020-06-17] MEDS: Acetaminophen 325 MG Tab PO PRN (17:04)
[2020-06-17] MEDS: Tamsulosin 0.4 MG Cap.ER PO SCH (21:28)
[2020-06-17] MEDS: atorvaSTATin 40 MG Tab PO SCH (21:28)
[2020-06-18] MEDS: Pantoprazole 40 MG Tab.CR PO SCH ×2 (06:30→17:07)
[2020-06-18] MEDS: Acetaminophen 325 MG Tab PO PRN ×2 (08:29→17:05)
[2020-06-18] MEDS: Metoprolol Tartrate 25 MG Tab PO SCH ×2 (08:30→20:28)
[2020-06-18] MEDS: Multivitamins with Iron/Calcium/Folic Acid/Minerals Tab PO SCH (08:31)
[2020-06-18] MEDS: levETIRAcetam 250 MG Tab PO SCH ×2 (08:31→20:35)
[2020-06-18] MEDS: Fenofibrate Nanocrystallized 145 MG Tab PO SCH (08:31)
[2020-06-18] MEDS: Finasteride 5 MG Tab PO SCH (08:31)
[2020-06-18] MEDS: Aspirin 81 MG Tab.Chew PO SCH (08:31)
[2020-06-18] MEDS: amLODIPine 5 MG Tab PO SCH (08:31)
--- NOTE | 2020-06-18 12:50 | PN ---
DATE SEEN: 06/18/2020 SUBJECTIVE: Khadar Casiano is a 70-year-old male admitted with acute recurrent and complicated alcohol use misuse. Has been in a holding pattern. Discharge plan is uncertain. Had been hospitalized with sternal fracture and acute [facility] stay, recently discharged on 05/18/2020, AMA. Blood alcohol on admission was 0.22. Electrolytes satisfactory. Laboratory studies in the meantime, electrolytes back to normal. Creatinine 1.5, BUN 9, GFR 50. Discharge planning to [facility] to be considered today. PHYSICAL EXAMINATION: VITAL SIGNS: Stable. 36.4, 130/76, 20, 98%. GENERAL: Appears comfortable. NECK: Benign. Thyroid small. CHEST: Clear in all lung mendieta. HEART: No ectopy or murmur. ABDOMEN: Benign. ASSESSMENT: 1. Recurrent alcohol misuse, abuse, vulnerable adult. 2. Cerebrovascular accident, spastic paresis, upper extremity, right more than lower extremity. PLAN: Discharge plans is under consideration. /[id number] MEHREEN/ODALYS
[2020-06-18] MEDS: Tamsulosin 0.4 MG Cap.ER PO SCH (20:28)
[2020-06-18] MEDS: atorvaSTATin 40 MG Tab PO SCH (20:36)
[2020-06-19] MEDS: Pantoprazole 40 MG Tab.CR PO SCH ×2 (06:35→17:29)
[2020-06-19] MEDS: Acetaminophen 325 MG Tab PO PRN ×2 (07:59→20:35)
[2020-06-19] MEDS: amLODIPine 5 MG Tab PO SCH (08:00)
[2020-06-19] MEDS: Metoprolol Tartrate 25 MG Tab PO SCH ×2 (08:00→20:36)
[2020-06-19] MEDS: Fenofibrate Nanocrystallized 145 MG Tab PO SCH (08:01)
[2020-06-19] MEDS: Multivitamins with Iron/Calcium/Folic Acid/Minerals Tab PO SCH (08:01)
[2020-06-19] MEDS: Finasteride 5 MG Tab PO SCH (08:02)
[2020-06-19] MEDS: Aspirin 81 MG Tab.Chew PO SCH (08:03)
[2020-06-19] MEDS: levETIRAcetam 250 MG Tab PO SCH ×2 (08:06→20:35)
[2020-06-19] MEDS ORDERED: Tuberculin, PPD 5 Units/0.1 ML 1 ML MDV IDERM ONE (11:00)
--- NOTE | 2020-06-19 12:16 | PN ---
DATE SEEN: 06/19/2020 SUBJECTIVE: Heladio Casiano is a 70-year-old male, acute care intervention. Complicated social living situation, vulnerable adult, and risk for complicating issue. Repetitive ER visits and hospitalizations. During this visit, alcohol level was 0.22. After lengthy discussion, care, and intervention, nursing staff from [facility] has come made a visit and plans for discharge to [facility]. Khadar is up for this opportunity and care. OBJECTIVE: VITAL SIGNS: 36.4, 112/50, pulse 67, 18, 96. GENERAL: Soft spoken, comfortable, appropriate. NECK: Benign. Thyroid small. CHEST: Clear in all lung mendieta. HEART: No ectopy or murmur. ABDOMEN: Benign. ASSESSMENT: Alcohol abuse misuse, vulnerable adult. PLAN: Discharge to [facility] tomorrow. The patient is comfortable, enjoys about this particular plan of care. /[id number] MEHREEN/ODALYS
[2020-06-19] MEDS: atorvaSTATin 40 MG Tab PO SCH (20:35)
[2020-06-19] MEDS: Tamsulosin 0.4 MG Cap.ER PO SCH (20:36)
[2020-06-20] MEDS: Pantoprazole 40 MG Tab.CR PO SCH (06:52)
[2020-06-20] MEDS: Acetaminophen 325 MG Tab PO PRN (08:17)
[2020-06-20] MEDS: Metoprolol Tartrate 25 MG Tab PO SCH (08:18)
[2020-06-20] MEDS: Fenofibrate Nanocrystallized 145 MG Tab PO SCH (08:19)
[2020-06-20] MEDS: amLODIPine 5 MG Tab PO SCH (08:19)
[2020-06-20] MEDS: levETIRAcetam 250 MG Tab PO SCH (08:19)
[2020-06-20] MEDS: Finasteride 5 MG Tab PO SCH (08:19)
[2020-06-20] MEDS: Multivitamins with Iron/Calcium/Folic Acid/Minerals Tab PO SCH (08:19)
[2020-06-20 08:20] VITALS: BP 125/67; PULSE 70
[2020-06-20] MEDS: Aspirin 81 MG Tab.Chew PO SCH (08:20)
--- NOTE | 2020-06-20 12:24 | DISCH ---
DISCHARGE DATE: 06/20/2020 HISTORY OF PRESENT ILLNESS: Khadar Casiano is a 70-year-old male admitted through the emergency room. He has had a history of repetitive ER visits and hospitalization related to alcohol use and misuse. Dr. Fountain, provider of record. Presented with weakness, dyspnea, incontinence of urine and stool, markedly intoxicated alcohol with a blood level of 0.22, and general malaise. He was found to have hyponatremia and hypochloremia, was admitted for observation and treatment. Had been at a local [facility], went AMA. Since that time, there has been multiple issues in relationship to his safety and care. Please see Dr. Fountain's notes. HOSPITAL COURSE: Nothing of great intervention, was hydrated. Electrolytes were rebalanced, was placed on somewhat of an emergency hold. Daughter got involved as vulnerable adult and [id number]. After a lengthy discussion and opportunities, transfer to [facility] was felt to be the next best option. He will be discharged on 06/20/2020. LABORATORY STUDIES: Of significance, hemoglobin 11.6, repeat 12.8; white count 6600, repeat 4500. Electrolytes went from a sodium of 129 to 139, chloride went from 93 to 105. There was mild elevation of liver enzymes, urinalysis was free of complicating issues. COVID negative. DISCHARGE PHYSICAL EXAMINATION: VITAL SIGNS: 36.7, 70, 125/67, 18, and 98%. GENERAL: Appears comfortable. Jovial as always. Conversant always. HEENT: Funduscopic benign. Bright TMs. Clear nasal discharge. Mouth and oropharynx clear. Poor dentition. Tongue midline. Good gag reflex. NECK: Benign. Thyroid small. CHEST: On auscultation, clear in all lung mendieta. HEART: On auscultation, no ectopy or murmur. ABDOMEN: Benign. No hepatosplenomegaly. : Normal male genitalia. EXTREMITIES: Well perfused. Mild venous stasis changes. ASSESSMENT: Chronic recurrent alcohol misuse, abuse. PLAN: Discharge to [facility] timely and appropriate. /[id number] /ODALYS
== END 2020-06-20 10:00 | disposition home or self-care (01) | DRG 897 ==
LOC: FB.ED 15:45 → FB.MS 18:45 → OBSVTOIN 06-14 10:26
PROVIDERS: ADMIT Emergency Medicine; ATTEND Family Medicine
DX: F10.229 Alcohol dependence with intoxication, unspecified (principal); F10.920 Alcohol use, unspecified with intoxication, uncomplicated; E87.1 Hypo-osmolality and hyponatremia; I69.354 Hemiplegia and hemiparesis following cerebral infarction affecting left non-dominant side; I25.810 Atherosclerosis of coronary artery bypass graft(s) without angina pectoris; E87.6 Hypokalemia; H54.7 Unspecified visual loss; H40.9 Unspecified glaucoma; E78.00 Pure hypercholesterolemia, unspecified; Z20.822 Contact with and (suspected) exposure to COVID-19; K21.9 Gastro-esophageal reflux disease without esophagitis; I25.10 Atherosclerotic heart disease of native coronary artery without angina pectoris; F17.210 Nicotine dependence, cigarettes, uncomplicated; E86.0 Dehydration; N18.9 Chronic kidney disease, unspecified; Z51.5 Encounter for palliative care; I12.9 Hypertensive chronic kidney disease with stage 1 through stage 4 chronic kidney disease, or unspecified chronic kidney disease; Y90.7 Blood alcohol level of 200-239 mg/100 ml; R46.89 Other symptoms and signs involving appearance and behavior; R19.7 Diarrhea, unspecified; R53.1 Weakness; G83.9 Paralytic syndrome, unspecified; Z79.899 Other long term (current) drug therapy; Z98.49 Cataract extraction status, unspecified eye; Z88.0 Allergy status to penicillin; Z79.82 Long term (current) use of aspirin; Z90.49 Acquired absence of other specified parts of digestive tract; Z86.69 Personal history of other diseases of the nervous system and sense organs; Z95.1 Presence of aortocoronary bypass graft
CPT/HCPCS: 36415; 71045; 80048; 80053; 80307; 81001; 84484; 85025; 85610; 86580; 87086; 93005; 93010; 96365; 97161-GP; 97165-GO; 99285; 99285-25; A9270-GY; G0378; J1650; J3411; J7030; U0002

== ENCOUNTER 2022-07-12 16:50 | Emergency (ER) | payer MEDICAID, MEDICARE ==
[2022-07-12] MEDS ORDERED: Sodium Chloride 0.9% 10 ML Syringe FLUSH PRN (17:08)
[2022-07-12 17:18] VITALS: BP 158/82; PULSE 64
[2022-07-12] MEDS: Sodium Chloride 0.9% 1,000 ML IV SCH (17:20)
[2022-07-12 17:29] LABS: HEMATOCRIT 46.4 % (38.3-50.1); HEMOGLOBIN 15.5 g/dL (12.9-17.7); MEAN CORPUSCULAR HEMOGLOBIN 30.3 pg (27.0-33.3); MEAN CORPUSCULAR HGB CONC 33.4 g/dL (28.7-35.3); MEAN CORPUSCULAR VOLUME 90.8 fL (80.8-98.7); RED BLOOD CELL COUNT 5.12 x10(6)uL (3.90-5.90); WHITE BLOOD CELL COUNT,WBC 7.2 x10-3/uL (3.2-10.1)
[2022-07-12 17:32] LABS: BLOOD UREA NITROGEN,BUN 7 mg/dL (7-18); BUN/CREATININE RATIO 6.4 (9-20); CARBON DIOXIDE,CO2 23 mmol/L (21-32); CHLORIDE,CL 100 mmol/L (100-110); CREATININE 1.1 mg/dL (0.70-1.30); ESTIMATED GFR 72 mL/min (>60); GLUCOSE RANDOM 70 mg/dL (80-116); POTASSIUM,K 3.4 mmol/L (3.5-5.3); SODIUM,NA 138 mmol/L (135-145)
[2022-07-12 17:41] LABS: ETHANOL BLOOD MEDICAL 0.07 % (<0.03); TROPONIN I 38.2 pg/mL (4.0-60.3)
[2022-07-12] MEDS: Magnesium Sulfate/Water 4 GM in Premix Bag 1 BAG IV ONE (17:55)
[2022-07-12 18:03] LABS: APPEARANCE,URINE SLIGHTLY CLOUDY (CLEAR); BACTERIA,URINE MANY (NS); BILIRUBIN,URINE NEGATIVE (NEGATIVE); COLOR,URINE YELLOW (YELLOW); GLUCOSE,URINE NORMAL (NORMAL); KETONES,URINE NEGATIVE (NEGATIVE); LEUKOCYTE ESTERASE,URINE LARGE (NEGATIVE); NITRITE,URINE POSITIVE (NEGATIVE); OCCULT BLOOD,URINE NEGATIVE (NEGATIVE); PH,URINE 6.5 (5.0-6.5); PROTEIN,URINE NEGATIVE (NEGATIVE); RBC,URINE 0-5 (0-5); SQUAMOUS EPITHELIAL CELLS,UR FEW (NS,R,O); UROBILINOGEN,URINE NORMAL (NEGATIVE); WBC,URINE 20-30 (0-5)
[2022-07-12] MEDS: Potassium Chloride 20 MEQ Tab.ER PO ONE (18:26)
== END 2022-07-12 23:19 | disposition home or self-care (01) ==
LOC: FB.ED 16:50
DX: E83.42 Hypomagnesemia (principal); K21.9 Gastro-esophageal reflux disease without esophagitis; I25.10 Atherosclerotic heart disease of native coronary artery without angina pectoris; E78.00 Pure hypercholesterolemia, unspecified; I10 Essential (primary) hypertension; Z88.0 Allergy status to penicillin; Z79.82 Long term (current) use of aspirin; Z79.899 Other long term (current) drug therapy; Z72.0 Tobacco use
CPT/HCPCS: 36415; 71045; 80048; 80307; 81001; 83690; 83735; 84484; 85027; 85379; 87086; 93005; 96361; 96365; 96366; 99284; A9270; J3475; J7030

== ENCOUNTER 2023-01-23 21:42 | Emergency (ER) | payer MEDICARE ==
[2023-01-23] MEDS ORDERED: Sodium Chloride 0.9% 10 ML Syringe FLUSH PRN (22:46)
[2023-01-23 23:15] LABS: BASOPHILS ABSOLUTE AUTO 0.1 x10-3/uL (0.0-0.3); BASOPHILS PERCENT AUTO 0.6 % (0.3-3.8); EOSINOPHILS ABSOLUTE AUTO 0.1 x10-3/uL (0.0-0.6); EOSINOPHILS PERCENT AUTO 0.6 % (0.1-6.8); HEMATOCRIT 38.2 % (38.3-50.1); HEMOGLOBIN 12.7 g/dL (12.9-17.7); LYMPHOCYTES PERCENT AUTO 7.7 % (15.8-45.3); MEAN CORPUSCULAR HEMOGLOBIN 29.8 pg (27.0-33.3); MEAN CORPUSCULAR HGB CONC 33.2 g/dL (28.7-35.3); MEAN CORPUSCULAR VOLUME 89.9 fL (80.8-98.7); MEAN PLATELET VOLUME 8.4 fL (6.7-11.0); MONOCYTES ABSOLUTE AUTO 1.1 x10-3/uL (0.0-1.2); MONOCYTES PERCENT AUTO 8.1 % (5.5-15.2); NEUTROPHILS ABSOLUTE AUTO 10.9 x10-3/uL (1.7-6.9); PLATELET COUNT,PLT 281 x10(3)uL (117-477); RED BLOOD CELL COUNT 4.26 x10(6)uL (3.90-5.90); RED CELL DISTRIBUTION WIDTH 14.3 % (12.4-15.0); WHITE BLOOD CELL COUNT,WBC 13.2 x10-3/uL (3.2-10.1)
[2023-01-23 23:20] LABS: BLOOD UREA NITROGEN,BUN 15 mg/dL (7-18); BUN/CREATININE RATIO 13.6 (9-20); CARBON DIOXIDE,CO2 27 mmol/L (21-32); CHLORIDE,CL 98 mmol/L (100-110); CREATININE 1.1 mg/dL (0.70-1.30); ESTIMATED GFR 72 mL/min (>60); GLUCOSE RANDOM 141 mg/dL (80-116); POTASSIUM,K 2.9 mmol/L (3.5-5.3); SODIUM,NA 136 mmol/L (135-145)
[2023-01-23 23:26] LABS: A/G RATIO 0.7; ALANINE AMINOTRANSFERASE,ALT 20 U/L (12-36); ALKALINE PHOSPHATASE 111 IU/L (56-112); ASPARTATE AMNIOTRANSFERASE,AST 24 IU/L (5-25); BILIRUBIN TOTAL 1.2 mg/dL (0.1-1.3); CREATINE KINASE,CK 66 IU/L (60-160); PROTEIN TOTAL,TP 7.2 g/dL (6.0-8.0)
[2023-01-23 23:46] LABS: INR 1.07 (1.00-1.24); PTT,PARTIAL THROMBOPLSTIN TIME 31.6 SECONDS (24.4-33.2)
[2023-01-24] MEDS ORDERED: Morphine 4 MG/ML VIAL IVPUSH ONE (01:20)
[2023-01-24] MEDS ORDERED: NS + KCl 20mEq/L 1,000 ML IV SCH (01:30)
[2023-01-24] MEDS ORDERED: Morphine 4 MG/ML VIAL IVPUSH PRN (08:12)
[2023-01-24 08:49] VITALS: BP 164/82; PULSE 80
[2023-01-24 08:52] LABS: APPEARANCE,URINE SLIGHTLY CLOUDY (CLEAR); BILIRUBIN,URINE NEGATIVE (NEGATIVE); COLOR,URINE YELLOW (YELLOW); GLUCOSE,URINE NORMAL (NORMAL); KETONES,URINE NEGATIVE (NEGATIVE); LEUKOCYTE ESTERASE,URINE NEGATIVE (NEGATIVE); NITRITE,URINE POSITIVE (NEGATIVE); OCCULT BLOOD,URINE MODERATE (NEGATIVE); PROTEIN,URINE TRACE mg/dL (NEGATIVE); RBC,URINE 0-5 (0-5); SQUAMOUS EPITHELIAL CELLS,UR OCCASIONAL (NS,R,O); UROBILINOGEN,URINE NORMAL (NEGATIVE); WBC,URINE 20-30 (0-5)
[2023-01-24 08:53] LABS: BACTERIA,URINE MANY (NS)
== END 2023-01-24 09:02 ==
LOC: FB.ED 21:42
DX: S72.102A Unspecified trochanteric fracture of left femur, initial encounter for closed fracture (principal); E87.6 Hypokalemia; R29.6 Repeated falls; I10 Essential (primary) hypertension; E78.00 Pure hypercholesterolemia, unspecified; I25.10 Atherosclerotic heart disease of native coronary artery without angina pectoris; K21.9 Gastro-esophageal reflux disease without esophagitis; Z86.73 Personal history of transient ischemic attack (TIA), and cerebral infarction without residual deficits; Z79.82 Long term (current) use of aspirin; Z79.899 Other long term (current) drug therapy; W18.30XA Fall on same level, unspecified, initial encounter; Z95.5 Presence of coronary angioplasty implant and graft
CPT/HCPCS: 36415; 71045; 73501; 73562; 80053; 81001; 82550; 84484; 85025; 85610; 85730; 87086; 96365; 96366; 96375; 96376; 99284; J2270; J3480; J3490

== ENCOUNTER 2023-02-02 07:46 | Inpatient (IN) | payer MEDICARE ==
[2023-02-02] MEDS ORDERED: Acetaminophen/oxyCODONE 325-5 MG Tab PO SCH (14:30)
[2023-02-02] MEDS: Pregabalin 100 MG Cap PO SCH ×2 (15:10→21:22)
[2023-02-02] MEDS: Acetaminophen 500 MG Tab PO SCH ×2 (15:11→21:15)
[2023-02-02] MEDS: Acetaminophen/oxyCODONE 325-5 MG Tab PO SCH (21:11)
[2023-02-02] MEDS: Sennosides/Docusate Sodium 50-8.6 MG Tab PO SCH (21:14)
[2023-02-02] MEDS: Tamsulosin 0.4 MG Cap.ER PO SCH (21:14)
[2023-02-02] MEDS: atorvaSTATin 40 MG Tab PO SCH (21:15)
[2023-02-02] MEDS: levETIRAcetam 250 MG Tab PO SCH (21:15)
[2023-02-02] MEDS: Metoprolol Tartrate 25 MG Tab PO SCH (21:19)
[2023-02-02 21:54] LABS: BLOOD UREA NITROGEN,BUN 24 mg/dL (7-18); CALCIUM 8.7 mg/dL (8.6-10.2); CARBON DIOXIDE,CO2 26 mmol/L (21-32); CHLORIDE,CL 106 mmol/L (100-110); CREATININE 1.2 mg/dL (0.70-1.30); EST CRCL DRUG DOSING (CG) 48.61 mL/min; ESTIMATED GFR 65 mL/min (>60); GLUCOSE RANDOM 138 mg/dL (80-116); POTASSIUM,K 3.7 mmol/L (3.5-5.3); SODIUM,NA 141 mmol/L (135-145)
[2023-02-02 21:55] LABS: BASOPHILS ABSOLUTE AUTO 0.1 x10-3/uL (0.0-0.3); BASOPHILS PERCENT AUTO 1.2 % (0.3-3.8); EOSINOPHILS ABSOLUTE AUTO 0.1 x10-3/uL (0.0-0.6); EOSINOPHILS PERCENT AUTO 1.2 % (0.1-6.8); HEMATOCRIT 25.6 % (38.3-50.1); LYMPHOCYTES ABSOLUTE AUTO 2.1 x10-3/uL (0.5-4.5); LYMPHOCYTES PERCENT AUTO 18.8 % (15.8-45.3); MEAN CORPUSCULAR HEMOGLOBIN 31.5 pg (27.0-33.3); MEAN CORPUSCULAR HGB CONC 35.1 g/dL (28.7-35.3); MEAN CORPUSCULAR VOLUME 89.8 fL (80.8-98.7); MEAN PLATELET VOLUME 8.9 fL (6.7-11.0); MONOCYTES ABSOLUTE AUTO 0.5 x10-3/uL (0.0-1.2); MONOCYTES PERCENT AUTO 4.5 % (5.5-15.2); NEUTROPHILS ABSOLUTE AUTO 8.5 x10-3/uL (1.7-6.9); NEUTROPHILS PERCENT AUTO 74.3 % (40.3-71.8); PLATELET COUNT,PLT 375 x10(3)uL (117-477); RED BLOOD CELL COUNT 2.85 x10(6)uL (3.90-5.90); RED CELL DISTRIBUTION WIDTH 15.4 % (12.4-15.0); WHITE BLOOD CELL COUNT,WBC 11.4 x10-3/uL (3.2-10.1)
[2023-02-03] MEDS: Acetaminophen/oxyCODONE 325-5 MG Tab PO SCH ×4 (02:06→20:18)
[2023-02-03] MEDS: Metoprolol Tartrate 25 MG Tab PO SCH ×2 (08:48→20:24)
[2023-02-03] MEDS: Finasteride 5 MG Tab PO SCH (08:48)
[2023-02-03] MEDS: Acetaminophen 500 MG Tab PO SCH ×3 (08:48→20:21)
[2023-02-03] MEDS: levETIRAcetam 250 MG Tab PO SCH ×2 (08:48→20:22)
[2023-02-03] MEDS: Aspirin 81 MG Tab.EC PO SCH (08:48)
[2023-02-03] MEDS: Enoxaparin 40 MG/0.4 ML Syringe SUBCUT SCH (08:49)
[2023-02-03] MEDS: Polyethylene Glycol 3350 Powder 17 GM Packet PO SCH (08:49)
[2023-02-03] MEDS: amLODIPine 10 MG Tab PO SCH (08:49)
[2023-02-03] MEDS: Multivitamins with Iron/Calcium/Folic Acid/Minerals Tab PO SCH (08:49)
[2023-02-03] MEDS: Sennosides/Docusate Sodium 50-8.6 MG Tab PO SCH ×2 (08:49→20:21)
[2023-02-03] MEDS: Pregabalin 100 MG Cap PO SCH ×3 (08:49→20:19)
[2023-02-03] MEDS: Pantoprazole 40 MG Tab.CR PO SCH (11:22)
[2023-02-03] MEDS: atorvaSTATin 40 MG Tab PO SCH (20:21)
[2023-02-03] MEDS: Tamsulosin 0.4 MG Cap.ER PO SCH (20:22)
[2023-02-04] MEDS: Acetaminophen/oxyCODONE 325-5 MG Tab PO SCH ×4 (01:06→20:04)
[2023-02-04] MEDS: Pantoprazole 40 MG Tab.CR PO SCH (06:41)
[2023-02-04] MEDS: Aspirin 81 MG Tab.EC PO SCH (09:02)
[2023-02-04] MEDS: Metoprolol Tartrate 25 MG Tab PO SCH ×2 (09:02→20:06)
[2023-02-04] MEDS: levETIRAcetam 250 MG Tab PO SCH ×2 (09:02→20:13)
[2023-02-04] MEDS: Enoxaparin 40 MG/0.4 ML Syringe SUBCUT SCH (09:03)
[2023-02-04] MEDS: Pregabalin 100 MG Cap PO SCH ×3 (09:04→20:06)
[2023-02-04] MEDS: Polyethylene Glycol 3350 Powder 17 GM Packet PO SCH (09:04)
[2023-02-04] MEDS: amLODIPine 10 MG Tab PO SCH (09:04)
[2023-02-04] MEDS: Finasteride 5 MG Tab PO SCH (09:04)
[2023-02-04] MEDS: Multivitamins with Iron/Calcium/Folic Acid/Minerals Tab PO SCH (09:05)
[2023-02-04] MEDS: Acetaminophen 500 MG Tab PO SCH ×3 (09:05→20:11)
[2023-02-04] MEDS: Sennosides/Docusate Sodium 50-8.6 MG Tab PO SCH (09:05)
[2023-02-04] MEDS ORDERED: Loperamide 2 MG Cap PO PRN (09:39)
[2023-02-04] MEDS ORDERED: Polyethylene Glycol 3350 Powder 17 GM Packet PO PRN (10:00)
[2023-02-04] MEDS ORDERED: Sennosides/Docusate Sodium 50-8.6 MG Tab PO PRN (10:00)
[2023-02-04] MEDS: Tamsulosin 0.4 MG Cap.ER PO SCH (20:06)
[2023-02-04] MEDS: atorvaSTATin 40 MG Tab PO SCH (20:13)
[2023-02-05] MEDS: Acetaminophen/oxyCODONE 325-5 MG Tab PO SCH ×4 (02:23→20:24)
[2023-02-05] MEDS: Pantoprazole 40 MG Tab.CR PO SCH (05:45)
[2023-02-05] MEDS: Aspirin 81 MG Tab.EC PO SCH (08:00)
[2023-02-05] MEDS: Metoprolol Tartrate 25 MG Tab PO SCH ×2 (08:01→20:41)
[2023-02-05] MEDS: levETIRAcetam 250 MG Tab PO SCH ×2 (08:01→20:31)
[2023-02-05] MEDS: Enoxaparin 40 MG/0.4 ML Syringe SUBCUT SCH (08:02)
[2023-02-05] MEDS: Pregabalin 100 MG Cap PO SCH ×3 (08:04→20:31)
[2023-02-05] MEDS: amLODIPine 10 MG Tab PO SCH (08:04)
[2023-02-05] MEDS: Multivitamins with Iron/Calcium/Folic Acid/Minerals Tab PO SCH (08:05)
[2023-02-05] MEDS: Acetaminophen 500 MG Tab PO SCH ×3 (08:05→20:27)
[2023-02-05] MEDS: Finasteride 5 MG Tab PO SCH (08:05)
[2023-02-05] MEDS: Tamsulosin 0.4 MG Cap.ER PO SCH (20:31)
[2023-02-05] MEDS: atorvaSTATin 40 MG Tab PO SCH (20:31)
[2023-02-06] MEDS: Acetaminophen/oxyCODONE 325-5 MG Tab PO SCH ×4 (02:31→20:14)
[2023-02-06] MEDS: Pantoprazole 40 MG Tab.CR PO SCH (05:57)
[2023-02-06] MEDS: Pregabalin 100 MG Cap PO SCH ×3 (08:25→20:23)
[2023-02-06] MEDS: Metoprolol Tartrate 25 MG Tab PO SCH ×2 (08:27→20:24)
[2023-02-06] MEDS: levETIRAcetam 250 MG Tab PO SCH ×2 (08:28→20:18)
[2023-02-06] MEDS: amLODIPine 10 MG Tab PO SCH (08:28)
[2023-02-06] MEDS: Multivitamins with Iron/Calcium/Folic Acid/Minerals Tab PO SCH (08:28)
[2023-02-06] MEDS: Finasteride 5 MG Tab PO SCH (08:28)
[2023-02-06] MEDS: Aspirin 81 MG Tab.EC PO SCH (08:28)
[2023-02-06] MEDS: Enoxaparin 40 MG/0.4 ML Syringe SUBCUT SCH (08:29)
[2023-02-06] MEDS: Acetaminophen 500 MG Tab PO SCH ×3 (09:23→20:16)
[2023-02-06] MEDS: Tamsulosin 0.4 MG Cap.ER PO SCH (20:17)
[2023-02-06] MEDS: atorvaSTATin 40 MG Tab PO SCH (20:18)
[2023-02-07] MEDS: Acetaminophen/oxyCODONE 325-5 MG Tab PO SCH ×4 (02:16→20:19)
[2023-02-07] MEDS: Pantoprazole 40 MG Tab.CR PO SCH (05:56)
[2023-02-07] MEDS: levETIRAcetam 250 MG Tab PO SCH ×2 (08:23→20:15)
[2023-02-07] MEDS: Finasteride 5 MG Tab PO SCH (08:23)
[2023-02-07] MEDS: Pregabalin 100 MG Cap PO SCH ×3 (08:23→20:18)
[2023-02-07] MEDS: Multivitamins with Iron/Calcium/Folic Acid/Minerals Tab PO SCH (08:23)
[2023-02-07] MEDS: Metoprolol Tartrate 25 MG Tab PO SCH ×2 (08:24→20:16)
[2023-02-07] MEDS: amLODIPine 10 MG Tab PO SCH (08:24)
[2023-02-07] MEDS: Aspirin 81 MG Tab.EC PO SCH (08:24)
[2023-02-07] MEDS: Enoxaparin 40 MG/0.4 ML Syringe SUBCUT SCH (08:25)
[2023-02-07] MEDS: Acetaminophen 500 MG Tab PO SCH ×3 (08:25→20:14)
[2023-02-07] MEDS: Tamsulosin 0.4 MG Cap.ER PO SCH (20:16)
[2023-02-07] MEDS: atorvaSTATin 40 MG Tab PO SCH (20:16)
[2023-02-08] MEDS: Acetaminophen/oxyCODONE 325-5 MG Tab PO SCH ×4 (02:41→19:58)
[2023-02-08] MEDS: Pantoprazole 40 MG Tab.CR PO SCH (07:07)
[2023-02-08] MEDS: Multivitamins with Iron/Calcium/Folic Acid/Minerals Tab PO SCH (08:39)
[2023-02-08] MEDS: Aspirin 81 MG Tab.EC PO SCH (08:39)
[2023-02-08] MEDS: Finasteride 5 MG Tab PO SCH (08:39)
[2023-02-08] MEDS: Metoprolol Tartrate 25 MG Tab PO SCH ×2 (08:39→20:03)
[2023-02-08] MEDS: levETIRAcetam 250 MG Tab PO SCH ×2 (08:39→20:04)
[2023-02-08] MEDS: amLODIPine 10 MG Tab PO SCH (08:40)
[2023-02-08] MEDS: Enoxaparin 40 MG/0.4 ML Syringe SUBCUT SCH (08:40)
[2023-02-08] MEDS: Pregabalin 100 MG Cap PO SCH ×3 (08:41→20:04)
[2023-02-08] MEDS: Acetaminophen 500 MG Tab PO SCH ×3 (08:42→20:04)
[2023-02-08] MEDS: atorvaSTATin 40 MG Tab PO SCH (20:04)
[2023-02-08] MEDS: Tamsulosin 0.4 MG Cap.ER PO SCH (20:04)
[2023-02-09] MEDS: Acetaminophen/oxyCODONE 325-5 MG Tab PO SCH ×4 (02:16→20:20)
[2023-02-09] MEDS: Pantoprazole 40 MG Tab.CR PO SCH (06:06)
[2023-02-09] MEDS: Aspirin 81 MG Tab.EC PO SCH (08:31)
[2023-02-09] MEDS: levETIRAcetam 250 MG Tab PO SCH ×2 (08:31→20:24)
[2023-02-09] MEDS: Multivitamins with Iron/Calcium/Folic Acid/Minerals Tab PO SCH (08:32)
[2023-02-09] MEDS: Acetaminophen 500 MG Tab PO SCH ×3 (08:32→20:24)
[2023-02-09] MEDS: Enoxaparin 40 MG/0.4 ML Syringe SUBCUT SCH (08:32)
[2023-02-09] MEDS: Pregabalin 100 MG Cap PO SCH ×3 (08:32→20:23)
[2023-02-09] MEDS: Finasteride 5 MG Tab PO SCH (08:32)
[2023-02-09] MEDS: amLODIPine 10 MG Tab PO SCH (08:52)
[2023-02-09] MEDS: Metoprolol Tartrate 25 MG Tab PO SCH ×2 (09:35→20:25)
[2023-02-09] MEDS: atorvaSTATin 40 MG Tab PO SCH (20:24)
[2023-02-09] MEDS: Tamsulosin 0.4 MG Cap.ER PO SCH (20:24)
[2023-02-10] MEDS: Acetaminophen/oxyCODONE 325-5 MG Tab PO SCH ×4 (02:06→20:08)
[2023-02-10] MEDS: Pantoprazole 40 MG Tab.CR PO SCH (05:28)
[2023-02-10] MEDS: Aspirin 81 MG Tab.EC PO SCH (09:23)
[2023-02-10] MEDS: Enoxaparin 40 MG/0.4 ML Syringe SUBCUT SCH (09:24)
[2023-02-10] MEDS: Pregabalin 100 MG Cap PO SCH ×3 (09:24→20:17)
[2023-02-10] MEDS: levETIRAcetam 250 MG Tab PO SCH ×2 (09:24→20:15)
[2023-02-10] MEDS: Multivitamins with Iron/Calcium/Folic Acid/Minerals Tab PO SCH (09:25)
[2023-02-10] MEDS: Acetaminophen 500 MG Tab PO SCH ×3 (09:25→20:10)
[2023-02-10] MEDS: Finasteride 5 MG Tab PO SCH (09:25)
[2023-02-10] MEDS: amLODIPine 10 MG Tab PO SCH (10:14)
[2023-02-10] MEDS: Metoprolol Tartrate 25 MG Tab PO SCH ×2 (10:16→20:16)
[2023-02-10] MEDS: Tamsulosin 0.4 MG Cap.ER PO SCH (20:15)
[2023-02-10] MEDS: atorvaSTATin 40 MG Tab PO SCH (20:15)
[2023-02-11] MEDS: Acetaminophen/oxyCODONE 325-5 MG Tab PO SCH ×4 (02:08→21:11)
[2023-02-11] MEDS: Pantoprazole 40 MG Tab.CR PO SCH (06:06)
[2023-02-11] MEDS: Enoxaparin 40 MG/0.4 ML Syringe SUBCUT SCH (08:12)
[2023-02-11] MEDS: Pregabalin 100 MG Cap PO SCH ×3 (08:12→21:21)
[2023-02-11] MEDS: Acetaminophen 500 MG Tab PO SCH ×3 (08:13→21:21)
[2023-02-11] MEDS: Multivitamins with Iron/Calcium/Folic Acid/Minerals Tab PO SCH (08:14)
[2023-02-11] MEDS: Aspirin 81 MG Tab.EC PO SCH (08:14)
[2023-02-11] MEDS: levETIRAcetam 250 MG Tab PO SCH ×2 (08:15→21:19)
[2023-02-11] MEDS: Metoprolol Tartrate 25 MG Tab PO SCH ×2 (08:16→21:20)
[2023-02-11] MEDS: amLODIPine 10 MG Tab PO SCH (10:36)
[2023-02-11] MEDS: Finasteride 5 MG Tab PO SCH (10:36)
[2023-02-11] MEDS: Tamsulosin 0.4 MG Cap.ER PO SCH (21:19)
[2023-02-11] MEDS: atorvaSTATin 40 MG Tab PO SCH (21:20)
[2023-02-12] MEDS: Acetaminophen/oxyCODONE 325-5 MG Tab PO SCH ×4 (02:24→20:26)
[2023-02-12] MEDS: Pantoprazole 40 MG Tab.CR PO SCH (06:14)
[2023-02-12] MEDS: Acetaminophen 500 MG Tab PO SCH ×3 (08:50→20:31)
[2023-02-12] MEDS: levETIRAcetam 250 MG Tab PO SCH ×2 (08:50→20:29)
[2023-02-12] MEDS: Aspirin 81 MG Tab.EC PO SCH (08:50)
[2023-02-12] MEDS: Pregabalin 100 MG Cap PO SCH ×3 (08:50→20:31)
[2023-02-12] MEDS: Multivitamins with Iron/Calcium/Folic Acid/Minerals Tab PO SCH (08:50)
[2023-02-12] MEDS: amLODIPine 10 MG Tab PO SCH (08:51)
[2023-02-12] MEDS: Finasteride 5 MG Tab PO SCH (08:51)
[2023-02-12] MEDS: Metoprolol Tartrate 25 MG Tab PO SCH ×2 (08:51→20:30)
[2023-02-12] MEDS: Enoxaparin 40 MG/0.4 ML Syringe SUBCUT SCH (08:52)
[2023-02-12] MEDS: Tamsulosin 0.4 MG Cap.ER PO SCH (20:29)
[2023-02-12] MEDS: atorvaSTATin 40 MG Tab PO SCH (20:29)
[2023-02-13] MEDS: Acetaminophen/oxyCODONE 325-5 MG Tab PO SCH ×2 (02:08→08:53)
[2023-02-13] MEDS: Pantoprazole 40 MG Tab.CR PO SCH (06:01)
[2023-02-13] MEDS: Acetaminophen 500 MG Tab PO SCH (08:54)
[2023-02-13] MEDS: levETIRAcetam 250 MG Tab PO SCH (08:54)
[2023-02-13] MEDS: Aspirin 81 MG Tab.EC PO SCH (08:54)
[2023-02-13] MEDS: Finasteride 5 MG Tab PO SCH (08:55)
[2023-02-13] MEDS: Multivitamins with Iron/Calcium/Folic Acid/Minerals Tab PO SCH (08:55)
[2023-02-13] MEDS: Pregabalin 100 MG Cap PO SCH (08:57)
[2023-02-13] MEDS: Metoprolol Tartrate 25 MG Tab PO SCH (09:02)
[2023-02-13] MEDS: amLODIPine 10 MG Tab PO SCH (09:02)
[2023-02-13] MEDS: Enoxaparin 40 MG/0.4 ML Syringe SUBCUT SCH (09:04)
[2023-02-13 09:07] VITALS: BP 135/79
[2023-02-13 13:28] VITALS: PULSE 84
== END 2023-02-13 11:50 | DRG 561 ==
LOC: FB.MS 12:36
PROVIDERS: ADMIT Family Medicine; ATTEND Family Medicine
DX: S72.142D Displaced intertrochanteric fracture of left femur, subsequent encounter for closed fracture with routine healing (principal); R53.1 Weakness; E78.00 Pure hypercholesterolemia, unspecified; I25.10 Atherosclerotic heart disease of native coronary artery without angina pectoris; K21.9 Gastro-esophageal reflux disease without esophagitis; Z96.649 Presence of unspecified artificial hip joint; F17.210 Nicotine dependence, cigarettes, uncomplicated; E11.22 Type 2 diabetes mellitus with diabetic chronic kidney disease; I12.9 Hypertensive chronic kidney disease with stage 1 through stage 4 chronic kidney disease, or unspecified chronic kidney disease; N18.30 Chronic kidney disease, stage 3 unspecified; F10.10 Alcohol abuse, uncomplicated; M25.511 Pain in right shoulder; G89.29 Other chronic pain; X58.XXXD Exposure to other specified factors, subsequent encounter; Z88.0 Allergy status to penicillin; Z79.899 Other long term (current) drug therapy; Z79.82 Long term (current) use of aspirin; Z79.01 Long term (current) use of anticoagulants; Z95.1 Presence of aortocoronary bypass graft; Z87.81 Personal history of (healed) traumatic fracture; Z86.73 Personal history of transient ischemic attack (TIA), and cerebral infarction without residual deficits; Z98.890 Other specified postprocedural states
CPT/HCPCS: 36415; 71045; 72170; 73552-LT; 80048; 84484; 85025; 93005; 97110-GP; 97161-GP; 97165-GO; 97530-GO; 97530-GP; 97535-GO; A9270-GY; J1650; U0002

== ENCOUNTER 2023-03-12 10:53 | Inpatient (IN) | payer MEDICARE, MEDICAID ==
[2023-03-12] MEDS ORDERED: Sodium Chloride 0.9% 10 ML Syringe FLUSH PRN (11:36)
[2023-03-12] MEDS ORDERED: REMDESIVIR 200 MG in Sodium Chloride 0.9% 250 ML IV ONE (11:36)
[2023-03-12] MEDS ORDERED: Dexamethasone 4 MG/ML 5 ML MDV IVPUSH ONE (11:36)
[2023-03-12] MEDS ORDERED: Albuterol/Ipratropium 3.0-0.5 MG/3 ML Neb Soln NEB ONE (11:38)
[2023-03-12] MEDS ORDERED: REMDESIVIR 100 MG in Sodium Chloride 0.9% 100 ML IV SCH (12:00)
[2023-03-12 12:18] LABS: HEMATOCRIT 37.7 % (38.3-50.1); HEMOGLOBIN 12.6 g/dL (12.9-17.7); MEAN CORPUSCULAR HEMOGLOBIN 29.2 pg (27.0-33.3); MEAN CORPUSCULAR HGB CONC 33.4 g/dL (28.7-35.3); MEAN CORPUSCULAR VOLUME 87.5 fL (80.8-98.7); MEAN PLATELET VOLUME 8.6 fL (6.7-11.0); PLATELET COUNT,PLT 225 x10(3)uL (117-477); RED BLOOD CELL COUNT 4.31 x10(6)uL (3.90-5.90); RED CELL DISTRIBUTION WIDTH 15.2 % (12.4-15.0); WHITE BLOOD CELL COUNT,WBC 13.5 x10-3/uL (3.2-10.1)
[2023-03-12 12:20] LABS: BLOOD UREA NITROGEN,BUN 44 mg/dL (7-18); BUN/CREATININE RATIO 33.8 (9-20); CALCIUM 9.3 mg/dL (8.6-10.2); CARBON DIOXIDE,CO2 19 mmol/L (21-32); CHLORIDE,CL 102 mmol/L (100-110); CREATININE 1.3 mg/dL (0.70-1.30); EST CRCL DRUG DOSING (CG) 40.79 mL/min; ESTIMATED GFR 59 mL/min (>60); GLUCOSE RANDOM 108 mg/dL (80-116); POTASSIUM,K 4.6 mmol/L (3.5-5.3); SODIUM,NA 130 mmol/L (135-145)
[2023-03-12 12:26] LABS: BASE EXCESS VENOUS,POC -6 mmol/L (-2 - 3+); PCO2 VENOUS,POC 23 mmHg (41-51); PH VENOUS,POC 7.45 pH Units (7.32-7.43)
[2023-03-12 12:27] LABS: ALANINE AMINOTRANSFERASE,ALT 22 U/L (12-36); ALKALINE PHOSPHATASE 143 IU/L (56-112); ASPARTATE AMNIOTRANSFERASE,AST 26 IU/L (5-25); BILIRUBIN TOTAL 0.4 mg/dL (0.1-1.3); PROTEIN TOTAL,TP 7.6 g/dL (6.0-8.0)
[2023-03-12 12:31] LABS: LACTIC ACID 0.5 mmol/L (0.4-2.0)
[2023-03-12 12:32] LABS: A/G RATIO 0.7; ALBUMIN 3.1 g/dL (3.2-4.6)
[2023-03-12 12:33] LABS: BAND PERCENT MAN 7 % (0-6); LYMPHOCYTES PERCENT MAN 11 % (13-37); MONOCYTES PERCENT MAN 1 % (4-12); SEG NEUTROPHILS PERCENT MAN 81 % (46-82)
[2023-03-12 12:34] LABS: TROPONIN I 6.9 pg/mL (4.0-60.3)
[2023-03-12 12:39] LABS: D-DIMER QUANTITATIVE 0.71 mg/LFEU (0.0-0.59)
[2023-03-12 12:43] LABS: INR 0.98 (1.00-1.24); PROTHROMBIN TIME 10.2 sec (9.0-11.1); PTT,PARTIAL THROMBOPLSTIN TIME 35.6 SECONDS (24.4-33.2)
[2023-03-12] MEDS ORDERED: Sodium Chloride 0.9% 1,000 ML IV SCH (13:00)
[2023-03-12] MEDS ORDERED: Iopamidol 755 Mg/ML 100 ML Bottle IV SCH (15:15)
[2023-03-12] MEDS ORDERED: Ondansetron 4 MG/2 ML SDV IV PRN (15:44)
[2023-03-12] MEDS ORDERED: Acetaminophen 325 MG Tab PO PRN (15:44)
[2023-03-12] MEDS ORDERED: Sennosides/Docusate Sodium 50-8.6 MG Tab PO PRN (15:44)
[2023-03-12] MEDS: Sodium Chloride 0.9% 1,000 ML IV SCH (16:57)
[2023-03-12] MEDS: Enoxaparin 40 MG/0.4 ML Syringe SUBCUT SCH (17:08)
[2023-03-12] MEDS: Albuterol 0.083% 2.5 MG/3 ML Neb Soln NEB PRN (23:08)
[2023-03-13] MEDS: Sodium Chloride 0.9% 1,000 ML IV SCH (03:11)
[2023-03-13 05:53] LABS: BILIRUBIN,URINE NEGATIVE (NEGATIVE); GLUCOSE,URINE NORMAL (NORMAL); KETONES,URINE NEGATIVE (NEGATIVE); LEUKOCYTE ESTERASE,URINE SMALL (NEGATIVE); NITRITE,URINE NEGATIVE (NEGATIVE); OCCULT BLOOD,URINE TRACE (NEGATIVE); PROTEIN,URINE NEGATIVE (NEGATIVE); UROBILINOGEN,URINE NORMAL (NEGATIVE)
[2023-03-13] MEDS: Albuterol 0.083% 2.5 MG/3 ML Neb Soln NEB PRN (05:56)
[2023-03-13 06:06] LABS: COLOR,URINE YELLOW (YELLOW)
[2023-03-13 06:07] LABS: AMORPHOUS SEDIMENT,URINE FEW; APPEARANCE,URINE SLIGHTLY CLOUDY (CLEAR); BACTERIA,URINE MANY (NS); RBC,URINE 0-5 (0-5); SQUAMOUS EPITHELIAL CELLS,UR OCCASIONAL (NS,R,O); WBC,URINE 0-5 (0-5)
[2023-03-13 06:52] LABS: BASOPHILS PERCENT AUTO 0.1 % (0.3-3.8); HEMATOCRIT 36.5 % (38.3-50.1); HEMOGLOBIN 12.1 g/dL (12.9-17.7); LYMPHOCYTES ABSOLUTE AUTO 0.9 x10-3/uL (0.5-4.5); LYMPHOCYTES PERCENT AUTO 10.1 % (15.8-45.3); MEAN CORPUSCULAR HEMOGLOBIN 29.1 pg (27.0-33.3); MEAN CORPUSCULAR VOLUME 88.2 fL (80.8-98.7); MEAN PLATELET VOLUME 8.8 fL (6.7-11.0); MONOCYTES ABSOLUTE AUTO 0.3 x10-3/uL (0.0-1.2); MONOCYTES PERCENT AUTO 3.8 % (5.5-15.2); NEUTROPHILS ABSOLUTE AUTO 7.5 x10-3/uL (1.7-6.9); PLATELET COUNT,PLT 232 x10(3)uL (117-477); RED BLOOD CELL COUNT 4.14 x10(6)uL (3.90-5.90); RED CELL DISTRIBUTION WIDTH 15.5 % (12.4-15.0); WHITE BLOOD CELL COUNT,WBC 8.7 x10-3/uL (3.2-10.1)
[2023-03-13 07:06] LABS: ALBUMIN 2.7 g/dL (3.2-4.6); BILIRUBIN TOTAL 0.2 mg/dL (0.1-1.3); PROTEIN TOTAL,TP 7.1 g/dL (6.0-8.0)
[2023-03-13 08:23] LABS: BILIRUBIN DIRECT 0.11 mg/dL (0.10-0.20)
[2023-03-13] MEDS ORDERED: Diclofenac Sodium 1% Gel 100 GM Tube TOP PRN (08:52)
[2023-03-13] MEDS ORDERED: Loperamide 2 MG Cap PO PRN (08:52)
[2023-03-13 08:59] LABS: BLOOD UREA NITROGEN,BUN 45 mg/dL (7-18); CALCIUM 9.3 mg/dL (8.6-10.2); CARBON DIOXIDE,CO2 17 mmol/L (21-32); CHLORIDE,CL 108 mmol/L (100-110); CREATININE 1.1 mg/dL (0.70-1.30); EST CRCL DRUG DOSING (CG) 51.06 mL/min; ESTIMATED GFR 72 mL/min (>60); GLUCOSE RANDOM 166 mg/dL (80-116); POTASSIUM,K 4.1 mmol/L (3.5-5.3); SODIUM,NA 138 mmol/L (135-145)
[2023-03-13 09:02] LABS: BUN/CREATININE RATIO 40.9 (9-20)
[2023-03-13] MEDS ORDERED: Sennosides/Docusate Sodium 50-8.6 MG Tab PO PRN (09:05)
[2023-03-13] MEDS: levETIRAcetam 250 MG Tab PO SCH ×2 (10:12→20:54)
[2023-03-13] MEDS: Metoprolol Tartrate 25 MG Tab PO SCH ×2 (10:12→20:52)
[2023-03-13] MEDS: Aspirin 81 MG Tab.EC PO SCH (10:12)
[2023-03-13] MEDS: Pregabalin 100 MG Cap PO SCH ×3 (10:13→20:51)
[2023-03-13] MEDS: Acetaminophen/oxyCODONE 325-5 MG Tab PO SCH ×3 (10:13→20:48)
[2023-03-13] MEDS: oxyCODONE 5 MG Tab PO SCH ×3 (10:13→20:50)
[2023-03-13] MEDS: Polyethylene Glycol 3350 Powder 17 GM Packet PO SCH (10:14)
[2023-03-13] MEDS: Multivitamins with Iron/Calcium/Folic Acid/Minerals Tab PO SCH (10:14)
[2023-03-13] MEDS: amLODIPine 10 MG Tab PO SCH (10:14)
[2023-03-13] MEDS: Dexamethasone 4 MG/ML SDV IVPUSH SCH (10:18)
[2023-03-13] MEDS: Acetaminophen 325 MG Tab PO SCH ×3 (10:23→20:53)
[2023-03-13] MEDS: REMDESIVIR 100 MG in Sodium Chloride 0.9% 100 ML IV SCH (10:24)
[2023-03-13] MEDS: Pantoprazole 40 MG Tab.CR PO SCH (10:24)
[2023-03-13] MEDS: Enoxaparin 40 MG/0.4 ML Syringe SUBCUT SCH (16:10)
[2023-03-13] MEDS: Tamsulosin 0.4 MG Cap.ER PO SCH (19:11)
[2023-03-13] MEDS: atorvaSTATin 40 MG Tab PO SCH (19:11)
[2023-03-13] MEDS: Finasteride 5 MG Tab PO SCH (19:12)
[2023-03-14] MEDS: Pantoprazole 40 MG Tab.CR PO SCH (05:44)
[2023-03-14 06:50] LABS: ALBUMIN 2.8 g/dL (3.2-4.6); BILIRUBIN DIRECT 0.1 mg/dL (0.10-0.20); BILIRUBIN TOTAL 0.2 mg/dL (0.1-1.3); PROTEIN TOTAL,TP 7.1 g/dL (6.0-8.0)
[2023-03-14] MEDS: Metoprolol Tartrate 25 MG Tab PO SCH ×3 (08:15→20:55)
[2023-03-14] MEDS: amLODIPine 10 MG Tab PO SCH (08:15)
[2023-03-14] MEDS: Aspirin 81 MG Tab.EC PO SCH (08:16)
[2023-03-14] MEDS: Acetaminophen 325 MG Tab PO SCH ×3 (08:17→20:58)
[2023-03-14] MEDS: Multivitamins with Iron/Calcium/Folic Acid/Minerals Tab PO SCH (08:17)
[2023-03-14] MEDS: Acetaminophen/oxyCODONE 325-5 MG Tab PO SCH ×3 (08:18→20:57)
[2023-03-14] MEDS: Pregabalin 100 MG Cap PO SCH ×3 (08:20→20:56)
[2023-03-14] MEDS: oxyCODONE 5 MG Tab PO SCH ×3 (08:20→20:56)
[2023-03-14] MEDS: levETIRAcetam 250 MG Tab PO SCH ×2 (08:21→20:55)
[2023-03-14] MEDS: Polyethylene Glycol 3350 Powder 17 GM Packet PO SCH (08:22)
[2023-03-14] MEDS: Dexamethasone 4 MG/ML SDV IVPUSH SCH (08:24)
[2023-03-14] MEDS: Sodium Chloride 0.9% 10 ML Syringe FLUSH PRN ×3 (08:24→10:46)
[2023-03-14] MEDS: REMDESIVIR 100 MG in Sodium Chloride 0.9% 100 ML IV SCH (09:40)
[2023-03-14] MEDS: Finasteride 5 MG Tab PO SCH (18:29)
[2023-03-14] MEDS: atorvaSTATin 40 MG Tab PO SCH (18:29)
[2023-03-14] MEDS: Tamsulosin 0.4 MG Cap.ER PO SCH (18:30)
[2023-03-15] MEDS: Pantoprazole 40 MG Tab.CR PO SCH (06:55)
[2023-03-15] MEDS: Sodium Chloride 0.9% 10 ML Syringe FLUSH PRN ×4 (10:05→11:15)
[2023-03-15] MEDS: Dexamethasone 4 MG/ML SDV IVPUSH SCH (10:06)
[2023-03-15] MEDS: Aspirin 81 MG Tab.EC PO SCH (10:07)
[2023-03-15] MEDS: levETIRAcetam 250 MG Tab PO SCH ×2 (10:07→20:14)
[2023-03-15] MEDS: Pregabalin 100 MG Cap PO SCH ×3 (10:10→20:27)
[2023-03-15] MEDS: oxyCODONE 5 MG Tab PO SCH ×3 (10:11→20:26)
[2023-03-15] MEDS: Acetaminophen/oxyCODONE 325-5 MG Tab PO SCH ×3 (10:12→20:24)
[2023-03-15] MEDS: Multivitamins with Iron/Calcium/Folic Acid/Minerals Tab PO SCH (10:13)
[2023-03-15] MEDS: Acetaminophen 325 MG Tab PO SCH ×3 (10:13→20:15)
[2023-03-15] MEDS: REMDESIVIR 100 MG in Sodium Chloride 0.9% 100 ML IV SCH (10:15)
[2023-03-15] MEDS: amLODIPine 10 MG Tab PO SCH (10:20)
[2023-03-15] MEDS: Metoprolol Tartrate 25 MG Tab PO SCH ×2 (10:20→20:14)
[2023-03-15] MEDS: Polyethylene Glycol 3350 Powder 17 GM Packet PO SCH (10:21)
[2023-03-15] MEDS: Finasteride 5 MG Tab PO SCH (18:45)
[2023-03-15] MEDS: Tamsulosin 0.4 MG Cap.ER PO SCH (18:45)
[2023-03-15] MEDS: atorvaSTATin 40 MG Tab PO SCH (18:49)
[2023-03-16] MEDS: Pantoprazole 40 MG Tab.CR PO SCH (05:55)
[2023-03-16] MEDS: Dexamethasone 4 MG/ML SDV IVPUSH SCH (09:35)
[2023-03-16] MEDS: levETIRAcetam 250 MG Tab PO SCH (09:37)
[2023-03-16] MEDS: Aspirin 81 MG Tab.EC PO SCH (09:37)
[2023-03-16] MEDS: Metoprolol Tartrate 25 MG Tab PO SCH (09:37)
[2023-03-16] MEDS: Polyethylene Glycol 3350 Powder 17 GM Packet PO SCH (09:38)
[2023-03-16] MEDS: Acetaminophen/oxyCODONE 325-5 MG Tab PO SCH (09:38)
[2023-03-16] MEDS: amLODIPine 10 MG Tab PO SCH (09:38)
[2023-03-16] MEDS: Pregabalin 100 MG Cap PO SCH (09:38)
[2023-03-16] MEDS: oxyCODONE 5 MG Tab PO SCH (09:38)
[2023-03-16] MEDS: Multivitamins with Iron/Calcium/Folic Acid/Minerals Tab PO SCH (09:39)
[2023-03-16] MEDS: Acetaminophen 325 MG Tab PO SCH (09:39)
[2023-03-16] MEDS: REMDESIVIR 100 MG in Sodium Chloride 0.9% 100 ML IV SCH (09:40)
[2023-03-16 09:42] VITALS: BP 114/59
[2023-03-16] MEDS: Sodium Chloride 0.9% 10 ML Syringe FLUSH PRN (09:42)
[2023-03-16 10:19] VITALS: PULSE 53
== END 2023-03-16 10:45 | DRG 177 ==
LOC: FB.ED 10:53 → FB.MS 16:30
PROVIDERS: ADMIT Emergency Medicine; ATTEND Family Medicine
PROC: XW033E5 Introduction of Remdesivir Anti-infective into Peripheral Vein, Percutaneous Approach, New Technology Group 5 (ICD-10-PCS; principal; 2023-03-12)
PROC: 3E0333Z Introduction of Anti-inflammatory into Peripheral Vein, Percutaneous Approach (ICD-10-PCS; 2023-03-12)
DX: U07.1 COVID-19 (principal); J12.82 Pneumonia due to coronavirus disease 2019; E87.1 Hypo-osmolality and hyponatremia; N18.4 Chronic kidney disease, stage 4 (severe); I63.9 Cerebral infarction, unspecified; I12.9 Hypertensive chronic kidney disease with stage 1 through stage 4 chronic kidney disease, or unspecified chronic kidney disease; R06.00 Dyspnea, unspecified; I25.708 Atherosclerosis of coronary artery bypass graft(s), unspecified, with other forms of angina pectoris; Z51.5 Encounter for palliative care; E78.00 Pure hypercholesterolemia, unspecified; K21.9 Gastro-esophageal reflux disease without esophagitis; Z86.16 Personal history of COVID-19; D50.0 Iron deficiency anemia secondary to blood loss (chronic); D63.1 Anemia in chronic kidney disease; R56.9 Unspecified convulsions; E86.0 Dehydration; Z95.2 Presence of prosthetic heart valve; Z90.49 Acquired absence of other specified parts of digestive tract; Z88.0 Allergy status to penicillin; Z97.3 Presence of spectacles and contact lenses; Z79.82 Long term (current) use of aspirin; Z99.81 Dependence on supplemental oxygen; Z86.73 Personal history of transient ischemic attack (TIA), and cerebral infarction without residual deficits; Z79.899 Other long term (current) drug therapy
CPT/HCPCS: 36415; 71045; 71275; 80053; 83605; 83880; 84484; 85025; 85379; 85610; 85730; 93005; 96361; 96365; 96375; 99285; J1100; J7030; J7050; Q9967; 51701; 80048; 80076; 81001; 87086; 87088; 93010; 94640; 99223; 99232; 99238; A9270-GY; C1758; J3490; J7620

== ENCOUNTER 2023-09-08 09:02 | Day surgery (SDC) | payer MEDICARE, MEDICAID ==
[~2023-09-08 09:02] MED LIST: Lactated Ringers 1,000 ML IV PRN; Sodium Chloride 0.9% 10 ML Syringe FLUSH PRN
[2023-09-08] MEDS ORDERED: acetaZOLAMIDE 500 MG Cap.ER PO ONE (11:00)
== END 2023-09-08 10:20 | disposition home or self-care (01) ==
LOC: FB.SDS 09:02
PROVIDERS: ATTEND Ophthalmology
DX: H26.9 Unspecified cataract (principal); Z53.8 Procedure and treatment not carried out for other reasons; I10 Essential (primary) hypertension; K21.9 Gastro-esophageal reflux disease without esophagitis; I25.10 Atherosclerotic heart disease of native coronary artery without angina pectoris; Z95.1 Presence of aortocoronary bypass graft; Z88.0 Allergy status to penicillin

== ENCOUNTER 2024-05-03 15:54 | Emergency (ER) | payer MEDICARE, MEDICAID ==
[2024-05-03 16:59] LABS: BASOPHILS ABSOLUTE AUTO 0.1 x10-3/uL (0.0-0.3); BASOPHILS PERCENT AUTO 1.3 % (0.3-3.8); EOSINOPHILS ABSOLUTE AUTO 0.1 x10-3/uL (0.0-0.6); EOSINOPHILS PERCENT AUTO 0.9 % (0.1-6.8); HEMOGLOBIN 15.1 g/dL (12.9-17.7); LYMPHOCYTES ABSOLUTE AUTO 1.5 x10-3/uL (0.5-4.5); LYMPHOCYTES PERCENT AUTO 15.6 % (15.8-45.3); MEAN CORPUSCULAR HEMOGLOBIN 30.8 pg (27.0-33.3); MEAN CORPUSCULAR HGB CONC 33.6 g/dL (28.7-35.3); MEAN CORPUSCULAR VOLUME 91.6 fL (80.8-98.7); MEAN PLATELET VOLUME 7.9 fL (6.7-11.0); MONOCYTES ABSOLUTE AUTO 0.4 x10-3/uL (0.0-1.2); MONOCYTES PERCENT AUTO 4.5 % (5.5-15.2); NEUTROPHILS ABSOLUTE AUTO 7.3 x10-3/uL (1.7-6.9); NEUTROPHILS PERCENT AUTO 77.7 % (40.3-71.8); PLATELET COUNT,PLT 242 x10(3)uL (117-477); RED BLOOD CELL COUNT 4.91 x10(6)uL (3.90-5.90); WHITE BLOOD CELL COUNT,WBC 9.4 x10-3/uL (3.2-10.1)
[2024-05-03 17:07] LABS: BLOOD UREA NITROGEN,BUN 51 mg/dL (7-18); BUN/CREATININE RATIO 31.9 (9-20); CALCIUM 9.6 mg/dL (8.6-10.2); CARBON DIOXIDE,CO2 19 mmol/L (21-32); CHLORIDE,CL 104 mmol/L (100-110); CREATININE 1.6 mg/dL (0.70-1.30); ESTIMATED GFR 46 mL/min (>60); GLUCOSE RANDOM 120 mg/dL (80-116); POTASSIUM,K 4.4 mmol/L (3.5-5.3); SODIUM,NA 139 mmol/L (135-145)
[2024-05-03 17:07] LABS: BASE EXCESS VENOUS,POC -5 mmol/L (-2 - 3+); PCO2 VENOUS,POC 33 mmHg (41-51); PH VENOUS,POC 7.38 pH Units (7.32-7.43)
[2024-05-03 17:13] LABS: ALANINE AMINOTRANSFERASE,ALT 51 U/L (12-36); ALKALINE PHOSPHATASE 83 IU/L (56-112); ASPARTATE AMNIOTRANSFERASE,AST 29 IU/L (5-25); BILIRUBIN TOTAL 0.3 mg/dL (0.1-1.3); PROTEIN TOTAL,TP 8.1 g/dL (6.0-8.0)
[2024-05-03 17:17] LABS: C-REACTIVE PROTEIN 0.68 mg/dL (<0.50); TROPONIN I 36.4 pg/mL (4.0-60.3)
[2024-05-03 17:34] LABS: ETHANOL BLOOD MEDICAL 0.17 % (<0.03)
[2024-05-03] MEDS ORDERED: Sodium Chloride 0.9% 10 ML Syringe FLUSH PRN (17:50)
[2024-05-03] MEDS: Sodium Chloride 0.9% 500 ML IV ONE (18:18)
[2024-05-03 18:20] LABS: BILIRUBIN,URINE NEGATIVE (NEGATIVE); GLUCOSE,URINE NORMAL (NORMAL); KETONES,URINE NEGATIVE (NEGATIVE); LEUKOCYTE ESTERASE,URINE LARGE (NEGATIVE); NITRITE,URINE NEGATIVE (NEGATIVE); OCCULT BLOOD,URINE NEGATIVE (NEGATIVE); PROTEIN,URINE NEGATIVE (NEGATIVE); UROBILINOGEN,URINE NORMAL (NEGATIVE)
[2024-05-03 18:28] LABS: APPEARANCE,URINE CLEAR (CLEAR); BACTERIA,URINE FEW (NS); COLOR,URINE YELLOW (YELLOW); RBC,URINE 0-5 (0-5); SQUAMOUS EPITHELIAL CELLS,UR OCCASIONAL (NS,R,O)
[2024-05-03 18:29] LABS: AMPHETAMINES SCREEN, URINE NEGATIVE (NEGATIVE); BARBITURATE SCREEN,URINE NEGATIVE (NEGATIVE); BENZODIAZEPINES SCREEN,URINE NEGATIVE (NEGATIVE); METHADONE SCREEN, URINE NEGATIVE (NEGATIVE); METHAMPHETAMINE SCREEN, URINE NEGATIVE (NEGATIVE); OXYCODONE SCREEN,URINE POSITIVE (NEGATIVE); THC SCREEN,URINE NEGATIVE (NEGATIVE)
[2024-05-03 18:30] LABS: BUPRENORPHINE SCREEN,URINE NEGATIVE (NEGATIVE)
[2024-05-03] MEDS: Sodium Chloride 0.9% 1,000 ML IV SCH (19:16)
[2024-05-03] MEDS: Cefdinir 300 MG Cap PO ONE (22:18)
[2024-05-03] MEDS: levETIRAcetam 250 MG Tab PO ONE (22:23)
[2024-05-03 22:55] VITALS: BP 124/76; PULSE 72
[2024-05-04] MEDS ORDERED: levETIRAcetam 500 MG/5 ML Solution ML 473 ml Bottle PO ONE (21:27)
[2024-05-04] MEDS ORDERED: levETIRAcetam 250 MG Tab PO ONE (21:47)
== END 2024-05-03 23:15 | disposition home or self-care (01) ==
LOC: FB.ED 15:54
DX: F10.120 Alcohol abuse with intoxication, uncomplicated (principal); E87.20 Acidosis, unspecified; I25.10 Atherosclerotic heart disease of native coronary artery without angina pectoris; I10 Essential (primary) hypertension; E78.00 Pure hypercholesterolemia, unspecified; F17.200 Nicotine dependence, unspecified, uncomplicated; Z88.0 Allergy status to penicillin; Z79.82 Long term (current) use of aspirin; Z79.899 Other long term (current) drug therapy; Z86.73 Personal history of transient ischemic attack (TIA), and cerebral infarction without residual deficits; Z60.9 Problem related to social environment, unspecified; Z86.16 Personal history of COVID-19; Z95.1 Presence of aortocoronary bypass graft; Y90.9 Presence of alcohol in blood, level not specified
CPT/HCPCS: 36415; 70450; 71045; 80053; 80307; 81001; 83605; 83735; 84484; 85025; 86140; 87086; 93005; 96360; 96361; 99285; A9270; J7030

== ENCOUNTER 2024-05-06 10:27 | Emergency (ER) | payer MEDICARE, MEDICAID ==
[2024-05-06] MEDS ORDERED: Sodium Chloride 0.9% 10 ML Syringe FLUSH PRN (10:32)
[2024-05-06 13:52] VITALS: BP 104/67; PULSE 82
== END 2024-05-06 11:45 | disposition left against medical advice (07) ==
LOC: FB.ED 10:27
DX: R06.02 Shortness of breath (principal); I10 Essential (primary) hypertension; I25.10 Atherosclerotic heart disease of native coronary artery without angina pectoris; E11.9 Type 2 diabetes mellitus without complications; Z86.73 Personal history of transient ischemic attack (TIA), and cerebral infarction without residual deficits; Z95.1 Presence of aortocoronary bypass graft; Z53.29 Procedure and treatment not carried out because of patient's decision for other reasons
CPT/HCPCS: 71045; 99285